=== PATIENT | female | born 1960 | race Caucasian/White ===

== ENCOUNTER 2017-09-28 07:06 | Inpatient (IN) | payer MEDICAID, SELFPAY ==
--- NOTE | 2017-09-13 13:22 | HP.PCM_ITS ---
History and Physical DATE OF SERVICE: 09/28/2017 SCHEDULED PROCEDURE: Right total hip arthroplasty HISTORY OF PRESENT ILLNESS: This is a 57-year-old female who is been having ongoing pain in the right 10-15 years. Pain is been constant, aching, sharp, stabbing, and sore. Pain is increased going up and down stairs, walking any amount of distance, sitting for extended periods of time, and driving. Patient has difficult time with activities of daily living including bathing, housework, shopping, and leisure activities. Patient has tripped stumbled and fallen secondary to the right knee. Patient feels unsafe with all activities of daily living because she feels as if her knee is going to give out. Patient has tried conservative treatment measures consisting of rest, ice, heat, and elevation with minimal relief. Patient has tried conservative measure of physical therapy with minimal relief. She has been on oral medications consisting of Tylenol with minimal relief. Patient denies any previous surgery on the right knee. She has been using a cane for over 2 years for ambulatory assistance due to the instability. Patient does have numbness and tingling into the lower extremity due to diabetic neuropathy in which she takes gabapentin. After failing conservative measures and discussing all treatment options with Dr. Story, the patient would like to proceed with a right total knee arthroplasty. Patient has a medical history pertinent for type 2 diabetes mellitus, hypertension, and thyroid disease. She has obtained surgical clearance from her primary care physician. She has undergone an EKG which does show a stable right bundle branch block. She currently denies any chest pain, shortness of breath, fevers chills, recent infections or fevers chills. REVIEW OF SYSTEMS: ROS: Const: Denies change in appetite, fever,or weight change. CV: Denies chest pain, heart murmur and irregular heartbeat. Resp: Denies cough, pneumonia, SOB, tuberculosis and wheezing. GI: Reports constipation, diarrhea and heartburn, but denies difficulty swallowing, nausea, bloody stools and vomiting. : . (F Genital Sx) Urinary: denies incontinence. Musculo: Reports leg swelling, limp, trouble walking and weakness. Skin: Denies Raynaud's, history of shingles and tattoo. Neuro: Reports difficulty with balance and numbness/tingling but denies ambulatory dysfunction, dizziness and tremor. Psych: Reports anxiety and stress, but denies insomnia. Jeffrey/Lymph: Reports bleeding/bruising tendency and past transfusion, but denies anemia. Reviewed, no changes. PAST MEDICAL HISTORY: Advance Care Plan: No Advance Directives Effective Date: 09/02/2017 PMH: Medical Problems: Arthritis, Depression, Diabetes, High Blood Pressure, Thyroid Disease Accidents: Fracture - LT ANKLE Surgical Hx: Appendectomy, Gallbladder, Hysterectomy, Tubal Ligation Anesthesia Complications: None Assistive Devices: Glasses, Dentures, Cane Reviewed, no changes. SOCIAL HISTORY: SH: Marital: .Occupation: Currently Working - [employer].Work Status: Currently Working.Hand Dominance: Right-handed. Personal Habits: Cigarette Use: Patient is a current cigarette smoker, smokes some days.Alcohol: Occasionally.Drug Use: Denies Use.Enjoy Exercising: Exercises 1-3 x/month. Reviewed, no changes. VITALS: Ht: 64.5 Wt: 262lb Wt k.843 BMI: 44.3 BP: 130/90 Pulse: 78 Resp: 16 T: 97.9 T: 36.6C ALLERGIES: Tetanus Toxoid Vaccine, Inactivated MEDICATIONS: Gabapentin 600 mg Take 1 tablet 3 times a day by oral route., Glipizide 5 mg Take 1 Tablet Twice A Day, Humalog Kwikpen 100 Unit/ML Inject 14-18 Units Subcutaneously Twice A Day With Meals, Hydrochlorothiazide 25 mg Take 1 Tablet Daily, Levothyroxine Sodium 125 mcg Take 1 Tablet Daily, Lisinopril 30 mg Take 1 Tablet Daily, Pantoprazole Sodium 40 mg Take 1 Tablet Daily, Ranitidine 150 Maximum Strength 150 mg Take 1 Tablet Daily, Toujeo Solostar 300 Unit/ML Inject 40 Units Subcutaneously Daily, Trintellix 10 mg 1po qday, Duloxetine HCL 60 mg 1 by mouth every day, Womens Multivitamin 1po qday, Tylenol Extra Strength 500 mg as needed, Aspirin 81 mg 1 by mouth every day PRE-OP EXAM: General appearance:NORMAL Other: Eyes: Conjunctivae and lids: NORMAL Pupils: ERR Ears, Nose, Mouth, and Throat: NORMAL Other: Inspection of lips, teeth and gums: NORMAL Other: Neck: Examination of neck: no masses noted. Respiratory: Assessment of respiratory effort: NORMAL Other: Ausculation of lungs: clear to ausculation no wheeses, ronchi or rales. Cardiovascular: Ausculation of heart: regular rate and rhythm, positive systolic mummur, no gallops or rubs. Exam of carotid arteries: NORMAL Other: Gastrointestinal: Exam of abdomen: soft, nontender, nondistended bowel sounds present. Lymphatic: Palpation of nodes in neck: NORMAL Other: Palpation of nodes in Axillae: NORMAL Other: Neurological: see below Psychiatric: Orientation to time, place and person: NORMAL Other: Mood and affect: NORMAL Other: PHYSICAL EXAMINATION: Patient walks with an antalgic gait. She has effusion to the right knee. Range of motion on the right knee is +15? of extension to 100? of flexion. She has tenderness to palpation over the medial lateral joint line. Patient does have valgus alignment. Sensations intact to light touch. IMAGING STUDIES: Right knee x-rays reveal severe tricompartmental osteoarthritis with valgus alignment, subchondral sclerosis, osteophyte formation, and joint space narrowing. IMPRESSION: 1. Severe right knee osteoarthritis with valgus alignment 2. Hypertension 3. Type 2 diabetes mellitus 4. Depression 5. Thyroid disease 6. History of stable right bundle branch block PLAN: Dr. Story did discuss and review with the patient all treatment options including surgical versus nonsurgical. Patient wishes to proceed with above- stated procedure. Potential risks, benefits, and complications of this procedure were discussed in detail including but not limited to , infection , nerve and blood vessel damage, persistent pain, numbness, tingling, paresthesias, blood clot, pulmonary embolism, and requirement for further surgery. The patient expressed full understanding has no further questions for the doctor. Patient does agree to proceed with the above-stated procedure and has signed the surgery consent form. Patient has obtained surgical clearance from primary care physician. She will undergo preoperative lab work. ___ I have re-examined the patient. There are no clinical changes since date of exam. ___ See progress notes for changes. ___ Dictated on admission Date: Time: Signature:
[2017-09-13 13:37] VITALS: BP 154/75; PULSE 69; RESP 16; TEMP 36.1; O2SAT 97; BMI 44.9
[2017-09-13 14:12] LABS: Absolute Lymphocyte Count 1.41 X10^3/ul (0.83-4.51); Absolute Neutrophil Count 4.5 X10^3/uL (2.0-7.7); Basophil# 0.02 X10^3/uL; Basophil% 0.3 % (0-1); Eosinophil# 0.01 X10^3/uL; Eosinophils% 0.2 % (0-5); Hematocrit 32.7 % (37-47); Hemoglobin 10.9 g/dl (12.0-15.0); Lymphocyte # 1.41 X10^3/ul (4.0); Lymphocyte % 22.2 % (19-41); Mean Corp Hgb Conc 33.3 g/gl (32-36); Mean Corpuscular Hgb 29.2 pg (27.0-32.0); Mean Corpuscular Volume 87.7 fL (81-99); Mean Platelet Vol. 11.4 fl (6.2-12.0); Monocyte# 0.41 X10^3/uL; Monocyte% 6.4 % (0-10); Neutrophil % 70.7 % (47-70); Platelet Count 196 K/mm3 (150-450); RBC Distribution Width CV 13.1 % (11.6-14.6); RBC Distribution Width SD 40.5 fl (35.1-43.9); Red Blood Count 3.73 M/mm3 (4.2-5.4); White Blood Count 6.4 K/mm3 (4.4-11.0)
[2017-09-13 14:16] LABS: POSITIVE COUNT NO; POSITIVE DIFFERENTIAL NO; POSITIVE MORPHOLOGY NO
[2017-09-13 14:28] LABS: Prothrombin Time (Protime)PT. 12.7 SECONDS (11.7-14.9)
[2017-09-13 14:29] LABS: Partial Thromboplast Time 37.7 Seconds (24.1-36.2)
[2017-09-13 14:50] LABS: AST(SGOT) 10 U/L (15-37); Alanine Aminotransfer ALT/SGPT 17 U/L (13-56); Albumin, Serum 3.5 g/dL (3.2-5.0); Alkaline Phosphatase 99 U/L (45-117); Anion Gap 7 (5-15); BUN 27 mg/dL (7-18); BUN/Creat Ratio 19.6 RATIO (10-20); Bilirubin, Direct 0.06 mg/dL (0.00-0.30); Calcium,Total 8.3 mg/dL (8.5-10.1); Chloride 105 mmol/L (98-107); Creatinine, Serum 1.38 mg/dL (0.55-1.02); EST Glomerular Filtration Rate 42 mL/min (>60); Est Glom Filt Rate - Afr Amer 50 mL/min (>60); Globulin 3.8 g/dL (2.2-4.2); Glucose 200 mg/dL (74-106); Potassium 4.2 mmol/L (3.5-5.1); Protein, Total 7.3 g/dL (6.4-8.2); Sodium Level 138 mmol/L (136-145); Thyroid Stim Hormone (TSH) 1.23 uIU/mL (0.358-3.74)
[2017-09-13 14:53] LABS: Hemoglobin A1c 6.7 % (4.2-6.3)
[2017-09-28] VITALS (16 sets, daily range): BP systolic 114–155; BP diastolic 45–89; PULSE 71–96; RESP 16–18; TEMP 36.6–36.9; O2SAT 93–99; BMI 44.9
[2017-09-28] MEDS: oxyCODONE HCl Cr 10 MG Tablet PO (07:34)
[2017-09-28] MEDS: Celecoxib 200 MG Capsule 400 MG PO (07:34)
[2017-09-28] MEDS: Acetaminophen 500 MG Tablet 1000 MG PO ×3 (07:34→22:44)
[2017-09-28] MEDS: Lactated Ringers 1,000 ML 999 ML IV ×2 (08:05→09:30)
[2017-09-28 08:51] LABS: Bedside Glucose 271 mg/dL (70-110)
[2017-09-28] MEDS: Cefazolin 2 GM in 0.9% Normal Saline 100 ML IV (09:31)
--- NOTE | 2017-09-28 09:32 | PCM.OPRPT ---
Report of Operation Date of Procedure: 09/28/17 Pre-Operative Diagnosis: Primary right knee osteoarthritis Post-Operative Diagnosis: Primary right knee osteoarthritis Surgery/Procedure Performed:: Right posterior stabilized total knee replacement Description of Surgical Findings:: Balance knee with good patella tracking field marketing manager: Herb Jimenez Type of Anesthesia:: General Anesthesiologist: Yousif Rivera Special Medications: 2 g Ancef, 1 g TXA at incision, 1 g TXA closure, 10 mg Decadron, joint cocktail (5 mg Duramorph, 30 mL of 0.5% Ropivicaine, 1000 units of epinephrine, 30 mg of Toradol) Specimen's removed: Bony cuts Estimated Blood Loss (mL): 75 Fluids Replaced: 1200 ml crystalloid Description of Procedure: Implants used: 1. [place] size 3 triathlon posterior stabilized distal femoral component 2. Nehal size 4 universal tibial baseplate 3. Nehal X3 9 mm TS polyethylene 4. Nehal X3 32 mm asymmetric patella Brief history operative indications: 57-year-old F with history of right knee osteoarthritis with radiographic findings with loss of joint space, osteophyte formation and subchondral sclerosis. Failed conservative measures as mentioned in the H&P. Discussion of total knee arthroplasty as well as risk and benefits were discussed the patient including but not limited to blood loss, DVTs, PEs, neurovascular damage, general risk of anesthesia including loss of life, and stiffness or instability were discussed with patient. Patient demonstrated understanding and was able to sign informed consent. Procedure: On the date of procedure patient's right lower extremity was marked in the preoperative area. The patient was then taken back to the operating room where the patient was placed on the table in the supine position. All bony prominences were identified a well-padded. Anesthesia assumed control of the C-spine and airway and remained controlled throughout the remainder of the procedure. A tourniquet was placed on the right upper thigh and the leg was prepped in a sterile fashion. The surgeon then scrubbed at this time. Upon reentering the room the right lower extremity was draped in a standard orthopedic fashion. A timeout was then called and everyone agreed upon the side, the site, the procedure to be performed, patient's identity and antibiotics given. Esmarch bandage was used to exsanguinate the extremity and the tourniquet was placed up to 250 mmHg with the knee in flexion. A midline skin incision was made and sharp dissection was taken down through skin subcutaneous tissue and fat. The standard medial parapatellar incision was made and the patella was subluxed laterally. The standard deep MCL release was done and the fat pad was resected. Next our attention was directed to the femur. Navigation pins were placed, navigation was registered. The distal femoral cutting block was pinned into place and 10 mm of distal femur resection was completed. The distal femoral cut was verified with navigation. The knee was then placed in deep flexion in the standard [employer] sizing guide was used to place the femoral component in 3? external rotation based on the posterior condyles. A size 3 4-in-1 cutting block was selected and pinned into place. The anterior cut was then made and checked for notching. The subsequent anterior chamfer cuts, posterior condylar cuts and posterior chamfer cuts were made while ensuring the MCL and LCL were protected. Our attention was then turned to the tibia where the navigation pins were placed, navigation was registered. mPort tibial cutting guide was used to make the appropriate tibial cut 90 degrees from the mechanical axis. Navigation was then used to verify the cut. A size 4 tibial base plate was selected. the knee was flexed to 90 degrees and the soft tissues and posterior osteophytes were removed from the joint. 40 cc of the periarticular injection was injected into the posterior medial corner of the joint. Knee was flexed and box cutting jig was pinned into place. Box cut was made in the distal femur. The appropriate trials were then placed on the femur and tibia. A trial polyethylene was trialed to ensure proper balancing and stability of the knee. Patella tracking, was then verified and corrected appropriately as needed. The appropriate tibial internal rotation was then marked with a bovie. Our attention was then directed to the patella. The patella was everted and a flat resection was made. The lug holes were drilled and the patella trial was placed. Patellar tracking was checked and deemed appropriate. Once we were happy trial components were removed. the tibia was subluxed and pinned into place and the keel was punched and the canal was reamed. Final components were verified and opened, and cement was mixed in a vacuum. Nehal Simplex cement was used. The wound was copiously irrigated with normal saline. When the cement was ready the components were cemented into place starting with the tibia, femur and finally the patella. The trial poly component was placed and the knee was placed in full extension. All excess cement was removed in the process. Once the cement had cured the tracking, alignment and balance were verified and a size 9 mm polyethylene component was placed. Once the final components were placed the wound was copiously irrigated with normal saline solution and the periarticular injection was given. The wound was closed in a layer jung fashion using #1 vicryl interrupted sutures for the arthrotomy, 2-0 interrupted Vicryl suture for the subcuticular layer and kyaw for final skin closure. A sterile compressive dressing was then placed. The patient was then awakened from anesthesia, transferred to the [facility] and transferred to the PACU for recovery. Post op plan DVT ppx: ASA 325mg, thigh high compression stockings Follow up: in office in 2 weeks for wound check PT: to start POD #0 at hospital, outpatient PT should be arranged. My physician assistant terminal manager was a vital part of this case. He was important in appropriate retraction during the case, and protection of soft tissues during bony cuts. His intimate knowledge of the case and my steps aided in safe and expedient completion of the procedure as well as appropriate position of the leg during the case. He was also vital in assisting with closure under my direct supervision. Grafts/Implants Used: Nehal triathlon - Complications None - Admit VTE Documentation VTE Present on Admission: No VTE Mechan Device Prophylaxis: SCD's, Thigh High SHAHRAM Hose VTE Pharm Prophylaxis ordered?: Yes
--- NOTE | 2017-09-28 09:36 | OP.PCM_ITS ---
Report of Operation Date of Procedure: 09/28/17 Pre-Operative Diagnosis: Primary right knee osteoarthritis Post-Operative Diagnosis: Primary right knee osteoarthritis Surgery/Procedure Performed:: Right posterior stabilized total knee replacement Description of Surgical Findings:: Balance knee with good patella tracking micropaleontologist: Herb Jimenez Type of Anesthesia:: General Anesthesiologist: Yousif Rivera Special Medications: 2 g Ancef, 1 g TXA at incision, 1 g TXA closure, 10 mg Decadron, joint cocktail (5 mg Duramorph, 30 mL of 0.5% Ropivicaine, 1000 units of epinephrine, 30 mg of Toradol) Specimen's removed: Bony cuts Estimated Blood Loss (mL): 75 Fluids Replaced: 1200 ml crystalloid Description of Procedure: Implants used: 1. [place] size 3 triathlon posterior stabilized distal femoral component 2. Nehal size 4 universal tibial baseplate 3. Nehal X3 9 mm TS polyethylene 4. Nehal X3 32 mm asymmetric patella Brief history operative indications: 57-year-old F with history of right knee osteoarthritis with radiographic findings with loss of joint space, osteophyte formation and subchondral sclerosis. Failed conservative measures as mentioned in the H&P. Discussion of total knee arthroplasty as well as risk and benefits were discussed the patient including but not limited to blood loss, DVTs, PEs, neurovascular damage , general risk of anesthesia including loss of life, and stiffness or instability were discussed with patient. Patient demonstrated understanding and was able to sign informed consent. Procedure: On the date of procedure patient's right lower extremity was marked in the preoperative area. The patient was then taken back to the operating room where the patient was placed on the table in the supine position. All bony prominences were identified a well-padded. Anesthesia assumed control of the C- spine and airway and remained controlled throughout the remainder of the procedure. A tourniquet was placed on the right upper thigh and the leg was prepped in a sterile fashion. The surgeon then scrubbed at this time. Upon reentering the room the right lower extremity was draped in a standard orthopedic fashion. A timeout was then called and everyone agreed upon the side , the site, the procedure to be performed, patient's identity and antibiotics given. Esmarch bandage was used to exsanguinate the extremity and the tourniquet was placed up to 250 mmHg with the knee in flexion. A midline skin incision was made and sharp dissection was taken down through skin subcutaneous tissue and fat. The standard medial parapatellar incision was made and the patella was subluxed laterally. The standard deep MCL release was done and the fat pad was resected. Next our attention was directed to the femur. Navigation pins were placed, navigation was registered. The distal femoral cutting block was pinned into place and 10 mm of distal femur resection was completed. The distal femoral cut was verified with navigation. The knee was then placed in deep flexion in the standard [employer] sizing guide was used to place the femoral component in 3? external rotation based on the posterior condyles. A size 3 4-in-1 cutting block was selected and pinned into place. The anterior cut was then made and checked for notching. The subsequent anterior chamfer cuts, posterior condylar cuts and posterior chamfer cuts were made while ensuring the MCL and LCL were protected. Our attention was then turned to the tibia where the navigation pins were placed , navigation was registered. [employer] tibial cutting guide was used to make the appropriate tibial cut 90 degrees from the mechanical axis. Navigation was then used to verify the cut. A size 4 tibial base plate was selected. the knee was flexed to 90 degrees and the soft tissues and posterior osteophytes were removed from the joint. 40 cc of the periarticular injection was injected into the posterior medial corner of the joint. Knee was flexed and box cutting jig was pinned into place. Box cut was made in the distal femur. The appropriate trials were then placed on the femur and tibia. A trial polyethylene was trialed to ensure proper balancing and stability of the knee. Patella tracking, was then verified and corrected appropriately as needed. The appropriate tibial internal rotation was then marked with a bovie. Our attention was then directed to the patella. The patella was everted and a flat resection was made. The lug holes were drilled and the patella trial was placed. Patellar tracking was checked and deemed appropriate. Once we were happy trial components were removed. the tibia was subluxed and pinned into place and the keel was punched and the canal was reamed. Final components were verified and opened, and cement was mixed in a vacuum. Nehal Simplex cement was used. The wound was copiously irrigated with normal saline. When the cement was ready the components were cemented into place starting with the tibia, femur and finally the patella. The trial poly component was placed and the knee was placed in full extension. All excess cement was removed in the process. Once the cement had cured the tracking, alignment and balance were verified and a size 9 mm polyethylene component was placed. Once the final components were placed the wound was copiously irrigated with normal saline solution and the periarticular injection was given. The wound was closed in a layer jung fashion using #1 vicryl interrupted sutures for the arthrotomy, 2-0 interrupted Vicryl suture for the subcuticular layer and kyaw for final skin closure. A sterile compressive dressing was then placed. The patient was then awakened from anesthesia, transferred to the [place] and transferred to the PACU for recovery. Post op plan DVT ppx: ASA 325mg, thigh high compression stockings Follow up: in office in 2 weeks for wound check PT: to start POD #0 at hospital, outpatient PT should be arranged. My physician dental laboratory assistant was a vital part of this case. He was important in appropriate retraction during the case, and protection of soft tissues during bony cuts. His intimate knowledge of the case and my steps aided in safe and expedient completion of the procedure as well as appropriate position of the leg during the case. He was also vital in assisting with closure under my direct supervision. Grafts/Implants Used: Nehal triathlon - Complications None - Admit VTE Documentation VTE Present on Admission: No VTE Mechan Device Prophylaxis: SCD's, Thigh High SHAHRAM Hose VTE Pharm Prophylaxis ordered?: Yes
--- NOTE | 2017-09-28 11:55 | RAD_ITS ---
STUDY: X-RAY - RIGHT KNEE REASON FOR EXAM: Female, 57 years old. Total knee replacement. TECHNIQUE: Single frontal view(s) of the knee. COMPARISON: None. FINDINGS: Normal visualized distal femur. Normal visualized proximal tibia and fibula. Normal proximal tibiofibular articulation. The patient is status post total knee replacement of the restraint type. Postoperative soft tissue changes. RAD/Knee 1 or 2 Views IMPRESSION: Status post total knee replacement of the restrained type. Electronically Signed: Cliff Griffith MD at 14:15 EST Tel [phone], Service support ,
[2017-09-28 11:56] LABS: Bedside Glucose 278 mg/dL (70-110)
--- NOTE | 2017-09-28 12:15 | PCM.CONS.GEN ---
Problem List (1) Hypothyroidism Status: Chronic Qualifiers: Hypothyroidism type: unspecified Qualified Code(s): E03.9 - Hypothyroidism, unspecified (2) Hypertension Status: Chronic Qualifiers: Hypertension type: renovascular hypertension Qualified Code(s): I15.0 - Renovascular hypertension (3) Hyperlipidemia Status: Chronic Qualifiers: Hyperlipidemia type: unspecified Qualified Code(s): E78.5 - Hyperlipidemia, unspecified (4) Diabetes mellitus, type II Status: Chronic Qualifiers: Diabetes mellitus complication status: with unspecified complications Diabetes mellitus custodial insulin use: with assistant terminal manager use Qualified Code(s): E11.8 - Type 2 diabetes mellitus with unspecified complications; Z79.4 - MCFP (current) use of insulin (5) Morbid obesity with BMI of 40.0-44.9, adult Status: Chronic (6) Anxiety and depression Status: Chronic (7) GERD (gastroesophageal reflux disease) Status: Chronic Qualifiers: Esophagitis presence: esophagitis presence not specified Qualified Code(s): K21.9 - Gastro-esophageal reflux disease without esophagitis (8) Neuropathy Status: Chronic (9) Osteoarthritis Status: Chronic Qualifiers: Osteoarthritis location: knee Osteoarthritis type: primary Laterality: right Qualified Code(s): M17.11 - Unilateral primary osteoarthritis, right knee (10) Tobacco use Status: Chronic Reason for Consult Date of Consultation: 09/28/17 Reason for Consultation: Medical management. History of Present Illness: The patient is a 57 y/o F w/ PMHx: Tobacco use, Hypothyroidism, Hypertension, Hyperlipidemia, Diabetes mellitus type II w/ Neuropathy, Morbid obesity, Anxiety and depression, GERD who presents to the [facility] on 09/28/17 for planned R TKR per Dr. Story secondary to history of primary R knee osteoarthritis, failed conservative and outpatient interventions with ongoing pain. Patient post-operatively had notable pain, was given notable narcotic regimen in the PACU and following per [facility] staff was somnolent. Since, she is more alert, upright in bed, eating jello. She notes lumbar back discomfort, improved with re-positioning, requesting to move to the chair. Past Medical History Past Medical History (Chronic Problems): Chronic Problems Hypothyroidism (Chronic) Hypertension (Chronic) Hyperlipidemia (Chronic) Diabetes mellitus, type II (Chronic) Morbid obesity with BMI of 40.0-44.9, adult (Chronic) Anxiety and depression (Chronic) GERD (gastroesophageal reflux disease) (Chronic) Neuropathy (Chronic) Osteoarthritis (Chronic) Tobacco use (Chronic) Allergies Tetanus Vaccines and Toxoid [Tetanus Vaccines & Toxoid] Allergy (Verified 09/13/17 13:09) Other Home Medications: Ambulatory Orders Medication Instructions Recorded Acetaminophen [Tylenol Extra 500 mg PO PRN PRN 09/13/17 Strength] Aspirin E.C. [Ecotrin] 81 mg PO DAILY@0800 09/13/17 Duloxetine Hcl [Cymbalta] 60 mg PO DAILY 09/13/17 Gabapentin [Gralise] 600 mg PO TID 09/13/17 Glipizide 5 mg PO BID 09/13/17 Hydrochlorothiazide [Hctz] 25 mg PO DAILY 09/13/17 Insulin Glargine,Hum.rec.anlog 45 unit SQ QHS 09/13/17 [Toujeo Solostar] Insulin Lispro [Humalog KwikPen] 25 unit SQ BID 09/13/17 Levothyroxine Sodium 125 mcg PO DAILY 09/13/17 Lisinopril [Zestril] 30 mg PO DAILY 09/13/17 Multivit with Calcium,Iron,Min 1 each PO QHS 09/13/17 [Multiple Vitamins For Women] Pantoprazole Sodium [Protonix] 40 mg PO DAILY 09/13/17 Ranitidine HCl 150 mg PO QHS 09/13/17 Vortioxetine Hydrobromide 10 mg PO DAILY 09/13/17 [Brintellix] Surgical History: - - Appendectomy, Gallbladder, Hysterectomy, Tubal Ligation. 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 Tobacco Use: Cigarettes Alcohol: None Drugs: None - *Family History Maternal History Items: Hypertension Paternal History Items: Hypertension Review of Systems Constitutional: Reports: Malaise, Weakness, Fatigue. Denies: Chills, Fever, Weight Change HEENT: Denies: Head Aches, Sinus Congestion, Sinus Drainage Cardiovascular: Denies: Chest Pain, Palpitations Respiratory: Denies: Cough, Shortness of breath at rest, Sputum production Gastrointestinal: Denies: Abdominal Pain, Nausea, Vomiting Genitourinary: Denies: Dysuria Musculoskeletal: Reports: Back Pain, Joint stiffness, Joint swelling, Joint Tenderness, Leg Pain. Denies: Joint Pain Skin: Denies: Rash, Wounds Neurological: Denies: Numbness, Tingling, Focal weakness Psychiatric: Reports: Depression. Denies: Anxiety, Homicidal Ideations, Suicidal Ideations Hematologic/ Lymphatic: Denies: Easy Bruising, Easy Bleeding Subjective: Seated upright in the bed, fatigued, notes lower back pain. Objective: Physical Examination: General: awake, alert, oriented x 3 and cooperative, seated upright in bed, uncomfortable. Skin: normal color, turgor, no icterus, cyanosis, RLE s/p R TKR w/ dressing/ice in place, no drainage. HEENT: AT/NC, EOMI, PERRLA, mildly dry MM, no carotid bruits or JVD noted. Lungs: Diminished BS BL, > bases, mild effort, no rales, ronchi or wheezing. Heart: Regular rate and rhythm; no gallop, rub audible. Abdomen: soft, morbidly obese, NTTP, ND, normal BS, no HSM; however, habitus makes examination difficult. Extremities: no cyanosis, clubbing, s/p R TKR, dressing/ice in place, peripheral pulses intact, mild ankle edema. Neurological: patient awake, alert, oriented x 3; cognitive function intact; pupils equally reactive to light and accomodation; cranial nerves II-XII grossly normal, moving all 4 extremities although expected limitation RLE s/p recent R TKR, strength accordingly severely globally decreased. Psychiatric: affect appears normal, no acute evidence of depressive or anxiety feelings. - Physical Exam Vital Signs Temp Pulse Resp BP Pulse Ox 98.5 F 94 16 114/51 L 98 09/28/17 11:49 09/28/17 11:49 09/28/17 11:49 09/28/17 11:49 09/28/17 11:49 Oxygen Flow Rate 4 Oxygen Delivery Method Nasal Cannula Weight: 265 lb 14.04 oz Body Mass Index (BMI) 44.9 POC Glucose 09/28/17 09/28/17 11:52 07:40 POC Glucose 278 H 271 H Assessment/Plan The patient is a 57 y/o F w/ PMHx: Tobacco use, Hypothyroidism, Hypertension, Hyperlipidemia, Diabetes mellitus type II w/ Neuropathy, Morbid obesity, Anxiety and depression, GERD who presents to the [facility] on 09/28/17 for planned R TKR per Dr. Story secondary to history of primary R knee osteoarthritis. (1) Severe Osteoarthritis, Right knee: Failed conservative therapies and treatments, admitted per Dr. Story for planned 09/28/17 R TKR, post-operative pain management, bowel regimen, DVT Prophylaxis, PT/OT/CM per Orthopedic surgery discretion. (2) Diabetes mellitus type II w/ Neuropathy: Hold oral home regimen, continue home insulin regimen, ADA diet, accu checks w/ ISS, continue home gabapentin regimen. (3) Hypertension: Continue home regimen including chlorothiazide, lisinopril, PRN hydralazine. (4) Hyperlipidemia: Not on regimen, defer to outpatient. (5) Hypothyroidism: Continue home synthroid regimen. (6) Anxiety and Depression: Continue home psychiatric regime including cymbalta, brintellix. (7) Morbid Obesity: Weight loss and lifestyle changes encouraged, nutrition consulted. (8) Tobacco Abuse: Encouraged cessation, inpatient consultation per RT, NR if desired. (9) GERD: PPI. (10) DVT Prophylaxis: SCDs, 325 mg BID ASA per Orthopedic surgery discretion. Code Visit Office Visits / Consults: [id number] IP Consult L4
--- NOTE | 2017-09-28 13:12 | NURSING ---
PT RESTS COMFORTABLY WITH EVEN RESP BUT REPORTS PAIN WHEN AWAKENED, AWARE AWAITING NERVE BLOCK FROM ANESTHESIA.
[2017-09-28] MEDS: Lactated Ringers 1,000 ML 125 ML IV ×3 (13:23→23:11)
[2017-09-28] MEDS: hydroCHLOROthiazide 25 MG Tablet PO (16:23)
[2017-09-28] MEDS: Aspirin 325 MG Tablet PO (16:23)
[2017-09-28] MEDS: Scopolamine 1mg/72hr Patch 1 PATCH TD (16:25)
[2017-09-28] MEDS: Glucerna Shake 120 ML LIQUID PO (16:28)
[2017-09-28 17:06] LABS: Magnesium 1.7 mg/dL (1.6-2.6)
[2017-09-28] MEDS: Cefazolin 1 GM/50 ML BAG IV (17:10)
[2017-09-28 17:16] LABS: Bedside Glucose 349 mg/dL (70-110)
[2017-09-28] MEDS: Famotidine 20 MG Tablet PO (22:43)
[2017-09-28] MEDS: Senna/Docusate Sodium 1 Tablet 2 TABLET PO (22:43)
[2017-09-28] MEDS: oxyCODONE 5 MG Tablet PO (22:43)
[2017-09-28] MEDS: Multivitamins,Ther W-Minerals Tablet 1 TABLET PO (22:44)
[2017-09-28] MEDS: Gabapentin 600 MG Tablet PO (22:52)
[2017-09-28 23:16] LABS: Bedside Glucose 266 mg/dL (70-110)
[2017-09-29] MEDS: Cefazolin 1 GM/50 ML BAG IV (01:24)
[2017-09-29] MEDS: 0.9% NaCl Peripheral Flush Adult/Peds IV ×5 (04:53→20:09)
[2017-09-29 04:58] VITALS: BP 144/61; PULSE 82; RESP 18; TEMP 36.8; O2SAT 97
[2017-09-29 05:01] VITALS: PULSE 66
[2017-09-29] MEDS: Acetaminophen 500 MG Tablet 1000 MG PO ×3 (05:07→21:54)
[2017-09-29] MEDS: Gabapentin 600 MG Tablet PO ×3 (05:07→21:53)
[2017-09-29] MEDS: Levothyroxine 125 MCG Tablet PO (05:08)
[2017-09-29 06:59] LABS: Hematocrit 25.3 % (37-47); Hemoglobin 8.3 g/dl (12.0-15.0); Mean Corp Hgb Conc 32.8 g/gl (32-36); Mean Corpuscular Volume 88.5 fL (81-99); Mean Platelet Vol. 11.3 fl (6.2-12.0); Platelet Count 158 K/mm3 (150-450); RBC Distribution Width CV 12.8 % (11.6-14.6); RBC Distribution Width SD 39.8 fl (35.1-43.9); Red Blood Count 2.86 M/mm3 (4.2-5.4); White Blood Count 10.5 K/mm3 (4.4-11.0)
[2017-09-29 07:01] LABS: Bedside Glucose 229 mg/dL (70-110)
[2017-09-29 07:01] LABS: Scan Indicated on CBC? Y/N NO
--- NOTE | 2017-09-29 07:10 | PCM.PN.ORT ---
Subjective: The patient was sitting in bedside chair upon examination. Patient denies any chest pain, shortness of breath, dizziness, lightheadedness, nausea or vomiting, or calf pain. Pain is controlled on medications. No adverse overnight events. Overall patient is doing well and has been up walking with pain being well controlled. Patient does wish to go home today. Objective: Vital signs stable and afebrile. Patient is able to plantarflex and dorsiflex actively. Sensation is intact to light touch to saphenous, sural, superficial and deep peroneal, and tibial distribution. Dressing is clean dry and intact. Negative Homans bilaterally, negative signs and symptoms of DVT. - Physical Exam General: Alert, Oriented x3, Cooperative, No apparent distress Vital Signs Temp Pulse Resp BP Pulse Ox 98.3 F 66 18 144/61 H 97 09/29/17 04:58 09/29/17 05:01 09/29/17 04:58 09/29/17 04:58 09/29/17 04:58 Oxygen Flow Rate 2 Oxygen Delivery Method Room Air Weight: 120.6 kg Body Mass Index (BMI) 44.9 Finger Stick Blood Glucose 278 Intake and Output for Last 24 Hours 09/27/17 09/28/17 09/29/17 23:59 23:59 23:59 Intake Total 5226 / 5226 1306 / 1306 Output Total 650 / 650 Balance 5226 / 5226 656 / 656 Laboratory Tests Past 24 Hrs 09/28/17 09/29/17 09/29/17 16:22 06:42 06:42 WBC 10.5 RBC 2.86 L Hgb 8.3 L Hct 25.3 L MCV 88.5 MCH 29.0 MCHC 32.8 RDW 12.8 RDW Differential 39.8 Plt Count 158 MPV 11.3 Sodium Pending Potassium Pending Chloride Pending Carbon Dioxide Pending Anion Gap Pending BUN Pending Creatinine Pending Est GFR (MDRD) Af Amer Pending Est GFR (MDRD) Non-Af Pending BUN/Creatinine Ratio Pending Glucose Pending Calcium Pending Magnesium 1.7 POC Glucose 09/29/17 09/28/17 09/28/17 06:56 22:35 17:07 POC Glucose 229 H 266 H 349 H 09/28/17 09/28/17 11:52 07:40 POC Glucose 278 H 271 H Assessment/Plan 1. S/P right total knee arthroplasty POD #1 2. Continue Pain Medications: Tylenol and OxyIR 3. DVT Prophylaxis: Aspirin 325 mg twice daily 4. PT/OT: Venous tolerated 5. H & H: 8.3/25.3, asymptomatic 6. Encouraged Incentive Spirometry 7. Continue postoperative medical management per medicine: Plan will be for discharge as long as medically cleared 8. Disposition: Plan will be for possible discharge home today if pain is controlled and patient tolerates physical therapy. Prescriptions will be E scribed to [facility]. Patient will follow-up per postop instructions.
--- NOTE | 2017-09-29 07:19 | PCM.DC.TKR ---
Discharge Diet: 1800 Calorie Control Diet Discharge Activity: May Not Drive May shower in (days): 1 - Turned dressing away from water Ice area for (Minutes): 20 - every hour while awake. Weight Bearing Status: Weight bearing as tolerated Elevate: Operative Extremity Additional Activity Instructions:: Wear elastic stockings for 2 weeks after your surgery. Call your doctor if your incision/area has: Continuous Slow Oozing, Sudden Increased Bleeding, Increased Pain/ Swelling, Increased Redness, Foul Smelling Discharge Call your doctor if you observe: Fever of 101 or Higher, Coldness, Increased Pain, Numbness or Tingling, Change in Color, Calf discomfort, Uncontrolled pain Remove Dressing in (days):: 4 - Okay to remove on October 03, 2017 Additional Instructions: Follow [place] orthopedic postop instructions Do not take 81 mg aspirin while taking regular dose 325 mg aspirin, continue with ranitidine and Protonix at home Allergies/Adverse Reactions: Allergies Tetanus Vaccines and Toxoid [Tetanus Vaccines & Toxoid] Allergy (Verified 09/13/17 13:09) Other Medications to take at Discharge Duloxetine Hcl [Cymbalta] 60 mg PO DAILY 09/13/17 Glipizide 5 mg PO BID 09/13/17 Hydrochlorothiazide [Hctz] 25 mg PO DAILY 09/13/17 Insulin Glargine,Hum.rec.anlog [[place]ouhawko Soljeremiasar] 45 unit SQ QHS 09/13/17 Insulin Lispro [Humalog KwikPen] 25 unit SQ BID 09/13/17 Levothyroxine Sodium 125 mcg PO DAILY 09/13/17 Lisinopril [Zestril] 30 mg PO DAILY 09/13/17 Multivit with Calcium,Iron,Min [Multiple Vitamins For Women] 1 each PO QHS 09/13/17 Pantoprazole Sodium [Protonix] 40 mg PO DAILY 09/13/17 Ranitidine HCl 150 mg PO QHS 09/13/17 Vortioxetine Hydrobromide [Trintellix] 10 mg PO DAILY 09/13/17 Gabapentin [Neurontin] 600 mg PO TIDCM 09/28/17 Acetaminophen [Tylenol] 1,000 mg PO Q8 #90 tab 09/29/17 Aspirin 325 mg PO BIDCM #30 tab 09/29/17 Oxycodone [Oxyir] 5 - 10 mg PO Q4H PRN PRN 7 Days #80 tablet 09/29/17 Senna/Docusate Sodium [Senokot-S] 2 tab PO BID #20 tab 09/29/17 The following prescriptions were given: Oxycodone [Oxyir] 5 - 10 mg PO Q4H PRN PRN 7 Days #80 tablet PRN Reason: Mod-Severe Pain (4-05/11) Acetaminophen [Tylenol] 1,000 mg PO Q8 #90 tab Aspirin 325 mg PO BIDCM #30 tab Senna/Docusate Sodium [Senokot-S] 2 tab PO BID #20 tab Primary Care Physician: Saurabh Marcelo DO [Primary Care Provider] - Please Follow Up With: [facility] When: 10/04/17 @ 3:30 pm Please Follow Up With: Herb Jimenez PA-C When: 10/11/17 @ 3:30 pm
[2017-09-29 07:26] LABS: Anion Gap 10 (5-15); BUN 40 mg/dL (7-18); BUN/Creat Ratio 25.5 RATIO (10-20); Chloride 102 mmol/L (98-107); Creatinine, Serum 1.57 mg/dL (0.55-1.02); EST Glomerular Filtration Rate 36 mL/min (>60); Est Glom Filt Rate - Afr Amer 43 mL/min (>60); Estimated Creatinine Clearance 33.32 ml/min; Glucose 231 mg/dL (74-106); Potassium 4.7 mmol/L (3.5-5.1); Sodium Level 135 mmol/L (136-145)
[2017-09-29] MEDS: Aspirin 325 MG Tablet PO ×2 (07:32→17:52)
[2017-09-29] MEDS: Glucerna Shake 120 ML LIQUID PO (07:38)
[2017-09-29] MEDS: oxyCODONE 5 MG Tablet PO ×4 (09:13→21:53)
[2017-09-29] MEDS: Pantoprazole Sodium 40 MG Tablet PO (09:15)
[2017-09-29] MEDS: DULoxetine Hcl 60 MG Capsule PO (09:15)
[2017-09-29] MEDS: Senna/Docusate Sodium 1 Tablet 2 TABLET PO ×2 (09:15→21:54)
[2017-09-29] MEDS: Lisinopril 10 MG Tablet 30 MG PO (09:15)
[2017-09-29] MEDS: hydroCHLOROthiazide 25 MG Tablet PO (09:15)
[2017-09-29 09:50] VITALS: BP 120/60; PULSE 78; RESP 20; TEMP 36.8; O2SAT 98
--- NOTE | 2017-09-29 10:02 | PCM.PN.HOSP ---
Subjective: Patient with no acute events overnight per self and per nursing report. She notes pain is much more controlled than day prior and she is up ambulating with therapies. Per her discussions with orthopedic service and patient improvement patient plans to discharge to home with outpatient therapies today. Reviewed labs with patient and discuss possibility of underlying chronic kidney disease at length with decision for hydration prior to discharge and close follow-up with primary care physician with repeat renal function. Patient denies fevers, chills, nausea, emesis, abdominal pain, chest pain or dyspnea. Objective: Physical Examination: General: awake, alert, oriented x 3 and cooperative, seated upright, also seen walking in the halls with PT/OT with walker, improved, pain improved. Skin: normal color, turgor, no icterus, cyanosis, RLE s/p R TKR w/ dressing/ice in place, no drainage. HEENT: AT/NC, EOMI, PERRLA, MMM. Lungs: Diminished BS BL, > bases, mild effort, no rales, ronchi or wheezing. Heart: Regular rate and rhythm; no gallop, rub audible. Abdomen: soft, morbidly obese. Extremities: no cyanosis, clubbing, s/p R TKR, dressing/ice in place, peripheral pulses intact, mild ankle edema. Neurological: patient awake, alert, oriented x 3; cognitive function intact; cranial nerves II-XII grossly normal, moving all 4 extremities, strength markedly improved, moderately globally decreased. Psychiatric: affect appears normal, no acute evidence of depressive or anxiety feelings. Vitals/I&O's: Vital Signs Temp Pulse Resp BP Pulse Ox 98.3 F 66 18 144/61 H 97 09/29/17 04:58 09/29/17 05:01 09/29/17 04:58 09/29/17 04:58 09/29/17 04:58 Oxygen Flow Rate 2 Oxygen Delivery Method Room Air Weight: 265 lb 14.04 oz Body Mass Index (BMI) 44.9 Finger Stick Blood Glucose 278 Intake and Output for Last 24 Hours 09/27/17 09/28/17 09/29/17 23:59 23:59 23:59 Intake Total 5226 / 5226 1306 / 1306 Output Total 650 / 650 Balance 5226 / 5226 656 / 656 Laboratory Results 09/28/17 11:52: POC Glucose 278 H 09/28/17 16:22: Magnesium 1.7 09/28/17 17:07: POC Glucose 349 H 09/28/17 22:35: POC Glucose 266 H 09/29/17 06:42: WBC 10.5, RBC 2.86 L, Hgb 8.3 L, Hct 25.3 L, MCV 88.5, MCH 29.0, MCHC 32.8, RDW 12.8, RDW Differential 39.8, Plt Count 158, MPV 11.3 09/29/17 06:42: Sodium 135 L, Potassium 4.7, Chloride 102, Carbon Dioxide 23.0, Anion Gap 10, BUN 40 H, Creatinine 1.57 H, Estim Creat Clear Calc 33.32, Est GFR (MDRD) Af Amer 43 L, Est GFR (MDRD) Non-Af 36 L, BUN/Creatinine Ratio 25.5 H, Glucose 231 H, Calcium 8.0 L 09/29/17 06:56: POC Glucose 229 H Current Medications Acetaminophen (Tylenol) 1,000 mg PO Q8 [facility] Last Admin: 09/29/17 05:07 Dose: 1,000 mg Aspirin (Aspirin) 325 mg PO BIDCM [facility] Last Admin: 09/29/17 07:32 Dose: 325 mg Dextrose (D50w Syringe) 0 gm IV X1 PRN; Protocol PRN Reason: Hypoglycemia Duloxetine HCl (Cymbalta) 60 mg PO DAILY [facility] Last Admin: 09/29/17 09:15 Dose: 60 mg Famotidine (Pepcid) 20 mg PO QHS [facility] Last Admin: 09/28/17 22:43 Dose: 20 mg Gabapentin (Neurontin) 600 mg PO TID [facility] Last Admin: 09/29/17 05:07 Dose: 600 mg Glipizide (Glucotrol) 5 mg PO BIDAC [facility] Last Admin: 09/29/17 07:32 Dose: 5 mg Glucagon () 1 mg IM .X1 PRN PRN Reason: Hypoglycemia Hydralazine HCl (Apresoline) 10 mg IV Q4H PRN PRN PRN Reason: SBP > 160 Hydrochlorothiazide (Hctz) 25 mg PO DAILY [facility] Last Admin: 09/29/17 09:15 Dose: 25 mg Insulin Aspart (Novolog Flexpen (Bkc)) 25 units SC BIDAC [facility] Last Admin: 09/29/17 07:32 Dose: 25 units Insulin Aspart (Novolog Flexpen ([facility])) 0 units SC ACHS [facility] PRN Reason: Protocol Last Admin: 09/29/17 07:31 Dose: Not Given Insulin Detemir (Levemir ([facility])) 45 units SC QHS [facility] Last Admin: 09/28/17 22:44 Dose: 45 units Ketorolac Tromethamine (Toradol) 15 mg IV Q6H PRN PRN PRN Reason: MILD-MOD PAIN (1-5/10) Levothyroxine Sodium (Synthroid) 125 mcg PO DAILY@0600 [facility] Last Admin: 09/29/17 05:08 Dose: 125 mcg Lisinopril (Zestril) 30 mg PO DAILY [facility] Last Admin: 09/29/17 09:15 Dose: 30 mg Morphine Sulfate (Morphine) 2 - 4 mg IV Q2H PRN PRN PRN Reason: SEVERE PAIN (6-10/10) Morphine Sulfate (Morphine) 2 - 4 mg IV Q2H PRN PRN PRN Reason: SEVERE PAIN (6-10/10) Multivitamins/Minerals (Multivitamin With Minerals) 1 tablet PO QHS [facility] Last Admin: 09/28/17 22:44 Dose: 1 tablet Non-Formulary Medication (Vortioxetine Hydrobromide [Trintellix]) 10 mg PO DAILY [facility] Nutritional Formula (Lactose Free) (Glucerna Shake) 120 ml PO TIDCM [facility] Last Admin: 09/29/17 07:38 Dose: 120 ml Ondansetron HCl (Zofran) 4 mg IV Q8H PRN PRN PRN Reason: NAUSEA Oxycodone HCl (Oxyir) 5 - 10 mg PO Q4H PRN PRN PRN Reason: MOD-SEVERE PAIN (4-10/10) Last Admin: 09/29/17 09:13 Dose: 10 mg Pantoprazole Sodium (Protonix) 40 mg PO DAILY [facility] Last Admin: 09/29/17 09:15 Dose: 40 mg Promethazine HCl (Phenergan (Ll)) 12.5 mg IM Q6H PRN PRN; Protocol PRN Reason: NAUSEA/VOMITING Senna/Docusate Sodium (Senokot-S, Susanna-Colace) 2 tablet PO BID [facility] Last Admin: 09/29/17 09:15 Dose: 2 tablet Sodium Chloride () 5 - 30 ml IV UD PRN PRN Reason: SALINE FLUSH Last Admin: 09/29/17 04:53 Dose: 10 ml Assessment/Plan The patient is a 57 y/o F w/ PMHx: Tobacco use, Hypothyroidism, Hypertension, Hyperlipidemia, Diabetes mellitus type II w/ Neuropathy, Morbid obesity, Anxiety and depression, GERD who presents to the [facility] on 09/28/17 for planned R TKR per Dr. Story secondary to history of primary R knee osteoarthritis. (1) Severe Osteoarthritis, Right knee: Failed conservative therapies and treatments, admitted per Dr. Story for planned 09/28/17 R TKR, post-operative pain management, bowel regimen, DVT Prophylaxis, PT/OT/CM per Orthopedic surgery discretion. Noted intention for discharge to home without patient therapies 09/29/17; however, do note mild renal function changes, possibly chronic as noted abnormal on PAT. Will administer 1L NS and advise repeat BMP testing with medication alterations as needed upon PCP re-evaluation. (2) CKD stage III versus KALEE: Patient renal function upon initial testing noted w/ BUN/Cr 27/1.38 09/13/17, thus suspect chronic component especially with co-morbidities, maintained on hydrochlorothiazide, lisinopril regimen, 09/29/17 BUN/Cr 40/1.57, again unclear baseline prior to 09/13/17 check, thus will administer 1L NS and given patient insistence on discharge to home advise repeat BMP with PCP and consideration hold on current noted regimen. May need change to alternate regimen if appropriate. (3) Diabetes mellitus type II w/ Neuropathy: Hold oral home regimen, continue home insulin regimen, ADA diet, accu checks w/ ISS, continue home gabapentin regimen. (4) Hypertension: Continue home regimen including hydrochlorothiazide, lisinopril, PRN hydralazine. (5) Hyperlipidemia: Not on regimen, defer to outpatient. (6) Hypothyroidism: Continue home synthroid regimen. (7) Anxiety and Depression: Continue home psychiatric regime including cymbalta, brintellix. (8) Morbid Obesity: Weight loss and lifestyle changes encouraged, nutrition consulted. (9) Tobacco Abuse: Encouraged cessation, inpatient consultation per RT, NR if desired. (10) GERD: PPI. (11) DVT Prophylaxis: SCDs, 325 mg BID ASA per Orthopedic surgery discretion. Code Visit Inpatient E&M: 09955 Subs Hosp L2
--- NOTE | 2017-09-29 10:07 | PN_ITS ---
Subjective: Patient with no acute events overnight per self and per nursing report. She notes pain is much more controlled than day prior and she is up ambulating with therapies. Per her discussions with orthopedic service and patient improvement patient plans to discharge to home with outpatient therapies today. Reviewed labs with patient and discuss possibility of underlying chronic kidney disease at length with decision for hydration prior to discharge and close follow-up with primary care physician with repeat renal function. Patient denies fevers, chills, nausea, emesis, abdominal pain, chest pain or dyspnea. Objective: Physical Examination: General: awake, alert, oriented x 3 and cooperative, seated upright, also seen walking in the halls with PT/OT with walker, improved, pain improved. Skin: normal color, turgor, no icterus, cyanosis, RLE s/p R TKR w/ dressing/ice in place, no drainage. HEENT: AT/NC, EOMI, PERRLA, MMM. Lungs: Diminished BS BL, > bases, mild effort, no rales, ronchi or wheezing. Heart: Regular rate and rhythm; no gallop, rub audible. Abdomen: soft, morbidly obese. Extremities: no cyanosis, clubbing, s/p R TKR, dressing/ice in place, peripheral pulses intact, mild ankle edema. Neurological: patient awake, alert, oriented x 3; cognitive function intact; cranial nerves II-XII grossly normal, moving all 4 extremities, strength markedly improved, moderately globally decreased. Psychiatric: affect appears normal, no acute evidence of depressive or anxiety feelings. Vitals/I&O's: Vital Signs Temp Pulse Resp BP Pulse Ox 98.3 F 66 18 144/61 H 97 09/29/17 04:58 09/29/17 05:01 09/29/17 04:58 09/29/17 04:58 09/29/17 04:58 Oxygen Flow Rate 2 Oxygen Delivery Method Room Air Weight: 265 lb 14.04 oz Body Mass Index (BMI) 44.9 Finger Stick Blood Glucose 278 Intake and Output for Last 24 Hours 09/27/17 09/28/17 09/29/17 23:59 23:59 23:59 Intake Total 5226 / 5226 1306 / 1306 Output Total 650 / 650 Balance 5226 / 5226 656 / 656 Laboratory Results 09/28/17 11:52: POC Glucose 278 H 09/28/17 16:22: Magnesium 1.7 09/28/17 17:07: POC Glucose 349 H 09/28/17 22:35: POC Glucose 266 H 09/29/17 06:42: WBC 10.5, RBC 2.86 L, Hgb 8.3 L, Hct 25.3 L, MCV 88.5, MCH 29.0 , MCHC 32.8, RDW 12.8, RDW Differential 39.8, Plt Count 158, MPV 11.3 09/29/17 06:42: Sodium 135 L, Potassium 4.7, Chloride 102, Carbon Dioxide 23.0, Anion Gap 10, BUN 40 H, Creatinine 1.57 H, Estim Creat Clear Calc 33.32, Est GFR (MDRD) Af Amer 43 L, Est GFR (MDRD) Non-Af 36 L, BUN/Creatinine Ratio 25.5 H , Glucose 231 H, Calcium 8.0 L 09/29/17 06:56: POC Glucose 229 H Current Medications Acetaminophen (Tylenol) 1,000 mg PO Q8 [facility] Last Admin: 09/29/17 05:07 Dose: 1,000 mg Aspirin (Aspirin) 325 mg PO BIDCM [facility] Last Admin: 09/29/17 07:32 Dose: 325 mg Dextrose (D50w Syringe) 0 gm IV X1 PRN; Protocol PRN Reason: Hypoglycemia Duloxetine HCl (Cymbalta) 60 mg PO DAILY [facility] Last Admin: 09/29/17 09:15 Dose: 60 mg Famotidine (Pepcid) 20 mg PO QHS [facility] Last Admin: 09/28/17 22:43 Dose: 20 mg Gabapentin (Neurontin) 600 mg PO TID [facility] Last Admin: 09/29/17 05:07 Dose: 600 mg Glipizide (Glucotrol) 5 mg PO BIDAC [facility] Last Admin: 09/29/17 07:32 Dose: 5 mg Glucagon () 1 mg IM .X1 PRN PRN Reason: Hypoglycemia Hydralazine HCl (Apresoline) 10 mg IV Q4H PRN PRN PRN Reason: SBP > 160 Hydrochlorothiazide (Hctz) 25 mg PO DAILY [facility] Last Admin: 09/29/17 09:15 Dose: 25 mg Insulin Aspart (Novolog Flexpen (Bkc)) 25 units SC BIDAC [facility] Last Admin: 09/29/17 07:32 Dose: 25 units Insulin Aspart (Novolog Flexpen ([facility])) 0 units SC ACHS [facility] PRN Reason: Protocol Last Admin: 09/29/17 07:31 Dose: Not Given Insulin Detemir (Levemir ([facility])) 45 units SC QHS [facility] Last Admin: 09/28/17 22:44 Dose: 45 units Ketorolac Tromethamine (Toradol) 15 mg IV Q6H PRN PRN PRN Reason: MILD-MOD PAIN (1-5/10) Levothyroxine Sodium (Synthroid) 125 mcg PO DAILY@0600 [facility] Last Admin: 09/29/17 05:08 Dose: 125 mcg Lisinopril (Zestril) 30 mg PO DAILY [facility] Last Admin: 09/29/17 09:15 Dose: 30 mg Morphine Sulfate (Morphine) 2 - 4 mg IV Q2H PRN PRN PRN Reason: SEVERE PAIN (6-10/10) Morphine Sulfate (Morphine) 2 - 4 mg IV Q2H PRN PRN PRN Reason: SEVERE PAIN (6-10/10) Multivitamins/Minerals (Multivitamin With Minerals) 1 tablet PO QHS [facility] Last Admin: 09/28/17 22:44 Dose: 1 tablet Non-Formulary Medication (Vortioxetine Hydrobromide [Trintellix]) 10 mg PO DAILY [facility] Nutritional Formula (Lactose Free) (Glucerna Shake) 120 ml PO TIDCM [facility] Last Admin: 09/29/17 07:38 Dose: 120 ml Ondansetron HCl (Zofran) 4 mg IV Q8H PRN PRN PRN Reason: NAUSEA Oxycodone HCl (Oxyir) 5 - 10 mg PO Q4H PRN PRN PRN Reason: MOD-SEVERE PAIN (4-10/10) Last Admin: 09/29/17 09:13 Dose: 10 mg Pantoprazole Sodium (Protonix) 40 mg PO DAILY [facility] Last Admin: 09/29/17 09:15 Dose: 40 mg Promethazine HCl (Phenergan (Ll)) 12.5 mg IM Q6H PRN PRN; Protocol PRN Reason: NAUSEA/VOMITING Senna/Docusate Sodium (Senokot-S, Susanna-Colace) 2 tablet PO BID [facility] Last Admin: 09/29/17 09:15 Dose: 2 tablet Sodium Chloride () 5 - 30 ml IV UD PRN PRN Reason: SALINE FLUSH Last Admin: 09/29/17 04:53 Dose: 10 ml Assessment/Plan The patient is a 57 y/o F w/ PMHx: Tobacco use, Hypothyroidism, Hypertension, Hyperlipidemia, Diabetes mellitus type II w/ Neuropathy, Morbid obesity, Anxiety and depression, GERD who presents to the [facility] on 09/28/17 for planned R TKR per Dr. Story secondary to history of primary R knee osteoarthritis. (1) Severe Osteoarthritis, Right knee: Failed conservative therapies and treatments, admitted per Dr. Story for planned 09/28/17 R TKR, post-operative pain management, bowel regimen, DVT Prophylaxis, PT/OT/CM per Orthopedic surgery discretion. Noted intention for discharge to home without patient therapies 09/29/17; however, do note mild renal function changes, possibly chronic as noted abnormal on PAT. Will administer 1L NS and advise repeat BMP testing with medication alterations as needed upon PCP re-evaluation. (2) CKD stage III versus KALEE: Patient renal function upon initial testing noted w/ BUN/Cr 27/1.38 09/13/17, thus suspect chronic component especially with co- morbidities, maintained on hydrochlorothiazide, lisinopril regimen, 09/29/17 BUN/ Cr 40/1.57, again unclear baseline prior to 09/13/17 check, thus will administer 1L NS and given patient insistence on discharge to home advise repeat BMP with PCP and consideration hold on current noted regimen. May need change to alternate regimen if appropriate. (3) Diabetes mellitus type II w/ Neuropathy: Hold oral home regimen, continue home insulin regimen, ADA diet, accu checks w/ ISS, continue home gabapentin regimen. (4) Hypertension: Continue home regimen including hydrochlorothiazide, lisinopril, PRN hydralazine. (5) Hyperlipidemia: Not on regimen, defer to outpatient. (6) Hypothyroidism: Continue home synthroid regimen. (7) Anxiety and Depression: Continue home psychiatric regime including cymbalta , brintellix. (8) Morbid Obesity: Weight loss and lifestyle changes encouraged, nutrition consulted. (9) Tobacco Abuse: Encouraged cessation, inpatient consultation per RT, NR if desired. (10) GERD: PPI. (11) DVT Prophylaxis: SCDs, 325 mg BID ASA per Orthopedic surgery discretion. Code Visit Inpatient E&M: 20476 Subs Hosp L2
[2017-09-29] MEDS: 0.9% Normal Saline 1,000 ML 999 ML IV (10:51)
[2017-09-29 12:05] LABS: Bedside Glucose 145 mg/dL (70-110)
--- NOTE | 2017-09-29 13:26 | CASEMGMT ---
LENA BISHOP Face to Face with patient for initial transition planning/care coordination assessment. LENA BISHOP introduced self and role at [facility]. Patient sitting in chair, alert and oriented, with family at bedside. Patient willing to participate in assessment and is able to answer all questions appropriately. Care providers, pharmacy, and demographics verified. Patient states that she has a walker and has all her DME needs met at this time. Patient states that she will be having staying with her and has transportation arranged for outpatient therapy. Patient wishes to discharge home and has outpatient therapy set up with [facility]. Patient states he has no further needs or concerns at this time. CM to follow for discharge planning needs that may arise. Disposition Plan: Patient to discharge home with outpatient therapy, family support, and follow-up plans in place.
[2017-09-29 14:45] VITALS: BP 152/65; PULSE 78; RESP 20; TEMP 37.1; O2SAT 99
[2017-09-29 17:11] LABS: Bedside Glucose 199 mg/dL (70-110)
--- NOTE | 2017-09-29 19:35 | NURSING ---
called pharmacy for trintellix, states they are getting in packaged and will send to unit. Charisse geriatric physician RN aware.
[2017-09-29] MEDS: VORTIOXETINE HYDROBROMIDE 10 MG TABLET PO (20:01)
[2017-09-29 20:05] VITALS: BP 153/59; PULSE 81; RESP 18; TEMP 37.3; O2SAT 97
[2017-09-29] MEDS: Ketorolac 15 MG/ML Vial IV (20:08)
[2017-09-29 20:12] VITALS: PULSE 81; RESP 18; O2SAT 97
[2017-09-29] MEDS: Famotidine 20 MG Tablet PO (21:53)
[2017-09-29] MEDS: Zolpidem Tartrate 5 MG Tablet PO (21:53)
[2017-09-29] MEDS: Multivitamins,Ther W-Minerals Tablet 1 TABLET PO (21:54)
[2017-09-29 22:06] LABS: Bedside Glucose 152 mg/dL (70-110)
[2017-09-30 03:00] VITALS: BP 144/73; PULSE 78; RESP 18; TEMP 36.6; O2SAT 100
[2017-09-30] MEDS: Acetaminophen 500 MG Tablet 1000 MG PO ×2 (06:40→15:00)
[2017-09-30] MEDS: Gabapentin 600 MG Tablet PO ×2 (06:40→15:00)
[2017-09-30] MEDS: Levothyroxine 125 MCG Tablet PO (06:40)
[2017-09-30 06:51] LABS: Bedside Glucose 124 mg/dL (70-110)
[2017-09-30 06:56] LABS: Hemoglobin 8.4 g/dl (12.0-15.0); Mean Corp Hgb Conc 32.3 g/gl (32-36); Mean Corpuscular Hgb 28.9 pg (27.0-32.0); Mean Corpuscular Volume 89.3 fL (81-99); Mean Platelet Vol. 11.3 fl (6.2-12.0); Platelet Count 151 K/mm3 (150-450); RBC Distribution Width CV 13.2 % (11.6-14.6); RBC Distribution Width SD 41.9 fl (35.1-43.9); Red Blood Count 2.91 M/mm3 (4.2-5.4); White Blood Count 7.3 K/mm3 (4.4-11.0)
[2017-09-30 06:58] LABS: Scan Indicated on CBC? Y/N NO
[2017-09-30 07:17] LABS: Anion Gap 8 (5-15); BUN 38 mg/dL (7-18); BUN/Creat Ratio 26.4 RATIO (10-20); Calcium,Total 7.9 mg/dL (8.5-10.1); Chloride 109 mmol/L (98-107); Creatinine, Serum 1.44 mg/dL (0.55-1.02); EST Glomerular Filtration Rate 40 mL/min (>60); Est Glom Filt Rate - Afr Amer 48 mL/min (>60); Estimated Creatinine Clearance 36.32 ml/min; Glucose 129 mg/dL (74-106); Potassium 4.9 mmol/L (3.5-5.1); Sodium Level 142 mmol/L (136-145)
[2017-09-30 08:08] VITALS: BP 147/89; PULSE 80; RESP 18; TEMP 36.7; O2SAT 95
[2017-09-30] MEDS: Glucerna Shake 120 ML LIQUID PO (08:18)
[2017-09-30] MEDS: DULoxetine Hcl 60 MG Capsule PO (08:20)
[2017-09-30] MEDS: Aspirin 325 MG Tablet PO (08:20)
[2017-09-30] MEDS: Senna/Docusate Sodium 1 Tablet 2 TABLET PO (08:21)
[2017-09-30] MEDS: Pantoprazole Sodium 40 MG Tablet PO (08:21)
[2017-09-30] MEDS: Lisinopril 10 MG Tablet 30 MG PO (08:21)
[2017-09-30] MEDS: hydroCHLOROthiazide 25 MG Tablet PO (08:21)
[2017-09-30] MEDS: VORTIOXETINE HYDROBROMIDE 10 MG TABLET PO (08:21)
--- NOTE | 2017-09-30 08:56 | PN.ORTHO_ITS ---
Subjective: The patient was sitting in bedside chair upon examination. Patient denies any chest pain, shortness of breath, dizziness, lightheadedness, nausea or vomiting , or calf pain. Pain is better controlled on medications today. No adverse overnight events. Patient required an additional stay in the hospital due to pain control. Patient needed MS Contin in addition to her current medications. She states today the pain is better controlled. Objective: Vital signs stable and afebrile. Patient is able to plantarflex and dorsiflex actively. Sensation is intact to light touch to saphenous, sural, superficial and deep peroneal, and tibial distribution. Main dressing is clean dry and intact. Distal OpSite has minimal drainage. Negative Homans bilaterally, negative signs and symptoms of DVT. - Physical Exam General: Alert, Oriented x3, Cooperative, No apparent distress Vital Signs Temp Pulse Resp BP Pulse Ox 98.1 F 80 18 147/89 H 95 09/30/17 08:08 09/30/17 08:08 09/30/17 08:08 09/30/17 08:08 09/30/17 08:08 Oxygen Flow Rate 2 Oxygen Delivery Method Room Air Weight: 120.6 kg Body Mass Index (BMI) 44.9 Finger Stick Blood Glucose 278 Intake and Output for Last 24 Hours 09/28/17 09/29/17 09/30/17 23:59 23:59 23:59 Intake Total 5226 / 5226 3786 / 3786 225 / 225 Output Total 2850 / 2850 Balance 5226 / 5226 936 / 936 225 / 225 Laboratory Tests Past 24 Hrs 09/30/17 09/30/17 06:32 06:32 WBC 7.3 RBC 2.91 L Hgb 8.4 L Hct 26.0 L MCV 89.3 MCH 28.9 MCHC 32.3 RDW 13.2 RDW Differential 41.9 Plt Count 151 MPV 11.3 Sodium 142 Potassium 4.9 Chloride 109 H Carbon Dioxide 25.0 Anion Gap 8 BUN 38 H Creatinine 1.44 H Estim Creat Clear Calc 36.32 Est GFR (MDRD) Af Amer 48 L Est GFR (MDRD) Non-Af 40 L BUN/Creatinine Ratio 26.4 H Glucose 129 H Calcium 7.9 L POC Glucose 09/30/17 09/29/17 09/29/17 06:39 21:58 17:05 POC Glucose 124 H 152 H 199 H 02/28/18 11:58 POC Glucose 145 H Assessment/Plan 1. S/P right total knee arthroplasty POD #2 2. Continue Pain Medications: Tylenol and OxyIR, MS Contin 15 mg twice daily was added 3. DVT Prophylaxis: Aspirin 325 mg twice daily 4. PT/OT: Venous tolerated 5. H & H: 8.4/26.0, asymptomatic 6. Encouraged Incentive Spirometry 7. Continue postoperative medical management per medicine: Plan will be for discharge as long as medically cleared 8. Disposition: Then will be for discharge home today. New pain medication MS Contin was added for the next 4 days. Prescriptions will be E scribed to [facility]. Patient will follow-up per postop instructions.
--- NOTE | 2017-09-30 08:58 | PCM.PN.HOSP ---
Subjective: Patient with no acute events overnight per self and per nursing report. Patient is doing outer with therapies today with pain control improved with alterations of regimen per orthopedic surgery. The labs this morning with patient, stable renal function with encouragement of follow-up labs with primary care physician and discussion of chronic kidney disease to which patient is amenable. Patient with planned discharge to home with outpatient therapies today given pain control improved. Patient denies fevers, chills, nausea, emesis, abdominal pain, chest pain or dyspnea. Objective: Physical Examination: General: awake, alert, oriented x 3 and cooperative, seated upright in chair, walking with walker in room to the bedside chair. Skin: normal color, turgor, no icterus, cyanosis, RLE s/p R TKR w/ dressing in place, no drainage. HEENT: AT/NC, EOMI, PERRLA, MMM. Lungs: Diminished BS BL, > bases, mild effort, no rales, ronchi or wheezing. Heart: Regular rate and rhythm; no gallop, rub audible. Abdomen: soft, morbidly obese. Extremities: no cyanosis, clubbing, s/p R TKR, dressing in place, peripheral pulses intact, mild ankle edema, moving better with walker with therapy. Neurological: patient awake, alert, oriented x 3; cognitive function intact; cranial nerves II-XII grossly normal, moving all 4 extremities but expected limitation RLE given s/p R TKR, strength improving, moderately globally decreased. Psychiatric: affect appears normal, no acute evidence of depressive or anxiety feelings. Vitals/I&O's: Vital Signs Temp Pulse Resp BP Pulse Ox 98.1 F 80 18 147/89 H 95 09/30/17 08:08 09/30/17 08:08 09/30/17 08:08 09/30/17 08:08 09/30/17 08:08 Oxygen Flow Rate 2 Oxygen Delivery Method Room Air Weight: 265 lb 14.04 oz Body Mass Index (BMI) 44.9 Finger Stick Blood Glucose 278 Intake and Output for Last 24 Hours 09/28/17 09/29/17 09/30/17 23:59 23:59 23:59 Intake Total 5226 / 5226 3786 / 3786 225 / 225 Output Total 2850 / 2850 Balance 5226 / 5226 936 / 936 225 / 225 Laboratory Results 09/29/17 11:58: POC Glucose 145 H 09/29/17 17:05: POC Glucose 199 H 09/29/17 21:58: POC Glucose 152 H 09/30/17 06:32: WBC 7.3, RBC 2.91 L, Hgb 8.4 L, Hct 26.0 L, MCV 89.3, MCH 28.9, MCHC 32.3, RDW 13.2, RDW Differential 41.9, Plt Count 151, MPV 11.3 09/30/17 06:32: Sodium 142, Potassium 4.9, Chloride 109 H, Carbon Dioxide 25.0, Anion Gap 8, BUN 38 H, Creatinine 1.44 H, Estim Creat Clear Calc 36.32, Est GFR (MDRD) Af Amer 48 L, Est GFR (MDRD) Non-Af 40 L, BUN/Creatinine Ratio 26.4 H, Glucose 129 H, Calcium 7.9 L 09/30/17 06:39: POC Glucose 124 H Current Medications Acetaminophen (Tylenol) 1,000 mg PO Q8 [facility] Last Admin: 09/30/17 06:40 Dose: 1,000 mg Aspirin (Aspirin) 325 mg PO BIDCM [facility] Last Admin: 09/30/17 08:20 Dose: 325 mg Dextrose (D50w Syringe) 0 gm IV X1 PRN; Protocol PRN Reason: Hypoglycemia Duloxetine HCl (Cymbalta) 60 mg PO DAILY [facility] Last Admin: 09/30/17 08:20 Dose: 60 mg Famotidine (Pepcid) 20 mg PO QHS [facility] Last Admin: 09/29/17 21:53 Dose: 20 mg Gabapentin (Neurontin) 600 mg PO TID [facility] Last Admin: 09/30/17 06:40 Dose: 600 mg Glipizide (Glucotrol) 5 mg PO BIDAC [facility] Last Admin: 09/30/17 08:18 Dose: 5 mg Glucagon () 1 mg IM .X1 PRN PRN Reason: Hypoglycemia Hydralazine HCl (Apresoline) 10 mg IV Q4H PRN PRN PRN Reason: SBP > 160 Hydrochlorothiazide (Hctz) 25 mg PO DAILY [facility] Last Admin: 09/30/17 08:21 Dose: 25 mg Insulin Aspart (Novolog Flexpen (Bkc)) 25 units SC BIDAC [facility] Last Admin: 09/30/17 08:18 Dose: 25 units Insulin Aspart (Novolog Flexpen ([facility])) 0 units SC ACHS [facility] PRN Reason: Protocol Last Admin: 09/30/17 07:36 Dose: Not Given Insulin Detemir (Levemir ([facility])) 45 units SC QHS [facility] Last Admin: 09/29/17 21:59 Dose: 45 units Ketorolac Tromethamine (Toradol) 15 mg IV Q6H PRN PRN PRN Reason: MILD-MOD PAIN (1-5/10) Last Admin: 09/29/17 20:08 Dose: 15 mg Levothyroxine Sodium (Synthroid) 125 mcg PO DAILY@0600 [facility] Last Admin: 09/30/17 06:40 Dose: 125 mcg Lisinopril (Zestril) 30 mg PO DAILY [facility] Last Admin: 09/30/17 08:21 Dose: 30 mg Morphine Sulfate (Morphine) 2 - 4 mg IV Q2H PRN PRN PRN Reason: SEVERE PAIN (6-10/10) Last Admin: 09/29/17 14:57 Dose: 2 mg Morphine Sulfate (Morphine) 2 - 4 mg IV Q2H PRN PRN PRN Reason: SEVERE PAIN (6-10/10) Morphine Sulfate (Ms Contin) 15 mg PO BID [facility] Last Admin: 09/29/17 18:59 Dose: 15 mg Multivitamins/Minerals (Multivitamin With Minerals) 1 tablet PO QHS [facility] Last Admin: 09/29/17 21:54 Dose: 1 tablet Nutritional Formula (Lactose Free) (Glucerna Shake) 120 ml PO TIDCM [facility] Last Admin: 09/30/17 08:18 Dose: 120 ml Ondansetron HCl (Zofran) 4 mg IV Q8H PRN PRN PRN Reason: NAUSEA Oxycodone HCl (Oxyir) 5 - 10 mg PO Q4H PRN PRN PRN Reason: MOD-SEVERE PAIN (4-10/10) Last Admin: 09/29/17 21:53 Dose: 10 mg Pantoprazole Sodium (Protonix) 40 mg PO DAILY [facility] Last Admin: 09/30/17 08:21 Dose: 40 mg Promethazine HCl (Phenergan (Ll)) 12.5 mg IM Q6H PRN PRN; Protocol PRN Reason: NAUSEA/VOMITING Senna/Docusate Sodium (Senokot-S, Susanna-Colace) 2 tablet PO BID [facility] Last Admin: 09/30/17 08:21 Dose: 2 tablet Sodium Chloride () 5 - 30 ml IV UD PRN PRN Reason: SALINE FLUSH Last Admin: 09/29/17 20:09 Dose: 10 ml Zolpidem Tartrate (Ambien (Generic)) 5 mg PO QHS PRN PRN PRN Reason: SLEEP Last Admin: 09/29/17 21:53 Dose: 5 mg Assessment/Plan The patient is a 57 y/o F w/ PMHx: Tobacco use, Hypothyroidism, Hypertension, Hyperlipidemia, Diabetes mellitus type II w/ Neuropathy, Morbid obesity, Anxiety and depression, GERD who presents to the [facility] on 09/28/17 for planned R TKR per Dr. Story secondary to history of primary R knee osteoarthritis. (1) Severe Osteoarthritis, Right knee: Failed conservative therapies and treatments, admitted per Dr. Story for planned 09/28/17 R TKR, post-operative pain management, bowel regimen, DVT Prophylaxis, PT/OT/CM per Orthopedic surgery discretion. Worsened pain 09/29/17, remained overnight secondary to worsened pain, improved with planned discharge 09/30/17. (2) CKD stage III versus KALEE: Patient renal function upon initial testing noted w/ BUN/Cr 27/1.38 09/13/17, thus suspect chronic component especially with co-morbidities, maintained on hydrochlorothiazide, lisinopril regimen, 09/29/17 BUN/Cr 40/1.57, again unclear baseline prior to 09/13/17 check, administered 1L NS and, 09/30/17 BUN/Cr 38/1.44, improved, likely CKD stage III, estimate baseline to be 1.4-1.5 range. Discussed likelihood CKD with patient and need for continued evaluation per PCP. (3) Diabetes mellitus type II w/ Neuropathy: Hold oral home regimen, continue home insulin regimen, ADA diet, accu checks w/ ISS, continue home gabapentin regimen. (4) Hypertension: Continue home regimen including hydrochlorothiazide, lisinopril, PRN hydralazine. (5) Hyperlipidemia: Not on regimen, defer to outpatient. (6) Hypothyroidism: Continue home synthroid regimen. (7) Anxiety and Depression: Continue home psychiatric regime including cymbalta, brintellix. (8) Morbid Obesity: Weight loss and lifestyle changes encouraged, nutrition consulted. (9) Tobacco Abuse: Encouraged cessation, inpatient consultation per RT, NR if desired. (10) GERD: PPI. (11) DVT Prophylaxis: SCDs, 325 mg BID ASA per Orthopedic surgery discretion. Code Visit Inpatient E&M: 91300 Subs Hosp L2
[2017-09-30 11:31] LABS: Bedside Glucose 133 mg/dL (70-110)
[2017-09-30] MEDS: oxyCODONE 5 MG Tablet PO (11:31)
[2017-09-30 15:04] VITALS: BP 157/73; PULSE 93; RESP 18; TEMP 36.8; O2SAT 99
== END 2017-09-30 15:19 | disposition home or self-care (01) | DRG 209 ==
LOC: ACINP 07:07 → MS3 11:31
PROVIDERS: Anesthesiology; Family Medicine; Admitting Provider Specialist; Family Provider Family Medicine; PCP Family Medicine; Visit Provider Specialist
PROC: 0SRC0J9 Replacement of Right Knee Joint with Synthetic Substitute, Cemented, Open Approach (ICD-10-PCS; CPT 27447; principal; 2017-09-28 09:00)
DX: M17.11 Unilateral primary osteoarthritis, right knee (principal); N18.3 Chronic kidney disease, stage 3 (moderate); E11.40 Type 2 diabetes mellitus with diabetic neuropathy, unspecified; E11.22 Type 2 diabetes mellitus with diabetic chronic kidney disease; E03.9 Hypothyroidism, unspecified; E66.01 Morbid (severe) obesity due to excess calories; Z68.41 Body mass index [BMI] 40.0-44.9, adult; Z79.4 Long term (current) use of insulin; K21.9 Gastro-esophageal reflux disease without esophagitis; Z79.899 Other long term (current) drug therapy; F17.210 Nicotine dependence, cigarettes, uncomplicated; F32.9 Major depressive disorder, single episode, unspecified; F41.9 Anxiety disorder, unspecified; I12.9 Hypertensive chronic kidney disease with stage 1 through stage 4 chronic kidney disease, or unspecified chronic kidney disease
CPT/HCPCS: 36415; 73560; 80048; 80076; 82962; 83036; 83735; 84443; 85025; 85027; 85610; 85730; 87081; 97110; 97116; 97162; 97166; 97530; 97535; 99251; J7030; J7120; A4216; G0463; J2405

== ENCOUNTER → 2017-10-07 11:05 | Outpatient (CLI) | payer MEDICAID, SELFPAY ==
--- NOTE | 2017-10-07 11:07 | VDLE_ITS ---
Reason For Study: LEG PAIN RIGHT GSV is normal. CFV is compressible, spontaneous, phasic, competent and demonstrates normal augmentation. FV is compressible, spontaneous, phasic, competent and demonstrates normal augmentation. POP V is compressible, spontaneous, phasic, competent and demonstrates normal augmentation. T/P Trunk is compressible. PTV is compressible. RT PerV is compressible. Procedure Exam performed in department. A preliminary report was called and/or faxed to Dr. Story. Interpretation Summary Deep veins of the right lower extremity are patent and compressible segmentally. There is no evidence of right lower extremity deep vein thrombosis. Valvular competence appears intact within the proximal deep venous system on the right . The right greater saphenous vein appears patent and compressible segmentally. Ordering Physician: Wily Story Referring Physician: Wily Story Performed By: Machelle Dickens RVT
== END ==
PROVIDERS: Family Provider Family Medicine; PCP Family Medicine; Visit Provider Specialist
DX: M79.661 Pain in right lower leg (principal)
CPT/HCPCS: 93971

== ENCOUNTER 2018-04-19 15:38 | Emergency (ER) | payer MEDICAID, SELFPAY ==
[2018-04-19 15:39] VITALS: BP 127/59; PULSE 83; RESP 20; TEMP 37.1; O2SAT 99; BMI 43.5
--- NOTE | 2018-04-19 16:07 | CT_ITS ---
STUDY: CT BRAIN WITHOUT CONTRAST REASON FOR EXAM: Female, 58 years old. Syncopal episode hypertension dizziness RADIATION DOSAGE (If Supplied By Facility): CTDIvol = ( there are nonspecific peripheral soft tissue calcifications which may represent small partially calcified sebaceous cyst in the left occiput and left posterior parietal soft tissues. ) mGy, DLP = ( 762.36 ) mGycm TECHNIQUE: Transaxial CT imaging of the brain was performed without administration of intravenous contrast material. Individualized dose optimization techniques were used for this CT. COMPARISON: None. FINDINGS: Normal soft tissue structures. Normal calvarium. There is mild cerebral atrophy with widening of the extra-axial spaces and ventricular dilatation. Normal white matter tracts of the cerebral hemispheres. Normal basal ganglia and thalami. Normal brainstem. Normal cerebellum. There is no intracranial hemorrhage. There are no findings of an acute ischemic infarction. Normal visualized paranasal sinuses. CT/Brain/Head without Contrast IMPRESSION: Minimal atrophy no visualized evidence of acute hemorrhage or infarct or edema. Electronically Signed: Stormy Ragsdale MD at 17:46 EDT Tel , Service support ,
--- NOTE | 2018-04-19 16:07 | EKG12_ITS ---
Test Reason : SYNCOPE Blood Pressure : / mmHG Vent. Rate : 070 BPM Atrial Rate : 070 BPM P-R Int : 148 ms QRS Dur : 120 ms QT Int : 452 ms P-R-T Axes : 032 067 043 degrees QTc Int : 488 ms Normal sinus rhythm Right bundle branch block Abnormal ECG Confirmed by BRENDA DEE, LEWIS ([id number]), visual effects editor ANNETTA THOMAS ([id number]) on 04/21/2018 1:15:11 PM Referred By: LETI Confirmed By:LEWIS GUTIERREZ MD
[2018-04-19 16:11] LABS: Bedside Glucose 80 mg/dL (70-110)
--- NOTE | 2018-04-19 16:11 | NURSING ---
NO OLD EKGS
[2018-04-19 16:22] VITALS: O2SAT 100
[2018-04-19 16:51] LABS: Absolute Lymphocyte Count 1.57 X10^3/ul (0.83-4.51); Absolute Neutrophil Count 5.8 X10^3/uL (2.0-7.7); Basophil# 0.02 X10^3/uL; Basophil% 0.3 % (0-1); Hematocrit 30.6 % (37-47); Hemoglobin 10.3 g/dl (12.0-15.0); Lymphocyte # 1.57 X10^3/ul (4.0); Lymphocyte % 19.7 % (19-41); Mean Corp Hgb Conc 33.7 g/gl (32-36); Mean Corpuscular Hgb 29.1 pg (27.0-32.0); Mean Corpuscular Volume 86.4 fL (81-99); Mean Platelet Vol. 11.2 fl (6.2-12.0); Monocyte# 0.62 X10^3/uL; Monocyte% 7.8 % (0-10); Neutrophil # 5.76 X10^3/uL (2.7-7.7); Neutrophil % 72.1 % (47-70); POSITIVE COUNT NO; POSITIVE DIFFERENTIAL NO; POSITIVE MORPHOLOGY NO; Platelet Count 187 K/mm3 (150-450); RBC Distribution Width CV 13.1 % (11.6-14.6); RBC Distribution Width SD 39.8 fl (35.1-43.9); Red Blood Count 3.54 M/mm3 (4.2-5.4)
[2018-04-19 16:55] LABS: Prothrombin Time (Protime)PT. 13.3 SECONDS (11.7-14.9)
[2018-04-19 16:56] LABS: Partial Thromboplast Time 35.5 Seconds (24.1-36.2)
[2018-04-19 16:57] LABS: Anion Gap 10 (5-15); BUN 26 mg/dL (7-18); BUN/Creat Ratio 18.1 RATIO (10-20); Calcium,Total 8.1 mg/dL (8.5-10.1); Chloride 105 mmol/L (98-107); Creatinine, Serum 1.44 mg/dL (0.55-1.02); EST Glomerular Filtration Rate 40 mL/min (>60); Est Glom Filt Rate - Afr Amer 48 mL/min (>60); Estimated Creatinine Clearance 37.38 ml/min; Glucose 66 mg/dL (74-106); Potassium 3.8 mmol/L (3.5-5.1); Sodium Level 138 mmol/L (136-145)
[2018-04-19 18:22] VITALS: BP 116/53; PULSE 66; RESP 20; O2SAT 94
--- NOTE | 2018-04-19 18:51 | ED.VISSUMM ---
- ER Visit Summary Date of Service: 04/19/18 Chief Complaint: Dizziness History of Present Illness: The patient is a 58 F presenting for evaluation secondary dizziness. Patient reports that today she had an episode of dizziness. She describes it as both a lightheaded and type spinning episode. Patient states that the spinning seems to resolve when she closes her eyes. Patient reports she was standing outside smoking a cigarette with a friend and had a sudden onset where she felt that things were spinning. She had an episode earlier today after he took a shower which actually was severe enough that it caused her to vomit. Patient states that she was not having any sort of weakness with this, but states that she has some paresthesias at baseline secondary to neuropathy that are unchanged. Patient does endorse that she had a little bit of blurred vision associated with this. She does have a history of diabetes and hypertension. Review of systems otherwise negative. Physical Examination: Vital signs are within normal limits, patient is afebrile. General: Patient is well-nourished well-developed and in no acute distress. Head: Normocephalic, atraumatic Eyes: Pupils equal round and reactive bilaterally, extra occular motion intact bialterally, no evidence of nystagmus ENT: Moist mucous membranes Neck: Supple, no lymphadenopathy, no JVD, no meningismus, no carotid bruits noted CVS: Heart regular rate and rhythm, no murmurs, rubs or gallops, radial pulses 2+ bilaterally Resp: Respirations nondistressed, lung sounds clear bilaterally Abdomen: Soft, nontender, nondistended, no palpable masses, normal bowel sounds Back: Nontender Extremities: Nontender, atraumatic, active full range of motion, no peripheral edema Skin: warm, no rashes, no petechia Neuro: Alert and oriented x 4, CN 2-12 intact, no lateralizing neurological defecits, normal cerebellar testing, NIH stroke scale 0, negative impulse testing Psyc: Normal affect Test Results: CT brain shows chronic changes. EKG demonstrates right bundle branch block with a rate of [address] segments normal T waves. CBC chemistry and troponin are negative. Emergency Department Course and Treatment: Patient presented for evaluation secondary dizziness. Workup was negative as noted above. Patient states that her symptoms seem to be sudden onset and sudden offset and seem to be better when she closes her eyes and even been associated with some vomiting episodes. She really describes this in a way that makes me more suspicious for peripheral vertigo although I was not able to reproduce it in the emergency department. I believe the patient's appropriate for discharge at this time. She be sent home with a course of meclizine. She was given signs and symptoms which to return to the emergency department. Both she and her daughter voiced understanding of this, the patient was discharged she will follow-up with her primary care physician. Disposition: Discharge Impression: 1. Vertigo This note was generated with [employer] dictation software. It may contain incorrect words, spelling, and punctuation that were not noted in review of the chart prior to signing ED Disposition - Plan for ED Patient: Disposition: Home or Assisted Living Chief Complaint: Syncope Diagnosis: Vertigo Instructions: ED BPV Vertigo Prescriptions: Meclizine HCl 25 mg PO TID #12 tab Referrals: Krish Sullivan MD [STAFF PHYSICIAN] -
[2018-04-19 19:05] VITALS: BP 117/80; PULSE 69; RESP 16; O2SAT 94
== END 2018-04-19 19:14 | disposition home or self-care (01) ==
PROVIDERS: Emergency Provider Emergency Medicine; Family Provider Family Medicine; PCP Family Medicine
DX: R42 Dizziness and giddiness (principal); I45.10 Unspecified right bundle-branch block; E11.9 Type 2 diabetes mellitus without complications; I10 Essential (primary) hypertension; Z72.0 Tobacco use
CPT/HCPCS: 70450; 80048; 82962; 84484; 85025; 85610; 85730; 93005; 99285; J7030; A4216

== ENCOUNTER → 2018-05-09 07:09 | Outpatient (CLI) | payer MEDICAID, SELFPAY ==
--- NOTE | 2018-05-10 12:50 | EEG ---
- Electroencephalogram Date of service 05/09/2018 History EEG is being done in this 58 yr F to rule out seizures EEG Description: This is an 18 channel EEG with 10-20 lead placement system. Bipolar montages, Referential and Circumferential montages were reviewed. Photic stimulation and Hyperventilation were performed. The posterior dominant rhythm is 8 HZ synchronous, symmetric, reacting to eye opening and closing. Photo stimulation elicited normal driving response but no abnormal photoparoxysmal response, Hyperventilation did not elicit any abnormal photoparoxysmal response. Sleep was identified. There is no abnormal background slowing noted. There was no epileptiform discharges or electrographic seizures noted during this recording. EKG artefact was noted EEG Interpretation This is a normal awake and asleep EEG. There is no epileptiform discharges or electrographic seizures noted during the record.
== END ==
PROVIDERS: Family Provider Preventive Medicine Occupational Medicine; PCP Preventive Medicine Occupational Medicine; Referring Provider Preventive Medicine Occupational Medicine; Visit Provider Preventive Medicine Occupational Medicine
DX: R55 Syncope and collapse (principal)

== ENCOUNTER → 2019-01-18 | Outpatient (CLI) | payer MEDICAID, SELFPAY ==
--- NOTE | 2019-01-18 09:37 | RAD_ITS ---
STUDY: X-RAY - LUMBAR SPINE REASON FOR EXAM: Female, 58 years old. Low back pain TECHNIQUE: 4 view(s) of the lumbar spine were obtained. COMPARISON: None FINDINGS: Normal lumbar lordosis. There is a levoscoliosis of the lumbar spine. There is a normal alignment of the vertebrae. Normal vertebral bodies and endplates. Focal disc space narrowing and osteophyte formation at L5/S1 consistent with degenerative disc disease. The soft tissue structures are unremarkable. RAD/L/S Spine Min 4 Views IMPRESSION: Levoscoliosis with focal degenerative disc disease at L5/S1. Electronically Signed: Burke Falk MD at 16:56 EDT Tel , Service support ,
== END | disposition home or self-care (01) ==
LOC: RAD 09:36
PROVIDERS: Family Provider Preventive Medicine Occupational Medicine; PCP Preventive Medicine Occupational Medicine; Referring Provider Chiropractor; Visit Provider Chiropractor
DX: S33.5XXA Sprain of ligaments of lumbar spine, initial encounter (principal)
CPT/HCPCS: 72110

== ENCOUNTER → 2023-01-12 | Outpatient (CLI) | payer MEDICAID, SELFPAY ==
--- NOTE | 2023-01-12 07:57 | BI_ITS ---
MAMMOGRAPHY - BILATERAL SCREENING REASON FOR EXAM: Female, 62 years old. Routine annual screening examination. PERTINENT HISTORY: Sister with breast cancer. TECHNIQUE: Digital bilateral breast morgan (3D mammographic acquisition) in the CC and MLO projections. 2-D mediolateral oblique (MLO) and craniocaudad (CC) views of both breasts were obtained. CAD: Full Field Digital Mammography with Computer Added Detection was performed. COMPARISON: Comparison is made with prior outside examination is April 15, 2017. FINDINGS: Breast Composition: There are scattered areas of fibroglandular density. There are no dominant masses or suspicious calcifications. No other significant abnormalities are identified. There has been no significant change since the prior study. BI/SCRN MAMM (CAD)W/MORGAN BILAT IMPRESSION: Stable bilateral screening mammogram. Yearly follow-up mammogram recommended. (A) ASSESSMENT CATEGORY: BIRADS Category 1: Negative. A letter regarding these results will be sent to the patient by the facility within 30 days. Approximately 10% of breast cancers are not detected by mammography. A normal mammogram should not delay biopsy of a clinically suspicious abnormality. [id number] Electronically Signed: Cliff Griffith MD at 8:49 EDT ,
== END | disposition home or self-care (01) ==
LOC: OPBI 07:57
PROVIDERS: PCP Preventive Medicine Occupational Medicine; Referring Provider Surgery; Visit Provider Surgery
DX: Z12.31 Encounter for screening mammogram for malignant neoplasm of breast (principal); Z80.3 Family history of malignant neoplasm of breast
CPT/HCPCS: 77063; 77067

== ENCOUNTER 2023-01-13 20:02 | Inpatient (IN) | payer MEDICAID, SELFPAY ==
--- NOTE | 2023-01-08 12:07 | EKG12_ITS ---
Test Reason : PRE-OP Blood Pressure : / mmHG Vent. Rate : 078 BPM Atrial Rate : 078 BPM P-R Int : 148 ms QRS Dur : 160 ms QT Int : 444 ms P-R-T Axes : 027 041 021 degrees QTc Int : 506 ms Normal sinus rhythm Right bundle branch block Abnormal ECG Confirmed by BRENDA DEE, LEWIS ([id number]), web editor MARY ANN SANDS ([id number]) on 01/11/2023 1:41:02 PM Referred By: Blade De Paz Confirmed By:LEWIS GUTIERREZ MD
[2023-01-08 13:13] LABS: Hematocrit 32.4 % (37-47); Hemoglobin 10.5 g/dL (12.0-15.0); Mean Corp Hgb Conc 32.4 g/dL (32-36); Mean Corpuscular Hgb 28.9 pg (27.0-32.0); Mean Corpuscular Volume 89.3 fL (81-99); Mean Platelet Vol. 11.9 fl (6.2-12.0); Platelet Count 187 K/mm3 (150-450); RBC Distribution Width CV 13.6 % (11.6-14.6); RBC Distribution Width SD 44.3 fl (35.1-43.9); Red Blood Count 3.63 M/mm3 (4.2-5.4); White Blood Count 8.5 K/mm3 (4.4-11.0)
[2023-01-08 13:24] LABS: Prothrombin Time (Protime)PT. 13.4 SECONDS (11.7-14.9)
[2023-01-08 13:25] LABS: Partial Thromboplast Time 36.7 Seconds (24.1-36.2)
[2023-01-08 14:23] LABS: Hemoglobin A1c 5.5 % (3.8-5.6)
[2023-01-08 14:33] LABS: AST(SGOT) 10 U/L (15-37); Alanine Aminotransfer ALT/SGPT 13 U/L (13-56); Albumin, Serum 3.2 g/dL (3.2-5.0); Alkaline Phosphatase 105 U/L (45-117); Anion Gap 7 (5-15); BUN 28 mg/dL (7-18); BUN/Creat Ratio 14.9 RATIO (10-20); Bilirubin, Direct 0.11 mg/dL (0.00-0.30); Calcium,Total 8.9 mg/dL (8.5-10.1); Chloride 106 mmol/L (98-107); Creatinine, Serum 1.88 mg/dL (0.55-1.02); EST Glomerular Filtration Rate 29 mL/min (>60); Est Glom Filt Rate - Afr Amer 35 mL/min (>60); Globulin 3.9 g/dL (2.2-4.2); Glucose 159 mg/dL (74-106); Potassium 4.2 mmol/L (3.5-5.1); Protein, Total 7.1 g/dL (6.4-8.2); Sodium Level 138 mmol/L (136-145); Thyroid Stim Hormone (TSH) 4.42 uIU/mL (0.358-3.74)
[2023-01-11 09:45] LABS: Magnesium 1.8 mg/dL (1.6-2.6)
[2023-01-13] VITALS (12 sets, daily range): BP systolic 89–144; BP diastolic 34–61; PULSE 68–93; RESP 16–18; TEMP 36.4–37.9; O2SAT 94–100; BMI 45.8; BMI 45.9
[2023-01-13] MEDS: Lactated Ringers 1,000 ML 40 ML IV (06:18)
[2023-01-13] MEDS: Magnesium 2 GM for ERAS IV (06:18)
[2023-01-13] MEDS: Acetaminophen 500 MG Tablet 1000 MG PO (06:34)
[2023-01-13] MEDS: Gabapentin 600 MG Tablet PO (06:34)
[2023-01-13] MEDS: Scopolamine 1mg/72hr Patch 1 PATCH TD (06:34)
[2023-01-13 06:57] LABS: Bedside Glucose 165 mg/dL (74-106)
--- NOTE | 2023-01-13 07:30 | BR_PTH ---
PATIENT: ANDI ROLDAN LOC: 3 U#:[id number] AGE/SX: 62/F ROOM: [facility] [place] RE01/14/[address]: Dr. Corinne Gray MD : 1960 BED: 1 DIS: 01/18/2023 SPEC #: [id number] RECD: 01/13/23 15:56 STATUS: RAJ HUFF #: [id number] TONG: 01/13/23 07:[address]: Blade De Paz DEPT: SURGICAL PATHOLOGY RECD BY: Syed Hines ENTERED: 01/14/23 08:57 SP TYPE: MAMOPLASTY OTHR DR: MD Dr. Gabe Vasquez DO Tissues: A - Right breast, NOS B - Left breast, NOS Procedures: Surgery Specimen Level IV HEADER OPERATION: ERAS, breast reduction mammoplasty PRE-OP DIAGNOSIS: Bilateral macromastia, breast asymmetry, chronic neck and thoracic back pain TISSUE SUBMITTED: A ? Right breast tissue, B ? Left breast tissue MICROSCOPIC DIAGNOSIS A. Right breast tissue, reduction mammoplasty: Focal intraductal hyperplasia without atypia. Skin with no pathologic change. B. Left breast tissue, reduction mammoplasty: Nonproliferative fibrocystic change with associated banal microcalcifications. Skin with no pathologic change. AM:lay 01/18/2023 MICROSCOPIC DESCRIPTION Slides are reviewed. GROSS DESCRIPTION A - Received in fixative is one container labeled with the patient's name and designated right breast tissue. The specimen consists of multiple pieces of fibroadipose tissue with a few of the pieces showing winkler-white skin, weighing in aggregate 798 gm and measuring in aggregate 24.0 x 20.0 x 6.0 cm. No skin lesion is identified. Sections reveal yellow adipose cut surfaces mixed with scant fibrous areas. No mass lesion is identified. Academic Affairs Director sections are submitted in six cassettes. Cassette 1 contains the skin with underlying tissue. Specimen is submitted after additional fixation. B - Received in fixative is one container labeled with the patient's name and designated left breast tissue. The specimen consists of multiple pieces of fibroadipose tissue with a few of the pieces showing winkler-white skin, weighing in aggregate 1645 gm and measuring in aggregate 30.0 x 26.0 x 10.0 cm. No skin lesion is identified. Sections reveal yellow adipose cut surfaces mixed with scant fibrous areas. No mass lesion is identified. Academic Affairs Director sections are submitted in six cassettes. Cassette 1 contains the skin piece. Specimen is submitted after additional fixation. / SJ:lay 01/14/2023 TC:5 CPT: 58215 x2
[2023-01-13] MEDS: Lidocaine 2% /Epi 1:100 (20ml) 20 ML VIAL (08:47)
[2023-01-13 14:57] LABS: Bedside Glucose 151 mg/dL (74-106)
[2023-01-13 14:57] LABS: Bedside Glucose 129 mg/dL (74-106)
[2023-01-13 14:57] LABS: Bedside Glucose 237 mg/dL (74-106)
--- NOTE | 2023-01-13 16:53 | OP.PCM_ITS ---
Problems Associated Problem List Diagnoses (1) Macromastia: (2) Chronic neck pain: (3) Chronic thoracic back pain: (4) Right shoulder pain: (5) Left shoulder pain: (6) Intertrigo: (7) Family history of breast cancer: (8) Smoker: (9) Breast asymmetry: (10) DM type 2, goal HbA1c < 7%: Report of Operation Date of Procedure: 01/13/23 Pre-Operative Diagnosis: 1. Bilateral macromastia. 2. Breast asymmetry. 3. Chronic neck pain. 4. Chronic thoracic back pain. 5. Bilateral shoulder pain from shoulder grooving from the weight of the breasts on her bra straps. 6. Inframammary intertrigo. 7. Family history of breast cancer. 8. Diabetes mellitus, HgbA1c is 5.5. 9. Smoker. Post-Operative Diagnosis: Same. Surgery/Procedure Performed:: Bilateral breast reduction mammaplasty. Description of Surgical Findings:: 62 year old woman presents with complaints of bilateral macromastia and associated painful symptomatology of neck pain, thoracic back pain, bilateral s houlder pain from shoulder grooving from the weight of her breasts on her bra straps, and inframammary intertrigo for which she uses cornstarch powders with minimal relief and without resolution of her symptomatology for over 6 months.? She denies any trauma to her breasts.? Denies any nipple discharge.? She has seen a chiropractor for her cervical and thoracic spine pain in the past for over 6 months without relief of her painful symptomatology.?She had a mammogram yesterday, 01/12/23, and it showed there are scattered areas of fibroglandular density. There are no dominant masses or suspicious calcifications. No other significant abnormalities are identified.? There has been no significant change since the prior study. Also her painful symptomatology is exacerbated by her breast asymmetry.? Her left breast is much larger than her right breast (at least one cup size difference), and she has had to wear an insert on the right side to achieve symmetry in a dress.?Her HgbA1c from 01/08/13 was 5.5. For elective surgery, the HgbA1c needs to be less than 8. Her insurance company has approved her for breast reduction. Her surgery is scheduled for January 13, 2023.? Patient was informed of the risks and complications of the procedure including alternatives to surgery. These were discussed with the patient personally. Patient voices understanding and wishes to proceed. Some of the risks and complications were included in a form from the [employer] [employer]. Potential risks and complications included but not inclusive of bleeding, infection, seroma, hematoma, bruising, swelling, prolonged need for drains, loss of sensation to skin, partial or complete loss of skin flap and/or nipple, wound breakdown, need for wound care, poor scarring, poor aesthetic outcome, intra operative cardiac or neurologic events, DVT, PE, and reaction to anesthesia. Encouraged patient to stop smoking as it may have deleterious effects on wound healing. IV Fluids - 3000 ml. Urine Output - 450 ml. Tissue removed from the left breast - 1590 grams. Tissue removed from the right breast = 750 ml. I used AxioFill Placental Connective Tissue Powder, (I used 1000 mg x2, one in each breast). Catalog Number - [id number]. Lot Number - [id number]. Expiration - October 01, 2027, (Left Breast). Catalog Number - [id number]. Lot Number - [id number]. Expiration - October 01, 2027, (Right Breast). I used Nicci absorbable hemostat, (I used 4 vials, 2 in each breast). Reference Number - [id number]. Lot Number - [id number]. Expiration - June 29, 2027, (Left Breast x2 and Right Breast x1). Reference Number -[id number]. Lot Number - [id number]. Expiration - August 29, 2027, (Right Breast). Surgeon: Blade De Paz MD real estate development manager: Joe Mcdonald. MICHAEL real estate development manager: Farzana Elliott RNFA Type of Anesthesia: General Anesthesiologist: Sadiq Chen MD and Anastasia Macias CRNA and Domitila Glasgow CRNA and Teofilo Grewal CRNA Specimen's removed: 1. Left breast tissue to Pathology. 2. Right breast tissue to Pathology. Drains: Kimo x2 (one in each breast). Estimated Blood Loss (mL): 250. Fluids Replaced: 3450 ml (IV Fluids 3000 ml, Urine Output 450 ml) Description of Procedure: In the preop area, the patient was placed in the sitting position and preoperative markings were made.? The sternum midline was marked down to the umbilicus.? The inframammary folds were marked bilaterally.? The midclavicular line was then marked down to the nipple, then from the nipple to the inframammary fold.? The inframammary fold was then superimposed on the midclavi cular line and I made a point 1 cm below that to be the new position of the nipple-areolar complex.? 7 cm lines were then drawn divergent from that point to encompass the nipple-areolar complex.? The distance between the divergent lines was 10 cm.? The patient was then placed in the supine position and taken to the operating room and placed under general anesthesia and her breasts were prepped and draped in usual fashion.? Ioban draping was also used.? SCDs were placed for DVT prophylaxis.? Perioperative antibiotics were given intravenously.? A May catheter was also placed. ? I then wiley straight lines down from the lines drawn divergent around the nipple-areolar complex down to the inframammary fold.? The width of the pedicle is 10 cm.? I then used a 45 mm circular template for a new size of the nipple-areolar complex.? The central markings were infiltrated with Xylocaine and epinephrine.? The central skin was then deepithelialized.? I started on the right side first because it is smaller and then do the left side. I will match the left side to the right side. I then mobilized medial and lateral breast flaps at the level of Handy's fascia down to about 1-2 cm from the chest wall.? This was met in the midline of the breast with dissection at the level of Handy's fascia down to about 1-2 cm from the chest wall.? Once the central breast mound pedicle was from the skin envelope, the reduction was then begun.? Most of the tissue was removed from the superior aspect of the breast and the lateral aspect of the breast.? I then sutured the leading edge of the medial and lateral breast flaps to the midline of the inframammary fold with 2-0 Vicryl suture.? The vertical incision was approximated using surgical clips.? The excess tissue from the medial and lateral breast flaps were excised and the horizontal incision was approximated using surgical clips.? The patient was then placed in a sitting position.? Using a vertical limb length of 5 cm, I wiley the new position of the new nipple-areolar complexes on both breasts.? They were in good position on the central aspect of the breast mound.? Good symmetry was noted between the left breast and the right breast.? Good shape and contour and projection were noted and appeared clinically to be a C cup.? The patient was then placed back in the supine position and the surgical clips were removed.? The breast wounds were then irrigated with Irrisept 0.05% Chlorhexidine solution which was followed by saline irrigation.? Hemostasis was obtained using electrocautery.? The tissue removed from the right breast was 750 grams.? The tissue removed from the left breast was 1590 grams.? The tissue that was removed from the breasts was sent to Pathology for analysis to rule out carcinoma. ? After hemostasis was obtained using electrocautery, I then sprayed Nicci absorbable hemostat into both breast wounds.? I used two vials for each side.? I then placed a size 15 Kimo drain into each breast wound to be brought through the lateral aspect of the horizontal incision.? I then closed the breast wounds by first approximating the leading edge of the medial and lateral breast flaps to the midline of the inframammary fold with 2-0 Vicryl suture.? I then placed AxioFill placental connective tissue powder into both wounds at the level of the Tzone to help with the healing process. I used 1000 mg in each breast. ? The deep dermis and subcutaneous tissue of the vertical incision and the horizontal incisions were approximated using 3-0 Monocryl interrupted sutures.? ? The horizontal incision was then approximated using 4-0 V-Loc unidirectional barbed running subcuticular suture.? I also placed a few 4-0 Prolene vertical mattress interrupted sutures at the level of the Tzone.? The vertical incision was then closed on the skin with 4-0 Prolene interrupted sutures.? With a vertical limb length of 5 cm, I wiley a circular incision where the nipple- areolar complex would be brought through this keyhole incision.? Incisions were made and the nipple areolar complex was brought through the keyhole incision.? The nipple-areolar complex was secured to the breast skin using 3-0 Monocryl interrupted sutures for deep dermis and subcutaneous tissue.? The skin was approximated using 4-0 Prolene simple interrupted sutures.? This was then covered with Histoacryl skin tissue adhesive.? I sutured the drains to the skin using 3-0 nylon pursestring suture.? At the end of the procedure, the breasts were soft with no evidence of vascular compromise.? No evidence of hematomas were noted.? The nipples were viable.? I then dressed the breasts with a Kerlix gauze and a compression surgical bra.? Then patient tolerated the procedure well and will be sent to the recovery room in satisfactory condition.? She will be ad mitted for surgical observation overnight stay.? She will go home tomorrow once she is tolerating oral pain medication.? I will remove the drains in a few days.? She will keep her head elevated during the initial postoperative period.? She will be maintained on a lifting restriction and keep her head elevated during the initial postoperative period.? The operative blood loss was about 250 ml.? Post-discharge, she may get a compression sports bra as well.? She will have the May removed in the morning.? She will be sent home on antibiotics and pain medicine.? Sutures will be removed in 1-2 weeks. Grafts/Implants Used: AxioFill placental connective tissue powder, 1000 mg x2, Nicci x4 Procedure Start Time: 08:49 Procedure Stop Time: 16:25 Complications None. Admit VTE Documentation VTE Present on Admission: No VTE Mechan Device Prophylaxis: SCD's VTE Pharm Prophylaxis ordered?: Yes Addendum Addendum: Surgery Charges CPT - 81225-38 ICD-10 - N62, N64.89, M54.2, M54.6, M25.511, M25.512, L30.4, Z80.3, E11.9, F17.200 00105 N62, N64.89, M54.2, M54.6, M25.511, M25.512, L30.4, Z80.3, E11.9, F17.200
[2023-01-13] MEDS: Lactated Ringers 1,000 ML 60 ML IV (17:08)
[2023-01-13] MEDS: Insulin Lispro 100 UNIT/ML INSULN.PEN SC ×2 (17:09→22:15)
[2023-01-13 17:10] LABS: Bedside Glucose 257 mg/dL (74-106)
[2023-01-13 22:04] LABS: Bedside Glucose 261 mg/dL (74-106)
[2023-01-13] MEDS: HYDROmorphone 1 MG/ML Syringe IV (22:06)
[2023-01-13] MEDS: Cefazolin 2 GM in 0.9% Normal Saline 100 ML IV (22:08)
[2023-01-13] MEDS: 0.9% Saline Lock 10 ML Syringe IV (22:10)
[2023-01-13] MEDS: Atorvastatin Calcium 40 MG Tablet PO (22:15)
[2023-01-13] MEDS: Enoxaparin 40 MG/0.4 ML Syringe SC (22:15)
[2023-01-13] MEDS: QUEtiapine 25 MG Tablet 75 MG PO (22:15)
[2023-01-13] MEDS: Multivitamins,Ther W-Minerals Tablet 1 TABLET PO (22:15)
[2023-01-13] MEDS: Fluticasone 0.05% 1 SPRAY NASAL.SRY 2 SPRAY NASAL (22:15)
[2023-01-13] MEDS: Gabapentin 800 MG Tablet PO (22:15)
[2023-01-13] MEDS: Insulin Glargine-YFGN 100 UNIT/ML Pen 50 UNIT SC (22:16)
[2023-01-13] MEDS: CLARIFY ORDER 1 EACH NOTE (22:17)
[2023-01-14] VITALS (9 sets, daily range): BP systolic 107–133; BP diastolic 37–78; PULSE 80–95; RESP 16–22; TEMP 36.3–37.1; O2SAT 93–100
[2023-01-14] MEDS: Levothyroxine 125 MCG Tablet PO (05:16)
[2023-01-14] MEDS: Cefazolin 2 GM in 0.9% Normal Saline 100 ML IV ×3 (05:16→22:13)
[2023-01-14] MEDS: Gabapentin 800 MG Tablet PO ×2 (05:16→14:24)
[2023-01-14 06:18] LABS: Hematocrit 25.3 % (37-47); Hemoglobin 7.8 g/dL (12.0-15.0); Mean Corp Hgb Conc 30.8 g/dL (32-36); Mean Corpuscular Hgb 28.7 pg (27.0-32.0); Mean Platelet Vol. 11.7 fl (6.2-12.0); Platelet Count 203 K/mm3 (150-450); RBC Distribution Width SD 47.6 fl (35.1-43.9); Red Blood Count 2.72 M/mm3 (4.2-5.4); White Blood Count 15.3 K/mm3 (4.4-11.0)
[2023-01-14] MEDS: BENZOCAINE/MENTHOL 1 LOZENGE MUCOUS MEM ×3 (06:54→15:51)
[2023-01-14] MEDS: LACTATED RINGERS 250 ML 999 ML IV (06:55)
[2023-01-14 08:20] LABS: Anion Gap 7 (5-15); BUN 37 mg/dL (7-18); BUN/Creat Ratio 13.6 RATIO (10-20); Calcium,Total 8.1 mg/dL (8.5-10.1); Chloride 106 mmol/L (98-107); Creatinine, Serum 2.73 mg/dL (0.55-1.02); EST Glomerular Filtration Rate 19 mL/min (>60); Est Glom Filt Rate - Afr Amer 23 mL/min (>60); Estimated Creatinine Clearance 18.73 ml/min; Glucose 166 mg/dL (74-106); Potassium 4.9 mmol/L (3.5-5.1); Sodium Level 136 mmol/L (136-145)
[2023-01-14 08:25] LABS: Bedside Glucose 156 mg/dL (74-106)
[2023-01-14] MEDS: Lisinopril 10 MG Tablet 30 MG PO (10:48)
[2023-01-14] MEDS: Loratadine 10 MG Tablet PO (10:48)
[2023-01-14] MEDS: Enoxaparin 40 MG/0.4 ML Syringe SC (10:48)
[2023-01-14] MEDS: Insulin Glargine-YFGN 100 UNIT/ML Pen 50 UNIT SC ×2 (10:49→22:28)
[2023-01-14] MEDS: hydroCHLOROthiazide 25 MG Tablet PO (10:49)
[2023-01-14] MEDS: Fluticasone 0.05% 1 SPRAY NASAL.SRY 2 SPRAY NASAL ×2 (10:50→22:22)
[2023-01-14] MEDS: QUEtiapine 25 MG Tablet PO (10:55)
[2023-01-14] MEDS: Pantoprazole Sodium 40 MG Tablet PO (10:55)
[2023-01-14] MEDS: Famotidine 20 MG Tablet PO (10:55)
[2023-01-14] MEDS: DULoxetine Hcl 60 MG Capsule PO (10:55)
[2023-01-14 13:09] LABS: Bedside Glucose 210 mg/dL (74-106)
[2023-01-14] MEDS: Lactated Ringers 1,000 ML 40 ML IV (13:10)
[2023-01-14] MEDS: Insulin Lispro 100 UNIT/ML INSULN.PEN SC (13:11)
--- NOTE | 2023-01-14 13:48 | PCM.DC ---
Discharge Instructions Diet Discharge Diet: Carb Control Diet Activity Discharge Activity: May Not Shower May resume sexual activity in: 10-14 days Lifting Restrictions: 20 lb weight lifting restriction Additional Activity Instructions:: Keep head elevated at all times Dressing / Incision Call your doctor if your incision/area has: Continuous Slow Oozing, Sudden Increased Bleeding, Increased Pain/ Swelling, Increased Redness and Foul Smelling Discharge Call your doctor if you observe: Fever of 101 or Higher, Inability to urinate, Inability to have a bowel movement, Shortness of breath, Chest pain, Calf discomfort and Uncontrolled pain Cleanse incision/area with: Keep Dressing Clean & Dry Drain: Suction Additional Dressing/Incision Instructions:: May change dressing as needed. Follow Up Care Please Follow Up With: Blade De Paz MD When: Thursday January 19, 2023. Call [phone] to make an appointment. Test Results: 01/14/23 BUN 27/Creatinine 2.73 01/08/23 BUN 28/Creatinine 1.88 Please follow up with PCP to for further evaluation of renal labs Discharge Plan Admission Admit Date/Time: 01/13/23 20:02 Attending Provider: Blade De Paz Primary Care Provider: Gabe Abraham Consulting Providers: Stevan Pope Discharge Orders/Prescriptions Prescriptions: New ferrous sulfate [Feosol] 325 mg (65 mg iron) tablet 325 mg PO DAILY 30 Days Qty: 30 1RF cefadroxil 500 mg capsule 500 mg PO BID 7 Days Qty: 14 0RF oxycodone-acetaminophen [Percocet] 5-325 mg tablet 1 tab PO 4X/DAY PRN PRN (Reason: pain (scale score 7-10)) 7 Days Qty: 28 0RF docusate sodium [Colace] 100 mg capsule 100 mg PO DAILY PRN (Reason: constipation) 30 Days Qty: 30 0RF Continued quetiapine 25 mg tablet 25 mg PO DAILY quetiapine 50 mg tablet 75 mg PO QHS aspirin 81 mg tablet,delayed release (DR/EC) 81 mg PO DAILY albuterol sulfate 90 mcg/actuation HFA aerosol inhaler 2 puff inhalation Q4H PRN (Reason: SOB) atorvastatin 40 mg tablet 40 mg PO DAILY All Day Allergy (cetirizine) 10 mg capsule 10 mg PO DAILY (DME) OneTouch Ultra Test Strip See Rx Instructions .Route Rx Instructions: As directed (DME) pen needle, diabetic [Lite Touch Insulin Pen Cocoa] 31 gauge x 5/16 needle See Rx Instructions .Route Rx Instructions: As directed fluticasone propionate 50 mcg/actuation spray,suspension 2 spray intranasal BID Rx Instructions: administer into each nostril gabapentin 800 mg tablet 800 mg PO TID insulin lispro [Humalog U-100 Insulin] 100 unit/mL solution 1 sliding scale dose subcut USEASDIRECTD pantoprazole 40 MG tablet 40 mg PO DAILY levothyroxine 125 MCG tablet 125 mcg PO DAILY lisinopril [Zestril] 30 MG tablet 30 mg PO DAILY hydrochlorothiazide 25 MG tablet 25 mg PO DAILY glipizide 5 MG tablet 5 mg PO BID Multiple Vitamin, Womens 1 EACH tablet 1 ea PO QHS duloxetine 60 MG capsule 60 mg PO DAILY insulin lispro [Humalog KwikPen Insulin] 100 unit/mL insulin pen 15 - 20 unit subcut BID Rx Instructions: 20 BID Contact Prescriber if questions or concerns famotidine 20 mg Tablet 20 mg PO BID insulin glargine [Lantus Solostar U-100 Insulin] 100 unit/mL (3 mL) insulin pen 50 unit SUBCUT BID Rx Instructions: morning and bedtime Discontinued diazepam [Valium] 5 mg tablet 5 mg PO QHS PRN (Reason: sleep) Qty: 2 0RF Rx Instructions: 2 tabs (two) Referrals / Follow Up: Gabe Abraham DO [Primary Care Provider] - Disposition Disposition (needs filled in before D/C Order can be placed): Home, Self Care
[2023-01-14 14:31] LABS: Prealbumin 16.3 mg/dL (20.0-40.0)
--- NOTE | 2023-01-14 14:39 | PCM.PN.SRG ---
Subjective Subjective Patient sitting up in bed. Patient states that her pain is well controlled. Objective Data Objective Data Vital Signs: Vital Signs Temp Pulse Resp BP Pulse Ox O2 Del Method O2 Flow Rate 98.4 F 82 18 133/37 H 97 Room Air 2 01/14/23 14:27 01/14/23 14:27 01/14/23 14:27 01/14/23 14:27 01/14/23 14:27 01/14/23 14:27 01/14/23 07:48 Oxygen Flow Rate (L/min) 2 Oxygen Delivery Method Room Air Weight: 276 lb Body Mass Index (BMI) 45.9 Intake & Output: Intake and Output for Last 24 Hours 01/12/23 01/13/23 01/14/23 23:59 23:59 23:59 Intake Total 3457 / 3457 1381.67 / 1381.67 Output Total 500 / 870 935 / 935 Balance 2957 / 2587 446.67 / 446.67 Kimo drains- Left 200 ml, Right 85 ml. Lab / Micro Data Attestation: I reviewed the patient's lab results. Result Diagrams: 01/15/23 05:20 01/15/23 05:20 Labs: Laboratory Results - last 24 hr 01/13/23 10:37: POC Glucose 129 H 01/13/23 12:37: POC Glucose 151 H 01/13/23 14:38: POC Glucose 237 H 01/13/23 16:51: POC Glucose 257 H 01/13/23 21:19: POC Glucose 261 H 01/14/23 05:53: WBC 15.3 H, RBC 2.72 L, Hgb 7.8 L, Hct 25.3 L, MCV 93.0, MCH 28.7, MCHC 30.8 L, RDW Std Deviation 47.6 H, RDW Coeff of Asha 14.0, Plt Count 203, MPV 11.7 01/14/23 05:53: Sodium 136, Potassium 4.9, Chloride 106, Carbon Dioxide 23.0, Anion Gap 7, BUN 37 H, Creatinine 2.73 H, Estim Creat Clear Calc 18.73, Est GFR (MDRD) Af Amer 23 L, Est GFR (MDRD) Non-Af 19 L, BUN/Creatinine Ratio 13.6, Glucose 166 H, Calcium 8.1 L, Prealbumin 16.3 L 01/14/23 08:07: POC Glucose 156 H 01/14/23 12:51: POC Glucose 210 H Physical Exam Const alert and oriented x3 General Appearance: cooperative HEENT normocephalic Resp normal respiratory effort Effort and Inspection: able to speak in complete sentences Extremity full ROM Skin Skin Narrative: Operative dressing removed without difficulty. Incisions dry and intact. Nipples are viable. Breasts soft and symmetrical with good contour. No evidence of hematoma. Kimo drains draining serosanguineous drainage. Neuro oriented x3 Psych mental status grossly normal Assessment & Plan Assessment/Plan (1) Macromastia: (2) Chronic neck pain: (3) Chronic thoracic back pain: (4) Right shoulder pain: (5) Left shoulder pain: (6) Intertrigo: (7) Family history of breast cancer: (8) Smoker: (9) Breast asymmetry: (10) DM type 2, goal HbA1c < 7%: (11) Diabetes mellitus, type II: QUALIFIERS: Diabetes mellitus complication status: with unspecified complications Diabetes mellitus custodial insulin use: with upholsterer limousine and hearse use Qualified Code(s): E11.8 - Type 2 diabetes mellitus with unspecified complications; Z79.4 - coordinator mining products (current) use of insulin (12) Acute postoperative anemia due to expected blood loss: (13) Acute kidney injury: PLAN: Plan Patient states her pain is well controlled on oral pain medications. Operative dressing removed without difficulty. Incisions dry and intact. Nipples are viable. Breasts soft and symmetrical with good contour. No evidence of hematoma. Kimo drains draining serosanguineous drainage. Left Kimo drained 200 ml and right 85 ml thus far. She has acute postoperative anemia due to expected blood loss from surgery. Hgb this morning 7.8. Will transfuse 2 units PRBC's. She had low urine output throughout the night and received LR 250 ml and IVF increased to 100 ml/hr. Her May was removed at 11 am and the May bag had 300 cc in it at that time. BUN 37/creatinine 2.73 today. Preoperatively on 01/08/23 BUN 28/creatinine 1.88. With her history of T2DM and HTN and her increased creatinine will consult Hospitalist for medical management of her acute kidney injury. Prealbumin 16.3 today. Encouraged increased protein intake to help with wound healing. Will keep her overnight.
[2023-01-14] MEDS: Insulin Lispro 100 UNIT/ML INSULN.PEN 20 UNIT SC (17:33)
[2023-01-14] MEDS: glipiZIDE 5 MG Tablet PO (17:35)
[2023-01-14 18:12] LABS: Bedside Glucose 267 mg/dL (74-106)
--- NOTE | 2023-01-14 18:46 | PCM.CONS.GEN ---
Assessment & Plan Assessment/Plan (1) Acute kidney injury: (2) Acute postoperative anemia due to expected blood loss: PLAN: Plan This 62-year-old female was seen as hospitalist consult for perioperative management of acute blood loss anemia and KALEE. 1. Acute postoperative blood loss anemia with history of chronic normocytic anemia/anemia of chronic disease: Patient is admitted on Med[facility] floor.Her baseline hemoglobin dropped from 10.5 to 7.8 g%. Units of PRBC transfusion has already been ordered by surgery. Posttransfusion H&H and daily CBC with differential. Patient also has leukocytosis probably postop inflammation. No fever. Patient on perioperative IV cefazolin 2 g every 8 hourly regimen. Discontinue enoxaparin 40 mg subcut twice daily. 2. Acute kidney injury, most likely prerenal with CKD stage IIIb: Patient creatinine profile reviewed. It progressively increased from 1.38 in September 21-1.88 01/08/2023 prior to surgery. This worsened to 2.73 today. Patient denies burning pain in urine. IV fluid and volume resuscitation. Monitor kidney function electrolytes daily. Sodium potassium, bicarb are in normal range. 3. Hypertension: Patient on HCTZ, and lisinopril. Hold both of these today because of KALEE. Alternative antihypertensive medication, hydralazine for BP control. BP is currently in normal range. 4. Diabetes mellitus type 2 with diabetic neuropathy: Hold oral hypoglycemic agents on account of KALEE. Accu-Chek insulin is covered with Humalog sliding scale. Decrease dose of gabapentin to 400 mg p.o. 3 times daily. On Cymbalta 60 mg daily. Patient on glargine insulin 50 mill subcutaneous twice daily and lispro 20 units subcutaneous twice daily. Glucoses range between 150- 250 mg/dL. Continue gabapentin. A1c tomorrow AM. 5. Hyperlipidemia: On atorvastatin 40 mg nightly daily. 6. Hypothyroidism: Continue home synthroid dose. 7. Anxiety and Depression: Continue home psychiatric regime including cymbalta and quetiapine 8. Morbid Obesity: Weight loss and lifestyle changes encouraged, nutrition consulted. BMI 45.9 kg/m?. 9. Tobacco Abuse: Patient continue to smoke. Smoking cessation counseling done. 10. GERD: PPI. DVT Prophylaxis: Bilateral SCDs. Pharmacological prophylaxis contraindicated in view of acute blood loss anemia. Laboratory Results 01/13/23 21:19: POC Glucose 261 H 01/14/23 05:53: WBC 15.3 H, RBC 2.72 L, Hgb 7.8 L, Hct 25.3 L, MCV 93.0, MCH 28.7, MCHC 30.8 L, RDW Std Deviation 47.6 H, RDW Coeff of Asha 14.0, Plt Count 203, MPV 11.7 01/14/23 05:53: Sodium 136, Potassium 4.9, Chloride 106, Carbon Dioxide 23.0, Anion Gap 7, BUN 37 H, Creatinine 2.73 H, Estim Creat Clear Calc 18.73, Est GFR (MDRD) Af Amer 23 L, Est GFR (MDRD) Non-Af 19 L, BUN/Creatinine Ratio 13.6, Glucose 166 H, Calcium 8.1 L, Prealbumin 16.3 L 01/14/23 08:07: POC Glucose 156 H 01/14/23 12:51: POC Glucose 210 H 01/14/23 17:06: Blood Type Pending, Antibody Screen Pending, Crossmatch See Detail 01/14/23 17:23: POC Glucose 267 H HPI Consult Data Date of Consult: 01/14/23 HPI Narrative Reason for Consultation: For perioperative management of acute postoperative blood loss anemia, KALEE HPI Narrative: ANDI ROLDAN, is a 62 F who was admitted after elective bilateral breast reduction mammoplasty on 01/13/2023. Patient has bilateral macromastia with breast asymmetry, chronic neck shoulder and back pain and inframammary intertrigo plan for surgery was performed. Patient baseline hemoglobin is about 10.5 g% and it dropped to 7.8 g%. Mild bruising is present as per [facility] note. Patient has bilateral perioperative breast pain but is controlled on pain medication. Nursing staff said that she loses her dressing. 2 Units PRBC transfusion ordered by surgery. Patient baseline creatinine is elevated. It progressively increased from 1.38 in September 21-1.88 01/08/2023 prior to surgery. This worsened to 2.73 today. Patient denies burning pain in urine. Spontaneously voiding urine. No acute change in amount of urine. Patient feels mild abdominal bloating but passing flatus. She also has upper abdominal wall pain after surgery. No fever or chills. [facility] Medical History Acute kidney injury Alcohol use Ambulates with cane Anemia Anemia Anxiety Arthritis Arthritis Back pain Back pain Blackout Bladder disease Breast asymmetry Chronic neck pain Chronic thoracic back pain Cyclothymia Depression Dietary restriction DM type 2, goal HbA1c < 7% Easy bruising Environmental allergies Family history of breast cancer Gastric reflux History of echocardiogram History of edema History of pain when walking Hypertension Injury of head and neck Insulin dependent diabetes mellitus Intertrigo Left shoulder pain Leg cramps Macromastia Marijuana use Post-menopausal Restless legs Right shoulder pain Smoker Smoker Syncope Thyroid disease Wears dentures Wheezing Home Medications duloxetine 60 mg capsule,delayed release 60 mg PO DAILY DEPRESSION 09/13/17 [History Last Taken 01/13/23] glipizide 5 mg tablet 5 mg PO BID DIABETES 09/13/17 [History Last Taken 01/12/23] hydrochlorothiazide 25 mg tablet 25 mg PO DAILY BP 09/13/17 [History Last Taken 01/12/23] levothyroxine 125 mcg tablet 125 mcg PO DAILY THYROID 09/13/17 [History Last Taken 01/13/23] lisinopril 30 mg tablet (Zestril) 30 mg PO DAILY BP 09/13/17 [History Last Taken 01/13/23] qhzxxjzkwdgt-Mb-gxvr-minerals (Multiple Vitamin, Womens tablet) 1 ea PO QHS SUPPLEMENT 09/13/17 [History Last Taken 01/12/23] pantoprazole 40 mg tablet,delayed release 40 mg PO DAILY GERD 09/13/17 [History Last Taken 01/13/23] albuterol sulfate 90 mcg/actuation aerosol inhaler 2 puff inhalation Q4H PRN SOB 11/06/22 [History Last Taken Unknown] aspirin 81 mg tablet,delayed release 81 mg PO DAILY 11/06/22 [History Last Taken 01/12/23] atorvastatin 40 mg tablet 40 mg PO DAILY 11/06/22 [History Last Taken 01/12/23] blood sugar diagnostic (Intervolveuch Ultra Test strips) 11/06/22 [History Last Taken Unknown] cetirizine 10 mg capsule (All Day Allergy (cetirizine)) 10 mg PO DAILY 11/06/22 [History Last Taken 01/12/23] fluticasone propionate 50 mcg/actuation nasal spray,suspension 2 spray intranasal BID 11/06/22 [History Last Taken 01/12/23] gabapentin 800 mg tablet 800 mg PO TID 11/06/22 [History Last Taken 01/12/23] insulin lispro 100 unit/mL subcutaneous pen (Humalog KwikPen (U-100) Insulin) 15 - 20 unit subcut BID DIABETES 11/06/22 [History Last Taken Unknown] pen needle, diabetic 31 gauge x 5/16 (Lite Touch Insulin Pen [place]) 11/06/22 [History Last Taken Unknown] quetiapine 25 mg tablet 25 mg PO DAILY 11/06/22 [History Last Taken 01/13/23] quetiapine 50 mg tablet 75 mg PO QHS 11/06/22 [History Last Taken 01/12/23] famotidine 20 mg tablet 20 mg PO BID 01/01/23 [History Last Taken 01/13/23] insulin lispro 100 unit/mL subcutaneous solution (Humalog U-100 Insulin) 1 sliding scale dose subcut USEASDIRECTD 01/08/23 [History Last Taken Unknown] insulin glargine 100 unit/mL (3 mL) subcutaneous pen (Lantus Solostar U-100 Insulin) 50 unit subcut BID 01/13/23 [History Last Taken 01/13/23 25 units] cefadroxil 500 mg capsule 500 mg PO BID 7 days #14 caps 01/14/23 [Rx Last Taken Unknown] docusate sodium 100 mg capsule (Colace) 100 mg PO DAILY PRN constipation 30 days #30 caps 01/14/23 [Rx Last Taken Unknown] ferrous sulfate 325 mg (65 mg iron) tablet (Feosol) 325 mg PO DAILY 30 days #30 tabs 01/14/23 [Rx Last Taken Unknown] oxycodone-acetaminophen 5 mg-325 mg tablet (Percocet) 1 tab PO 4X/DAY PRN PRN pain (scale score 7-10) 7 days #28 tabs 01/14/23 [Rx Last Taken Unknown] Allergy/AdvReac Type Severity Reaction Status Date / Time Tetanus Vaccines and Toxoid Allergy Severe Other Verified 01/13/23 06:13 [Tetanus Vaccines & Toxoid] Family History Mother Diabetes Arthritis Osteoporosis Father Hypertension Renal injury Skin cancer (melanoma) Sister Breast cancer Daughter Myocardial infarction, Onset Age: 40 Grandfather Cancer Surgical History History of appendectomy History of section History of cholecystectomy History of hysterectomy History of total knee replacement Hx of left cataract extraction Hx of right cataract extraction Social History Smoking Status: Current every day smoker tobacco type: cigarettes counseling given: provider counseling and counseling >10 minutes alcohol intake: current details: Occasional flavored vodka substance use type: does not use what type of physical activity do you participate in: walking and bicycling frequency: 3-4 times per week ROS ROS Narrative Constitutional: Reports fatigue and weakness. No fever. HEENT: Reports systems reviewed and no addt'l complaints, except as documented Respiratory/Chest wall: Bilateral perioperative pain after prior surgery. No acute shortness of breath or respiratory distress or wheezing. CVS: No deep cardiac or anginal pain. . Gastrointestinal: Denies coffee ground emesis, hematemesis or vomiting Genitourinary: Denies burning urination or new urinary tract symptoms. Chronic stress incontinence. Musculoskeletal: Chronic neck, upper shoulder pain. No acute injury Neurologic: Denies seizure-like symptoms. Denies acute strokelike symptoms. skin: Bilateral breast surgery. Endocrinology: Reports systems reviewed and no addt'l complaints, except as documented Hematologic/Lymphatic: Reports systems reviewed and no addt'l complaints, except as documented Rest 14 ROS are negative except as mentioned in HPI Physical Exam Narrative General: Alert, Oriented x3, Cooperative, morbid obesity BMI 45.9 kg/m?. HEENT: Atraumatic, PERRLA, EOMI, Normocephalic Oral: Oral mucosa is moist. No Gingival or Mucosal Lesions/ Ulcerations Neck: Mild tenderness over larynx/throat, after elective intubation for GA. Supple, No JVD, Negative Carotid Bruits Chest wall/lungs: Surgical dressing was changed by plastic surgery. Air entry diminished in bilateral lung bases. No crepitation/rhonchi Cardiovascular: Regular rate, Regular Rhythm, Normal S1, Normal S2, over right second ICS and LLSB. Systolic murmur Abdomen: Bowel Sounds Present, Soft, Non Tender, Non-Distended : No renal angle tenderness. No suprapubic tenderness. Extremities: No edema, Capillary Refill Less than 3 Seconds Skin: Surgical dressing was changed to her breast by surgeon. Mild bruising as per surgical note. Musculoskeletal: No acute tenderness to Palpation of Joints or Extremities. No lower lumbar spine tenderness. Neurological: Cranial nerves II-XII grossly intact, DTR 2+/4 and Symmetrical. Psych/Mental Status: Flat affect. Lab / Micro Data Result Diagrams: 01/14/23 05:53 01/14/23 05:53 Labs: Laboratory Results - last 24 hr 01/13/23 21:19: POC Glucose 261 H 01/14/23 05:53: WBC 15.3 H, RBC 2.72 L, Hgb 7.8 L, Hct 25.3 L, MCV 93.0, MCH 28.7, MCHC 30.8 L, RDW Std Deviation 47.6 H, RDW Coeff of Asha 14.0, Plt Count 203, MPV 11.7 01/14/23 05:53: Sodium 136, Potassium 4.9, Chloride 106, Carbon Dioxide 23.0, Anion Gap 7, BUN 37 H, Creatinine 2.73 H, Estim Creat Clear Calc 18.73, Est GFR (MDRD) Af Amer 23 L, Est GFR (MDRD) Non-Af 19 L, BUN/Creatinine Ratio 13.6, Glucose 166 H, Calcium 8.1 L, Prealbumin 16.3 L 01/14/23 08:07: POC Glucose 156 H 01/14/23 12:51: POC Glucose 210 H 01/14/23 17:06: Crossmatch See Detail 01/14/23 17:23: POC Glucose 267 H Charges/Coding Visit Charges Office Visits / Consults: 10277 OP Consult L4
[2023-01-14] MEDS: Atorvastatin Calcium 40 MG Tablet PO (22:21)
[2023-01-14] MEDS: Multivitamins,Ther W-Minerals Tablet 1 TABLET PO (22:21)
[2023-01-14] MEDS: QUEtiapine 25 MG Tablet 75 MG PO (22:22)
[2023-01-14] MEDS: Gabapentin 400 MG Capsule PO (22:30)
--- NOTE | 2023-01-14 22:50 | NURSING ---
Updated daughter, Mansi, by phone. Mansi had questions about blood transfusion, hemoglobin level, and rechecking her labs. Daughter appreciated the call back.
[2023-01-15] VITALS (18 sets, daily range): BP systolic 99–145; BP diastolic 50–70; PULSE 86–97; RESP 16–22; TEMP 36.5–37.6; O2SAT 77–98
[2023-01-15 00:14] LABS: Bedside Glucose 300 mg/dL (74-106)
[2023-01-15] MEDS: Levothyroxine 125 MCG Tablet PO (05:24)
[2023-01-15] MEDS: Gabapentin 400 MG Capsule PO ×3 (05:24→23:12)
[2023-01-15 06:20] LABS: Absolute Lymphocyte Count 1.63 X10^3/uL (0.83-4.51); Absolute Neutrophil Count 9.9 X10^3/uL (2.0-7.7); Basophil# 0.03 X10^3/uL; Basophil% 0.2 % (0-1); Hematocrit 27.5 % (37-47); Hemoglobin 8.9 g/dL (12.0-15.0); Lymphocyte # 1.63 X10^3/ul (0.83-4.51); Lymphocyte % 12.4 % (19-41); Mean Corp Hgb Conc 32.4 g/dL (32-36); Mean Corpuscular Hgb 29.9 pg (27.0-32.0); Mean Corpuscular Volume 92.3 fL (81-99); Mean Platelet Vol. 11.7 fl (6.2-12.0); Monocyte# 1.47 X10^3/uL; Monocyte% 11.2 % (0-10); NRBC Flagged by Analyzer 0 % (0-5); Neutrophil # 9.94 X10^3/uL (2.7-7.7); Neutrophil % 75.9 % (47-70); Platelet Count 159 K/mm3 (150-450); RBC Distribution Width CV 14.1 % (11.6-14.6); RBC Distribution Width SD 47.4 fl (35.1-43.9); Red Blood Count 2.98 M/mm3 (4.2-5.4); White Blood Count 13.1 K/mm3 (4.4-11.0)
[2023-01-15] MEDS: Cefazolin 2 GM in 0.9% Normal Saline 100 ML IV ×3 (06:44→23:00)
[2023-01-15 06:46] LABS: Anion Gap 6 (5-15); BUN 38 mg/dL (7-18); BUN/Creat Ratio 16.3 RATIO (10-20); Calcium,Total 8.2 mg/dL (8.5-10.1); Chloride 102 mmol/L (98-107); Creatinine, Serum 2.33 mg/dL (0.55-1.02); EST Glomerular Filtration Rate 22 mL/min (>60); Est Glom Filt Rate - Afr Amer 27 mL/min (>60); Estimated Creatinine Clearance 21.95 ml/min; Glucose 207 mg/dL (74-106); Potassium 5.1 mmol/L (3.5-5.1); Sodium Level 134 mmol/L (136-145)
--- NOTE | 2023-01-15 07:07 | PCM.PN.HOSP ---
Reason for Visit Reason for Visit: Diagnoses Acute posthemorrhagic anemia (01/13/23) Type 2 diabetes mellitus without complications (01/13/23) Nicotine dependence, unspecified, uncomplicated (01/13/23) Other acute postprocedural pain (01/13/23) Other chronic pain (01/13/23) Essential (primary) hypertension (01/13/23) Erythema intertrigo (01/13/23) Pain in right shoulder (01/13/23) Pain in left shoulder (01/13/23) Cervicalgia (01/13/23) Pain in thoracic spine (01/13/23) Acute kidney failure, unspecified (01/13/23) Hypertrophy of breast (01/13/23) Other specified disorders of breast (01/13/23) Encounter for other preprocedural examination (01/13/23) Family history of malignant neoplasm of breast (01/13/23) Objective Data Objective Data Vital Signs: Vital Signs Temp Pulse Resp BP Pulse Ox O2 Del Method O2 Flow Rate 97.9 F 87 20 H 140/63 H 95 Nasal Cannula 1.5 01/15/23 06:35 01/15/23 06:35 01/15/23 06:35 01/15/23 06:35 01/15/23 06:35 01/15/23 06:35 01/15/23 06:35 Oxygen Flow Rate (L/min) 1.5 Oxygen Delivery Method Nasal Cannula Weight: 125.191 kg Body Mass Index (BMI) 45.9 Intake & Output: Intake and Output for Last 24 Hours 01/13/23 01/14/23 01/15/23 23:59 23:59 23:59 Intake Total 3457 / 3457 1951.67 / 1951.67 1250 / 1250 Output Total 500 / 870 1005 / 1005 460 / 460 Balance 2957 / 2587 946.67 / 946.67 790 / 790 Lab / Micro Data Result Diagrams: 01/15/23 05:20 01/15/23 05:20 Labs: Laboratory Results - last 24 hr 01/14/23 05:53: Sodium 136, Potassium 4.9, Chloride 106, Carbon Dioxide 23.0, Anion Gap 7, BUN 37 H, Creatinine 2.73 H, Estim Creat Clear Calc 18.73, Est GFR (MDRD) Af Amer 23 L, Est GFR (MDRD) Non-Af 19 L, BUN/Creatinine Ratio 13.6, Glucose 166 H, Calcium 8.1 L, Prealbumin 16.3 L 01/14/23 08:07: POC Glucose 156 H 01/14/23 12:51: POC Glucose 210 H 01/14/23 17:06: Blood Type O POSITIVE, Antibody Screen POSITIVE H, Antibody Identification ANTI-Fya, Crossmatch See Detail 01/14/23 17:06: Antigen Identification Fya ANTIGEN - NEGATIVE 01/14/23 17:23: POC Glucose 267 H 01/14/23 22:10: POC Glucose 300 H 01/15/23 05:20: WBC 13.1 H, RBC 2.98 L, Hgb 8.9 L, Hct 27.5 L, MCV 92.3, MCH 29.9, MCHC 32.4 D, RDW Std Deviation 47.4 H, RDW Coeff of Asha 14.1, Plt Count 159, MPV 11.7, Immature Gran % (Auto) 0.300, Neut % (Auto) 75.9 H, Lymph % (Auto) 12.4 L, Luce % (Auto) 11.2 H, Eos % (Auto) 0.0, Baso % (Auto) 0.2, Absolute Neuts (auto) 9.9 H, Absolute Lymphs (auto) 1.63, Nucleated RBC % 0 01/15/23 05:20: Sodium 134 L, Potassium 5.1, Chloride 102, Carbon Dioxide 26.0, Anion Gap 6, BUN 38 H, Creatinine 2.33 H, Estim Creat Clear Calc 21.95, Est GFR (MDRD) Af Amer 27 L, Est GFR (MDRD) Non-Af 22 L, BUN/Creatinine Ratio 16.3, Glucose 207 H, Calcium 8.2 L Physical Exam Narrative GENERAL: Dyspneic at rest HEENT: Atraumatic; normocephalic EYES; Anicteric, Normal Conjunctiva NECK; supple, normal thyroid, RESPIRATORY: Diminished to auscultation CARDIOVASCULAR: Regular S1 S2, GI: soft, normoactive bowel sounds, : No Renal angle tenderness; EXTREMITIES: No edema, no clubbing, MUSCULOSKELETAL: no muscle wasting NEURO: Awake; no lateralizing signs. SKIN: No Rash PSYCH; Flat affect Assessment & Plan Assessment/Plan (1) Acute kidney injury: (2) Acute postoperative anemia due to expected blood loss: PLAN: Plan This 62-year-old female who underwent bilateral breast reduction mammoplasty by Dr. De Paz on 01/13/2023. The hospitalist service was consulted to assist with perioperative management acute blood loss anemia and KALEE. 1. Anemia ? Secondary to acute blood loss anemia in the setting of anemia of chronic disorder. Monitoring H&H with plans to transfuse if patient becomes symptomatic or hemoglobin falls below 7. Of note surgery did place an order for patient to be transfused with 1 unit PRBC 2. Acute kidney injury ? Superimposed on chronic kidney disease stage III patient is on IV fluid with subsequent monitoring of electrolyte patient is on HCTZ and lisinopril held in view of above ? Patient fluid to be discontinued given patient going into respiratory distress 3. Acute hypoxia ? Secondary to fluid overload patient fluid held given Lasix chest x-ray ordered please on supplemental oxygen titrated to keep saturation greater than 90 4. Essential hypertension ? Patient blood pressure control is optimal HCTZ and lisinopril on hold given patient impaired kidney function on hydralazine as needed 5. Diabetes mellitus type II -patient's oral hypoglycemics held. Placed on long acting insulin, Accu-Cheks a.c. and at bedtime and covered with sliding scale insulin 6. Dyslipidemia -Patient is on statin therapy, continued at home dose 7. Hypothyroidism - Patient is on levothyroxine home dose continued 8. Depression with anxiety ? Did continue patient antidepressant medications 9. Tobacco dependence - Counseled on cessation, offered nicotine patch for tobacco cravings 10.7. Class III obesity with BMI of 45.9 ? Complicating care weight loss advised 11 DVT prophylaxis ? SC enoxaparin Time spent in the patient's overall evaluation,decision-making process, review of diagnostic data, adjustment of management, discussion with other providers, nursing nursing and ancillary staff involved in patient's care documentation, 50 Minutes Charges/Coding Visit Charges Inpatient E&M: 74432 [facility] L3
[2023-01-15 07:55] LABS: Hemoglobin A1c 5.7 % (3.8-5.6)
--- NOTE | 2023-01-15 09:10 | RAD_ITS ---
STUDY: X-RAY CHEST REASON FOR EXAM: Female, 62 years old. sob with ext - o2 needs and exp wheezing . Postop bilateral breast reduction surgery. TECHNIQUE: Single AP portable view of the chest. COMPARISON: None. FINDINGS: Drains are seen in both breasts. Findings suggestive of mild vascular congestion. There is no demonstrated pleural abnormality. There is borderline cardiomegaly. Normal mediastinum and gisela. Normal visualized pulmonary arteries. There is atherosclerotic tortuosity of the aortic arch and descending thoracic aorta. There are degenerative changes of the visualized thoracic spine. Normal visualized ribs, clavicles, and shoulders. There is no demonstrated abnormality of the visualized soft tissue structures of the upper abdomen. RAD/Chest 1 View (Portable) IMPRESSION: Mild vascular congestion. Electronically Signed: Cliff Griffith MD at 13:50 EDT ,
[2023-01-15 09:22] LABS: Bedside Glucose 185 mg/dL (74-106)
[2023-01-15] MEDS: Insulin Lispro 100 UNIT/ML INSULN.PEN SC ×3 (09:31→17:22)
[2023-01-15] MEDS: Insulin Lispro 100 UNIT/ML INSULN.PEN 20 UNIT SC ×2 (09:32→17:23)
[2023-01-15] MEDS: Furosemide 100 MG/10 ML Vial 60 MG IV (09:33)
[2023-01-15] MEDS: Pantoprazole Sodium 40 MG Tablet PO (11:03)
[2023-01-15] MEDS: Famotidine 20 MG Tablet PO (11:03)
[2023-01-15] MEDS: DULoxetine Hcl 60 MG Capsule PO (11:04)
[2023-01-15] MEDS: Loratadine 10 MG Tablet PO (11:04)
[2023-01-15] MEDS: Fluticasone 0.05% 1 SPRAY NASAL.SRY 2 SPRAY NASAL ×2 (11:04→23:01)
[2023-01-15 11:44] LABS: Bedside Glucose 190 mg/dL (74-106)
[2023-01-15] MEDS: Albuterol 2.5 MG/3 ML VIAL.NEB. INHALATION (12:22)
[2023-01-15 13:51] LABS: Color, Urine Yellow (Yellow); Glucose, Dipstick Normal (Normal); Ketone-Dipstick Negative (Negative); Leukocyte Esterase-Dipstick 100 /ul (Negative); Nitrite-Dipstick Negative (Negative); Occult Blood-Urine 25 /ul (Negative); Protein-Dipstick 30 mg/dl (Negative); Specific Gravity, Urine 1.015 (1.002-1.030); Urine Bilirubin Dipstick Negative (Negative); Urine Clarity Sl. Cloudy (Clear); Urine Urobilinogen Normal (Normal)
[2023-01-15] MEDS: Polyethylene Glycol 3350 17 GM PACKET PO (14:37)
--- NOTE | 2023-01-15 14:54 | PCM.PN.SRG ---
Subjective Subjective Postop #2 Patient resting in bed. Patient states pain is well controlled. Objective Data Objective Data Vital Signs: Vital Signs Temp Pulse Resp BP Pulse Ox O2 Del Method O2 Flow Rate 99.3 F H 94 18 143/65 H 95 Nasal Cannula 1.5 01/15/23 14:32 01/15/23 14:32 01/15/23 14:32 01/15/23 14:32 01/15/23 14:32 01/15/23 14:32 01/15/23 14:32 Oxygen Flow Rate (L/min) 1.5 Oxygen Delivery Method Nasal Cannula Weight: 276 lb Body Mass Index (BMI) 45.9 Intake & Output: Intake and Output for Last 24 Hours 01/13/23 01/14/23 01/15/23 23:59 23:59 23:59 Intake Total 3457 / 3457 1951.67 / 1951.67 1910 / 1910 Output Total 500 / 870 1005 / 1005 460 / 460 Balance 2957 / 2587 946.67 / 946.67 1450 / 1450 Lab / Micro Data Result Diagrams: 01/15/23 05:20 01/15/23 05:20 Labs: Laboratory Results - last 24 hr 01/14/23 17:06: Blood Type O POSITIVE, Antibody Screen POSITIVE H, Antibody Identification ANTI-Fya, Crossmatch See Detail 01/14/23 17:06: Antigen Identification Fya ANTIGEN - NEGATIVE 01/14/23 17:23: POC Glucose 267 H 01/14/23 22:10: POC Glucose 300 H 01/15/23 05:20: WBC 13.1 H, RBC 2.98 L, Hgb 8.9 L, Hct 27.5 L, MCV 92.3, MCH 29.9, MCHC 32.4 D, RDW Std Deviation 47.4 H, RDW Coeff of Asha 14.1, Plt Count 159, MPV 11.7, Immature Gran % (Auto) 0.300, Neut % (Auto) 75.9 H, Lymph % (Auto) 12.4 L, [place] % (Auto) 11.2 H, Eos % (Auto) 0.0, Baso % (Auto) 0.2, Absolute Neuts (auto) 9.9 H, Absolute Lymphs (auto) 1.63, Nucleated RBC % 0 01/15/23 05:20: Sodium 134 L, Potassium 5.1, Chloride 102, Carbon Dioxide 26.0, Anion Gap 6, BUN 38 H, Creatinine 2.33 H, Estim Creat Clear Calc 21.95, Est GFR (MDRD) Af Amer 27 L, Est GFR (MDRD) Non-Af 22 L, BUN/Creatinine Ratio 16.3, Glucose 207 H, Calcium 8.2 L 01/15/23 05:20: Hemoglobin A1c 5.7 H 01/15/23 08:25: POC Glucose 185 H 01/15/23 11:17: POC Glucose 190 H 01/15/23 : Urine Color Yellow, Urine Clarity Sl. Cloudy, Urine pH 5.0, Ur Specific [place] 1.015, Urine Protein 30 H, Urine Glucose (UA) Normal, Urine Ketones Negative, Urine Occult Blood 25 H, Urine Nitrite Negative, Urine Bilirubin Negative, Urine Urobilinogen Normal, Ur Leukocyte Esterase 100 H Radiography Diagnostic Testing: Radiology Impression Chest X-Ray 01/15/23 09:10 IMPRESSION: Mild vascular congestion. Electronically Signed: Cliff Griffith MD at 13:50 EDT , Physical Exam Const alert and oriented x3 Constitutional Narrative: Fatigued. General Appearance: cooperative HEENT normocephalic Eyes General Eye: normal appearance of both eyes Resp Resp Narrative: She is now on 2L NC. Effort and Inspection: able to speak in complete sentences Cardio regular rate and regular rhythm Extremity full ROM Skin Skin Narrative: Dressing dry and intact. EVERARDO wrap for compression. 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 Dressing dry and intact. No evidence of hematoma. Kimo drains draining serosanguineous drainage. Both the left and right Kimo drains have produced 40 cc in the last 24 hours. She has acute postoperative anemia due to expected blood loss from surgery. Hgb this morning 8.9 after being transfused with [address] her on iron supplementation. Hospitalist are managing medical issues. Patient is currently on 1.5L NC. Pulse ox 94%. She had a CXR this morning which showed Mild vascular congestion. She received lasix this morning. UA was obtained this morning and shows Protein 30, Leuks 100. She is currently receiving Cefadroxil. Prealbumin 16.3. Encouraged increased protein intake to help with wound healing. Upon discharge, she will follow up next week in our office to have her drains removed.
--- NOTE | 2023-01-15 17:03 | CASEMGMT ---
Social Work SW to room to meet with patient for initial transition planning/care coordination assessment. SW introduced self and role at [facility]. Pt voices understanding and consents to assessment at this time. Pt resting in bed in no distress. Pt is A/O and answers all questions appropriately. Care providers, pharmacy, and demographics verified/updated at this time. PCP: Gabe Abraham Specialists: Baldev, plastic surgery Preferred Pharmacy: [facility] Retail Insurance: [facility] Community Plan Prescription Benefit: yes Living Will/HPOA: No. Pt not interested in completing at this time but did accept advance directive rack card LNOK: Gilda Brown, daughter Mansi Grossman, daughter Jurgen Murguia, sister Living Arrangements: Pt lives in a mobile home alone with 5 steps to enter. Pt has been independent at home with ADLs and IADLS. Transportation: Pt drives and has no concerns DME: cane, walker, rollator, wheelchair HHC/SNF: none previously PLAN: Pt plans to return home at discharge. Pt's dgt states family members plan to provide 24 hour care for the next 2 weeks. No concerns at this time for discharge home. MICKY Kahn
[2023-01-15 17:17] LABS: Bedside Glucose 231 mg/dL (74-106)
--- NOTE | 2023-01-15 17:54 | CASEMGMT ---
Social Work Pt does not have a living will nor health care POA and does not want to complete at this time. SW provided pt with advance directive rack card. Pt appreciative of information. MICKY Lynn
[2023-01-15] MEDS: Atorvastatin Calcium 40 MG Tablet PO (23:00)
[2023-01-15] MEDS: Multivitamins,Ther W-Minerals Tablet 1 TABLET PO (23:00)
[2023-01-15] MEDS: 0.9% Saline Lock 10 ML Syringe IV (23:01)
[2023-01-15] MEDS: Insulin Glargine-YFGN 100 UNIT/ML Pen 50 UNIT SC (23:06)
[2023-01-15] MEDS: QUEtiapine 25 MG Tablet 75 MG PO (23:08)
[2023-01-15 23:57] LABS: Bedside Glucose 200 mg/dL (74-106)
[2023-01-16] VITALS (14 sets, daily range): BP systolic 108–145; BP diastolic 51–71; PULSE 83–89; RESP 18–24; TEMP 36.6–37.3; O2SAT 86–99
[2023-01-16] MEDS: Nystatin Powder 15gm Bottle 1 APPLIC TOPICAL ×4 (00:12→21:01)
[2023-01-16] MEDS: Enoxaparin 30 MG/0.3 ML Syringe SC (05:08)
[2023-01-16] MEDS: Levothyroxine 125 MCG Tablet PO (05:08)
[2023-01-16] MEDS: Cefazolin 2 GM in 0.9% Normal Saline 100 ML IV ×3 (05:08→20:45)
[2023-01-16] MEDS: Gabapentin 400 MG Capsule PO ×3 (05:08→20:47)
[2023-01-16 07:13] LABS: Absolute Lymphocyte Count 1.25 X10^3/uL (0.83-4.51); Absolute Neutrophil Count 8.6 X10^3/uL (2.0-7.7); Basophil# 0.03 X10^3/uL; Basophil% 0.3 % (0-1); Hematocrit 26.6 % (37-47); Hemoglobin 8.4 g/dL (12.0-15.0); Lymphocyte # 1.25 X10^3/ul (0.83-4.51); Lymphocyte % 11.4 % (19-41); Mean Corp Hgb Conc 31.6 g/dL (32-36); Mean Corpuscular Volume 91.7 fL (81-99); Mean Platelet Vol. 11.7 fl (6.2-12.0); Monocyte# 1.05 X10^3/uL; Monocyte% 9.6 % (0-10); NRBC Flagged by Analyzer 0 % (0-5); Neutrophil # 8.59 X10^3/uL (2.7-7.7); Neutrophil % 78.2 % (47-70); Platelet Count 150 K/mm3 (150-450); RBC Distribution Width CV 14.5 % (11.6-14.6); RBC Distribution Width SD 48.9 fl (35.1-43.9)
--- NOTE | 2023-01-16 07:21 | PCM.PN.HOSP ---
Reason for Visit Reason for Visit: Diagnoses Acute posthemorrhagic anemia (01/14/23) Type 2 diabetes mellitus with unspecified complications (01/14/23) Type 2 diabetes mellitus without complications (01/14/23) Nicotine dependence, unspecified, uncomplicated (01/14/23) Other acute postprocedural pain (01/14/23) Other chronic pain (01/14/23) Essential (primary) hypertension (01/14/23) Erythema intertrigo (01/14/23) Pain in right shoulder (01/14/23) Pain in left shoulder (01/14/23) Cervicalgia (01/14/23) Pain in thoracic spine (01/14/23) Acute kidney failure, unspecified (01/14/23) Hypertrophy of breast (01/14/23) Other specified disorders of breast (01/14/23) Encounter for other preprocedural examination (01/14/23) 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 Did respond to diuretic therapy the day prior Objective Data Objective Data Vital Signs: Vital Signs Temp Pulse Resp BP Pulse Ox O2 Del Method O2 Flow Rate 98.2 F 88 20 H 108/51 L 95 Nasal Cannula 1.5 01/16/23 05:20 01/16/23 05:20 01/16/23 05:20 01/16/23 05:20 01/16/23 05:20 01/16/23 05:20 01/16/23 05:20 Oxygen Flow Rate (L/min) 1.5 Oxygen Delivery Method Nasal Cannula Weight: 125.191 kg Body Mass Index (BMI) 45.9 Intake & Output: Intake and Output for Last 24 Hours 01/14/23 01/15/23 01/16/23 23:59 23:59 23:59 Intake Total 1951.67 / 1951.67 2420 / 2420 110 / 110 Output Total 1005 / 1005 1235 / 1235 4 / 4 Balance 946.67 / 946.67 1185 / 1185 106 / 106 Lab / Micro Data Result Diagrams: 01/16/23 06:36 01/16/23 06:36 Labs: Laboratory Results - last 24 hr 01/15/23 05:20: Hemoglobin A1c 5.7 H 01/15/23 08:25: POC Glucose 185 H 01/15/23 11:17: POC Glucose 190 H 01/15/23 16:47: POC Glucose 231 H 01/15/23 23:04: POC Glucose 200 H 01/15/23 : Urine Color Yellow, Urine Clarity Sl. Cloudy, Urine pH 5.0, Ur Specific [place] 1.015, Urine Protein 30 H, Urine Glucose (UA) Normal, Urine Ketones Negative, Urine Occult Blood 25 H, Urine Nitrite Negative, Urine Bilirubin Negative, Urine Urobilinogen Normal, Ur Leukocyte Esterase 100 H 01/16/23 06:36: WBC 11.0, RBC 2.90 L, Hgb 8.4 L, Hct 26.6 L, MCV 91.7, MCH 29.0, MCHC 31.6 L, RDW Std Deviation 48.9 H, RDW Coeff of Asha 14.5, Plt Count 150, MPV 11.7, Immature Gran % (Auto) 0.500, Neut % (Auto) 78.2 H, Lymph % (Auto) 11.4 L, [place] % (Auto) 9.6, Eos % (Auto) 0.0, Baso % (Auto) 0.3, Absolute Neuts (auto) 8.6 H, Absolute Lymphs (auto) 1.25, Nucleated RBC % 0 Radiography Diagnostic Testing: Radiology Impression Chest X-Ray 01/15/23 09:10 IMPRESSION: Mild vascular congestion. Electronically Signed: Cliff Griffith MD at 13:50 EDT , Physical Exam Narrative GENERAL: Cooperative HEENT: Atraumatic; normocephalic EYES; Anicteric, Normal Conjunctiva NECK; supple, normal thyroid, RESPIRATORY: Diminished to auscultation CARDIOVASCULAR: Regular S1 S2, GI: soft, normoactive bowel sounds, : No Renal angle tenderness; EXTREMITIES: No edema, no clubbing, MUSCULOSKELETAL: no muscle wasting NEURO: Awake; no lateralizing signs. SKIN: No Rash PSYCH; Flat affect Assessment & Plan Assessment/Plan (1) Acute kidney injury: (2) Acute postoperative anemia due to expected blood loss: PLAN: Plan This 62-year-old female who underwent bilateral breast reduction mammoplasty by Dr. De Paz on 01/13/2023. The hospitalist service was consulted to assist with perioperative management acute blood loss anemia and KALEE. 1. Anemia ? Secondary to acute blood loss anemia in the setting of anemia of chronic disorder. Monitoring H&H with plans to transfuse if patient becomes symptomatic or hemoglobin falls below 7. Of note surgery did place an order for patient to be transfused with 1 unit PRBC ? 01/16/2023 hemoglobin up to 8.4 2. Acute kidney injury ? Superimposed on chronic kidney disease stage III patient is on IV fluid with subsequent monitoring of electrolyte patient is on HCTZ and lisinopril held in view of above ? Patient fluid to be discontinued given patient going into respiratory distress ? 01/16/2023 kidney function remains stable 3. Acute hypoxia ? Secondary to fluid overload patient fluid held given Lasix chest x-ray ordered please on supplemental oxygen titrated to keep saturation greater than 90 ? 01/16/2023 tolerating supplemental oxygen 4. Essential hypertension ? Patient blood pressure control is optimal HCTZ and lisinopril on hold given patient impaired kidney function on hydralazine as needed 5. Diabetes mellitus type II -patient's oral hypoglycemics held. Placed on long acting insulin, Accu-Cheks a.c. and at bedtime and covered with sliding scale insulin 6. Dyslipidemia -Patient is on statin therapy, continued at home dose 7. Hypothyroidism - Patient is on levothyroxine home dose continued 8. Depression with anxiety ? Did continue patient antidepressant medications 9. Tobacco dependence - Counseled on cessation, offered nicotine patch for tobacco cravings 10.7. Class III obesity with BMI of 45.9 ? Complicating care weight loss advised 11 DVT prophylaxis ? SC enoxaparin 12. Physical deconditioning - Requested for PT OT eval and hospital social worker to assist with discharge planning Time spent in the patient's overall evaluation,decision-making process, review of diagnostic data, adjustment of management, discussion with other providers, nursing nursing and ancillary staff involved in patient's care documentation, 35 Minutes Charges/Coding Visit Charges Inpatient E&M: 14780 Subs Hosp L2
[2023-01-16 07:41] LABS: Anion Gap 6 (5-15); BUN 46 mg/dL (7-18); BUN/Creat Ratio 19.8 RATIO (10-20); Calcium,Total 8.2 mg/dL (8.5-10.1); Chloride 104 mmol/L (98-107); Creatinine, Serum 2.32 mg/dL (0.55-1.02); EST Glomerular Filtration Rate 22 mL/min (>60); Est Glom Filt Rate - Afr Amer 27 mL/min (>60); Estimated Creatinine Clearance 22.04 ml/min; Glucose 193 mg/dL (74-106); Potassium 4.7 mmol/L (3.5-5.1); Sodium Level 134 mmol/L (136-145)
--- NOTE | 2023-01-16 09:29 | NURSING ---
spo2 87% RA when resting with eyes closed, , when awake spo2 95% and when doing her i.s./pep therapy as well
--- NOTE | 2023-01-16 09:47 | NURSING ---
spo2 84% on room, moist rolling cough, unable to speak in full sentences when attempting to ambulate to bathroom.pt SOB, BSC brought in instead. O2 applied 2L NC and when on BSC spo2 97% with 2L NC on. text to Dr. Rutledge to update on condition.
[2023-01-16] MEDS: Fluticasone 0.05% 1 SPRAY NASAL.SRY 2 SPRAY NASAL ×2 (09:51→20:47)
[2023-01-16] MEDS: DULoxetine Hcl 60 MG Capsule PO (09:51)
[2023-01-16] MEDS: Insulin Glargine-YFGN 100 UNIT/ML Pen 50 UNIT SC ×2 (09:51→23:00)
[2023-01-16] MEDS: Pantoprazole Sodium 40 MG Tablet PO (09:51)
[2023-01-16] MEDS: Loratadine 10 MG Tablet PO (09:51)
[2023-01-16] MEDS: Famotidine 20 MG Tablet PO (09:52)
[2023-01-16] MEDS: 0.9% Saline Lock 10 ML Syringe IV ×4 (09:53→20:45)
--- NOTE | 2023-01-16 09:56 | RAD_ITS ---
INDICATION: Shortness of breath EXAMINATION/TECHNIQUE: X-RAY - XR Chest 1 View COMPARISON: January 15, 2023 FINDINGS: LINES/DEVICES: None. LUNGS: There is no new focal consolidation. There are stable bilateral prominent interstitial markings. MEDIASTINUM AND CARDIOVASCULAR STRUCTURES: Cardiac silhouette not enlarged. Central airways and mediastinal contour are unremarkable. BONES AND SOFT TISSUES: Unremarkable. RAD/Chest 1 View (Portable) IMPRESSION: Stable prominent interstitial markings may be secondary to a confluence of shadows however cannot exclude mild edema and/or an infectious process. Electronically Signed: Skyla Philippe MD at 10:10 EDT ,
--- NOTE | 2023-01-16 10:03 | NURSING ---
daughter at bedside and updated.
[2023-01-16] MEDS: Albuterol 2.5 MG/3 ML VIAL.NEB. INHALATION (10:12)
[2023-01-16 10:30] LABS: Allen Test Positive; Base Excess -4 mmol/L (-2 to +2); Bicarbonate 21.2 mmol/L (22-26); Blood Gas Specimen Type ART; O2 Delivery Device Cannula; PO2 72 mmHG (75-100); SITE R Brach; SO2 95 % (95-99); Total Carbon Dioxide 22 mmol/L
[2023-01-16] MEDS: Furosemide 100 MG/10 ML Vial 80 MG IV (10:38)
--- NOTE | 2023-01-16 11:02 | PCM.PN.SRG ---
Subjective Subjective Postop #3 Patient feeling tired. On O2. Getting diuresed because of pulmonary congestion. Objective Data Objective Data Vital Signs: Vital Signs Temp Pulse Resp BP Pulse Ox O2 Del Method O2 Flow Rate 97.9 F 84 24 H 123/57 H 95 Nasal Cannula 3 01/16/23 09:32 01/16/23 10:12 01/16/23 10:12 01/16/23 09:32 01/16/23 10:12 01/16/23 10:12 01/16/23 10:12 Oxygen Flow Rate (L/min) [At 2 REST with Oxygen] Oxygen Flow Rate (L/min) [ 4 AMBULATING with Oxygen #2] Oxygen Flow Rate (L/min) [ 3 AMBULATING with Oxygen #1] Oxygen Flow Rate (L/min) 3 Oxygen Delivery Method Nasal Cannula Weight: 276 lb Body Mass Index (BMI) 45.9 Intake & Output: Intake and Output for Last 24 Hours 01/14/23 01/15/23 01/16/23 23:59 23:59 23:59 Intake Total 1951.67 / 1951.67 2420 / 2420 220 / 220 Output Total 1005 / 1005 1235 / 1235 404 / 404 Balance 946.67 / 946.67 1185 / 1185 -184 / -184 Prealbumin from 01/14/23 was 16.3. Encourage nutritional supplementation with protein to help the healing process. Lab / Micro Data Attestation: I reviewed the patient's lab results. Lab results narrative: Hgb today was 8.4 which is down from yesterday at 8.9. Had received PRBC postoperatively. She is on Iron supplementation. Creatinine today was 2.32 which is stable from yesterday at 2.33. It is improving from a high of 2.73 on 01/14/23. Result Diagrams: 01/18/23 05:33 01/18/23 05:33 Labs: Laboratory Results - last 24 hr 01/15/23 11:17: POC Glucose 190 H 01/15/23 16:47: POC Glucose 231 H 01/15/23 23:04: POC Glucose 200 H 01/15/23 : Urine Color Yellow, Urine Clarity Sl. Cloudy, Urine pH 5.0, Ur Specific [place] 1.015, Urine Protein 30 H, Urine Glucose (UA) Normal, Urine Ketones Negative, Urine Occult Blood 25 H, Urine Nitrite Negative, Urine Bilirubin Negative, Urine Urobilinogen Normal, Ur Leukocyte Esterase 100 H 01/16/23 06:36: WBC 11.0, RBC 2.90 L, Hgb 8.4 L, Hct 26.6 L, MCV 91.7, MCH 29.0, MCHC 31.6 L, RDW Std Deviation 48.9 H, RDW Coeff of Asha 14.5, Plt Count 150, MPV 11.7, Immature Gran % (Auto) 0.500, Neut % (Auto) 78.2 H, Lymph % (Auto) 11.4 L, [place] % (Auto) 9.6, Eos % (Auto) 0.0, Baso % (Auto) 0.3, Absolute Neuts (auto) 8.6 H, Absolute Lymphs (auto) 1.25, Nucleated RBC % 0 01/16/23 06:36: Sodium 134 L, Potassium 4.7, Chloride 104, Carbon Dioxide 24.0, Anion Gap 6, BUN 46 H, Creatinine 2.32 H, Estim Creat Clear Calc 22.04, Est GFR (MDRD) Af Amer 27 L, Est GFR (MDRD) Non-Af 22 L, BUN/Creatinine Ratio 19.8, Glucose 193 H, Calcium 8.2 L ABG Data ABG results: ABG 01/16/23 10:23 Specimen Type ART Sample Site R Brach pH 7.40 Bicarbonate Actual 21.2 L Total CO2 22 Base Excess -4 L O2 Saturation 95 ABG pCO2 34.0 L ABG pO2 72 L Garry Test Positive O2 Delivery Device Cannula Liter Flow 3.0 Radiography Diagnostic Testing: Radiology Impression Chest X-Ray 01/15/23 09:10 IMPRESSION: Mild vascular congestion. Electronically Signed: Cliff Griffith MD at 13:50 EDT , Chest X-Ray 01/16/23 09:56 IMPRESSION: Stable prominent interstitial markings may be secondary to a confluence of shadows however cannot exclude mild edema and/or an infectious process. Electronically Signed: Skyla Philippe MD at 10:10 EDT , Physical Exam Narrative General - Alert and Oriented HEENT - PERRL. EOMI. Neck - Supple and nontender. Breasts - Soft and symmetrical. Incisions are dry and intact. Good breast contour. Nipples are viable. No clinical evidence of hematoma. Lungs - Decreased at the bases. Abdomen - Soft and nondistended. Extremities -no clubbing, cyanosis, or edema. Neuro - CN II-XII grossly intact. Psych - Normal mood and affect. Assessment & Plan Assessment/Plan (1) Acute postoperative anemia due to expected blood loss: PLAN: Hgb today was 8.4 which is down from yesterday at 8.9.? Had received PRBC postoperatively.? She is on Iron supplementation. (2) Acute kidney injury: PLAN: Creatinine today was 2.32 which is stable from yesterday at 2.33.? It is improving from a high of 2.73 on 01/14/23. (3) Macromastia: (4) Chronic neck pain: (5) Chronic thoracic back pain: (6) Right shoulder pain: (7) Left shoulder pain: (8) Intertrigo: (9) Family history of breast cancer: (10) Smoker: PLAN: Encouraged patient to stop smoking as it may have deleterious effects on wound healing. (11) DM type 2, goal HbA1c < 7%: PLAN: HgbA1c is 5.7. PLAN: Plan Breast incisions are dry and intact. Breasts are soft and symmetrical. Good breast contour noted. No clinical evidence of hematoma. Nipples are viable. Drainage is coming down. Will remove the drains on 01/18/23. Prealbumin was 16.3. Encourage nutritional supplementation with protein to help the healing process. Pulmonary fluid overload improving with diuresis. Her I's/O's are positive 5000 ml. On O2. Will discharge home when stable medically. Anticipate Wednesday or Wednesday. Encouraged patient to stop smoking as it may have deleterious effects on wound healing.
[2023-01-16] MEDS: Insulin Lispro 100 UNIT/ML INSULN.PEN SC ×2 (11:23→16:19)
[2023-01-16 11:42] LABS: Bedside Glucose 192 mg/dL (74-106)
[2023-01-16] MEDS: Insulin Lispro 100 UNIT/ML INSULN.PEN 20 UNIT SC (16:20)
[2023-01-16 16:35] LABS: Bedside Glucose 305 mg/dL (74-106)
[2023-01-16] MEDS: QUEtiapine 25 MG Tablet 75 MG PO (20:46)
[2023-01-16] MEDS: Multivitamins,Ther W-Minerals Tablet 1 TABLET PO (20:46)
[2023-01-16] MEDS: Iron Polysaccharide Complex 150 MG CAPSULE PO (20:47)
[2023-01-16] MEDS: Acetaminophen 500 MG Tablet PO (20:47)
[2023-01-16] MEDS: Atorvastatin Calcium 40 MG Tablet PO (21:01)
[2023-01-16 23:02] LABS: Bedside Glucose 229 mg/dL (74-106)
[2023-01-17] VITALS (8 sets, daily range): BP systolic 112–130; BP diastolic 46–60; PULSE 75–98; RESP 18–20; TEMP 36.5–37.3; O2SAT 94–99
[2023-01-17] MEDS: Acetaminophen 500 MG Tablet PO ×2 (03:19→20:56)
[2023-01-17] MEDS: Cefazolin 2 GM in 0.9% Normal Saline 100 ML IV ×3 (06:14→20:59)
[2023-01-17] MEDS: Nystatin Powder 15gm Bottle 1 APPLIC TOPICAL ×3 (06:14→20:59)
[2023-01-17] MEDS: Enoxaparin 30 MG/0.3 ML Syringe SC (06:14)
[2023-01-17] MEDS: Levothyroxine 125 MCG Tablet PO (06:15)
[2023-01-17] MEDS: Gabapentin 400 MG Capsule PO ×3 (06:15→20:59)
--- NOTE | 2023-01-17 07:26 | PN.HOSP_ITS ---
Reason for Visit Reason for Visit: Diagnoses Acute posthemorrhagic anemia (01/14/23) Type 2 diabetes mellitus with unspecified complications (01/14/23) Type 2 diabetes mellitus without complications (01/14/23) Nicotine dependence, unspecified, uncomplicated (01/14/23) Other acute postprocedural pain (01/14/23) Other chronic pain (01/14/23) Essential (primary) hypertension (01/14/23) Erythema intertrigo (01/14/23) Pain in right shoulder (01/14/23) Pain in left shoulder (01/14/23) Cervicalgia (01/14/23) Pain in thoracic spine (01/14/23) Acute kidney failure, unspecified (01/14/23) Hypertrophy of breast (01/14/23) Other specified disorders of breast (01/14/23) Encounter for other preprocedural examination (01/14/23) 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 Imaging studies obtained did show vascular congestion consistent with edema additional doses of Lasix given. Seen this a.m. appears comfortable at rest awaiting a.m. labs Objective Data Objective Data Vital Signs: Vital Signs Temp Pulse Resp BP Pulse Ox O2 Del Method O2 Flow Rate 99.1 F 77 20 H 130/58 H 98 Nasal Cannula 2 01/17/23 03:07 01/17/23 06:13 01/17/23 06:13 01/17/23 03:07 01/17/23 06:13 01/17/23 06:13 01/17/23 06:13 Oxygen Flow Rate (L/min) [At 2 REST with Oxygen] Oxygen Flow Rate (L/min) [ 4 AMBULATING with Oxygen #2] Oxygen Flow Rate (L/min) [ 3 AMBULATING with Oxygen #1] Oxygen Flow Rate (L/min) 2 Oxygen Delivery Method Nasal Cannula Weight: 125.191 kg Body Mass Index (BMI) 45.9 Intake & Output: Intake and Output for Last 24 Hours 01/15/23 01/16/23 01/17/23 23:59 23:59 23:59 Intake Total 2420 / 2420 452.0 / 452.0 Output Total 1235 / 1235 2504 / 2504 375 / 375 Balance 1185 / 1185 -2052.0 / -2052.0 -375 / -375 Lab / Micro Data Result Diagrams: 01/16/23 06:36 01/16/23 06:36 Labs: Laboratory Results - last 24 hr 01/16/23 06:36: Sodium 134 L, Potassium 4.7, Chloride 104, Carbon Dioxide 24.0, Anion Gap 6, BUN 46 H, Creatinine 2.32 H, Estim Creat Clear Calc 22.04, Est GFR (MDRD) Af Amer 27 L, Est GFR (MDRD) Non-Af 22 L, BUN/Creatinine Ratio 19.8, Glucose 193 H, Calcium 8.2 L 01/16/23 11:21: POC Glucose 192 H 01/16/23 16:16: POC Glucose 305 H 01/16/23 20:41: POC Glucose 229 H ABG Data ABG results: ABG 01/16/23 10:23 Specimen Type ART Sample Site R Brach pH 7.40 Bicarbonate Actual 21.2 L Total CO2 22 Base Excess -4 L O2 Saturation 95 ABG pCO2 34.0 L ABG pO2 72 L Garry Test Positive O2 Delivery Device Cannula Liter Flow 3.0 Radiography Diagnostic Testing: Radiology Impression Chest X-Ray 01/16/23 09:56 IMPRESSION: Stable prominent interstitial markings may be secondary to a confluence of shadows however cannot exclude mild edema and/or an infectious process. Electronically Signed: Skyla Philippe MD at 10:10 EDT , Physical Exam Narrative GENERAL: Cooperative HEENT: Atraumatic; normocephalic EYES; Anicteric, Normal Conjunctiva NECK; supple, normal thyroid, RESPIRATORY: Diminished to auscultation CARDIOVASCULAR: Regular S1 S2, GI: soft, normoactive bowel sounds, : No Renal angle tenderness; EXTREMITIES: No edema, no clubbing, MUSCULOSKELETAL: no muscle wasting NEURO: Awake; no lateralizing signs. SKIN: No Rash PSYCH; Flat affect Assessment & Plan Assessment/Plan (1) Acute kidney injury: (2) Acute postoperative anemia due to expected blood loss: PLAN: Plan This 62-year-old female who underwent bilateral breast reduction mammoplasty by Dr. De Paz on 01/13/2023. The hospitalist service was consulted to assist with perioperative management acute blood loss anemia and KALEE. 1. Anemia ? Secondary to acute blood loss anemia in the setting of anemia of chronic disorder. Monitoring H&H with plans to transfuse if patient becomes symptomatic or hemoglobin falls below 7. Of note surgery did place an order for patient to be transfused with 1 unit PRBC ? 01/16/2023 hemoglobin up to 8.4 2. Acute kidney injury ? Superimposed on chronic kidney disease stage III patient is on IV fluid with subsequent monitoring of electrolyte patient is on HCTZ and lisinopril held in view of above ? Patient fluid to be discontinued given patient going into respiratory distress ? 01/16/2023 kidney function remains stable 3. Acute hypoxia secondary to secondary to acute congestive heart failure possibly with preserved ejection fraction ? Secondary to fluid overload patient fluid held given Lasix chest x-ray ordered please on supplemental oxygen titrated to keep saturation greater than 90 ? 01/16/2023 tolerating supplemental oxygen ? 01/17/2023 additional doses of Lasix given. Ordered 2D echo for EF assessment 4. Essential hypertension ? Patient blood pressure control is optimal HCTZ and lisinopril on hold given patient impaired kidney function on hydralazine as needed 5. Diabetes mellitus type II -patient's oral hypoglycemics held. Placed on long acting insulin, Accu-Cheks a.c. and at bedtime and covered with sliding scale insulin 6. Dyslipidemia -Patient is on statin therapy, continued at home dose 7. Hypothyroidism - Patient is on levothyroxine home dose continued 8. Depression with anxiety ? Did continue patient antidepressant medications 9. Tobacco dependence - Counseled on cessation, offered nicotine patch for tobacco cravings 10.7. Class III obesity with BMI of 45.9 ? Complicating care weight loss advised 11 DVT prophylaxis ? SC enoxaparin 12. Physical deconditioning - Requested for PT OT eval and manager social media to assist with discharge planning Time spent in the patient's overall evaluation,decision-making process, review of diagnostic data, adjustment of management, discussion with other providers, nursing nursing and ancillary staff involved in patient's care documentation, 35 Minutes Charges/Coding Visit Charges Inpatient E&M: 13003 Subs Hosp L2
--- NOTE | 2023-01-17 07:47 | ECHOD_ITS ---
Reason For Study: CHF Procedure This was a 2D Doppler, Color Flow transthoracic echocardiogram. Limited views were obtained. The study was technically difficult. The study was technically limited. No apical window due to recent bilateral breast surgery/bandages/drains. Exam performed portable in patient room. Left Ventricle Normal LV size. Mild concentric left ventricular hypertrophy. The left ventricular ejection fraction is 65 %. Unable to assess diastolic function based on available data. Right Ventricle Normal right ventricle. Atria The left atrium is mildly enlarged. Normal right atrium. Mitral Valve Mild diffuse mitral valve thickening. Tricuspid Valve Trivial tricuspid valve insufficiency. Unable to estimate RV systolic pressure due to insufficient tricuspid regurgitant envelope. Aortic Valve Mild diffuse aortic valve thickening. Pulmonic Valve The pulmonic valve is not well visualized. Great Vessels Normal sized aortic root. Pericardium/Pleural No pericardial effusion. MMode/2D Measurements & Calculations LVIDd: 4.4 cm IVSd: 1.4 cm Ao root diam: 3.1 cm LVIDs: 2.9 cm LVPWd: 1.2 cm FS: 34.5 % LA dimension(2D): 4.3 cm Doppler Measurements & Calculations PA V2 max: 111.2 cm/sec ECHO/Echo Complete Interpretation Summary The study was technically difficult. No apical window due to recent bilateral breast surgery/bandages/drains Mild concentric left ventricular hypertrophy. The left ventricular ejection fraction is 65 %. The left atrium is mildly enlarged. Mild diffuse aortic valve thickening. Ordering Physician: Daniel Rutledge Referring Physician: Gabe Abraham Performed By: Tracey Murillo, JOÃO, RVT
[2023-01-17] MEDS: Insulin Lispro 100 UNIT/ML INSULN.PEN 20 UNIT SC ×2 (07:55→16:49)
[2023-01-17] MEDS: Insulin Lispro 100 UNIT/ML INSULN.PEN SC ×2 (07:55→16:49)
[2023-01-17 08:20] LABS: Bedside Glucose 192 mg/dL (74-106)
[2023-01-17 09:25] LABS: Absolute Lymphocyte Count 1.11 X10^3/uL (0.83-4.51); Absolute Neutrophil Count 6.5 X10^3/uL (2.0-7.7); Basophil# 0.03 X10^3/uL; Basophil% 0.4 % (0-1); Hematocrit 26.6 % (37-47); Hemoglobin 8.3 g/dL (12.0-15.0); Lymphocyte # 1.11 X10^3/ul (0.83-4.51); Lymphocyte % 13.1 % (19-41); Mean Corp Hgb Conc 31.2 g/dL (32-36); Mean Corpuscular Hgb 28.9 pg (27.0-32.0); Mean Corpuscular Volume 92.7 fL (81-99); Mean Platelet Vol. 11.5 fl (6.2-12.0); Monocyte# 0.81 X10^3/uL; Monocyte% 9.5 % (0-10); NRBC Flagged by Analyzer 0 % (0-5); Neutrophil # 6.51 X10^3/uL (2.7-7.7); Neutrophil % 76.5 % (47-70); Platelet Count 148 K/mm3 (150-450); RBC Distribution Width CV 14.2 % (11.6-14.6); Red Blood Count 2.87 M/mm3 (4.2-5.4); White Blood Count 8.5 K/mm3 (4.4-11.0)
[2023-01-17 09:40] LABS: Anion Gap 4 (5-15); BUN 45 mg/dL (7-18); BUN/Creat Ratio 21.6 RATIO (10-20); Calcium,Total 8.5 mg/dL (8.5-10.1); Chloride 107 mmol/L (98-107); Creatinine, Serum 2.08 mg/dL (0.55-1.02); EST Glomerular Filtration Rate 25 mL/min (>60); Est Glom Filt Rate - Afr Amer 31 mL/min (>60); Estimated Creatinine Clearance 24.59 ml/min; Glucose 174 mg/dL (74-106); Magnesium 2.1 mg/dL (1.6-2.6); Phosphorus 3.3 mg/dL (2.5-4.9); Potassium 4.4 mmol/L (3.5-5.1); Sodium Level 136 mmol/L (136-145)
[2023-01-17] MEDS: Fluticasone 0.05% 1 SPRAY NASAL.SRY 2 SPRAY NASAL ×2 (09:45→20:59)
[2023-01-17] MEDS: Iron Polysaccharide Complex 150 MG CAPSULE PO (09:46)
[2023-01-17] MEDS: Loratadine 10 MG Tablet PO (09:46)
[2023-01-17] MEDS: DULoxetine Hcl 60 MG Capsule PO (09:46)
[2023-01-17] MEDS: Pantoprazole Sodium 40 MG Tablet PO (09:46)
[2023-01-17] MEDS: Insulin Glargine-YFGN 100 UNIT/ML Pen 50 UNIT SC ×2 (09:46→21:00)
[2023-01-17] MEDS: Famotidine 20 MG Tablet PO (09:46)
[2023-01-17] MEDS: QUEtiapine 25 MG Tablet PO (09:46)
[2023-01-17 11:46] LABS: Bedside Glucose 141 mg/dL (74-106)
[2023-01-17 17:10] LABS: Bedside Glucose 180 mg/dL (74-106)
--- NOTE | 2023-01-17 19:16 | PN.SURG_ITS ---
Subjective Subjective Postop #4 Patient is resting little easier. States she is breathing better. Still on O2. Responding to diuresis. Objective Data Objective Data Vital Signs: Vital Signs Temp Pulse Resp BP Pulse Ox O2 Del Method O2 Flow Rate 97.7 F L 81 18 128/60 H 99 Nasal Cannula 2 01/17/23 14:18 01/17/23 14:18 01/17/23 14:18 01/17/23 14:18 01/17/23 14:18 01/17/23 14:18 01/17/23 14:18 Oxygen Flow Rate (L/min) [At 2 REST with Oxygen] Oxygen Flow Rate (L/min) [ 4 AMBULATING with Oxygen #2] Oxygen Flow Rate (L/min) [ 3 AMBULATING with Oxygen #1] Oxygen Flow Rate (L/min) 2 Oxygen Delivery Method Nasal Cannula Weight: 275 lb 15.982 oz Body Mass Index (BMI) 45.9 Intake & Output: Intake and Output for Last 24 Hours 01/15/23 01/16/23 01/17/23 23:59 23:59 23:59 Intake Total 2420 / 2420 452.0 / 452.0 220 / 220 Output Total 1235 / 1235 2504 / 2504 683 / 683 Balance 1185 / 1185 -2052.0 / -2052.0 -463 / -463 Prealbumin from 01/14/23 was 16.3.? Encourage nutritional supplementation with protein to help the healing process. Lab / Micro Data Attestation: I reviewed the patient's lab results. Lab results narrative: Hgb today was 8.3 which is slightly down from yesterday at 8.4.? Had received PRBC postoperatively.? She is on Iron supplementation. Creatinine today was 2.08 which is improved from yesterday at 2.32.? It is improving from a high of 2.73 on 01/14/23. Result Diagrams: 01/18/23 05:33 01/18/23 05:33 Labs: Laboratory Results - last 24 hr 01/16/23 20:41: POC Glucose 229 H 01/17/23 07:51: POC Glucose 192 H 01/17/23 09:19: WBC 8.5, RBC 2.87 L, Hgb 8.3 L, Hct 26.6 L, MCV 92.7, MCH 28.9, MCHC 31.2 L, RDW Std Deviation 48.0 H, RDW Coeff of Asha 14.2, Plt Count 148 L, MPV 11.5, Immature Gran % (Auto) 0.500, Neut % (Auto) 76.5 H, Lymph % (Auto) 13.1 L, [place] % (Auto) 9.5, Eos % (Auto) 0.0, Baso % (Auto) 0.4, Absolute Neuts (auto) 6.5, Absolute Lymphs (auto) 1.11, Nucleated RBC % 0 01/17/23 09:19: Sodium 136, Potassium 4.4, Chloride 107, Carbon Dioxide 25.0, Anion Gap 4 L, BUN 45 H, Creatinine 2.08 H, Estim Creat Clear Calc 24.59, Est GFR (MDRD) Af Amer 31 L, Est GFR (MDRD) Non-Af 25 L, BUN/Creatinine Ratio 21.6 H , Glucose 174 H, Calcium 8.5, Phosphorus 3.3, Magnesium 2.1 01/17/23 11:28: POC Glucose 141 H 01/17/23 16:48: POC Glucose 180 H Physical Exam Narrative General - Alert and Oriented HEENT - PERRL. EOMI.? Neck - Supple and nontender. Breasts - Soft and symmetrical.? Incisions are dry and intact.? Good breast co ntour.? Nipples are viable.? No clinical evidence of hematoma. Lungs - Decreased at the bases. Abdomen - Soft and nondistended. Extremities -no clubbing, cyanosis, or edema. Neuro - CN II-XII grossly intact. Psych - Normal mood and affect. Assessment & Plan Assessment/Plan (1) Acute postoperative anemia due to expected blood loss: PLAN: Hgb today was 8.3 which is slightly down from yesterday at 8.4.? Had received PRBC postoperatively.? She is on Iron supplementation. (2) Acute kidney injury: PLAN: Creatinine today was 2.08 which is improved from yesterday at 2.32.? It is improving from a high of 2.73 on 01/14/23 (3) Macromastia: (4) Chronic neck pain: (5) Chronic thoracic back pain: (6) Right shoulder pain: (7) Left shoulder pain: (8) Intertrigo: (9) Family history of breast cancer: (10) Smoker: PLAN: Encouraged patient to stop smoking as it may have deleterious effects on wound healing. (11) DM type 2, goal HbA1c < 7%: PLAN: HgbA1c from 01/14/23 was 5.7. For elective surgery it needs to be less than 8. PLAN: Plan Breast incisions are dry and intact.? Breasts are soft and symmetrical.? Good breast contour noted. No clinical evidence of hematoma.? Nipples are viable. Drainage is coming down.? Will remove the drains on 01/18/23. Prealbumin was 16.3.? Encourage nutritional supplementation with protein to help the healing process. Pulmonary fluid overload improving with diuresis.? Her I's/O's are still positive, but have decreased to 2500 ml. On O2.? Will discharge home when stable medically.? Anticipate Wednesday. Encouraged patient to stop smoking as it may have deleterious effects on wound healing.
[2023-01-17] MEDS: Atorvastatin Calcium 40 MG Tablet PO (20:56)
[2023-01-17] MEDS: Multivitamins,Ther W-Minerals Tablet 1 TABLET PO (20:57)
[2023-01-17] MEDS: QUEtiapine 25 MG Tablet 75 MG PO (20:59)
[2023-01-17 21:39] LABS: Bedside Glucose 165 mg/dL (74-106)
[2023-01-18] VITALS (8 sets, daily range): BP systolic 111–154; BP diastolic 52–83; PULSE 70–80; RESP 18–20; TEMP 36.8–37.2; O2SAT 95–98
[2023-01-18] MEDS: Nystatin Powder 15gm Bottle 1 APPLIC TOPICAL ×2 (05:35→13:38)
[2023-01-18] MEDS: Gabapentin 400 MG Capsule PO ×2 (05:35→13:37)
[2023-01-18] MEDS: Enoxaparin 30 MG/0.3 ML Syringe SC (05:36)
[2023-01-18] MEDS: Levothyroxine 125 MCG Tablet PO (05:38)
[2023-01-18] MEDS: Cefazolin 2 GM in 0.9% Normal Saline 100 ML IV ×2 (05:43→13:38)
[2023-01-18 05:55] LABS: Hematocrit 26.1 % (37-47); Hemoglobin 8.2 g/dL (12.0-15.0); Mean Corp Hgb Conc 31.4 g/dL (32-36); Mean Corpuscular Hgb 29.1 pg (27.0-32.0); Mean Corpuscular Volume 92.6 fL (81-99); Mean Platelet Vol. 11.6 fl (6.2-12.0); Platelet Count 180 K/mm3 (150-450); RBC Distribution Width CV 13.9 % (11.6-14.6); RBC Distribution Width SD 47.6 fl (35.1-43.9); Red Blood Count 2.82 M/mm3 (4.2-5.4); White Blood Count 8.5 K/mm3 (4.4-11.0)
[2023-01-18 06:18] LABS: Anion Gap 4 (5-15); BUN 45 mg/dL (7-18); BUN/Creat Ratio 22.1 RATIO (10-20); Calcium,Total 8.8 mg/dL (8.5-10.1); Chloride 107 mmol/L (98-107); Creatinine, Serum 2.04 mg/dL (0.55-1.02); EST Glomerular Filtration Rate 26 mL/min (>60); Est Glom Filt Rate - Afr Amer 31 mL/min (>60); Estimated Creatinine Clearance 25.07 ml/min; Glucose 71 mg/dL (74-106); Potassium 4.4 mmol/L (3.5-5.1); Sodium Level 137 mmol/L (136-145)
--- NOTE | 2023-01-18 08:08 | PN.HOSP_ITS ---
Reason for Visit Reason for Visit: Diagnoses Acute posthemorrhagic anemia (01/14/23) Type 2 diabetes mellitus with unspecified complications (01/14/23) Type 2 diabetes mellitus without complications (01/14/23) Nicotine dependence, unspecified, uncomplicated (01/14/23) Other acute postprocedural pain (01/14/23) Other chronic pain (01/14/23) Essential (primary) hypertension (01/14/23) Erythema intertrigo (01/14/23) Pain in right shoulder (01/14/23) Pain in left shoulder (01/14/23) Cervicalgia (01/14/23) Pain in thoracic spine (01/14/23) Acute kidney failure, unspecified (01/14/23) Hypertrophy of breast (01/14/23) Other specified disorders of breast (01/14/23) Encounter for other preprocedural examination (01/14/23) [facility] (current) use of insulin (01/14/23) Family history of malignant neoplasm of breast (01/14/23) Subjective Subjective Feeling much better today, was up moving around and did well, eating well, having bowel movements, no acute complaints. Has May that is going to be pulled today Objective Data Objective Data Vital Signs: Vital Signs Temp Pulse Resp BP Pulse Ox O2 Del Method O2 Flow Rate 98.7 F 80 18 126/63 H 98 Nasal Cannula 1 01/18/23 08:00 01/18/23 08:00 01/18/23 08:00 01/18/23 08:00 01/18/23 08:00 01/18/23 08:00 01/18/23 08:00 Oxygen Flow Rate (L/min) [At 2 REST with Oxygen] Oxygen Flow Rate (L/min) [ 4 AMBULATING with Oxygen #2] Oxygen Flow Rate (L/min) [ 3 AMBULATING with Oxygen #1] Oxygen Flow Rate (L/min) 1 Oxygen Delivery Method Nasal Cannula Weight: 125.191 kg Body Mass Index (BMI) 45.9 Intake & Output: Intake and Output for Last 24 Hours 01/16/23 01/17/23 01/18/23 23:59 23:59 23:59 Intake Total 452.0 / 452.0 330 / 330 110 / 110 Output Total 2504 / 2504 1058 / 1058 450 / 450 Balance -2052.0 / -2052.0 -728 / -728 -340 / -340 Lab / Micro Data Result Diagrams: 01/18/23 05:33 01/18/23 05:33 Labs: Laboratory Results - last 24 hr 01/17/23 07:51: POC Glucose 192 H 01/17/23 09:19: WBC 8.5, RBC 2.87 L, Hgb 8.3 L, Hct 26.6 L, MCV 92.7, MCH 28.9, MCHC 31.2 L, RDW Std Deviation 48.0 H, RDW Coeff of Asha 14.2, Plt Count 148 L, MPV 11.5, Immature Gran % (Auto) 0.500, Neut % (Auto) 76.5 H, Lymph % (Auto) 13.1 L, [place] % (Auto) 9.5, Eos % (Auto) 0.0, Baso % (Auto) 0.4, Absolute Neuts (auto) 6.5, Absolute Lymphs (auto) 1.11, Nucleated RBC % 0 01/17/23 09:19: Sodium 136, Potassium 4.4, Chloride 107, Carbon Dioxide 25.0, Anion Gap 4 L, BUN 45 H, Creatinine 2.08 H, Estim Creat Clear Calc 24.59, Est GFR (MDRD) Af Amer 31 L, Est GFR (MDRD) Non-Af 25 L, BUN/Creatinine Ratio 21.6 H , Glucose 174 H, Calcium 8.5, Phosphorus 3.3, Magnesium 2.1 01/17/23 11:28: POC Glucose 141 H 01/17/23 16:48: POC Glucose 180 H 01/17/23 20:54: POC Glucose 165 H 01/18/23 05:33: WBC 8.5, RBC 2.82 L, Hgb 8.2 L, Hct 26.1 L, MCV 92.6, MCH 29.1, MCHC 31.4 L, RDW Std Deviation 47.6 H, RDW Coeff of Asha 13.9, Plt Count 180, MPV 11.6 01/18/23 05:33: Sodium 137, Potassium 4.4, Chloride 107, Carbon Dioxide 26.0, Anion Gap 4 L, BUN 45 H, Creatinine 2.04 H, Estim Creat Clear Calc 25.07, Est GFR (MDRD) Af Amer 31 L, Est GFR (MDRD) Non-Af 26 L, BUN/Creatinine Ratio 22.1 H , Glucose 71 L, Calcium 8.8 Physical Exam Narrative General: Alert, oriented, no apparent distress HEENT: Atraumatic, normocephalic Eyes: Anicteric, normal conjunctiva, extraocular movements grossly intact Neck: Supple Respiratory: Clear to auscultation bilaterally, normal respiratory effort Cardiovascular: Regular rate and rhythm GI: Soft, nontender, nondistended Extremities: Trace lower extremity edema Musculoskeletal: Moving all extremities Neuro: No overt focal neurological deficits Skin: No rashes appreciated Psych: Cooperative Assessment & Plan Assessment/Plan (1) Acute kidney injury: (2) Acute postoperative anemia due to expected blood loss: PLAN: Plan #Postop fluid overload -Has been receiving Lasix as needed -Daily weights -Echo ordered -01/18:not on O2 at present and ambulated in the hallways and did well, echo with EF of 65%, unable to assess diastolic dysfunction, patient doing well overall, await recommendations as below, given only intermittent nature of diuretics and clinical improvement do not think she needs scheduled diuretics upon discharge #KALEE on CKDIIIb -Baseline Cr closer to 1.4-1.8, increased to 2.73, has down trended to 2.04 -Neurontin adjusted down to 400 3 times daily given kidney function -01/18: Continues to improve, recommendation is below #Postop bilateral breast reduction -From 01/13 Dr. De Paz -On cefazolin #Acute post op anemia 2/2 expected blood loss -10.5 on 01/08 and downtrended to 7.8 -Has now been stable #Hypothyroidism -TSH 4.42 on 01/08, may need to repeat on an outpatient basis as this is minimally elevated and may not represent true need for further adjustment -Continue Synthroid #Type 2 diabetes mellitus -Glucose checks and sliding scale insulin -Presently on home glargine 50 units twice daily but did have a glucose of 71 this a.m., will decrease by several units to avoid hypoglycemia especially given patient presently hospitalized -Also received 20 units BIDCM RECOMMENDATIONS: -Weigh yourself every day. A sudden weight gain can mean you are retaining fluid. Weigh yourself at the same time of day and in the same kind of clothes. Ideally, weigh yourself first thing in the morning after you empty your bladder, but before you eat breakfast. -Please call your physician if your weight goes up by more than 2 pounds in 1 day or 5 pounds in 1 week. This can be a sign that you are retaining more fluid than you should be. -Would recommend lab work (BMP) to check your Kidney function in 2 to 3 days through your primary care physician's office. Please call their office upon discharge to obtain order for lab work. #DVT ppx: Lovenox subcu Corinne Gray MD Time spent in the patient's overall evaluation,decision-making process, review of diagnostic data, adjustment of management, discussion with other providers, nursing nursing and ancillary staff involved in patient's care documentation, 36 minutes Charges/Coding Visit Charges Inpatient E&M: 77467 Subs Hosp L3
[2023-01-18] MEDS: Insulin Glargine-YFGN 100 UNIT/ML Pen 48 UNIT SC (09:58)
[2023-01-18] MEDS: QUEtiapine 25 MG Tablet PO (09:58)
[2023-01-18] MEDS: DULoxetine Hcl 60 MG Capsule PO (09:58)
[2023-01-18] MEDS: Pantoprazole Sodium 40 MG Tablet PO (09:58)
[2023-01-18] MEDS: Loratadine 10 MG Tablet PO (09:59)
[2023-01-18] MEDS: Iron Polysaccharide Complex 150 MG CAPSULE PO (09:59)
[2023-01-18] MEDS: Fluticasone 0.05% 1 SPRAY NASAL.SRY 2 SPRAY NASAL (09:59)
[2023-01-18] MEDS: Famotidine 20 MG Tablet PO (10:00)
[2023-01-18 11:30] LABS: Bedside Glucose 167 mg/dL (74-106)
[2023-01-18] MEDS: Insulin Lispro 100 UNIT/ML INSULN.PEN SC (12:13)
--- NOTE | 2023-01-18 22:40 | PCM.DC.SUM ---
Providers Date of Admission: 01/14/23 Date of Discharge: 01/18/23 Primary Care Physician: Dr. Gabe Abraham DO Attending Physician: MD Dr Corinne Jones MD Consultations 01/14/23 16:19 Consult: Hospitalist Routine Consulting Provider: Danny Patel Reason for Consult: medical management - HTN, diabetes, kidney issues Creatinine 2.73 EMERGENT Consult: No MD Notified: Yes Date Notified: 01/14/23 Time Notified: 17:25 Method of Notification: Text Method of Consult:: In-Person Reason For Visit: BILATERAL BREAST REDUCTION MAMMAPLASTY Diagnosis Discharge Diagnosis (1) Acute postoperative anemia due to expected blood loss: Status: Resolved Code(s): D62 - Acute posthemorrhagic anemia Plan: Hgb was 8.2 upon discharge as it came down after a Hgb of 8.9 after receiving 2 units PRBC. Hgb went from 10.5 preop to 7.8 first postop day. She is on Iron supplementation. (2) Acute kidney injury: Status: Resolved Code(s): N17.9 - Acute kidney failure, unspecified Plan: postop Creatinine 2.73 and 2.04 upon discharge (3) Macromastia: Status: Chronic Code(s): N62 - Hypertrophy of breast (4) Chronic neck pain: Status: Chronic Code(s): M54.2 - Cervicalgia; G89.29 - Other chronic pain (5) Chronic thoracic back pain: Status: Chronic Code(s): M54.6 - Pain in thoracic spine; G89.29 - Other chronic pain (6) Right shoulder pain: Status: Chronic Code(s): M25.511 - Pain in right shoulder (7) Left shoulder pain: Status: Chronic Code(s): M25.512 - Pain in left shoulder (8) Intertrigo: Status: Chronic Code(s): L30.4 - Erythema intertrigo (9) Family history of breast cancer: Status: Chronic Code(s): Z80.3 - Family history of malignant neoplasm of breast (10) Smoker: Status: Chronic Code(s): F17.200 - Nicotine dependence, unspecified, uncomplicated Plan: Encouraged patient to stop smoking as it may have deleterious effects on wound healing. (11) DM type 2, goal HbA1c < 7%: Status: Chronic Code(s): E11.9 - Type 2 diabetes mellitus without complications Plan: HgbA1c was 5.7 on 01/15/23. Medications at Discharge Home Medications duloxetine 60 mg capsule,delayed release 60 mg PO DAILY DEPRESSION 09/13/17 glipizide 5 mg tablet 5 mg PO BID DIABETES 09/13/17 hydrochlorothiazide 25 mg tablet 25 mg PO DAILY BP 09/13/17 levothyroxine 125 mcg tablet 125 mcg PO DAILY THYROID 09/13/17 lisinopril 30 mg tablet (Zestril) 30 mg PO DAILY BP 09/13/17 [id number] (Multiple Vitamin, Womens tablet) 1 ea PO QHS SUPPLEMENT 09/13/17 pantoprazole 40 mg tablet,delayed release 40 mg PO DAILY GERD 09/13/17 albuterol sulfate 90 mcg/actuation aerosol inhaler 2 puff inhalation Q4H PRN SOB 11/06/22 aspirin 81 mg tablet,delayed release 81 mg PO DAILY 11/06/22 atorvastatin 40 mg tablet 40 mg PO DAILY 11/06/22 blood sugar diagnostic ([employer] Ultra Test strips) 11/06/22 cetirizine 10 mg capsule (All Day Allergy (cetirizine)) 10 mg PO DAILY 11/06/22 fluticasone propionate 50 mcg/actuation nasal spray,suspension 2 spray intranasal BID 11/06/22 gabapentin 800 mg tablet 800 mg PO TID 11/06/22 insulin lispro 100 unit/mL subcutaneous pen (Humalog KwikPen (U-100) Insulin) 15 - 20 unit subcut BID DIABETES 11/06/22 pen needle, diabetic 31 gauge x 5/16 (Lite Touch Insulin Pen [place]) 11/06/22 quetiapine 25 mg tablet 25 mg PO DAILY 11/06/22 quetiapine 50 mg tablet 75 mg PO QHS 11/06/22 famotidine 20 mg tablet 20 mg PO BID 01/01/23 insulin lispro 100 unit/mL subcutaneous solution (Humalog U-100 Insulin) 1 sliding scale dose subcut USEASDIRECTD 01/08/23 insulin glargine 100 unit/mL (3 mL) subcutaneous pen (Lantus Solostar U-100 Insulin) 50 unit subcut BID 01/13/23 ferrous sulfate 325 mg (65 mg iron) tablet (Feosol) 325 mg PO DAILY 30 days #30 tabs 01/14/23 oxycodone-acetaminophen 5 mg-325 mg tablet (Percocet) 1 tab PO 4X/DAY PRN PRN pain (scale score 7-10) 7 days #28 tabs 01/14/23 levofloxacin 500 mg tablet 500 mg PO DAILY 21 days #21 tabs 02/09/23 oxycodone-acetaminophen 5 mg-325 mg tablet (Percocet) 1 tab PO Q6H PRN pain (scale score 7-10) 7 days #28 tabs 02/15/23 Hospital Course Operations - (01/13/23 - Bilateral breast reduction mammaplasty.) Procedures 2-D Echocardiogram and Blood transfusion Summary of Care Provided Minutes Spent on Discharge: 40 Hospital Course: 62 year old woman presents with complaints of bilateral macromastia and associated painful symptomatology of neck pain, thoracic back pain, bilateral shoulder pain from shoulder grooving from the weight of her breasts on her bra straps, and inframammary intertrigo for which she uses cornstarch powders with minimal relief and without resolution of her symptomatology for over 6 months.? She denies any trauma to her breasts.? Denies any nipple discharge.? She has seen a chiropractor for her cervical and thoracic spine pain in the past for over 6 months without relief of her painful symptomatology.?She had a mammogram yesterday, 01/12/23, and it showed there are scattered areas of fibroglandular density. There are no dominant masses or suspicious calcifications. No other significant abnormalities are identified.? There has been no significant change since the prior study. Also her painful symptomatology is exacerbated by her breast asymmetry.? Her left breast is much larger than her right breast (at least one cup size difference), and she has had to wear an insert on the right side to achieve symmetry in a dress.?Her HgbA1c from 01/08/13 was 5.5. For elective surgery, the HgbA1c needs to be less than 8. Her insurance company has approved her for breast reduction. Her surgery was scheduled for January 13, 2023.? Encouraged patient to stop smoking as it may have deleterious effects on wound healing. On the day of surgery, patient underwent bilateral breast reduction mammaplasty. She tolerated the procedure well. After surgery the Hospitalist Group was consulted for medical management. On the first postop day, her Hgb dropped from10.5 to 7.8. She was given 2 units of PRBC. She was also started on Iron supplementation. After the 2 units PRBC, her Hgb increased to 8.9. It slowly dropped to 8.2 upon discharge. Will check a Hgb as an outpatient. Her Creatinine increased after the surgery from 1.88 preop to 2.73 postop. The following day it decreased to 2.33. It continued to decrease to 2.04 upon discharge. Will check a BMP as an outpatient. Her HgbA1c was 5.7 on 01/15/23. For elective surgery the HgbA1c needs to be less than 8. Her Prealbumin was 16.3 on 01/14/23. Encourage nutritional supplementation with protein to help the healing process. She had some breathing problems postop and needed supplemental oxygen. There was some fluid backup into the lungs. Patient had chest x-rays on 01/15/23 which showed mild vascular congestion and on 01/16/23 which showed no new focal consolidations. Stable bilateral prominent interstitial markings. She responded to diuresis. During hospital stay, she was afebrile. Her breast incisions were dry and intact. Breasts were soft and symmetrical. Nipples were viable. There was no clinical evidence of hematoma. On the fifth postop day, her drains were pulled and she was discharged home in satisfactory condition. Sent scripts to her Pharmacy for Cefadroxil, Percocet for pain (28 tabs), Iron supplementation, and Colace. Her condition upon discharge was good. Followup office one week. Will remove the nipple sutures at that time. Will check a CBC and a BMP as an outpatient to monitor the Hgb and the Creatinine. Encouraged patient to stop smoking as it may have deleterious effects on wound healing. Physical Exam Narrative General - Alert and Oriented HEENT - PERRL. EOMI. Throat is clear. Neck - Supple and nontender. No cervical adenopathy. Breasts - soft and symmetrical. Incisions dry and intact. Nipples are viable. No clinical evidence of hematoma. Abdomen - Soft and nondistended. Extremities - FROM. No axillary adenopathy. Radial pulses are palpable. Neuro - CN II-XII grossly intact. Psych - Normal mood and affect. Medical Records Data Attestation: I reviewed the patient's medical records Prealbumin from 01/14/23 was 16.3. Encourage nutritional supplementation with protein to help the healing process. Weight / BMI Weight Weight: 275 lb 15.982 oz Body Mass Index (BMI) 45.9 Drainage ranged from 305 ml first postop day down to 8 ml upon discharge. The drains were pulled the day of discharge. ABG / Lab / Microbiology Data Attestation: I reviewed the patient's lab results. Results Narrative: Hgb went from 10.5 preop to 7.8 first postop day. She was given 2 units PRBC. She was started on Iron supplementation. After the 2 units PRBC, Hgb increased to 8.9. It continued to slowly decrease down to 8.2 upon discharge. Will recheck a Hgb as an outpatient. Creatinine went from 1.88 preop to 2.73 first postop day. It then decreased to 2.33 on 01/15/23. It continued to decrease to 2.04 upon discharge. Will check a BMP as an outpatient. 01/18/23 05:33 01/18/23 05:33 Laboratory: Laboratory Results - last 24 hr 01/18/23 05:33: WBC 8.5, RBC 2.82 L, Hgb 8.2 L, Hct 26.1 L, MCV 92.6, MCH 29.1, MCHC 31.4 L, RDW Std Deviation 47.6 H, RDW Coeff of Asha 13.9, Plt Count 180, MPV 11.6 01/18/23 05:33: Sodium 137, Potassium 4.4, Chloride 107, Carbon Dioxide 26.0, Anion Gap 4 L, BUN 45 H, Creatinine 2.04 H, Estim Creat Clear Calc 25.07, Est GFR (MDRD) Af Amer 31 L, Est GFR (MDRD) Non-Af 26 L, BUN/Creatinine Ratio 22.1 H, Glucose 71 L, Calcium 8.8 01/18/23 11:12: POC Glucose 167 H Radiography Diagnostic Testing: Radiology Impression Echocardiogram 01/17/23 07:47 Interpretation Summary The study was technically difficult. No apical window due to recent bilateral breast surgery/bandages/drains Mild concentric left ventricular hypertrophy. The left ventricular ejection fraction is 65 %. The left atrium is mildly enlarged. Mild diffuse aortic valve thickening. Ordering Physician: Daniel Rutledge Referring Physician: Gabe Abraham Performed By: Tracey Murillo RDCS, RVT \ Patient had chest x-rays on 01/15/23 which showed mild vascular congestion and on 01/16/23 which showed no new focal consolidations. Stable bilateral prominent interstitial markings. She also was diuresed successfully. D/C Instructions Discharge Diet: Carb Control Diet Discharge Activity: May Not Drive, May Shower and - (keep head elevated. no heavy lifting.) May shower in (days): 1 May resume sexual activity in: 10-14 days Weight Bearing Status: Weight bearing as tolerated Lifting Restricted to (Lbs): 20 Additional Activity Instructions: Keep head elevated at all times Call your doctor if your incision/area has: Continuous Slow Oozing, Sudden Increased Bleeding, Increased Pain/ Swelling, Increased Redness and Foul Smelling Discharge Call your doctor if you observe: Fever of 101 or Higher, Inability to urinate, Inability to have a bowel movement, Shortness of breath, Chest pain, Calf discomfort and Uncontrolled pain Change Dressing in: 2 days Cleanse incision/area with: Keep Dressing Clean & Dry and - (may get the breast incisions wet in the shower.) Additional Dressing/Incision Instructions: May change dressing as needed. Please Follow Up With: Blade De Paz MD When: Wednesday January 25, 2023. Call [phone] to make an appointment. Meaningful Use Info Meaningful Use Diagnoses (Choose all that apply): None applicable Discharge Plan Admission Admit Date/Time: 01/14/23 16:19 Attending Provider: Corinne Gray Primary Care Provider: Gabe Abraham Consulting Providers: Stevan Pope; Danny Patel; Blade De Paz; Daniel Rutledge Discharge Orders/Prescriptions Prescriptions: New ferrous sulfate [Feosol] 325 mg (65 mg iron) tablet 325 mg PO DAILY 30 Days Qty: 30 1RF oxycodone-acetaminophen [Percocet] 5-325 mg tablet 1 tab PO 4X/DAY PRN PRN (Reason: pain (scale score 7-10)) 7 Days Qty: 28 0RF Continued quetiapine 25 mg tablet 25 mg PO DAILY quetiapine 50 mg tablet 75 mg PO QHS aspirin 81 mg tablet,delayed release (DR/EC) 81 mg PO DAILY albuterol sulfate 90 mcg/actuation HFA aerosol inhaler 2 puff inhalation Q4H PRN (Reason: SOB) atorvastatin 40 mg tablet 40 mg PO DAILY All Day Allergy (cetirizine) 10 mg capsule 10 mg PO DAILY (DME) OneTouch Ultra Test Strip See Rx Instructions .Route Rx Instructions: As directed (DME) pen needle, diabetic [Lite Touch Insulin Pen [place]] 31 gauge x 5/16 needle See Rx Instructions .Route Rx Instructions: As directed fluticasone propionate 50 mcg/actuation spray,suspension 2 spray intranasal BID Rx Instructions: administer into each nostril gabapentin 800 mg tablet 800 mg PO TID insulin lispro [Humalog U-100 Insulin] 100 unit/mL solution 1 sliding scale dose subcut USEASDIRECTD pantoprazole 40 MG tablet 40 mg PO DAILY levothyroxine 125 MCG tablet 125 mcg PO DAILY lisinopril [Zestril] 30 MG tablet 30 mg PO DAILY hydrochlorothiazide 25 MG tablet 25 mg PO DAILY glipizide 5 MG tablet 5 mg PO BID Multiple Vitamin, Womens 1 EACH tablet 1 ea PO QHS duloxetine 60 MG capsule 60 mg PO DAILY insulin lispro [Humalog KwikPen Insulin] 100 unit/mL insulin pen 15 - 20 unit subcut BID Rx Instructions: 20 BID Contact Prescriber if questions or concerns famotidine 20 mg Tablet 20 mg PO BID insulin glargine [Lantus Solostar U-100 Insulin] 100 unit/mL (3 mL) insulin pen 50 unit SUBCUT BID Rx Instructions: morning and bedtime Discontinued diazepam [Valium] 5 mg tablet 5 mg PO QHS PRN (Reason: sleep) Qty: 2 0RF Rx Instructions: 2 tabs (two) No Action levofloxacin 500 mg tablet 500 mg PO DAILY 21 Days Qty: 21 0RF oxycodone-acetaminophen [Percocet] 5-325 mg tablet 1 tab PO Q6H PRN (Reason: pain (scale score 7-10)) 7 Days Qty: 28 0RF Referrals / Follow Up: Gabe Abraham DO [Primary Care Provider] - Disposition Disposition (needs filled in before D/C Order can be placed): Home, Self Care
== END 2023-01-18 17:18 | disposition home or self-care (01) | DRG 951 ==
LOC: SDC 20:02 → MS3 20:36
PROVIDERS: Anesthesiology; Internal Medicine; Admitting Provider Surgery; PCP Preventive Medicine Occupational Medicine; Referring Provider Surgery; Visit Provider Internal Medicine
PROC: 0H0U0ZZ Alteration of Left Breast, Open Approach (ICD-10-PCS; CPT 19318; principal; 2023-01-13 07:15)
DX: N17.9 Acute kidney failure, unspecified (principal); I50.31 Acute diastolic (congestive) heart failure; D62 Acute posthemorrhagic anemia; D63.8 Anemia in other chronic diseases classified elsewhere; E11.22 Type 2 diabetes mellitus with diabetic chronic kidney disease; E11.40 Type 2 diabetes mellitus with diabetic neuropathy, unspecified; I13.0 Hypertensive heart and chronic kidney disease with heart failure and stage 1 through stage 4 chronic kidney disease, or unspecified chronic kidney disease; N18.32 Chronic kidney disease, stage 3b; Z79.4 Long term (current) use of insulin; E66.01 Morbid (severe) obesity due to excess calories; Z68.42 Body mass index [BMI] 45.0-49.9, adult; F41.8 Other specified anxiety disorders; F17.210 Nicotine dependence, cigarettes, uncomplicated; E03.9 Hypothyroidism, unspecified; M54.6 Pain in thoracic spine; M25.512 Pain in left shoulder; E78.5 Hyperlipidemia, unspecified; K21.9 Gastro-esophageal reflux disease without esophagitis; M25.511 Pain in right shoulder; M54.2 Cervicalgia; L30.4 Erythema intertrigo; N62 Hypertrophy of breast; Z12.31 Encounter for screening mammogram for malignant neoplasm of breast; N64.89 Other specified disorders of breast; Z79.891 Long term (current) use of opiate analgesic; G89.29 Other chronic pain; R09.02 Hypoxemia; Z79.82 Long term (current) use of aspirin; Z80.3 Family history of malignant neoplasm of breast
CPT/HCPCS: 36415; 36600; 71045; 77063; 77067; 80048; 80076; 81002; 82803; 82962; 83036; 83735; 84100; 84134; 84443; 85025; 85027; 85610; 85730; 86850; 86870; 86900; 86901; 86902; 86905; 86920; 86921; 86922; 88305; 93005; 93306; 94640; 94668; 94762; 97110; 97116; 97162; 97166; 97535; 99406; J7040; J7050; J7120; P9016; Q9957; A4216; J1940; J2405; Q9968

== ENCOUNTER → 2023-02-04 | Outpatient (CLI) | payer MEDICAID, SELFPAY ==
[2023-02-04 13:33] LABS: Hematocrit 27.6 % (37-47); Hemoglobin 8.6 g/dL (12.0-15.0); Mean Corp Hgb Conc 31.2 g/dL (32-36); Mean Corpuscular Hgb 29.6 pg (27.0-32.0); Mean Corpuscular Volume 94.8 fL (81-99); Mean Platelet Vol. 11.4 fl (6.2-12.0); Platelet Count 235 K/mm3 (150-450); RBC Distribution Width CV 14.7 % (11.6-14.6); RBC Distribution Width SD 50.3 fl (35.1-43.9); Red Blood Count 2.91 M/mm3 (4.2-5.4); White Blood Count 11.1 K/mm3 (4.4-11.0)
[2023-02-04 14:07] LABS: ALB/GLOB Ratio 0.7 RATIO (0.9-2.4); AST(SGOT) 17 U/L (15-37); Alanine Aminotransfer ALT/SGPT 10 U/L (13-56); Albumin, Serum 2.9 g/dL (3.2-5.0); Alkaline Phosphatase 96 U/L (45-117); Anion Gap 6 (5-15); BUN 26 mg/dL (7-18); BUN/Creat Ratio 14.8 RATIO (10-20); Calcium,Total 8.4 mg/dL (8.5-10.1); Chloride 106 mmol/L (98-107); Creatinine, Serum 1.76 mg/dL (0.55-1.02); EST Glomerular Filtration Rate 31 mL/min (>60); Est Glom Filt Rate - Afr Amer 37 mL/min (>60); Globulin 3.9 g/dL (2.2-4.2); Glucose 169 mg/dL (74-106); Protein, Total 6.8 g/dL (6.4-8.2); Sodium Level 137 mmol/L (136-145)
== END | disposition home or self-care (01) ==
PROVIDERS: PCP Preventive Medicine Occupational Medicine; Referring Provider Nurse Practitioner Family; Visit Provider Nurse Practitioner Family
DX: T81.89XA Other complications of procedures, not elsewhere classified, initial encounter (principal); X58.XXXA Exposure to other specified factors, initial encounter
CPT/HCPCS: 36415; 80053; 85027; 87070; 87075; 87077; 87186; 87205

== ENCOUNTER 2023-03-01 14:30 | Outpatient (RCR) | payer MEDICAID, SELFPAY ==
[2023-02-15 14:46] VITALS: BP 150/44; PULSE 76; RESP 16; TEMP 36.4; BMI 46.5
--- NOTE | 2023-02-15 15:46 | PCM.WC.HP ---
History of Present Illness Date of Service: 02/15/23 Chief Complaint: Bilateral breast wounds History of Wound: 62 year old female present for further evaluation after her surgery on 01/13/23 where she underwent bilateral breast reduction mammoplasty. Tissue removed from the left breast was 1590 grams. Tissue removed from the right breast was 750 grams. She was discharged from the hospital on 01/18/23. She developed KALEE after her surgery, her Creatinine increased from 1.88 preop to 2.73 postop. At discharge it decreased down to 2.04. Her Creatinine on02/04/21 decreased to 1.76. The acuity has resolved. She will also followup with her PCP as well for further evaluation and treatment of her renal issues. While in the hospital, her Hgb went from 10.5 preop to 7.8 postop. PRBC was given and it improved to 8.9. At discharge it was 8.2. She has anemia due to expected blood loss. The operative blood loss was 250 ml. She is on Iron supplementation. Her Hgb on 02/04/23 improved 8.6. the acuity has resolved. She is a current smoker. She developed some compromise of the left nipple areolar complex and dry eschar had formed on the entirety of the right nipple. She had issues with swelling after not wearing enough compression the first couple weeks post op. There was compromise of both nipples, worse on the right as there was eschar present in its entirety. On the left nipple it is soft with some bruising. Have been monitoring closely. Dr. De Paz debrided non viable tissue from the left nipple and excised the dry eschar from the right nipple. The vertical incision on the right started to weaken and he was able to express some yellowish drainage, probably liquefying fat necrosis. So he opened up the vertical incision on the right which communicates with the nipple wound. After excision and debridement with scissors, the right breast wound including the nipple down to the Tzone area measures 9.3 x 5.5 x 1.2 cm. After the excision and debridement with scissors, the left breast wound inferior to the nipple and extending to the Tzone measures 11.5 x 9 x 1 cm. Wound culture from 02/04/23 positive for Klebsiella pneumoniae and Anaerobic cocci. She is on Levaquin and Flagyl. Wound care - Dakins 0.25% moistened gauze daily covered with ABD. She comes into the wound center for further evaluation and treatment and for better wound management. Today she denies fever, chills, nausea or vomiting. Progress of Wound: Right breast wound is stable, there is fat necrosis present. Left breast nipple is stable and bruised. There is fat necrosis present in the open wound. She denies any fever or chills today. She states her daughter has been doing a good job with her wound care. Will start the work up for HBO. She has had a chest xray but will repeat it and she has had an EKG done. [facility] Medical History Acute kidney injury Acute postoperative anemia due to expected blood loss Alcohol use Ambulates with cane Anemia Anemia Anxiety Arthritis Arthritis Back pain Back pain Blackout Bladder disease Breast asymmetry Chronic neck pain Chronic thoracic back pain Cyclothymia Depression Dietary restriction DM type 2, goal HbA1c < 7% Easy bruising Environmental allergies Family history of breast cancer Gastric reflux History of echocardiogram History of edema History of pain when walking Hypertension Injury of head and neck Insulin dependent diabetes mellitus Intertrigo Left shoulder pain Leg cramps Macromastia Marijuana use Post-menopausal Restless legs Right shoulder pain Skin necrosis Smoker Smoker Syncope Thyroid disease Wears dentures Wheezing Home Medications duloxetine 60 mg capsule,delayed release 60 mg PO DAILY DEPRESSION 09/13/17 [History Last Taken 01/13/23] glipizide 5 mg tablet 5 mg PO BID DIABETES 09/13/17 [History Last Taken 01/12/23] hydrochlorothiazide 25 mg tablet 25 mg PO DAILY BP 09/13/17 [History Last Taken 01/12/23] levothyroxine 125 mcg tablet 125 mcg PO DAILY THYROID 09/13/17 [History Last Taken 01/13/23] lisinopril 30 mg tablet (Zestril) 30 mg PO DAILY BP 09/13/17 [History Last Taken 01/13/23] eiqmxabexlqb-Of-infb-minerals (Multiple Vitamin, Womens tablet) 1 ea PO QHS SUPPLEMENT 09/13/17 [History Last Taken 01/12/23] pantoprazole 40 mg tablet,delayed release 40 mg PO DAILY GERD 09/13/17 [History Last Taken 01/13/23] albuterol sulfate 90 mcg/actuation aerosol inhaler 2 puff inhalation Q4H PRN SOB 11/06/22 [History Last Taken Unknown] aspirin 81 mg tablet,delayed release 81 mg PO DAILY 11/06/22 [History Last Taken 01/12/23] atorvastatin 40 mg tablet 40 mg PO DAILY 11/06/22 [History Last Taken 01/12/23] blood sugar diagnostic (Roovyn Ultra Test strips) 11/06/22 [History Last Taken Unknown] cetirizine 10 mg capsule (All Day Allergy (cetirizine)) 10 mg PO DAILY 11/06/22 [History Last Taken 01/12/23] fluticasone propionate 50 mcg/actuation nasal spray,suspension 2 spray intranasal BID 11/06/22 [History Last Taken 01/12/23] gabapentin 800 mg tablet 800 mg PO TID 11/06/22 [History Last Taken 01/12/23] insulin lispro 100 unit/mL subcutaneous pen (Humalog KwikPen (U-100) Insulin) 15 - 20 unit subcut BID DIABETES 11/06/22 [History Last Taken Unknown] pen needle, diabetic 31 gauge x 5/16 (Lite Touch Insulin Pen [place]) 11/06/22 [History Last Taken Unknown] quetiapine 25 mg tablet 25 mg PO DAILY 11/06/22 [History Last Taken 01/13/23] quetiapine 50 mg tablet 75 mg PO QHS 11/06/22 [History Last Taken 01/12/23] famotidine 20 mg tablet 20 mg PO BID 01/01/23 [History Last Taken 01/13/23] insulin lispro 100 unit/mL subcutaneous solution (Humalog U-100 Insulin) 1 sliding scale dose subcut USEASDIRECTD 01/08/23 [History Last Taken Unknown] insulin glargine 100 unit/mL (3 mL) subcutaneous pen (Lantus Solostar U-100 Insulin) 50 unit subcut BID 01/13/23 [History Last Taken 01/13/23 25 units] ferrous sulfate 325 mg (65 mg iron) tablet (Feosol) 325 mg PO DAILY 30 days #30 tabs 01/14/23 [Rx Last Taken Unknown] oxycodone-acetaminophen 5 mg-325 mg tablet (Percocet) 1 tab PO 4X/DAY PRN PRN pain (scale score 7-10) 7 days #28 tabs 01/14/23 [Rx Last Taken Unknown] levofloxacin 500 mg tablet 500 mg PO DAILY 21 days #21 tabs 02/09/23 [Rx Last Taken Unknown] oxycodone-acetaminophen 5 mg-325 mg tablet (Percocet) 1 tab PO Q6H PRN pain (scale score 7-10) 7 days #28 tabs 02/15/23 [Rx Last Taken Unknown] Allergy/AdvReac Type Severity Reaction Status Date / Time Tetanus Vaccines and Toxoid Allergy Severe Other Verified 02/15/23 15:04 [Tetanus Vaccines & Toxoid] Family History Mother Diabetes Arthritis Osteoporosis Father Hypertension Renal injury Skin cancer (melanoma) Sister Breast cancer Daughter Myocardial infarction, Onset Age: 40 Grandfather Cancer Surgical History History of appendectomy History of bilateral breast reduction surgery History of section History of cholecystectomy History of hysterectomy History of total knee replacement Hx of left cataract extraction Hx of right cataract extraction Social History Smoking Status: Current every day smoker tobacco type: cigarettes counseling given: provider counseling and counseling >10 minutes alcohol intake: current details: Occasional flavored vodka substance use type: does not use what type of physical activity do you participate in: walking and bicycling frequency: 3-4 times per week ROS Constitutional Constitutional: Denies fever(s) or headache(s) Eyes Eyes: Reports none ENT HEENT: Reports none Cardiovascular Cardiovascular: Denies chest pain or dyspnea Respiratory/Chest Respiratory/Chest: Reports cough; Denies dyspnea Gastrointestinal Gastrointestinal: Reports none Musculoskeletal Musculoskeletal: Reports back pain and joint stiffness Integumentary Integumentary: Reports wounds Neurologic Neurologic: Reports systems reviewed and no addt'l complaints, except as documented Psychiatric Psychiatric: Reports none Endocrine Endocrinology: Reports systems reviewed and no addt'l complaints, except as documented Vital Signs Vital Signs Vital Signs: 02/15/23 14:46 Temperature 97.5 F L Temperature Source Temporal Pulse Rate 76 Respiratory Rate 16 Blood Pressure 150/44 H Blood Pressure Mean 79 Blood Pressure Source Monitor Blood Pressure Position Sitting Blood Pressure Location Left Arm Oxygen Delivery Method Room Air Weight Weight: 280 lb Body Mass Index (BMI) 46.5 Physical Exam Const alert, oriented x3 and well nourished General Appearance: cooperative HEENT normocephalic Head and Scalp: atraumatic Eyes General Eye: normal appearance of both eyes Neck full ROM Resp normal respiratory effort Effort and Inspection: able to speak in complete sentences Cardio regular rate and regular rhythm GI soft to palpation and non-tender Back/Spine normal to inspection Extremity normal capillary refill Skin Wound Narrative: Bilateral breast ulcers with fat necrosis. Left nipple is still present but dark bruised. Odor is improving from the wounds bilaterally with the use of Dakins moistened gauze. Neuro oriented x3 Sensorium / Orientation: awake and alert Psych mental status grossly normal and thought process normal Debridement Note Debridement Note Wound debrided: Left breast wound Laterality: Left Wound Grade/Stage: Stage III Type of Debridement: Excisional debridement Anesthesia Used: 4% Lidocaine Solution and 5% Lidocaine Gel Depth: in the subcutaneous layer Percentage of wound debrided: 100 Instrument Used: - (scissors and pick ups) Tissue Removed: Devitalized tissue, slough and fat necrosis Severity: Fat Layer Exposed Amount of bleeding with debridement: Mild Bleeding Controlled with: Compression and gauze Patient tolerated procedure: Patient tolerated procedure well Post-Debridement Measurements and Additional Note: Post-Debridement Measurements/Treatment - Nurse 1 - General Ulcer Assessment Start: 02/15/23 14:46 Freq: Status: Active Protocol: FRANCIA.LOWROGELIOT Activity Type Activity Date Activity User E-sign Co-sign Detail Recorded Client Recorded Date Recorded By Document 02/15/23 14:46 [facility] [id number] 02/15/23 15:00 [facility] 02/15/23 14:46 - Today's Visit Information Type of service Initial Visit Arrival Mode Ambulatory,Cane Transfer Assistance None Accompanied by daughter Patient Identification Verified (Name & Yes ) Patient Requires Transmission-Based No Precautions Height and Weight Height 5 ft 5 in Weight 280 lb Weight in Pounds 280.0 lbs Weight Measurement Method Estimated by Patient Body Mass Index (BMI) 46.5 BMI Classification Obese BSA - Kellie 2.28 Vital Signs Temperature (97.8 F-99.1 F) 97.5 F L Temperature Source Temporal Pulse Rate (60-100) 76 Pulse Location Monitor Respiratory Rate (12-18) 16 Respiratory rate source Observation Oxygen Delivery Method Room Air Blood Pressure (90/60-120/80) 150/44 H Blood Pressure Mean 79 Source Monitor Position Sitting Blood Pressure Location Left Arm History Since Last Visit- (Skip if this is Patient's initial visit) Left Footwear Regular Shoe Right Footwear Regular Shoe Pain Scale: 0-10 Numeric Is Patient Pain Free? Yes Communication Assessment Preferred language Palauan Malted Milk Masher Required No Able to Read Yes Able to Write Yes Communication Tools None Right Hearing Abillity Normal Left Hearing Abillity Normal Visual Assistive Devices Glasses Teaching Assessment Preferences Verbal,Written, Audio/Visual, Demonstration Barriers to Learning None Readiness To Learn Excellent Willingness to Engage in Self Management High Activies Readiness to Engage in Self Management High Activities Anxiety Level Calm Cooperation Cooperative Perception Coherent Interest in Health Problem Asks Questions Education Importance Acknowledges Need Does Patient Smoke tobacco or other No substances Smoking Status Current every day smoker Is Patient Diabetic Yes Functional Assessment Recent Decline in Ability to Perform Denies Any Declines Culture/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/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 LT BREAST - Exudate Amt Medium => Large - Granulation Amt Medium (34-66%) => Small (1-33%) - Granulation Quality [place] => Red - Necrosis Amt Medium (34-66%) => Large (67-100%) - Necrotic Tissue Type Eschar => Adherent Slough 1. RT BREAST - Exudate Amt => Large - Granulation Quality [place] => Red - Tenderness on Palpation (Susanna-wound => Yes Skin Appearance) Lower Limb Edema Present NA => 02/15/23 14:46 Wound Center Nurse 1 2. LT BREAST -Current Size (cm) - Length 10.1 -Current Size (cm) - Width 12.5 -Current Size (cm) - Depth 1.6 -Total Square Cm 126.25 -Date of Last Picture (Recall this 02/15/23 field) -Photo Taken Yes -Undermining/Tunneling Yes -Undermining/Tunneling Starts (O'clock 8 ) -Undermining/Tunneling Ends (O'clock) 10 -Maximum Distance (cm) 2.4 -Exudate Amt Large -Exudate Type Serosanguineous -Wound Margin Distinct, Outline Attached -Granulation Amt Small (1-33%) -Granulation Quality Red -Necrosis Amt Large (67-100%) -Necrotic Tissue Type Adherent Slough -Texture (Susanna-wound Skin Appearance) Assessed -Moisture (Susanna-wound Skin Appearance) Assessed -Color (Susanna-wound Skin Appearance) Assessed -Temperature (Susanna-wound Skin No Abnormality Appearance) (Pt Warm) -Tenderness on Palpation (Susanna-wound Yes Skin Appearance) -Ulcer Cleansing Soap and Water -Foul Odor after Cleansing No -Anesthetic Used 4% Lidocaine Solution 1. RT BREAST -Current Size (cm) - Length 9.6 -Current Size (cm) - Width 5.3 -Current Size (cm) - Depth 1.1 -Total Square Cm 50.88 -Date of Last Picture (Recall this 02/15/23 field) -Photo Taken Yes -Undermining/Tunneling Yes -Undermining/Tunneling Starts (O'clock 12 ) -Undermining/Tunneling Ends (O'clock) 5 -Maximum Distance (cm) 2.3 -Exudate Amt Large -Exudate Type Serosanguineous -Wound Margin Distinct, Outline Attached -Granulation Amt Small (1-33%) -Granulation Quality Red -Necrosis Amt Large (67-100%) -Necrotic Tissue Type Adherent Slough -Texture (Susanna-wound Skin Appearance) Assessed -Moisture (Susanna-wound Skin Appearance) Assessed -Color (Susanna-wound Skin Appearance) Assessed -Temperature (Susanna-wound Skin No Abnormality Appearance) (Pt Warm) -Tenderness on Palpation (Susanna-wound Yes Skin Appearance) -Ulcer Cleansing Soap and Water -Anesthetic Used 4% Lidocaine Solution WC - Nurse 2 - General Ulcer CM Notes Start: 02/15/23 14:46 Freq: Status: Active Protocol: Activity Type Activity Date Activity User E-sign Co-sign Detail Recorded Client Recorded Date Recorded By Document 02/15/23 15:17 LUCIAN [id number] 02/15/23 15:35 LUCIAN 02/15/23 15:17 Wound Center Nurse 2 2. LT BREAST -Time 15:18 -Correct Patient Yes -Correct Side, Site, Position Yes -Correct Procedure Yes -Procedure Performed Yes -Type of Procedure Debridement -Clinical Debridement Subcutaneous -Tissue Removed Subcutaneous -Post Debridement (cm) - Length 10.5 -Post Debridement (cm) - Width 12.0 -Post Debridement (cm) - Depth 1.8 -Total Square (Post) (cm) 126.00 -Area of Debridement (cm) - Length 10.5 -Area of Debridement (cm) - Width 12 -Total Square (Area) (cm) 126.0 -Tunneling No -Undermining/Tunneling Yes -Undermining/Tunneling Starts (O'clock 9 ) -Maximum Distance (cm) 2.8 -Circular Undermining No -Wound/Ulcer Outcome Not Healed -Ulcer Cleansing Rinsed/ Irrigated with Saline -Foul Odor after Cleansing No -Bioengineered Tissue No -Bleeding Controlled with Pressure -Treatment Response Procedure Tolerated Well -Offloading No -Debridement - Subq, 1st 20sq cm No 1. RT BREAST -Time 15:20 -Correct Patient Yes -Correct Side, Site, Position Yes -Correct Procedure Yes -Procedure Performed Yes -Type of Procedure Debridement -Clinical Debridement Subcutaneous -Tissue Removed Subcutaneous -Post Debridement (cm) - Length 9.0 -Post Debridement (cm) - Width 6.0 -Post Debridement (cm) - Depth 1.2 -Total Square (Post) (cm) 54.00 -Area of Debridement (cm) - Length 9.0 -Area of Debridement (cm) - Width 6.0 -Total Square (Area) (cm) 54.00 -Tunneling No -Undermining/Tunneling Yes -Undermining/Tunneling Starts (O'clock 4 ) -Undermining/Tunneling Ends (O'clock) 5 -Maximum Distance (cm) 2.7 -Circular Undermining No -Wound/Ulcer Outcome Not Healed -Ulcer Cleansing Rinsed/ Irrigated with Saline -Foul Odor after Cleansing No -Bioengineered Tissue No -Bleeding Controlled with Pressure -Treatment Response Procedure Tolerated Well -Offloading No -Debridement - Subq, 1st 20sq cm Yes -Debridement, SubQ, ea addt'l 20sq cm 8 or part thereof Pain Scale: 0-10 Numeric Is Patient Pain Free? Yes Additional Wound Wound debrided: breast wound Laterality: Right Wound Grade/Stage: Stage III Type of Debridement: Excisional debridement Anesthesia Used: 4% Lidocaine Solution and 5% Lidocaine Gel Depth: in the subcutaneous layer Percentage of wound debrided: 100 Instrument Used: - (scissors and pick ups) Tissue Removed: Devitalized tissue, slough and fat necrosis Severity: Fat Layer Exposed Amount of bleeding with debridement: Mild Bleeding Controlled with: Compression and gauze Patient tolerated procedure: Patient tolerated procedure well Charges/Coding Procedures Integumentary [id number]: [id number] Global Visit Assessment/Plan Assessment/Plan (1) Delayed surgical wound healing: CODE(S): T81.89XA - Other complications of procedures, not elsewhere classified, initial encounter (2) Skin necrosis: CODE(S): I96 - Gangrene, not elsewhere classified (3) History of bilateral breast reduction surgery: CODE(S): Z98.890 - Other specified postprocedural states (4) Acute postoperative anemia due to expected blood loss: CODE(S): D62 - Acute posthemorrhagic anemia (5) Acute kidney injury: CODE(S): N17.9 - Acute kidney failure, unspecified (6) Acute postoperative pain: CODE(S): G89.18 - Other acute postprocedural pain (7) Smoker: CODE(S): F17.200 - Nicotine dependence, unspecified, uncomplicated (8) Macromastia: CODE(S): N62 - Hypertrophy of breast (9) Chronic neck pain: CODE(S): M54.2 - Cervicalgia; G89.29 - Other chronic pain (10) Chronic thoracic back pain: CODE(S): M54.6 - Pain in thoracic spine; G89.29 - Other chronic pain (11) Right shoulder pain: CODE(S): M25.511 - Pain in right shoulder (12) Left shoulder pain: CODE(S): M25.512 - Pain in left shoulder (13) Intertrigo: CODE(S): L30.4 - Erythema intertrigo (14) Family history of breast cancer: CODE(S): Z80.3 - Family history of malignant neoplasm of breast (15) DM type 2, goal HbA1c < 7%: CODE(S): E11.9 - Type 2 diabetes mellitus without complications PLAN: Plan Patient evaluated at the wound center today. Wound care - Dakin's 0.25% moistened gauze covered with ABD daily. May wash wounds with soap and water before dressing changes. Continue wearing compression bra or EVERARDO wrap. Continue to keep head elevated. Continue 20 lb weight lifting restriction. Percocet renewed (28 tabs) for her pain. PDMP reviewed. She would benefit from Hyperbaric Oxygen Therapy to help with the wound healing of her compromised skin flaps. She had EKG done 01/08/23 which showed Right bundle branch block. She had an echocardiogram on 01/18/23 which showed: The study was technically difficult. No apical window due to recent bilateral breast surgery/bandages/drains. Mild concentric left ventricular hypertrophy. The left ventricular ejection fraction is 65%. The left atrium is mildly enlarged. Mild diffuse aortic valve thickening. Chest x-ray 01/15/23 showed Stable prominent interstitial markings may be secondary to a confluence of shadows however cannot exclude mild edema and/or an infectious process. Will order repeat chest x-ray. Encouraged patient to stop smoking as it may have deleterious effects on wound healing. Follow up one week. Instructed patient to call or come in sooner if develop any concerns.
[2023-02-22 13:44] VITALS: BP 134/66; PULSE 88; RESP 18; TEMP 36.1; BMI 46.5
--- NOTE | 2023-02-22 16:58 | PCM.WC.PN ---
History of Present Illness Date of Service: 02/22/23 Chief Complaint: Bilateral breast wounds History of Wound: 62 year old female present for further evaluation after her surgery on 01/13/23 where she underwent bilateral breast reduction mammoplasty. Tissue removed from the left breast was 1590 grams. Tissue removed from the right breast was 750 grams. She was discharged from the hospital on 01/18/23. She developed KALEE after her surgery, her Creatinine increased from 1.88 preop to 2.73 postop. At discharge it decreased down to 2.04. Her Creatinine on02/04/21 decreased to 1.76. The acuity has resolved. She will also followup with her PCP as well for further evaluation and treatment of her renal issues. While in the hospital, her Hgb went from 10.5 preop to 7.8 postop. PRBC was given and it improved to 8.9. At discharge it was 8.2. She has anemia due to expected blood loss. The operative blood loss was 250 ml. She is on Iron supplementation. Her Hgb on 02/04/23 improved 8.6. the acuity has resolved. She is a current smoker. She developed some compromise of the left nipple areolar complex and dry eschar had formed on the entirety of the right nipple. She had issues with swelling after not wearing enough compression the first couple weeks post op. There was compromise of both nipples, worse on the right as there was eschar present in its entirety. On the left nipple it is soft with some bruising. Have been monitoring closely. Dr. De Paz debrided non viable tissue from the left nipple and excised the dry eschar from the right nipple. The vertical incision on the right started to weaken and he was able to express some yellowish drainage, probably liquefying fat necrosis. So he opened up the vertical incision on the right which communicates with the nipple wound. After excision and debridement with scissors, the right breast wound including the nipple down to the Tzone area measures 9.3 x 5.5 x 1.2 cm. After the excision and debridement with scissors, the left breast wound inferior to the nipple and extending to the Tzone measures 11.5 x 9 x 1 cm. Wound culture from 02/04/23 positive for Klebsiella pneumoniae and Anaerobic cocci. She is on Levaquin and Flagyl. Wound care - Dakins 0.25% moistened gauze daily covered with ABD. She comes into the wound center for further evaluation and treatment and for better wound management. Today she denies fever, chills, nausea or vomiting. Progress of Wound: Right breast wound is smaller in size, there is fat necrosis present. Left breast nipple has eschar present. There is fat necrosis present in the open wound. She denies any fever or chills today. She states her daughter has been doing a good job with her wound care. Will start the work up for HBO. She has had a chest xray but will repeat it and she has had an EKG and Echo done. Objective Data Objective Data Vital Signs: Vital Signs Temp Pulse Resp BP O2 Del Method 96.9 F L 88 18 134/66 H Room Air 02/22/23 13:44 02/22/23 13:44 02/22/23 13:44 02/22/23 13:44 02/15/23 14:46 Oxygen Delivery Method Room Air Weight: 280 lb Body Mass Index (BMI) 46.5 Charges/Coding Procedures Integumentary 111xxx-113xx: [id number] Global Visit Debridement Note Debridement Note Wound debrided: Left breast wound Laterality: Left Wound Grade/Stage: Stage III Type of Debridement: Excisional debridement Anesthesia Used: 4% Lidocaine Solution and 5% Lidocaine Gel Depth: in the subcutaneous layer Percentage of wound debrided: 100 Instrument Used: - (scissors and pick ups) Tissue Removed: Devitalized tissue, slough and fat necrosis Severity: Fat Layer Exposed Amount of bleeding with debridement: Mild Bleeding Controlled with: Compression and gauze Patient tolerated procedure: Patient tolerated procedure well Debridement Free Text: Left nipple has eschar present. 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 ) Arrival Mode Ambulatory,Cane Ambulatory Transfer Assistance None None Accompanied by daughter Patient Identification Verified (Name & Yes Yes ) Patient Requires Transmission-Based No No Precautions Height and Weight Height 5 ft 5 in Weight 280 lb Weight in Pounds 280.0 lbs Weight Measurement Method Estimated by Patient Body Mass Index (BMI) 46.5 46.5 BMI Classification Obese Obese BSA - Kellie 2.28 Vital Signs Temperature (97.8 F-99.1 F) 97.5 F L 96.9 F L Temperature Source Temporal Temporal Pulse Rate (60-100) 76 88 Pulse Location Monitor Monitor Respiratory Rate (12-18) 16 18 Respiratory rate source Observation Observation Oxygen Delivery Method Room Air Blood Pressure (90/60-120/80) 150/44 H 134/66 H Blood Pressure Mean (mm Hg) 79 88 Source Monitor Monitor Position Sitting Blood Pressure Location Left Arm History Since Last Visit- (Skip if this is Patient's initial visit) Have you changed medications since your No last visit? Any new allergies or adverse reactions No Had a fall/change in ADL's that may No increase risk of falls Signs or symptoms of abuse and/or No neglect since last visit Have you been in the hospital since your No last visit? Has dressing in place as prescribed Yes Has compression in place as prescribed N/A Experienced any changes in pain level or No management Left Footwear Regular Shoe Right Footwear Regular Shoe Pain Scale: 0-10 Numeric Is Patient Pain Free? Yes Yes Communication Assessment Preferred language Georgian Administrative Support Specialist Required No Able to Read Yes Able to Write Yes Communication Tools None Right Hearing Abillity Normal Left Hearing Abillity Normal Visual Assistive Devices Glasses Teaching Assessment Preferences Verbal,Written, Audio/Visual, Demonstration Barriers to Learning None Readiness To Learn Excellent Willingness to Engage in Self Management High Activies Readiness to Engage in Self Management High Activities Anxiety Level Calm Cooperation Cooperative Perception Coherent Interest in Health Problem Asks Questions Education Importance Acknowledges Need Does Patient Smoke tobacco or other No substances Smoking Status Current every day smoker Is Patient Diabetic Yes Functional Assessment Recent Decline in Ability to Perform Denies Any Declines Culture/Catholic/[employer] Cultural/Catholic Needs that may affect No Treatment Plan Teaching: Wound Center *Welcome to the Wound Center -Person Taught Patient,Family -Teaching Method Discussion -Response to teaching Verbalize understanding Welcome to the Wound Care Center Georgian WC - Nurse 1 - General Ulcer Measurement Start: 02/15/23 14:46 Freq: Status: Active Protocol: Activity Type Activity Date Activity User E-sign Co-sign Detail Recorded Client Recorded Date Recorded By Document 02/15/23 14:46 BMF [id number] 02/15/23 15:00 BMF Edit Result 02/15/23 14:46 BMF (1) [id number] 02/15/23 15:17 BMF Document 02/22/23 13:44 DL [id number] 02/22/23 13:48 DL (1) 2. LT BREAST - Exudate Amt Medium => Large - Granulation Amt Medium (34-66%) => Small (1-33%) - Granulation Quality [place] => Red - Necrosis Amt Medium (34-66%) => Large (67-100%) - Necrotic Tissue Type Eschar => Adherent Slough 1. RT BREAST - Exudate Amt => Large - Granulation Quality [place] => Red - Tenderness on Palpation (Susanna-wound => Yes Skin Appearance) Lower Limb Edema Present NA => 02/15/23 02/22/23 14:46 13:44 Wound Center Nurse 1 2. LT BREAST -Current Size (cm) - Length 10.1 10.6 -Current Size (cm) - Width 12.5 17.3 -Current Size (cm) - Depth 1.6 1.5 -Total Square Cm 126.25 183.38 -Date of Last Picture (Recall this 02/15/23 field) -Photo Taken Yes -Undermining/Tunneling Yes -Undermining/Tunneling Starts (O'clock 8 9 ) -Undermining/Tunneling Ends (O'clock) 10 3 -Maximum Distance (cm) 2.4 2.5 -Exudate Amt Large Medium -Exudate Type Serosanguineous -Wound Margin Distinct, Distinct, Outline Outline Attached Attached -Granulation Amt Small (1-33%) Medium (34-66%) -Granulation Quality Red Red -Necrosis Amt Large (67-100%) Medium (34-66%) -Necrotic Tissue Type Adherent Slough Adherent Slough -Structure Exposed N/A -Texture (Susanna-wound Skin Appearance) Assessed Scarring -Moisture (Susanna-wound Skin Appearance) Assessed No Abnormality, Not Assessed -Color (Susanna-wound Skin Appearance) Assessed No Abnormality -Temperature (Susanna-wound Skin No Abnormality No Abnormality Appearance) (Pt Warm) (Pt Warm) -Tenderness on Palpation (Susanna-wound Yes No Skin Appearance) -Ulcer Cleansing Soap and Water Soap and Water -Foul Odor after Cleansing No No -Anesthetic Used 4% Lidocaine 4% Lidocaine Solution Solution,5% Lidocaine Gel 1. RT BREAST -Current Size (cm) - Length 9.6 7.7 -Current Size (cm) - Width 5.3 5.8 -Current Size (cm) - Depth 1.1 1.2 -Total Square Cm 50.88 44.66 -Date of Last Picture (Recall this 02/15/23 field) -Photo Taken Yes -Undermining/Tunneling Yes -Undermining/Tunneling Starts (O'clock 12 10 ) -Undermining/Tunneling Ends (O'clock) 5 5 -Maximum Distance (cm) 2.3 2.9 -Exudate Amt Large Medium -Exudate Type Serosanguineous Serosanguineous -Wound Margin Distinct, Distinct, Outline Outline Attached Attached -Granulation Amt Small (1-33%) Medium (34-66%) -Granulation Quality Red Red -Necrosis Amt Large (67-100%) Medium (34-66%) -Necrotic Tissue Type Adherent Slough Adherent Slough -Structure Exposed N/A -Texture (Susanna-wound Skin Appearance) Assessed Scarring -Moisture (Susanna-wound Skin Appearance) Assessed No Abnormality -Color (Susanna-wound Skin Appearance) Assessed No Abnormality -Temperature (Susanna-wound Skin No Abnormality No Abnormality Appearance) (Pt Warm) (Pt Warm) -Tenderness on Palpation (Susanna-wound Yes No Skin Appearance) -Ulcer Cleansing Soap and Water Soap and Water -Anesthetic Used 4% Lidocaine 4% Lidocaine Solution Solution,5% Lidocaine Gel WC - Nurse 2 - General Ulcer CM Notes Start: 02/15/23 14:46 Freq: Status: Active Protocol: Activity Type Activity Date Activity User E-sign Co-sign Detail Recorded Client Recorded Date Recorded By Document 02/15/23 15:17 [id number] 02/15/23 15:35 Document 02/22/23 13:55 MW [id number] 02/22/23 14:16 MW 02/15/23 02/22/23 15:17 13:55 Wound Center Nurse 2 2. LT BREAST -Time 15:18 13:55 -Correct Patient Yes Yes -Correct Side, Site, Position Yes Yes -Correct Procedure Yes Yes -Procedure Performed Yes Yes -Type of Procedure Debridement Debridement -Clinical Debridement Subcutaneous Muscle / Fascia -Tissue Removed Subcutaneous Muscle,Fascia -Post Debridement (cm) - Length 10.5 9.3 -Post Debridement (cm) - Width 12.0 13.5 -Post Debridement (cm) - Depth 1.8 2.5 -Total Square (Post) (cm) 126.00 125.55 -Area of Debridement (cm) - Length 10.5 9.3 -Area of Debridement (cm) - Width 12 13.5 -Total Square (Area) (cm) 126.0 125.55 -Tunneling No Yes -Tunneling Position (O'clock) 3 -Tunneling Distance (cm) 2.8 -Tunneling Position #2 (O'clock) 9 -Tunneling Distance #2 (cm) 2.8 -Undermining/Tunneling Yes No -Undermining/Tunneling Starts (O'clock 9 ) -Maximum Distance (cm) 2.8 -Circular Undermining No No -Wound/Ulcer Outcome Not Healed Not Healed -Ulcer Cleansing Rinsed/ Rinsed/ Irrigated with Irrigated with Saline Saline -Foul Odor after Cleansing No No -Bioengineered Tissue No No -Bleeding Controlled with Pressure Pressure -Treatment Response Procedure Procedure Tolerated Well Tolerated Well -Offloading No No -Debridement - Subq, 1st 20sq cm No -Debridement - Muscle / Fascia, 1st Yes 20sq cm -Debridement, Muscle/Fascia, ea addt'l 8 20sq cm or part thereof 1. RT BREAST -Time 15:20 13:56 -Correct Patient Yes Yes -Correct Side, Site, Position Yes Yes -Correct Procedure Yes Yes -Procedure Performed Yes Yes -Type of Procedure Debridement Debridement -Clinical Debridement Subcutaneous Muscle / Fascia -Tissue Removed Subcutaneous Muscle,Fascia -Post Debridement (cm) - Length 9.0 7.5 -Post Debridement (cm) - Width 6.0 6.0 -Post Debridement (cm) - Depth 1.2 2.4 -Total Square (Post) (cm) 54.00 45.00 -Area of Debridement (cm) - Length 9.0 7.5 -Area of Debridement (cm) - Width 6.0 6.0 -Total Square (Area) (cm) 54.00 45.00 -Tunneling No No -Undermining/Tunneling Yes Yes -Undermining/Tunneling Starts (O'clock 4 4 ) -Undermining/Tunneling Ends (O'clock) 5 5 -Maximum Distance (cm) 2.7 1.7 -Circular Undermining No No -Wound/Ulcer Outcome Not Healed Not Healed -Ulcer Cleansing Rinsed/ Rinsed/ Irrigated with Irrigated with Saline Saline -Foul Odor after Cleansing No No -Bioengineered Tissue No No -Bleeding Controlled with Pressure Pressure -Treatment Response Procedure Procedure Tolerated Well Tolerated Well -Offloading No No -Debridement - Subq, 1st 20sq cm Yes -Debridement, SubQ, ea addt'l 20sq cm 8 or part thereof -Debridement - Muscle / Fascia, 1st No 20sq cm Pain Scale: 0-10 Numeric Is Patient Pain Free? Yes Yes - Nurse 3 - General Ulcer D/C NN Start: 02/15/23 14:46 Freq: Status: Active Protocol: Activity Type Activity Date Activity User E-sign Co-sign Detail Recorded Client Recorded Date Recorded By Document 02/15/23 15:47 [facility] [id number] 02/15/23 15:48 [facility] Document 02/22/23 14:24 [facility] [id number] 02/22/23 14:25 [facility] 02/15/23 02/22/23 15:47 14:24 Wound Care Center Nurse 3 2. LT BREAST -Ulcer Cleansing Rinsed/ Rinsed/ Irrigated with Irrigated with Saline Saline -Foul Odor after Cleansing No -Primary Dressing Applied Hysept ($) -Other Dressing DAKINS MOIST GAUZE; ABD, PER DL QUALITY LAB TECHNICIAN -Primary Dressing Covered/Secured with Dry Gauze Secured with Tape 1. RT BREAST -Ulcer Cleansing Rinsed/ Rinsed/ Irrigated with Irrigated with Saline Saline -Foul Odor after Cleansing No -Other Dressing DAKINS MOIST GAUZE, ABD, PER DL QUALITY LAB TECHNICIAN -Primary Dressing Covered/Secured with Dry Gauze Secured with Tape Treatment Response Procedure Tolerated Well Pain Scale: 0-10 Numeric Is Patient Pain Free? Yes Yes WC - Visit Discharge Discharge Condition Stable Stable Ambulatory Status Ambulatory,Cane Ambulatory Transportation Private Auto Private Auto Accompanied by DAUGHTER Medication Reconcilliation completed & No provided to patient/care provider Clinical Summary of Care Provided Yes Additional Wound Wound debrided: breast wound Laterality: Right Wound Grade/Stage: Stage III Type of Debridement: Excisional debridement Anesthesia Used: 4% Lidocaine Solution and 5% Lidocaine Gel Depth: in the subcutaneous layer Percentage of wound debrided: 100 Instrument Used: - (scissors and pick ups) Tissue Removed: Devitalized tissue, slough and fat necrosis Severity: Fat Layer Exposed Amount of bleeding with debridement: Mild Bleeding Controlled with: Compression and gauze Patient tolerated procedure: Patient tolerated procedure well Assessment/Plan Assessment/Plan (1) Delayed surgical wound healing: CODE(S): T81.89XA - Other complications of procedures, not elsewhere classified, initial encounter (2) Skin necrosis: CODE(S): I96 - Gangrene, not elsewhere classified (3) History of bilateral breast reduction surgery: CODE(S): Z98.890 - Other specified postprocedural states (4) Acute postoperative anemia due to expected blood loss: CODE(S): D62 - Acute posthemorrhagic anemia (5) Acute kidney injury: CODE(S): N17.9 - Acute kidney failure, unspecified (6) Acute postoperative pain: CODE(S): G89.18 - Other acute postprocedural pain (7) Smoker: CODE(S): F17.200 - Nicotine dependence, unspecified, uncomplicated (8) Macromastia: CODE(S): N62 - Hypertrophy of breast (9) Chronic neck pain: CODE(S): M54.2 - Cervicalgia; G89.29 - Other chronic pain (10) Chronic thoracic back pain: CODE(S): M54.6 - Pain in thoracic spine; G89.29 - Other chronic pain (11) Right shoulder pain: CODE(S): M25.511 - Pain in right shoulder (12) Left shoulder pain: CODE(S): M25.512 - Pain in left shoulder (13) Intertrigo: CODE(S): L30.4 - Erythema intertrigo (14) Family history of breast cancer: CODE(S): Z80.3 - Family history of malignant neoplasm of breast (15) DM type 2, goal HbA1c < 7%: CODE(S): E11.9 - Type 2 diabetes mellitus without complications PLAN: Plan Patient evaluated at the wound center today. Wound care - Dannie 0.25% moistened gauze covered with ABD daily. May wash wounds with soap and water before dressing changes. Continue wearing compression bra or EVERARDO wrap. Continue to keep head elevated. Continue 20 lb weight lifting restriction. She would benefit from Hyperbaric Oxygen Therapy to help with the wound healing of her compromised skin flaps. She had EKG done 01/08/23 which showed Right bundle branch block. She had an echocardiogram on 01/18/23 which showed: The study was technically difficult. No apical window due to recent bilateral breast surgery/bandages/drains. Mild concentric left ventricular hypertrophy. The left ventricular ejection fraction is 65%. The left atrium is mildly enlarged. Mild diffuse aortic valve thickening. Chest x-ray 01/15/23 showed Stable prominent interstitial markings may be secondary to a confluence of shadows however cannot exclude mild edema and/or an infectious process. Will order repeat chest x-ray. Encouraged patient to stop smoking as it may have deleterious effects on wound healing. Follow up one week. Instructed patient to call or come in sooner if develop any concerns.
[2023-03-01 14:47] VITALS: BP 119/25; PULSE 83; RESP 18; TEMP 36.3; BMI 46.5
--- NOTE | 2023-03-01 16:46 | PCM.WC.PN ---
History of Present Illness Date of Service: 03/01/23 Chief Complaint: Bilateral breast wounds History of Wound: 62 year old female present for further evaluation after her surgery on 01/13/23 where she underwent bilateral breast reduction mammoplasty. Tissue removed from the left breast was 1590 grams. Tissue removed from the right breast was 750 grams. She was discharged from the hospital on 01/18/23. She developed KALEE after her surgery, her Creatinine increased from 1.88 preop to 2.73 postop. At discharge it decreased down to 2.04. Her Creatinine on 02/04/23 decreased to 1.76. The acuity has resolved. She will also followup with her PCP as well for further evaluation and treatment of her renal issues. While in the hospital, her Hgb went from 10.5 preop to 7.8 postop. PRBC was given and it improved to 8.9. At discharge it was 8.2. She has anemia due to expected blood loss. The operative blood loss was 250 ml. She is on Iron supplementation. Her Hgb on 02/04/23 improved to 8.6. the acuity has resolved. She is a current smoker. She developed some compromise of the left nipple areolar complex and dry eschar had formed on the entirety of the right nipple. She had issues with swelling after not wearing enough compression the first couple weeks post op. There was compromise of both nipples, worse on the right as there was eschar present in its entirety. On the left nipple it is soft with some bruising. Have been monitoring closely. Dr. De Paz debrided non viable tissue from the left nipple and excised the dry eschar from the right nipple. The vertical incision on the right started to weaken and he was able to express some yellowish drainage, probably liquefying fat necrosis. So he opened up the vertical incision on the right which communicates with the nipple wound. After excision and debridement with scissors, the right breast wound including the nipple down to the Tzone area measures 9.3 x 5.5 x 1.2 cm. After the excision and debridement with scissors, the left breast wound inferior to the nipple and extending to the Tzone measures 11.5 x 9 x 1 cm. Wound culture from 02/04/23 positive for Klebsiella pneumoniae and Anaerobic cocci. She is on Levaquin and Flagyl. Wound care - Dakins 0.25% moistened gauze daily covered with ABD. She comes into the wound center for further evaluation and treatment and for better wound management. Today she denies fever, chills, nausea or vomiting. Progress of Wound: The breast wounds are stabilizing with some evidence of healing at the wound edges. In both breasts there is fat necrosis present. There are scattered areas of granulation tissue starting to form. Left breast nipple has eschar present. She denies any fever or chills today. She states her daughter has been doing a good job with her wound care. Will start the work up for HBO. She has had a chest xray, and it will be repeated. She has had an EKG and Echo done. Objective Data Objective Data Vital Signs: Vital Signs Temp Pulse Resp BP O2 Del Method 97.3 F L 83 18 119/25 L Room Air 03/01/23 14:47 03/01/23 14:47 03/01/23 14:47 03/01/23 14:47 03/01/23 14:47 Oxygen Delivery Method Room Air Weight: 280 lb Body Mass Index (BMI) 46.5 Prealbumin from 01/14/23 was 16.3. Encourage nutritional supplementation with protein to help the healing process. Lab / Micro Data Attestation: I reviewed the patient's lab results. Charges/Coding Procedures Integumentary 111xxx-113xx: [id number] Global Visit (ICD-10 - T81.89xA, I96, Z98.890, G89.18, E11.9, F17.200) Debridement Note Debridement Note Wound debrided: #2 Left breast Laterality: Left Wound Grade/Stage: 2. Type of Debridement: Excisional debridement Anesthesia Used: 4% Lidocaine Solution and 5% Lidocaine Gel Depth: in the subcutaneous layer Percentage of wound debrided: 100 Instrument Used: Forceps (and scissors) Tissue Removed: Devitalized tissue, slough, fat necrosis and eschar around the nipple Severity: Fat Layer Exposed Amount of bleeding with debridement: Mild Bleeding Controlled with: Compression and gauze Patient tolerated procedure: Patient tolerated procedure well (except for scattered areas that were more painful.) Debridement Free Text: Left nipple has eschar present that was excised and debrided. Post-Debridement Measurements and Additional Note: Post-Debridement Measurements/Treatment WC - Nurse 1 - General Ulcer Assessment Start: 02/15/23 14:46 Freq: Status: Active Protocol: WC.LOWEXT Activity Type Activity Date Activity User E-sign Co-sign Detail Recorded Client Recorded Date Recorded By Document 02/15/23 14:46 [facility] [id number] 02/15/23 15:00 BM Document 02/22/23 13:44 DL [id number] 02/22/23 13:48 DL Document 03/01/23 14:47 [facility] [id number] 03/01/23 15:00 BMF 02/15/23 02/22/23 03/01/23 14:46 13:44 14:47 WC - Today's Visit Information Type of service Initial Visit Follow-up Visit Follow-up Visit (Physician/GUEST SERVICES DIRECTOR (Physician/GUEST SERVICES DIRECTOR ) ) Arrival Mode Ambulatory,Cane Ambulatory Ambulatory,Cane Transfer Assistance None None None Accompanied by daughter jony Patient Identification Verified (Name & Yes Yes Yes ) Patient Requires Transmission-Based No No No Precautions Height and Weight Height 5 ft 5 in Weight 280 lb Weight in Pounds 280.0 lbs Weight Measurement Method Estimated by Patient Body Mass Index (BMI) 46.5 46.5 46.5 BMI Classification Obese Obese Obese BSA - Kellie 2.28 Vital Signs Temperature (97.8 F-99.1 F) 97.5 F L 96.9 F L 97.3 F L Temperature Source Temporal Temporal Temporal Pulse Rate (60-100) 76 88 83 Pulse Location Monitor Monitor Monitor Respiratory Rate (12-18) 16 18 18 Respiratory rate source Observation Observation Observation Oxygen Delivery Method Room Air Room Air Blood Pressure (90/60-120/80) 150/44 H 134/66 H 119/25 L Blood Pressure Mean (mm Hg) 79 88 56 Source Monitor Monitor Monitor Position Sitting Sitting Blood Pressure Location Left Arm Left Forearm History Since Last Visit- (Skip if this is Patient's initial visit) Have you changed medications since your No No last visit? Any new allergies or adverse reactions No No Had a fall/change in ADL's that may No No increase risk of falls Signs or symptoms of abuse and/or No No neglect since last visit Have you been in the hospital since your No No last visit? Has dressing in place as prescribed Yes Yes Has compression in place as prescribed N/A N/A Has offloadiing in place as prescribed N/A Experienced any changes in pain level or No No management Left Footwear Regular Shoe Regular Shoe Right Footwear Regular Shoe Regular Shoe Pain Scale: 0-10 Numeric Is Patient Pain Free? Yes Yes No wounds -Description Throbbing, Burning -Intensity 7 -Duration (hours) Acute -Pain Behavior Facial Grimacing -Pain Aggravating Factors Sitting -Alleviating Factors/Interventions Distraction, Will continue to monitor, Patient denies need for intervention, Emotional Support Communication Assessment Preferred language Korean Poultry Offal Icer Required No Able to Read Yes Able to Write Yes Communication Tools None Right Hearing Abillity Normal Left Hearing Abillity Normal Visual Assistive Devices Glasses Teaching Assessment Preferences Verbal,Written, Audio/Visual, Demonstration Barriers to Learning None Readiness To Learn Excellent Willingness to Engage in Self Management High Activies Readiness to Engage in Self Management High Activities Anxiety Level Calm Cooperation Cooperative Perception Coherent Interest in Health Problem Asks Questions Education Importance Acknowledges Need Does Patient Smoke tobacco or other No substances Smoking Status Current every day smoker Is Patient Diabetic Yes Functional Assessment Recent Decline in Ability to Perform Denies Any Declines Culture/Advent/Rehab Director Cultural/Advent Needs that may affect No Treatment Plan Teaching: Wound Center *Welcome to the Wound Center -Person Taught Patient,Family -Teaching Method Discussion -Response to teaching Verbalize understanding Welcome to the Wound Care Center English FELDMAN - Nurse 1 - General Ulcer Measurement Start: 02/15/23 14:46 Freq: Status: Active Protocol: Activity Type Activity Date Activity User E-sign Co-sign Detail Recorded Client Recorded Date Recorded By Document 02/15/23 14:46 BMF [id number] 02/15/23 15:00 BMF Edit Result 02/15/23 14:46 BMF (1) [id number] 02/15/23 15:17 BMF Document 02/22/23 13:44 DL [id number] 02/22/23 13:48 DL Document 03/01/23 14:47 BMF [id number] 03/01/23 15:00 BMF (1) 2. LT BREAST - Exudate Amt Medium => Large - Granulation Amt Medium (34-66%) => Small (1-33%) - Granulation Quality Dana => Red - Necrosis Amt Medium (34-66%) => Large (67-100%) - Necrotic Tissue Type Eschar => Adherent Slough 1. RT BREAST - Exudate Amt => Large - Granulation Quality Dana => Red - Tenderness on Palpation (Susanna-wound => Yes Skin Appearance) Lower Limb Edema Present NA => 02/15/23 02/22/23 03/01/23 14:46 13:44 14:47 Wound Center Nurse 1 2. LT BREAST -Combined with other wound No -Current Size (cm) - Length 10.1 10.6 15 -Current Size (cm) - Width 12.5 17.3 8.8 -Current Size (cm) - Depth 1.6 1.5 2.1 -Total Square Cm 126.25 183.38 132.0 -Date of Last Picture (Recall this 02/15/23 03/01/23 field) -Photo Taken Yes Yes -Epithelialization None Present -Tunneling No -Undermining/Tunneling Yes Yes -Undermining/Tunneling Starts (O'clock 8 9 8 ) -Undermining/Tunneling Ends (O'clock) 10 3 3 -Maximum Distance (cm) 2.4 2.5 2 -Circular Undermining No -Exudate Amt Large Medium Large -Exudate Type Serosanguineous Serosanguineous -Wound Margin Distinct, Distinct, Distinct, Outline Outline Outline Attached Attached Attached -Granulation Amt Small (1-33%) Medium (34-66%) Small (1-33%) -Granulation Quality Red Red Red -Slough/Fibrin Yes -Necrosis Amt Large (67-100%) Medium (34-66%) Large (67-100%) -Necrotic Tissue Type Adherent Slough Adherent Slough Adherent Slough -Structure Exposed N/A -Texture (Susanna-wound Skin Appearance) Assessed Scarring Assessed, Scarring -Moisture (Susanna-wound Skin Appearance) Assessed No Abnormality, Assessed Not Assessed -Color (Susanna-wound Skin Appearance) Assessed No Abnormality Assessed -Temperature (Susanna-wound Skin No Abnormality No Abnormality No Abnormality Appearance) (Pt Warm) (Pt Warm) (Pt Warm) -Tenderness on Palpation (Susanna-wound Yes No Yes Skin Appearance) -Ulcer Cleansing Soap and Water Soap and Water Rinsed/ Irrigated with Saline -Foul Odor after Cleansing No No No -Anesthetic Used 4% Lidocaine 4% Lidocaine 4% Lidocaine Solution Solution,5% Solution Lidocaine Gel 1. RT BREAST -Combined with other wound No -Current Size (cm) - Length 9.6 7.7 7.5 -Current Size (cm) - Width 5.3 5.8 5.4 -Current Size (cm) - Depth 1.1 1.2 1.3 -Total Square Cm 50.88 44.66 40.50 -Date of Last Picture (Recall this 02/15/23 03/01/23 field) -Photo Taken Yes Yes -Epithelialization None Present -Tunneling No -Undermining/Tunneling Yes No -Undermining/Tunneling Starts (O'clock 12 10 ) -Undermining/Tunneling Ends (O'clock) 5 5 -Maximum Distance (cm) 2.3 2.9 -Circular Undermining No -Exudate Amt Large Medium Medium -Exudate Type Serosanguineous Serosanguineous Serosanguineous -Wound Margin Distinct, Distinct, Distinct, Outline Outline Outline Attached Attached Attached -Granulation Amt Small (1-33%) Medium (34-66%) Small (1-33%) -Granulation Quality Red Red Red -Slough/Fibrin Yes -Necrosis Amt Large (67-100%) Medium (34-66%) Large (67-100%) -Necrotic Tissue Type Adherent Slough Adherent Slough Adherent Slough -Structure Exposed N/A -Texture (Susanna-wound Skin Appearance) Assessed Scarring Assessed, Scarring -Moisture (Susanna-wound Skin Appearance) Assessed No Abnormality Assessed -Color (Susanna-wound Skin Appearance) Assessed No Abnormality Assessed -Temperature (Susanna-wound Skin No Abnormality No Abnormality No Abnormality Appearance) (Pt Warm) (Pt Warm) (Pt Warm) -Tenderness on Palpation (Susanna-wound Yes No No Skin Appearance) -Ulcer Cleansing Soap and Water Soap and Water Rinsed/ Irrigated with Saline -Foul Odor after Cleansing No -Anesthetic Used 4% Lidocaine 4% Lidocaine 4% Lidocaine Solution Solution,5% Solution Lidocaine Gel WC - Nurse 2 - General Ulcer CM Notes Start: 02/15/23 14:46 Freq: Status: Active Protocol: Activity Type Activity Date Activity User E-sign Co-sign Detail Recorded Client Recorded Date Recorded By Document 02/15/23 15:17 [id number] 02/15/23 15:35 Document 02/22/23 13:55 MW [id number] 07/24/23 14:16 MW Document 03/01/23 15:23 [id number] 03/01/23 15:27 JF 02/15/23 02/22/23 03/01/23 15:17 13:55 15:23 Wound Center Nurse 2 2. LT BREAST -Time 15:18 13:55 15:23 -Correct Patient Yes Yes Yes -Correct Side, Site, Position Yes Yes Yes -Correct Procedure Yes Yes Yes -Procedure Performed Yes Yes Yes -Type of Procedure Debridement Debridement Debridement -Clinical Debridement Subcutaneous Muscle / Fascia Subcutaneous -Tissue Removed Subcutaneous Muscle,Fascia Subcutaneous -Post Debridement (cm) - Length 10.5 9.3 9.5 -Post Debridement (cm) - Width 12.0 13.5 14.5 -Post Debridement (cm) - Depth 1.8 2.5 1.6 -Total Square (Post) (cm) 126.00 125.55 137.75 -Area of Debridement (cm) - Length 10.5 9.3 9.5 -Area of Debridement (cm) - Width 12 13.5 14.5 -Total Square (Area) (cm) 126.0 125.55 137.75 -Tunneling No Yes No -Tunneling Position (O'clock) 3 -Tunneling Distance (cm) 2.8 -Tunneling Position #2 (O'clock) 9 -Tunneling Distance #2 (cm) 2.8 -Undermining/Tunneling Yes No No -Undermining/Tunneling Starts (O'clock 9 ) -Maximum Distance (cm) 2.8 -Circular Undermining No No No -Wound/Ulcer Outcome Not Healed Not Healed Not Healed -Ulcer Cleansing Rinsed/ Rinsed/ Rinsed/ Irrigated with Irrigated with Irrigated with Saline Saline Saline -Foul Odor after Cleansing No No No -Bioengineered Tissue No No No -Bleeding Controlled with Pressure Pressure Pressure -Treatment Response Procedure Procedure Procedure Tolerated Well Tolerated Well Tolerated Well -Offloading No No No -Debridement - Subq, 1st 20sq cm No No -Debridement - Muscle / Fascia, 1st Yes 20sq cm -Debridement, Muscle/Fascia, ea addt'l 8 20sq cm or part thereof 1. RT BREAST -Time 15:20 13:56 15:24 -Correct Patient Yes Yes Yes -Correct Side, Site, Position Yes Yes Yes -Correct Procedure Yes Yes Yes -Procedure Performed Yes Yes Yes -Type of Procedure Debridement Debridement Debridement -Clinical Debridement Subcutaneous Muscle / Fascia Subcutaneous -Tissue Removed Subcutaneous Muscle,Fascia Subcutaneous -Post Debridement (cm) - Length 9.0 7.5 7.0 -Post Debridement (cm) - Width 6.0 6.0 5.5 -Post Debridement (cm) - Depth 1.2 2.4 1.4 -Total Square (Post) (cm) 54.00 45.00 38.50 -Area of Debridement (cm) - Length 9.0 7.5 7.0 -Area of Debridement (cm) - Width 6.0 6.0 5.5 -Total Square (Area) (cm) 54.00 45.00 38.50 -Tunneling No No No -Undermining/Tunneling Yes Yes No -Undermining/Tunneling Starts (O'clock 4 4 ) -Undermining/Tunneling Ends (O'clock) 5 5 -Maximum Distance (cm) 2.7 1.7 -Circular Undermining No No No -Wound/Ulcer Outcome Not Healed Not Healed Not Healed -Ulcer Cleansing Rinsed/ Rinsed/ Rinsed/ Irrigated with Irrigated with Irrigated with Saline Saline Saline -Foul Odor after Cleansing No No No -Bioengineered Tissue No No No -Bleeding Controlled with Pressure Pressure Pressure -Treatment Response Procedure Procedure Procedure Tolerated Well Tolerated Well Tolerated Well -Offloading No No No -Debridement - Subq, 1st 20sq cm Yes Yes -Debridement, SubQ, ea addt'l 20sq cm 8 8 or part thereof -Debridement - Muscle / Fascia, 1st No 20sq cm Pain Scale: 0-10 Numeric Is Patient Pain Free? Yes Yes Yes WC - Nurse 3 - General Ulcer D/C NN Start: 02/15/23 14:46 Freq: Status: Active Protocol: Activity Type Activity Date Activity User E-sign Co-sign Detail Recorded Client Recorded Date Recorded By Document 02/15/23 15:47 [facility] [id number] 02/15/23 15:48 [facility] Document 02/22/23 14:24 BM [id number] 02/22/23 14:25 BM Document 03/01/23 15:38 DL [id number] 03/01/23 15:40 DL 02/15/23 02/22/23 03/01/23 15:47 14:24 15:38 Wound Care Center Nurse 3 2. LT BREAST -Ulcer Cleansing Rinsed/ Rinsed/ Rinsed/ Irrigated with Irrigated with Irrigated with Saline Saline Saline -Foul Odor after Cleansing No No -Primary Dressing Applied Hysept ($) -Other Dressing DAKINS MOIST dakins GAUZE; ABD, PER DL GLUING CREW LEADER -Primary Dressing Covered/Secured with Dry Gauze Secured with Dry Gauze Tape -Other Covering abd 1. RT BREAST -Ulcer Cleansing Rinsed/ Rinsed/ Rinsed/ Irrigated with Irrigated with Irrigated with Saline Saline Saline -Foul Odor after Cleansing No No -Other Dressing DAKINS MOIST dakins GAUZE, ABD, PER DL GLUING CREW LEADER -Primary Dressing Covered/Secured with Dry Gauze Secured with Dry Gauze Tape -Other Covering abd Treatment Response Procedure Procedure Tolerated Well Tolerated Well Pain Scale: 0-10 Numeric Is Patient Pain Free? Yes Yes Yes WC - Visit Discharge Discharge Condition Stable Stable Stable Ambulatory Status Ambulatory,Cane Ambulatory Ambulatory,Cane Transportation Private Auto Private Auto Private Auto Accompanied by DAUGHTER Medication Reconcilliation completed & No provided to patient/care provider Clinical Summary of Care Provided Yes Facility Type Home Health Telephoned (if yes, spoke with:) Yes Additional Wound Wound debrided: #1 Right breast. Laterality: Right Wound Grade/Stage: 2. Type of Debridement: Excisional debridement Anesthesia Used: 4% Lidocaine Solution and 5% Lidocaine Gel Depth: in the subcutaneous layer Percentage of wound debrided: 100 Instrument Used: Forceps (and scissors) Tissue Removed: Devitalized tissue, slough and fat necrosis. Severity: Fat Layer Exposed Amount of bleeding with debridement: Mild Bleeding Controlled with: Compression and gauze Patient tolerated procedure: Patient tolerated procedure well (except for scattered areas of sharp pain.) Assessment/Plan Assessment/Plan (1) Delayed surgical wound healing: CODE(S): T81.89XA - Other complications of procedures, not elsewhere classified, initial encounter (2) Skin necrosis: CODE(S): I96 - Gangrene, not elsewhere classified (3) History of bilateral breast reduction surgery: CODE(S): Z98.890 - Other specified postprocedural states (4) Acute postoperative pain: CODE(S): G89.18 - Other acute postprocedural pain (5) DM type 2, goal HbA1c < 7%: CODE(S): E11.9 - Type 2 diabetes mellitus without complications (6) Smoker: CODE(S): F17.200 - Nicotine dependence, unspecified, uncomplicated PLAN: Plan Wound care - Dakin's 0.25% moistened gauze covered with ABD daily. May wash wounds with soap and water before dressing changes. The wounds are starting to stabilize at the wound edges. To try and get better control of the drainage, will order the VAC at 150 mmHg to be changed three times per week. Continue wearing compression bra or EVERARDO wrap. Continue to keep head elevated. Continue 20 lb weight lifting restriction. Continue Levaquin and Flagyl. Flagyl is for 10 days. She would benefit from Hyperbaric Oxygen Therapy to help with the wound healing of her compromised skin flaps. She had EKG done 01/08/23 which showed Right bundle branch block. She had an echocardiogram on 01/18/23 which showed: The study was technically difficult. No apical window due to recent bilateral breast surgery/bandages/drains. Mild concentric left ventricular hypertrophy. The left ventricular ejection fraction is 65%. The left atrium is mildly enlarged. Mild diffuse aortic valve thickening. Chest x-ray 01/15/23 showed Stable prominent interstitial markings may be secondary to a confluence of shadows however cannot exclude mild edema and/or an infectious process. Will order repeat chest x-ray. Encouraged patient to stop smoking as it may have deleterious effects on wound healing. Renewed script for Percocet for pain (28 tabs). Renewed script for Valium for spasm (20 tabs). Follow up one week.
== END 2023-03-01 23:59 | disposition home or self-care (01) ==
LOC: WC 14:30
PROVIDERS: PCP Preventive Medicine Occupational Medicine; Referring Provider Nurse Practitioner Family; Visit Provider Nurse Practitioner Family
DX: T81.89XA Other complications of procedures, not elsewhere classified, initial encounter (principal); I96 Gangrene, not elsewhere classified; N17.9 Acute kidney failure, unspecified; Z79.4 Long term (current) use of insulin; E11.9 Type 2 diabetes mellitus without complications; S20.02XA Contusion of left breast, initial encounter; M25.512 Pain in left shoulder; N62 Hypertrophy of breast; D62 Acute posthemorrhagic anemia; M25.511 Pain in right shoulder; M54.6 Pain in thoracic spine; F17.200 Nicotine dependence, unspecified, uncomplicated; G89.29 Other chronic pain; M54.2 Cervicalgia; G89.18 Other acute postprocedural pain; Z79.82 Long term (current) use of aspirin; Z98.890 Other specified postprocedural states; Z80.3 Family history of malignant neoplasm of breast; L30.4 Erythema intertrigo
CPT/HCPCS: 11042; 11043; 11045; 11046; 99213; G0463

== ENCOUNTER → 2023-03-22 | Outpatient (CLI) | payer MEDICARE, MEDICAID, SELFPAY ==
--- NOTE | 2023-03-22 13:42 | RAD_ITS ---
STUDY: X-RAY CHEST REASON FOR EXAM: Female, 62 years old. HYPERBARIC OXYGEN THERAPY. TECHNIQUE: Frontal and lateral views of the chest. COMPARISON: January 16, 2023. FINDINGS: Cardiomegaly, aortic tortuosity, prominent central pulmonary arteries, low volume of both lung menjivar with mild interstitial prominence, all unchanged. No active or acute cardiopulmonary disease. No abnormality of the visualized soft tissue structures of the upper abdomen. RAD/Chest PA and Lateral IMPRESSION: Stable chest with no acute or active cardiopulmonary disease. Electronically Signed: Papo Borges MD at 14:20 EDT ,
== END | disposition home or self-care (01) ==
LOC: RAD 13:39
PROVIDERS: PCP Preventive Medicine Occupational Medicine; Referring Provider Nurse Practitioner Family; Visit Provider Nurse Practitioner Family
DX: I51.7 Cardiomegaly (principal)
CPT/HCPCS: 71046

== ENCOUNTER 2023-03-29 14:30 | Outpatient (RCR) | payer MEDICARE, MEDICAID, SELFPAY ==
[2023-03-02 00:24] VITALS: BP 119/25; PULSE 83; RESP 18; TEMP 36.3; BMI 46.5
[2023-03-08 14:56] VITALS: BP 167/62; PULSE 79; RESP 16; TEMP 35.8; BMI 46.5
--- NOTE | 2023-03-08 16:37 | PCM.WC.PN ---
History of Present Illness Date of Service: 03/08/23 Chief Complaint: Bilateral breast wounds History of Wound: 62 year old female present for further evaluation after her surgery on 01/13/23 where she underwent bilateral breast reduction mammoplasty. Tissue removed from the left breast was 1590 grams. Tissue removed from the right breast was 750 grams. She was discharged from the hospital on 01/18/23. She developed KALEE after her surgery, her Creatinine increased from 1.88 preop to 2.73 postop. At discharge it decreased down to 2.04. Her Creatinine on02/04/21 decreased to 1.76. The acuity has resolved. She will also followup with her PCP as well for further evaluation and treatment of her renal issues. While in the hospital, her Hgb went from 10.5 preop to 7.8 postop. PRBC was given and it improved to 8.9. At discharge it was 8.2. She has anemia due to expected blood loss. The operative blood loss was 250 ml. She is on Iron supplementation. Her Hgb on 02/04/23 improved 8.6. the acuity has resolved. She is a current smoker. She developed compromise of the nipple areolar complexes bilaterally. She had issues with swelling after not wearing enough compression the first couple weeks post op. She also developed wound breakdown in the Tzone areas bilaterally. Wound culture from 02/04/23 positive for Klebsiella pneumoniae and Anaerobic cocci. She is on Levaquin and Flagyl. She has finished the Flagyl. Wound care - Dakins 0.25% moistened gauze daily covered with ABD. Today she denies fever, chills, nausea or vomiting. Progress of Wound: Bilateral wounds have been stabilizing at the edges. More granulation tissue is seen. Less fat necrosis seen. Objective Data Objective Data Vital Signs: Vital Signs Temp Pulse Resp BP O2 Del Method 96.4 F L 79 16 167/62 H Room Air 03/08/23 14:56 03/08/23 14:56 03/08/23 14:56 03/08/23 14:56 03/08/23 14:56 Oxygen Delivery Method Room Air Weight: 280 lb Body Mass Index (BMI) 46.5 Prealbumin from 01/14/23 was 16.3. Encourage nutritional supplementation with protein to help the healing process. Lab / Micro Data Attestation: I reviewed the patient's lab results. Charges/Coding Procedures Integumentary 111xxx-113xx: 17581 Global Visit (ICD-10 - T81.89xA, I96, Z98.890, E11.9, F17.200) Debridement Note Debridement Note Wound debrided: #2 Left breast Laterality: Left Wound Grade/Stage: 2. Type of Debridement: Excisional debridement Anesthesia Used: 4% Lidocaine Solution and 5% Lidocaine Gel Depth: in the subcutaneous layer Percentage of wound debrided: 100 Instrument Used: Forceps (and scissors) Tissue Removed: Subcutaneous tissue, fat necrosis and some devitalized tissue. Severity: Fat Layer Exposed Amount of bleeding with debridement: Mild Bleeding Controlled with: Compression and gauze Patient tolerated procedure: Patient tolerated procedure well Post-Debridement Measurements and Additional Note: Post-Debridement Measurements/Treatment - Nurse 1 - General Ulcer Assessment Start: 03/08/23 14:56 Freq: Status: Active Protocol: PRADIP Activity Type Activity Date Activity User E-sign Co-sign Detail Recorded Client Recorded Date Recorded By Document 03/08/23 14:56 [facility] [id number] 03/08/23 15:07 [facility] 03/08/23 14:56 - Today's Visit Information Type of service Follow-up Visit (Physician/SCRUMMASTER ) Arrival Mode Ambulatory,Cane Transfer Assistance None Accompanied by BASSEM Patient Identification Verified (Name & Yes ) Patient Requires Transmission-Based No Precautions Height and Weight Body Mass Index (BMI) 46.5 BMI Classification Obese Vital Signs Temperature (97.8 F-99.1 F) 96.4 F L Temperature Source Temporal Pulse Rate (60-100) 79 Pulse Location Monitor Respiratory Rate (12-18) 16 Respiratory rate source Observation Oxygen Delivery Method Room Air Blood Pressure (90/60-120/80) 167/62 H Blood Pressure Mean (mm Hg) 97 Source Monitor Position Sitting Blood Pressure Location Right Arm History Since Last Visit- (Skip if this is Patient's initial visit) Have you changed medications since your No last visit? Any new allergies or adverse reactions No Had a fall/change in ADL's that may No increase risk of falls Signs or symptoms of abuse and/or No neglect since last visit Have you been in the hospital since your No last visit? Has dressing in place as prescribed Yes Has compression in place as prescribed N/A Has offloadiing in place as prescribed N/A Experienced any changes in pain level or No management Left Footwear Regular Shoe Right Footwear Regular Shoe Pain Scale: 0-10 Numeric Is Patient Pain Free? Yes WC - Nurse 1 - General Ulcer Measurement Start: 03/08/23 14:56 Freq: Status: Active Protocol: Activity Type Activity Date Activity User E-sign Co-sign Detail Recorded Client Recorded Date Recorded By Document 03/08/23 14:56 [facility] [id number] 03/08/23 15:07 [facility] 03/08/23 14:56 Wound Center Nurse 1 2. LT BREAST -Combined with other wound No -Current Size (cm) - Length 8.5 -Current Size (cm) - Width 13.5 -Current Size (cm) - Depth 2.6 -Total Square Cm 114.75 -Date of Last Picture (Recall this 03/08/23 field) -Photo Taken Yes -Epithelialization None Present -Undermining/Tunneling Yes -Undermining/Tunneling Starts (O'clock 10 ) -Undermining/Tunneling Ends (O'clock) 3 -Maximum Distance (cm) 1.1 -Exudate Amt Large -Exudate Type Serosanguineous -Wound Margin Distinct, Outline Attached -Granulation Amt Small (1-33%) -Granulation Quality Red -Slough/Fibrin Yes -Necrosis Amt Large (67-100%) -Necrotic Tissue Type Adherent Slough -Texture (Susanna-wound Skin Appearance) Assessed, Localized Edema ,Scarring -Moisture (Susanna-wound Skin Appearance) Assessed -Color (Susanna-wound Skin Appearance) Assessed, Erythema -Temperature (Susanna-wound Skin No Abnormality Appearance) (Pt Warm) -Tenderness on Palpation (Susanna-wound Yes Skin Appearance) -Ulcer Cleansing Soap and Water -Foul Odor after Cleansing No -Anesthetic Used 4% Lidocaine Solution 1. RT BREAST -Combined with other wound No -Current Size (cm) - Length 6 -Current Size (cm) - Width 6 -Current Size (cm) - Depth 1.5 -Total Square Cm 36 -Date of Last Picture (Recall this 03/08/23 field) -Photo Taken Yes -Epithelialization None Present -Tunneling No -Undermining/Tunneling No -Circular Undermining No -Exudate Amt Medium -Exudate Type Serosanguineous -Wound Margin Distinct, Outline Attached -Granulation Amt None Present (0 %) -Granulation Quality Red -Slough/Fibrin Yes -Necrosis Amt Large (67-100%) -Necrotic Tissue Type Adherent Slough -Texture (Susanna-wound Skin Appearance) Assessed, Scarring -Moisture (Susanna-wound Skin Appearance) Assessed -Color (Susanna-wound Skin Appearance) Assessed, Erythema -Temperature (Susanna-wound Skin No Abnormality Appearance) (Pt Warm) -Tenderness on Palpation (Susanna-wound Yes Skin Appearance) -Ulcer Cleansing Soap and Water -Foul Odor after Cleansing No -Anesthetic Used 4% Lidocaine Solution WC - Nurse 2 - General Ulcer CM Notes Start: 03/08/23 14:56 Freq: Status: Active Protocol: Activity Type Activity Date Activity User E-sign Co-sign Detail Recorded Client Recorded Date Recorded By Document 03/08/23 15:34 LUCIAN [id number] 03/08/23 15:46 LUCIAN 03/08/23 15:34 Wound Center Nurse 2 2. LT BREAST -Time 15:35 -Correct Patient Yes -Correct Side, Site, Position Yes -Correct Procedure Yes -Procedure Performed Yes -Type of Procedure Debridement -Clinical Debridement Subcutaneous -Tissue Removed Subcutaneous -Post Debridement (cm) - Length 8.6 -Post Debridement (cm) - Width 14.5 -Post Debridement (cm) - Depth 2.3 -Total Square (Post) (cm) 124.70 -Area of Debridement (cm) - Length 8.6 -Area of Debridement (cm) - Width 14.5 -Total Square (Area) (cm) 124.70 -Tunneling No -Undermining/Tunneling No -Circular Undermining No -Wound/Ulcer Outcome Not Healed -Ulcer Cleansing Rinsed/ Irrigated with Saline -Bioengineered Tissue No -Bleeding Controlled with Pressure -Treatment Response Procedure Tolerated Well -Offloading No -Debridement - Subq, 1st 20sq cm No 1. RT BREAST -Time 15:35 -Correct Patient Yes -Correct Side, Site, Position Yes -Correct Procedure Yes -Procedure Performed Yes -Type of Procedure Debridement -Clinical Debridement Subcutaneous -Tissue Removed Subcutaneous -Post Debridement (cm) - Length 6.3 -Post Debridement (cm) - Width 5 -Post Debridement (cm) - Depth 2.2 -Total Square (Post) (cm) 31.5 -Area of Debridement (cm) - Length 6.3 -Area of Debridement (cm) - Width 5 -Total Square (Area) (cm) 31.5 -Tunneling No -Undermining/Tunneling No -Circular Undermining No -Wound/Ulcer Outcome Not Healed -Ulcer Cleansing Rinsed/ Irrigated with Saline -Foul Odor after Cleansing No -Bioengineered Tissue No -Bleeding Controlled with Pressure -Treatment Response Procedure Tolerated Well -Offloading No -Debridement - Subq, 1st 20sq cm Yes -Debridement, SubQ, ea addt'l 20sq cm 7 or part thereof Pain Scale: 0-10 Numeric Is Patient Pain Free? Yes - Nurse 3 - General Ulcer D/C NN Start: 03/08/23 14:56 Freq: Status: Active Protocol: Activity Type Activity Date Activity User E-sign Co-sign Detail Recorded Client Recorded Date Recorded By Document 03/08/23 16:26 [id number] 03/08/23 16:29 03/08/23 16:26 Wound Care Center Nurse 3 2. LT BREAST -Ulcer Cleansing Rinsed/ Irrigated with Saline 1. RT BREAST -Ulcer Cleansing Rinsed/ Irrigated with Saline Pain Scale: 0-10 Numeric Is Patient Pain Free? No LT breast -Description Sharp -Intensity 9 -Pain Behavior Crying,Facial Grimacing -Alleviating Factors/Interventions Medication Teaching Assessment Preferences Verbal Barriers to Learning None Readiness To Learn Excellent Willingness to Engage in Self Management High Activies Readiness to Engage in Self Management High Activities Anxiety Level Calm Cooperation Cooperative Perception Coherent Interest in Health Problem Asks Questions Education Importance Acknowledges Need Smoking Status Current every day smoker Is Patient Diabetic Yes - Visit Discharge Discharge Condition Stable Ambulatory Status Ambulatory,Cane Transportation Private Auto Medication Reconcilliation completed & No provided to patient/care provider Clinical Summary of Care Provided Yes Additional Wound Wound debrided: #1 Right breast. Laterality: Right Wound Grade/Stage: 2. Type of Debridement: Excisional debridement Anesthesia Used: 5% Lidocaine Gel Depth: in the subcutaneous layer Percentage of wound debrided: 100 Instrument Used: Forceps (and scissors) Tissue Removed: Subcutaneous tissue, fat necrosis, and devitalized tissue. Severity: Fat Layer Exposed Amount of bleeding with debridement: Mild Bleeding Controlled with: Compression and gauze Patient tolerated procedure: Patient tolerated procedure well Assessment/Plan Assessment/Plan (1) Delayed surgical wound healing: CODE(S): T81.89XA - Other complications of procedures, not elsewhere classified, initial encounter (2) Skin necrosis: CODE(S): I96 - Gangrene, not elsewhere classified (3) History of bilateral breast reduction surgery: CODE(S): Z98.890 - Other specified postprocedural states (4) DM type 2, goal HbA1c < 7%: CODE(S): E11.9 - Type 2 diabetes mellitus without complications (5) Smoker: CODE(S): F17.200 - Nicotine dependence, unspecified, uncomplicated PLAN: Plan Wound care - Home health is now available. Will start the VAC at 150 mmHg continuous suction to try and get better control of the drainage. May wash wounds with soap and water at the time of the VAC changes. The wounds are starting to stabilize at the wound edges. Continue wearing compression bra or EVERARDO wrap. Continue to keep head elevated. Continue 20 lb weight lifting restriction. Continue Levaquin. She has finished the Flagyl. She would benefit from Hyperbaric Oxygen Therapy to help with the wound healing of her compromised skin flaps. She had EKG done 01/08/23 which showed Right bundle branch block. She had an echocardiogram on 01/18/23 which showed: The study was technically difficult. No apical window due to recent bilateral breast surgery/bandages/drains. Mild concentric left ventricular hypertrophy. The left ventricular ejection fraction is 65%. The left atrium is mildly enlarged. Mild diffuse aortic valve thickening. Chest x-ray 01/15/23 showed Stable prominent interstitial markings may be secondary to a confluence of shadows however cannot exclude mild edema and/or an infectious process. Will order repeat chest x-ray. Encouraged patient to stop smoking as it may have deleterious effects on wound healing. Renewed script for Percocet for pain (28 tabs). Renewed script for Valium for spasm (20 tabs). Follow up one week. Encouraged patient to stop smoking as it may have deleterious effects on wound healing.
--- NOTE | 2023-03-08 16:51 | WC ---
Patient's wound dressing completed and walked down the hallway with her daughter and started feeling weak and unsteady on feet. Patient was placed in a wheelchair and Vital signs obtained. BP 155/57 HR 73 and pulse ox 97%. Blood sugar was only 41, glucerna was given 15 mins prior to her leaving the exam room. Snacks provided and Dr De Paz notified and he recommended going to the ER. Patient ate a nutrigrain bar and apple juice. Daughter states she doesn't need to go to the ER, she needs to eat something and she is going to stop and get her something to eat on the way home. A mini snickers bar was also given to the patient. Patient transferred well into private car with minimal assistance.
[2023-03-09 07:05] LABS: Bedside Glucose 41 mg/dL (74-106)
[2023-03-15 13:44] VITALS: BP 149/59; PULSE 88; RESP 16; TEMP 36.1; BMI 46.5
--- NOTE | 2023-03-15 16:23 | PCM.WC.PN ---
History of Present Illness Date of Service: 03/15/23 Chief Complaint: Bilateral breast wounds History of Wound: 62 year old female present for further evaluation after her surgery on 01/13/23 where she underwent bilateral breast reduction mammoplasty. Tissue removed from the left breast was 1590 grams. Tissue removed from the right breast was 750 grams. She was discharged from the hospital on 01/18/23. She developed KALEE after her surgery, her Creatinine increased from 1.88 preop to 2.73 postop. At discharge it decreased down to 2.04. Her Creatinine on02/04/21 decreased to 1.76. The acuity has resolved. She will also followup with her PCP as well for further evaluation and treatment of her renal issues. While in the hospital, her Hgb went from 10.5 preop to 7.8 postop. PRBC was given and it improved to 8.9. At discharge it was 8.2. She has anemia due to expected blood loss. The operative blood loss was 250 ml. She is on Iron supplementation. Her Hgb on 02/04/23 improved 8.6. the acuity has resolved. She is a current smoker. She developed compromise of the nipple areolar complexes bilaterally. She had issues with swelling after not wearing enough compression the first couple weeks post op. She also developed wound breakdown in the Tzone areas bilaterally. Wound culture from 02/04/23 positive for Klebsiella pneumoniae and Anaerobic cocci. She is on Levaquin and Flagyl. She has finished the Flagyl. Wound care - VAC. Today she denies fever, chills, nausea or vomiting. Progress of Wound: Bilateral wounds have been stabilizing at the edges. More granulation tissue is seen. Less fat necrosis seen. Objective Data Objective Data Vital Signs: Vital Signs Temp Pulse Resp BP O2 Del Method 96.9 F L 88 16 149/59 H Room Air 03/15/23 13:44 03/15/23 13:44 03/15/23 13:44 03/15/23 13:44 03/15/23 13:44 Oxygen Delivery Method Room Air Weight: 280 lb Body Mass Index (BMI) 46.5 Prealbumin from 01/14/23 was 16.3. Encourage nutritional supplementation with protein to help the healing process. Lab / Micro Data Attestation: I reviewed the patient's lab results. Charges/Coding Procedures Integumentary 111xxx-113xx: 79208 Global Visit (ICD-10 - T81.89xA, I96, Z98.890, E11.9, F17.200) Debridement Note Debridement Note Wound debrided: #2 Left breast Laterality: Left Wound Grade/Stage: 2. Type of Debridement: Excisional debridement Anesthesia Used: 4% Lidocaine Solution and 5% Lidocaine Gel Depth: in the subcutaneous layer Percentage of wound debrided: 100 Instrument Used: Forceps (and scissors) Tissue Removed: Subcutaneous tissue, fat necrosis and some devitalized tissue. Severity: Fat Layer Exposed Amount of bleeding with debridement: Mild Bleeding Controlled with: Compression and gauze Patient tolerated procedure: Patient tolerated procedure well Post-Debridement Measurements and Additional Note: Post-Debridement Measurements/Treatment - Nurse 1 - General Ulcer Assessment Start: 03/08/23 14:56 Freq: Status: Active Protocol: SHEMAR Activity Type Activity Date Activity User E-sign Co-sign Detail Recorded Client Recorded Date Recorded By Document 03/08/23 14:56 [facility] [id number] 03/08/23 15:07 [facility] Document 03/15/23 13:44 [facility] [id number] 03/15/23 14:10 [facility] 03/08/23 03/15/23 14:56 13:44 - Today's Visit Information Type of service Follow-up Visit Follow-up Visit (Physician/MAIL HANDLER SORTER (Physician/MAIL HANDLER SORTER ) ) Arrival Mode Ambulatory,Cane Ambulatory, Walker Transfer Assistance None None Accompanied by BASSEM Patient Identification Verified (Name & Yes Yes ) Patient Requires Transmission-Based No No Precautions Height and Weight Body Mass Index (BMI) 46.5 46.5 BMI Classification Obese Obese Vital Signs Temperature (97.8 F-99.1 F) 96.4 F L 96.9 F L Temperature Source Temporal Temporal Pulse Rate (60-100) 79 88 Pulse Location Monitor Monitor Respiratory Rate (12-18) 16 16 Respiratory rate source Observation Observation Oxygen Delivery Method Room Air Room Air Blood Pressure (90/60-120/80) 167/62 H 149/59 H Blood Pressure Mean (mm Hg) 97 89 Source Monitor Monitor Position Sitting Sitting Blood Pressure Location Right Arm Left Arm History Since Last Visit- (Skip if this is Patient's initial visit) Have you changed medications since your No No last visit? Any new allergies or adverse reactions No No Had a fall/change in ADL's that may No No increase risk of falls Signs or symptoms of abuse and/or No No neglect since last visit Have you been in the hospital since your No No last visit? Has dressing in place as prescribed Yes No Has compression in place as prescribed N/A N/A Has offloadiing in place as prescribed N/A N/A Experienced any changes in pain level or No No management Left Footwear Regular Shoe Regular Shoe Right Footwear Regular Shoe Regular Shoe Pain Scale: 0-10 Numeric Is Patient Pain Free? Yes Yes WC - Nurse 1 - General Ulcer Measurement Start: 03/08/23 14:56 Freq: Status: Active Protocol: Activity Type Activity Date Activity User E-sign Co-sign Detail Recorded Client Recorded Date Recorded By Document 03/08/23 14:56 [facility] [id number] 03/08/23 15:07 BM Document 03/15/23 13:44 [facility] [id number] 03/15/23 14:10 BM 03/08/23 03/15/23 14:56 13:44 Wound Center Nurse 1 2. LT BREAST -Combined with other wound No No -Current Size (cm) - Length 8.5 6 -Current Size (cm) - Width 13.5 13 -Current Size (cm) - Depth 2.6 0.7 -Total Square Cm 114.75 78 -Date of Last Picture (Recall this 03/08/23 field) -Photo Taken Yes No -Epithelialization None Present Small 1-33% -Tunneling No -Undermining/Tunneling Yes Yes -Undermining/Tunneling Starts (O'clock 10 10 ) -Undermining/Tunneling Ends (O'clock) 3 2 -Maximum Distance (cm) 1.1 2.7 -Circular Undermining No -Exudate Amt Large Large -Exudate Type Serosanguineous Serosanguineous -Wound Margin Distinct, Distinct, Outline Outline Attached Attached -Granulation Amt Small (1-33%) Medium (34-66%) -Granulation Quality Red Red -Slough/Fibrin Yes Yes -Necrosis Amt Large (67-100%) Medium (34-66%) -Necrotic Tissue Type Adherent Slough Adherent Slough -Texture (Susanna-wound Skin Appearance) Assessed, Assessed, Localized Edema Scarring ,Scarring -Moisture (Susanna-wound Skin Appearance) Assessed Assessed -Color (Susanna-wound Skin Appearance) Assessed, Assessed Erythema -Temperature (Susanna-wound Skin No Abnormality No Abnormality Appearance) (Pt Warm) (Pt Warm) -Tenderness on Palpation (Susanna-wound Yes Yes Skin Appearance) -Ulcer Cleansing Soap and Water Soap and Water -Foul Odor after Cleansing No No -Anesthetic Used 4% Lidocaine 4% Lidocaine Solution Solution 1. RT BREAST -Combined with other wound No No -Current Size (cm) - Length 6 4.9 -Current Size (cm) - Width 6 4 -Current Size (cm) - Depth 1.5 1.6 -Total Square Cm 36 19.6 -Date of Last Picture (Recall this 03/08/23 field) -Photo Taken Yes No -Epithelialization None Present None Present -Tunneling No No -Undermining/Tunneling No Yes -Undermining/Tunneling Starts (O'clock 9 ) -Undermining/Tunneling Ends (O'clock) 2 -Maximum Distance (cm) 4.1 -Circular Undermining No No -Exudate Amt Medium Large -Exudate Type Serosanguineous Serosanguineous -Wound Margin Distinct, Distinct, Outline Outline Attached Attached -Granulation Amt None Present (0 Small (1-33%) %) -Granulation Quality Red Red -Slough/Fibrin Yes Yes -Necrosis Amt Large (67-100%) Large (67-100%) -Necrotic Tissue Type Adherent Slough Adherent Slough -Texture (Susanna-wound Skin Appearance) Assessed, Assessed, Scarring Scarring -Moisture (Susanna-wound Skin Appearance) Assessed Assessed -Color (Susanna-wound Skin Appearance) Assessed, Assessed Erythema -Temperature (Susanna-wound Skin No Abnormality No Abnormality Appearance) (Pt Warm) (Pt Warm) -Tenderness on Palpation (Susanna-wound Yes No Skin Appearance) -Ulcer Cleansing Soap and Water Soap and Water -Foul Odor after Cleansing No No -Anesthetic Used 4% Lidocaine 4% Lidocaine Solution Solution WC - Nurse 2 - General Ulcer CM Notes Start: 03/08/23 14:56 Freq: Status: Active Protocol: Activity Type Activity Date Activity User E-sign Co-sign Detail Recorded Client Recorded Date Recorded By Document 03/08/23 15:34 LUCIAN [id number] 03/08/23 15:46 JF Document 03/15/23 14:33 [id number] 03/15/23 14:54 JF 03/08/23 03/15/23 15:34 14:33 Wound Center Nurse 2 2. LT BREAST -Time 15:35 14:33 -Correct Patient Yes Yes -Correct Side, Site, Position Yes Yes -Correct Procedure Yes Yes -Procedure Performed Yes Yes -Type of Procedure Debridement Debridement -Clinical Debridement Subcutaneous Subcutaneous -Tissue Removed Subcutaneous Subcutaneous -Post Debridement (cm) - Length 8.6 5.8 -Post Debridement (cm) - Width 14.5 13.0 -Post Debridement (cm) - Depth 2.3 2.0 -Total Square (Post) (cm) 124.70 75.40 -Area of Debridement (cm) - Length 8.6 5.8 -Area of Debridement (cm) - Width 14.5 13.0 -Total Square (Area) (cm) 124.70 75.40 -Tunneling No No -Undermining/Tunneling No No -Undermining/Tunneling Starts (O'clock 12 ) -Undermining/Tunneling Ends (O'clock) 2 -Maximum Distance (cm) 3.0 -Circular Undermining No No -Wound/Ulcer Outcome Not Healed Not Healed -Ulcer Cleansing Rinsed/ Rinsed/ Irrigated with Irrigated with Saline Saline -Foul Odor after Cleansing No -Bioengineered Tissue No No -Bleeding Controlled with Pressure Pressure -Treatment Response Procedure Procedure Tolerated Well Tolerated Well -Offloading No No -Debridement - Subq, 1st 20sq cm No No 1. RT BREAST -Time 15:35 14:34 -Correct Patient Yes Yes -Correct Side, Site, Position Yes Yes -Correct Procedure Yes Yes -Procedure Performed Yes Yes -Type of Procedure Debridement Debridement -Clinical Debridement Subcutaneous Subcutaneous -Tissue Removed Subcutaneous Subcutaneous -Post Debridement (cm) - Length 6.3 5.5 -Post Debridement (cm) - Width 5 4.5 -Post Debridement (cm) - Depth 2.2 2.0 -Total Square (Post) (cm) 31.5 24.75 -Area of Debridement (cm) - Length 6.3 5.5 -Area of Debridement (cm) - Width 5 4.5 -Total Square (Area) (cm) 31.5 24.75 -Tunneling No No -Undermining/Tunneling No Yes -Undermining/Tunneling Starts (O'clock 11 ) -Undermining/Tunneling Ends (O'clock) 5 -Maximum Distance (cm) 3.5 -Circular Undermining No No -Wound/Ulcer Outcome Not Healed Not Healed -Ulcer Cleansing Rinsed/ Rinsed/ Irrigated with Irrigated with Saline Saline -Foul Odor after Cleansing No No -Bioengineered Tissue No No -Bleeding Controlled with Pressure Pressure -Treatment Response Procedure Procedure Tolerated Well Tolerated Well -Offloading No No -Debridement - Subq, 1st 20sq cm Yes Yes -Debridement, SubQ, ea addt'l 20sq cm 7 5 or part thereof Pain Scale: 0-10 Numeric Is Patient Pain Free? Yes Yes - Nurse 3 - General Ulcer D/C NN Start: 03/08/23 14:56 Freq: Status: Active Protocol: Activity Type Activity Date Activity User E-sign Co-sign Detail Recorded Client Recorded Date Recorded By Document 03/08/23 16:26 [id number] 03/08/23 16:29 Document 03/15/23 15:28 [facility] [id number] 03/15/23 15:29 [facility] 03/08/23 03/15/23 16:26 15:28 Wound Care Center Nurse 3 2. LT BREAST -Ulcer Cleansing Rinsed/ Rinsed/ Irrigated with Irrigated with Saline Saline -Foul Odor after Cleansing No -Negative Pressure Wound Therapy Continue -Setting (mmHg) 150 -Negative Pressure is Continuous -NPWT Application Charge NPWT & Debridement (nc ) 1. RT BREAST -Ulcer Cleansing Rinsed/ Rinsed/ Irrigated with Irrigated with Saline Saline -Foul Odor after Cleansing No -Negative Pressure Wound Therapy Continue -Setting (mmHg) 150 -Negative Pressure is Continuous -NPWT Application Charge NPWT & Debridement (nc ) Treatment Response Procedure Tolerated Well Pain Scale: 0-10 Numeric Is Patient Pain Free? No Yes LT breast -Description Sharp -Intensity 9 -Pain Behavior Crying,Facial Grimacing -Alleviating Factors/Interventions Medication Teaching Assessment Preferences Verbal Barriers to Learning None Readiness To Learn Excellent Willingness to Engage in Self Management High Activies Readiness to Engage in Self Management High Activities Anxiety Level Calm Cooperation Cooperative Perception Coherent Interest in Health Problem Asks Questions Education Importance Acknowledges Need Smoking Status Current every day smoker Is Patient Diabetic Yes WC - Visit Discharge Discharge Condition Stable Ambulatory Status Ambulatory,Cane Walker Transportation Private Auto Accompanied by daughter Medication Reconcilliation completed & No provided to patient/care provider Clinical Summary of Care Provided Yes Additional Wound Wound debrided: #1 Right breast. Laterality: Right Wound Grade/Stage: 2. Type of Debridement: Excisional debridement Anesthesia Used: 5% Lidocaine Gel Depth: in the subcutaneous layer Percentage of wound debrided: 100 Instrument Used: Forceps (and scissors) Tissue Removed: Subcutaneous tissue, fat necrosis, and devitalized tissue. Severity: Fat Layer Exposed Amount of bleeding with debridement: Mild Bleeding Controlled with: Compression and gauze Patient tolerated procedure: Patient tolerated procedure well Assessment/Plan Assessment/Plan (1) Delayed surgical wound healing: CODE(S): T81.89XA - Other complications of procedures, not elsewhere classified, initial encounter (2) Skin necrosis: CODE(S): I96 - Gangrene, not elsewhere classified (3) History of bilateral breast reduction surgery: CODE(S): Z98.890 - Other specified postprocedural states (4) DM type 2, goal HbA1c < 7%: CODE(S): E11.9 - Type 2 diabetes mellitus without complications (5) Smoker: CODE(S): F17.200 - Nicotine dependence, unspecified, uncomplicated PLAN: Plan Wound care - Home health is now available. Continue the the VAC at 150 mmHg continuous suction to try and get better control of the drainage. May wash wounds with soap and water at the time of the VAC changes. The wounds are starting to stabilize at the wound edges. Continue wearing compression bra or EVERARDO wrap. Continue to keep head elevated. Continue 20 lb weight lifting restriction. Continue Levaquin. She has finished the Flagyl. She would benefit from Hyperbaric Oxygen Therapy to help with the wound healing of her compromised skin flaps. She had EKG done 01/08/23 which showed Right bundle branch block. She had an echocardiogram on 01/18/23 which showed: The study was technically difficult. No apical window due to recent bilateral breast surgery/bandages/drains. Mild concentric left ventricular hypertrophy. The left ventricular ejection fraction is 65%. The left atrium is mildly enlarged. Mild diffuse aortic valve thickening. Chest x-ray 01/15/23 showed Stable prominent interstitial markings may be secondary to a confluence of shadows however cannot exclude mild edema and/or an infectious process. Will order repeat chest x-ray. Encouraged patient to stop smoking as it may have deleterious effects on wound healing. Renewed script for Percocet for pain (28 tabs). Renewed script for Valium for spasm (20 tabs). Follow up one week. Encouraged patient to stop smoking as it may have deleterious effects on wound healing.
[2023-03-22 14:52] VITALS: BP 137/49; PULSE 82; RESP 22; TEMP 36.2; BMI 46.5
--- NOTE | 2023-03-22 16:15 | PCM.WC.PN ---
History of Present Illness Date of Service: 03/22/23 Chief Complaint: Bilateral breast wounds History of Wound: 62 year old female present for further evaluation after her surgery on 01/13/23 where she underwent bilateral breast reduction mammoplasty. Tissue removed from the left breast was 1590 grams. Tissue removed from the right breast was 750 grams. She was discharged from the hospital on 01/18/23. She developed KALEE after her surgery, her Creatinine increased from 1.88 preop to 2.73 postop. At discharge it decreased down to 2.04. Her Creatinine on02/04/21 decreased to 1.76. The acuity has resolved. She will also followup with her PCP as well for further evaluation and treatment of her renal issues. While in the hospital, her Hgb went from 10.5 preop to 7.8 postop. PRBC was given and it improved to 8.9. At discharge it was 8.2. She has anemia due to expected blood loss. The operative blood loss was 250 ml. She is on Iron supplementation. Her Hgb on 02/04/23 improved 8.6. the acuity has resolved. She is a current smoker. She developed compromise of the nipple areolar complexes bilaterally. She had issues with swelling after not wearing enough compression the first couple weeks post op. She also developed wound breakdown in the Tzone areas bilaterally. Wound culture from 02/04/23 positive for Klebsiella pneumoniae and Anaerobic cocci. She is started on Levaquin and Flagyl. She has finished the Flagyl. She has a couple more days of the Levaquin. Wound care - VAC. Today she denies fever, chills, nausea or vomiting. Progress of Wound: Bilateral wounds have been stabilizing at the edges. More granulation tissue is seen. Less fat necrosis seen. Objective Data Objective Data Vital Signs: Vital Signs Temp Pulse Resp BP O2 Del Method 97.2 F L 82 22 H 137/49 H Room Air 03/22/23 14:52 03/22/23 14:52 03/22/23 14:52 03/22/23 14:52 03/15/23 13:44 Oxygen Delivery Method Room Air Weight: 280 lb Body Mass Index (BMI) 46.5 Prealbumin from 01/14/23 was 16.3. Encourage nutritional supplementation with protein to help the healing process. Lab / Micro Data Attestation: I reviewed the patient's lab results. Charges/Coding Procedures Integumentary 111xxx-113xx: [id number] Global Visit (ICD-10 - T81.89xA, I96, Z98.890, E11.9, F17.200) Debridement Note Debridement Note Wound debrided: #2 Left breast Laterality: Left Wound Grade/Stage: 2. Type of Debridement: Excisional debridement Anesthesia Used: 4% Lidocaine Solution and 5% Lidocaine Gel Depth: in the subcutaneous layer Percentage of wound debrided: 100 Instrument Used: Forceps (and scissors) Tissue Removed: Subcutaneous tissue, fat necrosis and some devitalized tissue. Severity: Fat Layer Exposed Amount of bleeding with debridement: Mild Bleeding Controlled with: Compression and gauze Patient tolerated procedure: Patient did not tolerate procedure well (She had moments of increased pain.) Post-Debridement Measurements and Additional Note: Post-Debridement Measurements/Treatment - Nurse 1 - General Ulcer Assessment Start: 03/08/23 14:56 Freq: Status: Active Protocol: .FELIX Activity Type Activity Date Activity User E-sign Co-sign Detail Recorded Client Recorded Date Recorded By Document 03/08/23 14:56 [facility] [id number] 03/08/23 15:07 [facility] Document 03/15/23 13:44 [facility] [id number] 03/15/23 14:10 [facility] Document 03/22/23 14:52 DL [id number] 03/22/23 15:11 DL 03/08/23 03/15/23 03/22/23 14:56 13:44 14:52 - Today's Visit Information Type of service Follow-up Visit Follow-up Visit Follow-up Visit (Physician/RECLAMATION WORKER (Physician/RECLAMATION WORKER (Physician/RECLAMATION WORKER ) ) ) Arrival Mode Ambulatory,Cane Ambulatory, Ambulatory, Walker Walker Transfer Assistance None None None Accompanied by BASSEM Patient Identification Verified (Name & Yes Yes Yes ) Patient Requires Transmission-Based No No Yes Precautions Safety Precautions NA Finger Stick Blood Sugar(mg/dl) (if 129 indicated): Blood Sugar Stated by Patient Height and Weight Body Mass Index (BMI) 46.5 46.5 46.5 BMI Classification Obese Obese Obese Vital Signs Temperature (97.8 F-99.1 F) 96.4 F L 96.9 F L 97.2 F L Temperature Source Temporal Temporal Temporal Pulse Rate (60-100) 79 88 82 Pulse Location Monitor Monitor Monitor Respiratory Rate (12-18) 16 16 22 H Respiratory rate source Observation Observation Observation Oxygen Delivery Method Room Air Room Air Blood Pressure (90/60-120/80) 167/62 H 149/59 H 137/49 H Blood Pressure Mean (mm Hg) 97 89 78 Source Monitor Monitor Monitor Position Sitting Sitting Blood Pressure Location Right Arm Left Arm History Since Last Visit- (Skip if this is Patient's initial visit) Have you changed medications since your No No No last visit? Any new allergies or adverse reactions No No No Had a fall/change in ADL's that may No No No increase risk of falls Signs or symptoms of abuse and/or No No No neglect since last visit Have you been in the hospital since your No No No last visit? Has dressing in place as prescribed Yes No Yes Has compression in place as prescribed N/A N/A N/A Has offloadiing in place as prescribed N/A N/A N/A Experienced any changes in pain level or No No No management Left Footwear Regular Shoe Regular Shoe Right Footwear Regular Shoe Regular Shoe Pain Scale: 0-10 Numeric Is Patient Pain Free? Yes Yes Yes WC - Nurse 1 - General Ulcer Measurement Start: 03/08/23 14:56 Freq: Status: Active Protocol: Activity Type Activity Date Activity User E-sign Co-sign Detail Recorded Client Recorded Date Recorded By Document 03/08/23 14:56 [facility] [id number] 03/08/23 15:07 [facility] Document 03/15/23 13:44 [facility] [id number] 03/15/23 14:10 [facility] Document 03/22/23 14:52 [id number] 03/22/23 15:11 DL 03/08/23 03/15/23 03/22/23 14:56 13:44 14:52 Wound Center Nurse 1 2. LT BREAST -Combined with other wound No No -Current Size (cm) - Length 8.5 6 4.8 -Current Size (cm) - Width 13.5 13 11.5 -Current Size (cm) - Depth 2.6 0.7 1.9 -Total Square Cm 114.75 78 55.20 -Date of Last Picture (Recall this 03/08/23 field) -Photo Taken Yes No -Epithelialization None Present Small 1-33% -Tunneling No -Undermining/Tunneling Yes Yes -Undermining/Tunneling Starts (O'clock 10 10 10 ) -Undermining/Tunneling Ends (O'clock) 3 2 2 -Maximum Distance (cm) 1.1 2.7 1.8 -Circular Undermining No -Exudate Amt Large Large Medium -Exudate Type Serosanguineous Serosanguineous Serosanguineous -Wound Margin Distinct, Distinct, Distinct, Outline Outline Outline Attached Attached Attached -Granulation Amt Small (1-33%) Medium (34-66%) Medium (34-66%) -Granulation Quality Red Red Red -Slough/Fibrin Yes Yes -Necrosis Amt Large (67-100%) Medium (34-66%) Medium (34-66%) -Necrotic Tissue Type Adherent Slough Adherent Slough Adherent Slough -Structure Exposed N/A -Texture (Susanna-wound Skin Appearance) Assessed, Assessed, Localized Edema Localized Edema Scarring ,Scarring ,Scarring -Moisture (Susanna-wound Skin Appearance) Assessed Assessed No Abnormality -Color (Susanna-wound Skin Appearance) Assessed, Assessed No Abnormality Erythema -Temperature (Susanna-wound Skin No Abnormality No Abnormality No Abnormality Appearance) (Pt Warm) (Pt Warm) (Pt Warm) -Tenderness on Palpation (Susanna-wound Yes Yes Yes Skin Appearance) -Ulcer Cleansing Soap and Water Soap and Water Soap and Water -Foul Odor after Cleansing No No No -Anesthetic Used 4% Lidocaine 4% Lidocaine 4% Lidocaine Solution Solution Solution 1. RT BREAST -Combined with other wound No No -Current Size (cm) - Length 6 4.9 3.7 -Current Size (cm) - Width 6 4 3.5 -Current Size (cm) - Depth 1.5 1.6 2.3 -Total Square Cm 36 19.6 12.95 -Date of Last Picture (Recall this 03/08/23 field) -Photo Taken Yes No -Epithelialization None Present None Present -Tunneling No No -Undermining/Tunneling No Yes -Undermining/Tunneling Starts (O'clock 9 ) -Undermining/Tunneling Ends (O'clock) 2 -Maximum Distance (cm) 4.1 -Circular Undermining No No -Exudate Amt Medium Large Medium -Exudate Type Serosanguineous Serosanguineous Serosanguineous -Wound Margin Distinct, Distinct, Distinct, Outline Outline Outline Attached Attached Attached -Granulation Amt None Present (0 Small (1-33%) Medium (34-66%) %) -Granulation Quality Red Red Red -Slough/Fibrin Yes Yes -Necrosis Amt Large (67-100%) Large (67-100%) Medium (34-66%) -Necrotic Tissue Type Adherent Slough Adherent Slough Adherent Slough -Structure Exposed N/A -Texture (Susanna-wound Skin Appearance) Assessed, Assessed, Localized Edema Scarring Scarring ,Scarring -Moisture (Susanna-wound Skin Appearance) Assessed Assessed No Abnormality -Color (Susanna-wound Skin Appearance) Assessed, Assessed No Abnormality Erythema -Temperature (Susanna-wound Skin No Abnormality No Abnormality No Abnormality Appearance) (Pt Warm) (Pt Warm) (Pt Warm) -Tenderness on Palpation (Susanna-wound Yes No Yes Skin Appearance) -Ulcer Cleansing Soap and Water Soap and Water Soap and Water -Foul Odor after Cleansing No No No -Anesthetic Used 4% Lidocaine 4% Lidocaine 4% Lidocaine Solution Solution Solution WC - Nurse 2 - General Ulcer CM Notes Start: 03/08/23 14:56 Freq: Status: Active Protocol: Activity Type Activity Date Activity User E-sign Co-sign Detail Recorded Client Recorded Date Recorded By Document 03/08/23 15:34 [id number] 03/08/23 15:46 Document 03/15/23 14:33 [id number] 03/15/23 14:54 Document 03/22/23 15:31 [id number] 03/22/23 15:40 03/08/23 03/15/23 03/22/23 15:34 14:33 15:31 Wound Center Nurse 2 2. LT BREAST -Time 15:35 14:33 15:31 -Correct Patient Yes Yes Yes -Correct Side, Site, Position Yes Yes Yes -Correct Procedure Yes Yes Yes -Procedure Performed Yes Yes Yes -Type of Procedure Debridement Debridement Debridement -Clinical Debridement Subcutaneous Subcutaneous Subcutaneous -Tissue Removed Subcutaneous Subcutaneous Subcutaneous -Post Debridement (cm) - Length 8.6 5.8 4.4 -Post Debridement (cm) - Width 14.5 13.0 11 -Post Debridement (cm) - Depth 2.3 2.0 1.0 -Total Square (Post) (cm) 124.70 75.40 48.4 -Area of Debridement (cm) - Length 8.6 5.8 4.4 -Area of Debridement (cm) - Width 14.5 13.0 11 -Total Square (Area) (cm) 124.70 75.40 48.4 -Tunneling No No No -Undermining/Tunneling No No Yes -Undermining/Tunneling Starts (O'clock 12 11 ) -Undermining/Tunneling Ends (O'clock) 2 2 -Maximum Distance (cm) 3.0 4.0 -Circular Undermining No No No -Wound/Ulcer Outcome Not Healed Not Healed Not Healed -Ulcer Cleansing Rinsed/ Rinsed/ Rinsed/ Irrigated with Irrigated with Irrigated with Saline Saline Saline -Foul Odor after Cleansing No No -Bioengineered Tissue No No No -Bleeding Controlled with Pressure Pressure Pressure -Treatment Response Procedure Procedure Procedure Tolerated Well Tolerated Well Tolerated Well -Offloading No No No -Debridement - Subq, 1st 20sq cm No No No 1. RT BREAST -Time 15:35 14:34 15:31 -Correct Patient Yes Yes Yes -Correct Side, Site, Position Yes Yes Yes -Correct Procedure Yes Yes Yes -Procedure Performed Yes Yes Yes -Type of Procedure Debridement Debridement Debridement -Clinical Debridement Subcutaneous Subcutaneous Subcutaneous -Tissue Removed Subcutaneous Subcutaneous Subcutaneous -Post Debridement (cm) - Length 6.3 5.5 3.7 -Post Debridement (cm) - Width 5 4.5 3.9 -Post Debridement (cm) - Depth 2.2 2.0 1.4 -Total Square (Post) (cm) 31.5 24.75 14.43 -Area of Debridement (cm) - Length 6.3 5.5 3.7 -Area of Debridement (cm) - Width 5 4.5 3.9 -Total Square (Area) (cm) 31.5 24.75 14.43 -Tunneling No No No -Undermining/Tunneling No Yes Yes -Undermining/Tunneling Starts (O'clock 11 11 ) -Undermining/Tunneling Ends (O'clock) 5 3 -Maximum Distance (cm) 3.5 4.0 -Circular Undermining No No No -Wound/Ulcer Outcome Not Healed Not Healed Not Healed -Ulcer Cleansing Rinsed/ Rinsed/ Rinsed/ Irrigated with Irrigated with Irrigated with Saline Saline Saline -Foul Odor after Cleansing No No No -Bioengineered Tissue No No No -Bleeding Controlled with Pressure Pressure Pressure -Treatment Response Procedure Procedure Procedure Tolerated Well Tolerated Well Tolerated Well -Offloading No No No -Debridement - Subq, 1st 20sq cm Yes Yes Yes -Debridement, SubQ, ea addt'l 20sq cm 7 5 3 or part thereof Pain Scale: 0-10 Numeric Is Patient Pain Free? Yes Yes Yes - Nurse 3 - General Ulcer D/C NN Start: 03/08/23 14:56 Freq: Status: Active Protocol: Activity Type Activity Date Activity User E-sign Co-sign Detail Recorded Client Recorded Date Recorded By Document 03/08/23 16:26 KW [id number] 03/08/23 16:29 KW Document 03/15/23 15:28 [facility] [id number] 03/15/23 15:29 BM 03/08/23 03/15/23 16:26 15:28 Wound Care Center Nurse 3 2. LT BREAST -Ulcer Cleansing Rinsed/ Rinsed/ Irrigated with Irrigated with Saline Saline -Foul Odor after Cleansing No -Negative Pressure Wound Therapy Continue -Setting (mmHg) 150 -Negative Pressure is Continuous -NPWT Application Charge NPWT & Debridement (nc ) 1. RT BREAST -Ulcer Cleansing Rinsed/ Rinsed/ Irrigated with Irrigated with Saline Saline -Foul Odor after Cleansing No -Negative Pressure Wound Therapy Continue -Setting (mmHg) 150 -Negative Pressure is Continuous -NPWT Application Charge NPWT & Debridement (nc ) Treatment Response Procedure Tolerated Well Pain Scale: 0-10 Numeric Is Patient Pain Free? No Yes LT breast -Description Sharp -Intensity 9 -Pain Behavior Crying,Facial Grimacing -Alleviating Factors/Interventions Medication Teaching Assessment Preferences Verbal Barriers to Learning None Readiness To Learn Excellent Willingness to Engage in Self Management High Activies Readiness to Engage in Self Management High Activities Anxiety Level Calm Cooperation Cooperative Perception Coherent Interest in Health Problem Asks Questions Education Importance Acknowledges Need Smoking Status Current every day smoker Is Patient Diabetic Yes WC - Visit Discharge Discharge Condition Stable Ambulatory Status Ambulatory,Cane Walker Transportation Private Auto Accompanied by daughter Medication Reconcilliation completed & No provided to patient/care provider Clinical Summary of Care Provided Yes Additional Wound Wound debrided: #1 Right breast. Laterality: Right Wound Grade/Stage: 2. Type of Debridement: Excisional debridement Anesthesia Used: 5% Lidocaine Gel Depth: in the subcutaneous layer Percentage of wound debrided: 100 Instrument Used: Forceps (and scissors) Tissue Removed: Subcutaneous tissue, fat necrosis, and devitalized tissue. Severity: Fat Layer Exposed Amount of bleeding with debridement: Mild Bleeding Controlled with: Compression and gauze Patient tolerated procedure: Patient tolerated procedure well (Some occasional discomfort but not as painful as the left breast.) Assessment/Plan Assessment/Plan (1) Delayed surgical wound healing: CODE(S): T81.89XA - Other complications of procedures, not elsewhere classified, initial encounter (2) Skin necrosis: CODE(S): I96 - Gangrene, not elsewhere classified (3) History of bilateral breast reduction surgery: CODE(S): Z98.890 - Other specified postprocedural states (4) DM type 2, goal HbA1c < 7%: CODE(S): E11.9 - Type 2 diabetes mellitus without complications (5) Smoker: CODE(S): F17.200 - Nicotine dependence, unspecified, uncomplicated PLAN: Plan Wound care - Home health is now available. Continue the the VAC at 150 mmHg continuous suction to try and get better control of the drainage. May wash wounds with soap and water at the time of the VAC changes. The wounds are starting to stabilize at the wound edges. More granulation tissue seen. Continue wearing compression bra or EVERARDO wrap. Continue to keep head elevated. Continue 20 lb weight lifting restriction. Continue Levaquin. She has finished the Flagyl. She would benefit from Hyperbaric Oxygen Therapy to help with the wound healing of her compromised skin flaps. She had EKG done 01/08/23 which showed Right bundle branch block. She had an echocardiogram on 01/18/23 which showed: The study was technically difficult. No apical window due to recent bilateral breast surgery/bandages/drains. Mild concentric left ventricular hypertrophy. The left ventricular ejection fraction is 65%. The left atrium is mildly enlarged. Mild diffuse aortic valve thickening. Chest x-ray 01/15/23 showed Stable prominent interstitial markings may be secondary to a confluence of shadows however cannot exclude mild edema and/or an infectious process. Will order repeat chest x-ray. Encouraged patient to stop smoking as it may have deleterious effects on wound healing. Renewed script for Percocet for pain (28 tabs). Renewed script for Valium for spasm (20 tabs). Follow up one week. Encouraged patient to stop smoking as it may have deleterious effects on wound healing.
[2023-03-29 14:42] VITALS: BP 140/29; PULSE 83; RESP 16; TEMP 36.4; BMI 46.5
--- NOTE | 2023-03-29 16:14 | PCM.WC.PN ---
History of Present Illness Date of Service: 03/29/23 Chief Complaint: Bilateral breast wounds History of Wound: 62 year old female present for further evaluation after her surgery on 01/13/23 where she underwent bilateral breast reduction mammoplasty. Tissue removed from the left breast was 1590 grams. Tissue removed from the right breast was 750 grams. She was discharged from the hospital on 01/18/23. She developed KALEE after her surgery, her Creatinine increased from 1.88 preop to 2.73 postop. At discharge it decreased down to 2.04. Her Creatinine on02/04/21 decreased to 1.76. The acuity has resolved. She will also followup with her PCP as well for further evaluation and treatment of her renal issues. While in the hospital, her Hgb went from 10.5 preop to 7.8 postop. PRBC was given and it improved to 8.9. At discharge it was 8.2. She has anemia due to expected blood loss. The operative blood loss was 250 ml. She is on Iron supplementation. Her Hgb on 02/04/23 improved 8.6. the acuity has resolved. She is a current smoker. She developed compromise of the nipple areolar complexes bilaterally. She had issues with swelling after not wearing enough compression the first couple weeks post op. She also developed wound breakdown in the Tzone areas bilaterally. Wound culture from 02/04/23 positive for Klebsiella pneumoniae and Anaerobic cocci. She is started on Levaquin and Flagyl. She has finished the Flagyl. Wound care - VAC. Today she denies fever, chills, nausea or vomiting. Progress of Wound: Bilateral wounds have been stabilizing at the edges. More granulation tissue is seen and less fat necrosis seen. Right breast is healing little better at this time. Objective Data Objective Data Vital Signs: Vital Signs Temp Pulse Resp BP O2 Del Method 97.5 F L 83 16 140/29 H Room Air 03/29/23 14:42 03/29/23 14:42 03/29/23 14:42 03/29/23 14:42 03/29/23 14:42 Oxygen Delivery Method Room Air Weight: 280 lb Body Mass Index (BMI) 46.5 Prealbumin from 01/14/23 was 16.3. Encourage nutritional supplementation with protein to help the healing process. Lab / Micro Data Attestation: I reviewed the patient's lab results. Charges/Coding Procedures Integumentary [id number]: [id number] Global Visit (ICD-10 - T81.89xA, I96, Z98.890, E11.9, F17.200) Debridement Note Debridement Note Wound debrided: #2 Left breast Laterality: Left Wound Grade/Stage: 2. Type of Debridement: Excisional debridement Anesthesia Used: 4% Lidocaine Solution and 5% Lidocaine Gel Depth: in the subcutaneous layer Percentage of wound debrided: 100 Instrument Used: Forceps (and scissors) Tissue Removed: Subcutaneous tissue, fat necrosis and some devitalized tissue. Severity: Fat Layer Exposed Amount of bleeding with debridement: Mild Bleeding Controlled with: Compression and gauze Patient tolerated procedure: Patient did not tolerate procedure well (She had more moments of increasing pain during the debridement.) Post-Debridement Measurements and Additional Note: Post-Debridement Measurements/Treatment - Nurse 1 - General Ulcer Assessment Start: 03/08/23 14:56 Freq: Status: Active Protocol: SHEMAR Activity Type Activity Date Activity User E-sign Co-sign Detail Recorded Client Recorded Date Recorded By Document 03/08/23 14:56 [facility] [id number] 03/08/23 15:07 [facility] Document 03/15/23 13:44 [facility] [id number] 03/15/23 14:10 [facility] Document 03/22/23 14:52 [id number] 03/22/23 15:11 Document 03/29/23 14:42 [facility] [id number] 03/29/23 15:08 [facility] 03/08/23 03/15/23 03/22/23 14:56 13:44 14:52 - Today's Visit Information Type of service Follow-up Visit Follow-up Visit Follow-up Visit (Physician/SYSTEMS CHECKOUT MECHANIC (Physician/SYSTEMS CHECKOUT MECHANIC (Physician/SYSTEMS CHECKOUT MECHANIC ) ) ) Arrival Mode Ambulatory,Cane Ambulatory, Ambulatory, Walker Walker Transfer Assistance None None None Accompanied by BASSEM Patient Identification Verified (Name & Yes Yes Yes ) Patient Requires Transmission-Based No No Yes Precautions Safety Precautions NA Finger Stick Blood Sugar(mg/dl) (if 129 indicated): Blood Sugar Stated by Patient Height and Weight Body Mass Index (BMI) 46.5 46.5 46.5 BMI Classification Obese Obese Obese Vital Signs Temperature (97.8 F-99.1 F) 96.4 F L 96.9 F L 97.2 F L Temperature Source Temporal Temporal Temporal Pulse Rate (60-100) 79 88 82 Pulse Location Monitor Monitor Monitor Respiratory Rate (12-18) 16 16 22 H Respiratory rate source Observation Observation Observation Oxygen Delivery Method Room Air Room Air Blood Pressure (90/60-120/80) 167/62 H 149/59 H 137/49 H Blood Pressure Mean (mm Hg) 97 89 78 Source Monitor Monitor Monitor Position Sitting Sitting Blood Pressure Location Right Arm Left Arm History Since Last Visit- (Skip if this is Patient's initial visit) Have you changed medications since your No No No last visit? Any new allergies or adverse reactions No No No Had a fall/change in ADL's that may No No No increase risk of falls Signs or symptoms of abuse and/or No No No neglect since last visit Have you been in the hospital since your No No No last visit? Has dressing in place as prescribed Yes No Yes Has compression in place as prescribed N/A N/A N/A Has offloadiing in place as prescribed N/A N/A N/A Experienced any changes in pain level or No No No management Left Footwear Regular Shoe Regular Shoe Right Footwear Regular Shoe Regular Shoe Pain Scale: 0-10 Numeric Is Patient Pain Free? Yes Yes Yes breast wounds -Description -Intensity -Duration (hours) -Pain Behavior -Pain Aggravating Factors -Alleviating Factors/Interventions 03/29/23 14:42 WC - Today's Visit Information Type of service Follow-up Visit (Physician/SYSTEMS CHECKOUT MECHANIC ) Arrival Mode Ambulatory Transfer Assistance None Accompanied by daughter Patient Identification Verified (Name & Yes ) Patient Requires Transmission-Based No Precautions Safety Precautions Finger Stick Blood Sugar(mg/dl) (if indicated): Blood Sugar Height and Weight Body Mass Index (BMI) 46.5 BMI Classification Obese Vital Signs Temperature (97.8 F-99.1 F) 97.5 F L Temperature Source Temporal Pulse Rate (60-100) 83 Pulse Location Monitor Respiratory Rate (12-18) 16 Respiratory rate source Observation Oxygen Delivery Method Room Air Blood Pressure (90/60-120/80) 140/29 H Blood Pressure Mean (mm Hg) 66 Source Monitor Position Sitting Blood Pressure Location Left Forearm History Since Last Visit- (Skip if this is Patient's initial visit) Have you changed medications since your No last visit? Any new allergies or adverse reactions No Had a fall/change in ADL's that may No increase risk of falls Signs or symptoms of abuse and/or No neglect since last visit Have you been in the hospital since your No last visit? Has dressing in place as prescribed Yes Has compression in place as prescribed N/A Has offloadiing in place as prescribed N/A Experienced any changes in pain level or No management Left Footwear Regular Shoe Right Footwear Regular Shoe Pain Scale: 0-10 Numeric Is Patient Pain Free? No breast wounds -Description Sharp -Intensity 6 -Duration (hours) Chronic -Pain Behavior Withdrawal from Touch,Facial Grimacing -Pain Aggravating Factors Sitting -Alleviating Factors/Interventions Turning/ Repositioning, Distraction, Will continue to monitor, Patient denies need for intervention, Emotional Support WC - Nurse 1 - General Ulcer Measurement Start: 03/08/23 14:56 Freq: Status: Active Protocol: Activity Type Activity Date Activity User E-sign Co-sign Detail Recorded Client Recorded Date Recorded By Document 03/08/23 14:56 [facility] [id number] 03/08/23 15:07 [facility] Document 03/15/23 13:44 [facility] [id number] 03/15/23 14:10 [facility] Document 03/22/23 14:52 [id number] 03/22/23 15:11 Document 03/29/23 14:42 [facility] [id number] 03/29/23 15:08 [facility] 03/08/23 03/15/23 03/22/23 14:56 13:44 14:52 Wound Center Nurse 1 2. LT BREAST -Combined with other wound No No -Current Size (cm) - Length 8.5 6 4.8 -Current Size (cm) - Width 13.5 13 11.5 -Current Size (cm) - Depth 2.6 0.7 1.9 -Total Square Cm 114.75 78 55.20 -Date of Last Picture (Recall this 03/08/23 field) -Photo Taken Yes No -Epithelialization None Present Small 1-33% -Tunneling No -Undermining/Tunneling Yes Yes -Undermining/Tunneling Starts (O'clock 10 10 10 ) -Undermining/Tunneling Ends (O'clock) 3 2 2 -Maximum Distance (cm) 1.1 2.7 1.8 -Circular Undermining No -Exudate Amt Large Large Medium -Exudate Type Serosanguineous Serosanguineous Serosanguineous -Wound Margin Distinct, Distinct, Distinct, Outline Outline Outline Attached Attached Attached -Granulation Amt Small (1-33%) Medium (34-66%) Medium (34-66%) -Granulation Quality Red Red Red -Slough/Fibrin Yes Yes -Necrosis Amt Large (67-100%) Medium (34-66%) Medium (34-66%) -Necrotic Tissue Type Adherent Slough Adherent Slough Adherent Slough -Structure Exposed N/A -Texture (Susanna-wound Skin Appearance) Assessed, Assessed, Localized Edema Localized Edema Scarring ,Scarring ,Scarring -Moisture (Susanna-wound Skin Appearance) Assessed Assessed No Abnormality -Color (Susanna-wound Skin Appearance) Assessed, Assessed No Abnormality Erythema -Temperature (Susanna-wound Skin No Abnormality No Abnormality No Abnormality Appearance) (Pt Warm) (Pt Warm) (Pt Warm) -Tenderness on Palpation (Susanna-wound Yes Yes Yes Skin Appearance) -Ulcer Cleansing Soap and Water Soap and Water Soap and Water -Foul Odor after Cleansing No No No -Anesthetic Used 4% Lidocaine 4% Lidocaine 4% Lidocaine Solution Solution Solution -Wound Comment(s) 1. RT BREAST -Combined with other wound No No -Current Size (cm) - Length 6 4.9 3.7 -Current Size (cm) - Width 6 4 3.5 -Current Size (cm) - Depth 1.5 1.6 2.3 -Total Square Cm 36 19.6 12.95 -Date of Last Picture (Recall this 03/08/23 field) -Photo Taken Yes No -Epithelialization None Present None Present -Tunneling No No -Undermining/Tunneling No Yes -Undermining/Tunneling Starts (O'clock 9 ) -Undermining/Tunneling Ends (O'clock) 2 -Maximum Distance (cm) 4.1 -Circular Undermining No No -Exudate Amt Medium Large Medium -Exudate Type Serosanguineous Serosanguineous Serosanguineous -Wound Margin Distinct, Distinct, Distinct, Outline Outline Outline Attached Attached Attached -Granulation Amt None Present (0 Small (1-33%) Medium (34-66%) %) -Granulation Quality Red Red Red -Slough/Fibrin Yes Yes -Necrosis Amt Large (67-100%) Large (67-100%) Medium (34-66%) -Necrotic Tissue Type Adherent Slough Adherent Slough Adherent Slough -Structure Exposed N/A -Texture (Susanna-wound Skin Appearance) Assessed, Assessed, Localized Edema Scarring Scarring ,Scarring -Moisture (Susanna-wound Skin Appearance) Assessed Assessed No Abnormality -Color (Susanna-wound Skin Appearance) Assessed, Assessed No Abnormality Erythema -Temperature (Susanna-wound Skin No Abnormality No Abnormality No Abnormality Appearance) (Pt Warm) (Pt Warm) (Pt Warm) -Tenderness on Palpation (Susanna-wound Yes No Yes Skin Appearance) -Ulcer Cleansing Soap and Water Soap and Water Soap and Water -Foul Odor after Cleansing No No No -Anesthetic Used 4% Lidocaine 4% Lidocaine 4% Lidocaine Solution Solution Solution -Wound Comment(s) 03/29/23 14:42 Wound Center Nurse 1 2. LT BREAST -Combined with other wound No -Current Size (cm) - Length -Current Size (cm) - Width -Current Size (cm) - Depth -Total Square Cm -Date of Last Picture (Recall this field) -Photo Taken -Epithelialization -Tunneling -Undermining/Tunneling -Undermining/Tunneling Starts (O'clock ) -Undermining/Tunneling Ends (O'clock) -Maximum Distance (cm) -Circular Undermining -Exudate Amt Large -Exudate Type Purulent -Wound Margin Distinct, Outline Attached -Granulation Amt Medium (34-66%) -Granulation Quality Red -Slough/Fibrin Yes -Necrosis Amt Medium (34-66%) -Necrotic Tissue Type Adherent Slough -Structure Exposed -Texture (Susanna-wound Skin Appearance) Assessed, Scarring -Moisture (Susanna-wound Skin Appearance) Assessed -Color (Susanna-wound Skin Appearance) Assessed -Temperature (Susanna-wound Skin No Abnormality Appearance) (Pt Warm) -Tenderness on Palpation (Susanna-wound Yes Skin Appearance) -Ulcer Cleansing Soap and Water -Foul Odor after Cleansing Yes -Anesthetic Used 4% Lidocaine Solution -Wound Comment(s) lg amt of milky yellow/green exudate in canister. odor to wound after cleansing. pt screaming w/ pain and attempts to remove adaptic. did not measure. practitioner to remove adaptic after this nurse lidocained 1. RT BREAST -Combined with other wound No -Current Size (cm) - Length 3.2 -Current Size (cm) - Width 3.3 -Current Size (cm) - Depth 0.8 -Total Square Cm 10.56 -Date of Last Picture (Recall this field) -Photo Taken No -Epithelialization Small 1-33% -Tunneling No -Undermining/Tunneling Yes -Undermining/Tunneling Starts (O'clock 10 ) -Undermining/Tunneling Ends (O'clock) 12 -Maximum Distance (cm) 3.8 -Circular Undermining No -Exudate Amt Large -Exudate Type Purulent -Wound Margin Distinct, Outline Attached -Granulation Amt Large (67-100%) -Granulation Quality Red -Slough/Fibrin Yes -Necrosis Amt Small (1-33%) -Necrotic Tissue Type Adherent Slough -Structure Exposed -Texture (Susanna-wound Skin Appearance) Assessed, Scarring -Moisture (Susanna-wound Skin Appearance) Assessed -Color (Susanna-wound Skin Appearance) Assessed -Temperature (Susanna-wound Skin No Abnormality Appearance) (Pt Warm) -Tenderness on Palpation (Susanna-wound Yes Skin Appearance) -Ulcer Cleansing Soap and Water -Foul Odor after Cleansing No -Anesthetic Used 4% Lidocaine Solution -Wound Comment(s) lg amt of milky green/yellow exudate in vac canister WC - Nurse 2 - General Ulcer CM Notes Start: 03/08/23 14:56 Freq: Status: Active Protocol: Activity Type Activity Date Activity User E-sign Co-sign Detail Recorded Client Recorded Date Recorded By Document 03/08/23 15:34 [id number] 03/08/23 15:46 Document 03/15/23 14:33 [id number] 03/15/23 14:54 Document 03/22/23 15:31 [id number] 03/22/23 15:40 Document 03/29/23 15:22 [id number] 03/29/23 15:29 03/08/23 03/15/23 03/22/23 15:34 14:33 15:31 Wound Center Nurse 2 2. LT BREAST -Time 15:35 14:33 15:31 -Correct Patient Yes Yes Yes -Correct Side, Site, Position Yes Yes Yes -Correct Procedure Yes Yes Yes -Procedure Performed Yes Yes Yes -Type of Procedure Debridement Debridement Debridement -Clinical Debridement Subcutaneous Subcutaneous Subcutaneous -Tissue Removed Subcutaneous Subcutaneous Subcutaneous -Post Debridement (cm) - Length 8.6 5.8 4.4 -Post Debridement (cm) - Width 14.5 13.0 11 -Post Debridement (cm) - Depth 2.3 2.0 1.0 -Total Square (Post) (cm) 124.70 75.40 48.4 -Area of Debridement (cm) - Length 8.6 5.8 4.4 -Area of Debridement (cm) - Width 14.5 13.0 11 -Total Square (Area) (cm) 124.70 75.40 48.4 -Tunneling No No No -Undermining/Tunneling No No Yes -Undermining/Tunneling Starts (O'clock 12 11 ) -Undermining/Tunneling Ends (O'clock) 2 2 -Maximum Distance (cm) 3.0 4.0 -Circular Undermining No No No -Wound/Ulcer Outcome Not Healed Not Healed Not Healed -Ulcer Cleansing Rinsed/ Rinsed/ Rinsed/ Irrigated with Irrigated with Irrigated with Saline Saline Saline -Foul Odor after Cleansing No No -Bioengineered Tissue No No No -Bleeding Controlled with Pressure Pressure Pressure -Treatment Response Procedure Procedure Procedure Tolerated Well Tolerated Well Tolerated Well -Offloading No No No -Debridement - Subq, 1st 20sq cm No No No -Debridement, SubQ, ea addt'l 20sq cm or part thereof 1. RT BREAST -Time 15:35 14:34 15:31 -Correct Patient Yes Yes Yes -Correct Side, Site, Position Yes Yes Yes -Correct Procedure Yes Yes Yes -Procedure Performed Yes Yes Yes -Type of Procedure Debridement Debridement Debridement -Clinical Debridement Subcutaneous Subcutaneous Subcutaneous -Tissue Removed Subcutaneous Subcutaneous Subcutaneous -Post Debridement (cm) - Length 6.3 5.5 3.7 -Post Debridement (cm) - Width 5 4.5 3.9 -Post Debridement (cm) - Depth 2.2 2.0 1.4 -Total Square (Post) (cm) 31.5 24.75 14.43 -Area of Debridement (cm) - Length 6.3 5.5 3.7 -Area of Debridement (cm) - Width 5 4.5 3.9 -Total Square (Area) (cm) 31.5 24.75 14.43 -Tunneling No No No -Undermining/Tunneling No Yes Yes -Undermining/Tunneling Starts (O'clock 11 11 ) -Undermining/Tunneling Ends (O'clock) 5 3 -Maximum Distance (cm) 3.5 4.0 -Circular Undermining No No No -Wound/Ulcer Outcome Not Healed Not Healed Not Healed -Ulcer Cleansing Rinsed/ Rinsed/ Rinsed/ Irrigated with Irrigated with Irrigated with Saline Saline Saline -Foul Odor after Cleansing No No No -Bioengineered Tissue No No No -Bleeding Controlled with Pressure Pressure Pressure -Treatment Response Procedure Procedure Procedure Tolerated Well Tolerated Well Tolerated Well -Offloading No No No -Debridement - Subq, 1st 20sq cm Yes Yes Yes -Debridement, SubQ, ea addt'l 20sq cm 7 5 3 or part thereof Pain Scale: 0-10 Numeric Is Patient Pain Free? Yes Yes Yes 03/29/23 15:22 Wound Center Nurse 2 2. LT BREAST -Time 15:23 -Correct Patient Yes -Correct Side, Site, Position Yes -Correct Procedure Yes -Procedure Performed Yes -Type of Procedure Debridement -Clinical Debridement Subcutaneous -Tissue Removed Subcutaneous -Post Debridement (cm) - Length 5.5 -Post Debridement (cm) - Width 11.5 -Post Debridement (cm) - Depth 1.6 -Total Square (Post) (cm) 63.25 -Area of Debridement (cm) - Length 5.5 -Area of Debridement (cm) - Width 11.5 -Total Square (Area) (cm) 63.25 -Tunneling No -Undermining/Tunneling No -Undermining/Tunneling Starts (O'clock ) -Undermining/Tunneling Ends (O'clock) -Maximum Distance (cm) -Circular Undermining No -Wound/Ulcer Outcome Not Healed -Ulcer Cleansing Rinsed/ Irrigated with Saline -Foul Odor after Cleansing No -Bioengineered Tissue No -Bleeding Controlled with Pressure -Treatment Response Procedure Tolerated Well -Offloading No -Debridement - Subq, 1st 20sq cm Yes -Debridement, SubQ, ea addt'l 20sq cm 3 or part thereof 1. RT BREAST -Time 15:22 -Correct Patient Yes -Correct Side, Site, Position Yes -Correct Procedure Yes -Procedure Performed Yes -Type of Procedure Debridement -Clinical Debridement Subcutaneous -Tissue Removed Subcutaneous -Post Debridement (cm) - Length 3.5 -Post Debridement (cm) - Width 2.6 -Post Debridement (cm) - Depth 2.9 -Total Square (Post) (cm) 9.10 -Area of Debridement (cm) - Length 3.5 -Area of Debridement (cm) - Width 2.6 -Total Square (Area) (cm) 9.10 -Tunneling No -Undermining/Tunneling Yes -Undermining/Tunneling Starts (O'clock 11 ) -Undermining/Tunneling Ends (O'clock) 3 -Maximum Distance (cm) 4.5 -Circular Undermining No -Wound/Ulcer Outcome Not Healed -Ulcer Cleansing Rinsed/ Irrigated with Saline -Foul Odor after Cleansing No -Bioengineered Tissue No -Bleeding Controlled with Pressure -Treatment Response Procedure Tolerated Well -Offloading No -Debridement - Subq, 1st 20sq cm No -Debridement, SubQ, ea addt'l 20sq cm or part thereof Pain Scale: 0-10 Numeric Is Patient Pain Free? Yes WC - Nurse 3 - General Ulcer D/C NN Start: 03/08/23 14:56 Freq: Status: Active Protocol: Activity Type Activity Date Activity User E-sign Co-sign Detail Recorded Client Recorded Date Recorded By Document 03/08/23 16:26 KW [id number] 03/08/23 16:29 KW Document 03/15/23 15:28 [facility] [id number] 03/15/23 15:29 [facility] Document 03/22/23 16:12 DL [id number] 03/22/23 16:16 DL Document 03/29/23 15:58 [facility] [id number] 03/29/23 15:59 [facility] 03/08/23 03/15/23 03/22/23 16:26 15:28 16:12 Wound Care Center Nurse 3 2. LT BREAST -Ulcer Cleansing Rinsed/ Rinsed/ Soap and Water Irrigated with Irrigated with Saline Saline -Foul Odor after Cleansing No No -Negative Pressure Wound Therapy Continue Continue -Setting (mmHg) 150 150 -Negative Pressure is Continuous Continuous -Other Dressing -Other Covering -NPWT Application Charge NPWT & NPWT </= 50 sq Debridement (nc cm ($) ) 1. RT BREAST -Ulcer Cleansing Rinsed/ Rinsed/ Soap and Water Irrigated with Irrigated with Saline Saline -Foul Odor after Cleansing No No -Negative Pressure Wound Therapy Continue Continue -Setting (mmHg) 150 150 -Negative Pressure is Continuous Continuous -NPWT Application Charge NPWT & NPWT & Debridement (nc Debridement (nc ) ) Susanna-Wound Care Barrier Treatment Response Procedure Procedure Tolerated Well Tolerated Well Pain Scale: 0-10 Numeric Is Patient Pain Free? No Yes No LT breast -Description Sharp Sharp,Throbbing -Intensity 9 -Duration (hours) Acute -Pain Behavior Crying,Facial Crying,Guarding Grimacing -Alleviating Factors/Interventions Medication Medication, Inactivity/ Resting -Effectiveness of Alleviating Factor/ Moderately Intervention effective -Comments Painful with dressing changes Teaching Assessment Preferences Verbal Barriers to Learning None Readiness To Learn Excellent Willingness to Engage in Self Management High Activies Readiness to Engage in Self Management High Activities Anxiety Level Calm Cooperation Cooperative Perception Coherent Interest in Health Problem Asks Questions Education Importance Acknowledges Need Smoking Status Current every day smoker Is Patient Diabetic Yes WC - Visit Discharge Discharge Condition Stable Stable Ambulatory Status Ambulatory,Cane Walker Ambulatory, Walker Transportation Private Auto Private Auto Accompanied by daughter daughter Medication Reconcilliation completed & No provided to patient/care provider Clinical Summary of Care Provided Yes Facility Type Home Health Orders Sent Yes 03/29/23 15:58 Wound Care Center Nurse 3 2. LT BREAST -Ulcer Cleansing Rinsed/ Irrigated with Saline -Foul Odor after Cleansing No -Negative Pressure Wound Therapy -Setting (mmHg) -Negative Pressure is -Other Dressing dakins moist gauze -Other Covering abds; secured w / pts bra -NPWT Application Charge 1. RT BREAST -Ulcer Cleansing Rinsed/ Irrigated with Saline -Foul Odor after Cleansing No -Negative Pressure Wound Therapy Continue -Setting (mmHg) 150 -Negative Pressure is Continuous -NPWT Application Charge NPWT & Debridement (nc ) Susanna-Wound Care Treatment Response Procedure Tolerated Well Pain Scale: 0-10 Numeric Is Patient Pain Free? Yes LT breast -Description -Intensity -Duration (hours) -Pain Behavior -Alleviating Factors/Interventions -Effectiveness of Alleviating Factor/ Intervention -Comments Teaching Assessment Preferences Barriers to Learning Readiness To Learn Willingness to Engage in Self Management Activies Readiness to Engage in Self Management Activities Anxiety Level Cooperation Perception Interest in Health Problem Education Importance Smoking Status Is Patient Diabetic WC - Visit Discharge Discharge Condition Stable Ambulatory Status Wheelchair Transportation Private Auto Accompanied by bassem Medication Reconcilliation completed & provided to patient/care provider Clinical Summary of Care Provided Facility Type Home Health Orders Sent Additional Wound Wound debrided: #1 Right breast. Laterality: Right Wound Grade/Stage: 2. Type of Debridement: Excisional debridement Anesthesia Used: 5% Lidocaine Gel Depth: in the subcutaneous layer Percentage of wound debrided: 100 Instrument Used: Forceps (and scissors) Tissue Removed: Subcutaneous tissue, fat necrosis, and devitalized tissue. Severity: Fat Layer Exposed Amount of bleeding with debridement: Mild Bleeding Controlled with: Compression and gauze Patient tolerated procedure: Patient tolerated procedure well (Some occasional discomfort but not as painful as the left breast.) Assessment/Plan Assessment/Plan (1) Delayed surgical wound healing: CODE(S): T81.89XA - Other complications of procedures, not elsewhere classified, initial encounter (2) Skin necrosis: CODE(S): I96 - Gangrene, not elsewhere classified (3) History of bilateral breast reduction surgery: CODE(S): Z98.890 - Other specified postprocedural states (4) DM type 2, goal HbA1c < 7%: CODE(S): E11.9 - Type 2 diabetes mellitus without complications (5) Smoker: CODE(S): F17.200 - Nicotine dependence, unspecified, uncomplicated PLAN: Plan Wound care - Home health is now available. She is tolerating the VAC to the right breast wound. She is not tolerating the VAC to the left breast wound. Continue the VAC just in the right breast at 150 mmHg continuous suction to try and get better control of the drainage. May wash wounds with soap and water at the time of the VAC changes. Will begin Dakin's dressing changes to left breast wound daily. The wounds are starting to stabilize at the wound edges. More granulation tissue seen. Continue wearing compression bra or EVERARDO wrap. Continue to keep head elevated. Continue 20 lb weight lifting restriction. Continue Levaquin. She has finished the Flagyl. She would benefit from Hyperbaric Oxygen Therapy to help with the wound healing of her compromised skin flaps. She had EKG done 01/08/23 which showed Right bundle branch block. She had an echocardiogram on 01/18/23 which showed: The study was technically difficult. No apical window due to recent bilateral breast surgery/bandages/drains. Mild concentric left ventricular hypertrophy. The left ventricular ejection fraction is 65%. The left atrium is mildly enlarged. Mild diffuse aortic valve thickening. Chest x-ray 01/15/23 showed Stable prominent interstitial markings may be secondary to a confluence of shadows however cannot exclude mild edema and/or an infectious process. Will order repeat chest x-ray. Encouraged patient to stop smoking as it may have deleterious effects on wound healing. Renewed script for Percocet for pain, but changed q6 hours to q4 hours (40 tabs). Renewed script for Valium for spasm (30 tabs). Other options if increasing the Percocet to every 4 hours prn does not help the pain. The next step would be Dilaudid and ultimately a Duragesic Patch to help with pain control. She can also add Ibuprofen for additional help with her pain. Follow up one week in my office. Followup 2 weeks at [facility]. Encouraged patient to stop smoking as it may have deleterious effects on wound healing. The right breast continues to improve and is ready for a revision reconstructed breast by elevating the medial and lateral breast flaps and advancing the flaps toward the midclavicular line. Nipple reconstruction can be done with skin grafting. The left breast is still quite tender. The left breast is almost ready for a skin graft. More skin was debrided on the left. Continue the Dakin's dressing changes until the superior skin edge has shown healing and adherence. At that time, the left breast will be ready for skin grafting. The wound is almost covered with granulation tissue. There was some moderate drainage from the superior skin edge. It is milky and consistent with liquefying fat necrosis. It can simulate purulent drainage at which time the patient would appear sicker. Will try and absorb the drainage by placing 2 4x4 gauzes with Dakin's in the superior skin edge. Will observe closely. Revising the reconstructed breast on the left will be more problematic as more skin was debrided as compared to the right. If we have the opportunity to have the left breast wound skin grafted, that would be ideal. Then over the next 9-12 months, the swollen breast skin and parenchyma has a chance to soften up and become less swollen. At which time further revision reconstructed breasts can be done if needed.
== END 2023-04-01 23:59 | disposition home or self-care (01) ==
LOC: WC 14:30
PROVIDERS: PCP Preventive Medicine Occupational Medicine; Referring Provider Nurse Practitioner Family; Visit Provider Surgery
DX: T81.89XA Other complications of procedures, not elsewhere classified, initial encounter (principal); I96 Gangrene, not elsewhere classified; E11.9 Type 2 diabetes mellitus without complications; F17.200 Nicotine dependence, unspecified, uncomplicated; Z98.890 Other specified postprocedural states
CPT/HCPCS: 11042; 11045; 82962; 97605

== ENCOUNTER 2023-04-19 13:15 | Outpatient (RCR) | payer MEDICARE, MEDICAID, SELFPAY ==
[2023-04-02 00:32] VITALS: BP 140/29; PULSE 83; RESP 16; TEMP 36.4; BMI 46.5
[2023-04-12 14:37] VITALS: BP 144/46; PULSE 86; RESP 16; TEMP 36.5; BMI 46.5
--- NOTE | 2023-04-12 15:28 | PN.PCM_ITS ---
History of Present Illness Date of Service: 04/12/23 Chief Complaint: Bilateral breast wounds History of Wound: 62 year old female present for further evaluation after her surgery on 01/13/23 where she underwent bilateral breast reduction mammoplasty. Tissue removed from the left breast was 1590 grams. Tissue removed from the right breast was 750 grams. She was discharged from the hospital on 01/18/23. She developed KALEE after her surgery, her Creatinine increased from 1.88 preop to 2.73 postop. At discharge it decreased down to 2.04. Her Creatinine on02/04/21 decreased to 1.76. The acuity has resolved. She will also followup with her PCP as well for further evaluation and treatment of her renal issues. Prealbumin from 01/14/23 was 16.3. Encourage nutritional supplementation with protein to help the healing process. While in the hospital, her Hgb went from 10.5 preop to 7.8 postop. PRBC was given and it improved to 8.9. At discharge it was 8.2. She has anemia due to expected blood loss. The operative blood loss was 250 ml. She is on Iron supplementation. Her Hgb on 02/04/23 improved 8.6. the acuity has resolved. She is a current smoker. She developed compromise of the nipple areolar complexes bilaterally. She had issues with swelling after not wearing enough compression the first couple weeks post op. She also developed wound breakdown in the Tzone areas bilaterally. Wound culture from 02/04/23 positive for Klebsiella pneumoniae and Anaerobic cocci. She is started on Levaquin and Flagyl and has finished them. Wound care - VAC on the right breast and Dakin's on the left breast. Today she denies fever, chills, nausea or vomiting. Progress of Wound: Much improved. Objective Data Objective Data Vital Signs: Vital Signs Temp Pulse Resp BP O2 Del Method 97.7 F L 86 16 144/46 H Room Air 04/12/23 14:37 04/12/23 14:37 04/12/23 14:37 04/12/23 14:37 04/12/23 14:37 Oxygen Delivery Method Room Air Weight: 280 lb Body Mass Index (BMI) 46.5 Prealbumin from 01/14/23 was 16.3. Encourage nutritional supplementation with protein to help the healing process. Lab / Micro Data Attestation: I reviewed the patient's lab results. Charges/Coding Procedures Integumentary [id number]: 18509 Global Visit (ICD-10 - T81.89xA, I96, Z98.890, E11.9, F17.200) Debridement Note Debridement Note Wound debrided: #2 Left breast Laterality: Left Wound Grade/Stage: 2. Type of Debridement: Excisional debridement Anesthesia Used: 4% Lidocaine Solution and 5% Lidocaine Gel Depth: in the subcutaneous layer Percentage of wound debrided: 100 Instrument Used: Forceps (and scissors) Tissue Removed: Subcutaneous tissue, fat necrosis and some devitalized tissue. Severity: Fat Layer Exposed Amount of bleeding with debridement: Mild Bleeding Controlled with: Compression and gauze Patient tolerated procedure: Patient tolerated procedure well Post-Debridement Measurements and Additional Note: Post-Debridement Measurements/Treatment WC - Nurse 1 - General Ulcer Assessment Start: 04/12/23 14:37 Freq: Status: Active Protocol: [email or web address] Activity Type Activity Date Activity User E-sign Co-sign Detail Recorded Client Recorded Date Recorded By Document 04/12/23 14:37 [id number] 04/12/23 14:54 04/12/23 14:37 - Today's Visit Information Type of service Initial Visit Arrival Mode Ambulatory, Walker Accompanied by daughter Patient Identification Verified (Name & Yes ) Height and Weight Body Mass Index (BMI) 46.5 BMI Classification Obese Vital Signs Temperature (97.8 F-99.1 F) 97.7 F L Temperature Source Temporal Pulse Rate (60-100) 86 Pulse Location Monitor Respiratory Rate (12-18) 16 Respiratory rate source Observation Oxygen Delivery Method Room Air Blood Pressure (90/60-120/80) 144/46 H Blood Pressure Mean (mm Hg) 78 Source Monitor Position Semi-Fowlers Blood Pressure Location Right Arm History Since Last Visit- (Skip if this is Patient's initial visit) Have you changed medications since your No last visit? Any new allergies or adverse reactions No Had a fall/change in ADL's that may No increase risk of falls Signs or symptoms of abuse and/or No neglect since last visit Have you been in the hospital since your No last visit? Has dressing in place as prescribed Yes Has compression in place as prescribed N/A Has offloadiing in place as prescribed N/A Experienced any changes in pain level or No management Left Footwear Regular Shoe Right Footwear Regular Shoe Pain Scale: 0-10 Numeric Is Patient Pain Free? Yes LT breast -Intensity 3 WC - Nurse 1 - General Ulcer Measurement Start: 04/12/23 14:37 Freq: Status: Active Protocol: Activity Type Activity Date Activity User E-sign Co-sign Detail Recorded Client Recorded Date Recorded By Document 04/12/23 14:37 [id number] 04/12/23 14:54 04/12/23 14:37 Wound Center Nurse 1 2. LT BREAST -Current Size (cm) - Length 5.5 -Current Size (cm) - Width 8 -Current Size (cm) - Depth 0.3 -Total Square Cm 44.0 -Tunneling No -Undermining/Tunneling No -Circular Undermining No -Exudate Amt Large -Exudate Type Serosanguineous -Wound Margin Thickened & Rolled Under -Granulation Amt Medium (34-66%) -Granulation Quality [place] -Slough/Fibrin Yes -Necrosis Amt Medium (34-66%) -Necrotic Tissue Type Adherent Slough -Structure Exposed N/A -Texture (Susanna-wound Skin Appearance) Assessed, Scarring -Moisture (Susanna-wound Skin Appearance) Assessed -Color (Susanna-wound Skin Appearance) Assessed -Temperature (Susanna-wound Skin No Abnormality Appearance) (Pt Warm) -Tenderness on Palpation (Susanna-wound No Skin Appearance) -Ulcer Cleansing Wound Cleanser -Foul Odor after Cleansing No -Anesthetic Used 4% Lidocaine Solution 1. RT BREAST -Combined with other wound No -Current Size (cm) - Length 2.7 -Current Size (cm) - Width 3 -Current Size (cm) - Depth 1.5 -Total Square Cm 8.1 -Tunneling Yes -Tunneling Position (O'clock) 11 -Tunneling Distance (cm) 4.5 -Undermining/Tunneling No -Circular Undermining No -Exudate Amt Medium -Exudate Type Serosanguineous -Wound Margin Thickened & Rolled Under -Granulation Amt Large (67-100%) -Granulation Quality [place] -Slough/Fibrin Yes -Necrosis Amt Medium (34-66%) -Necrotic Tissue Type Adherent Slough -Structure Exposed N/A -Texture (Susanna-wound Skin Appearance) Assessed -Moisture (Susanna-wound Skin Appearance) Assessed -Color (Susanna-wound Skin Appearance) Assessed -Temperature (Susanna-wound Skin No Abnormality Appearance) (Pt Warm) -Tenderness on Palpation (Susanna-wound No Skin Appearance) -Ulcer Cleansing Wound Cleanser -Anesthetic Used 4% Lidocaine Solution WC - Nurse 2 - General Ulcer CM Notes Start: 04/12/23 14:37 Freq: Status: Active Protocol: Activity Type Activity Date Activity User E-sign Co-sign Detail Recorded Client Recorded Date Recorded By Document 04/12/23 15:01 [id number] 04/12/23 15:07 LUCIAN 04/12/23 15:01 Wound Center Nurse 2 2. LT BREAST -Time 15:01 -Correct Patient Yes -Correct Side, Site, Position Yes -Correct Procedure Yes -Procedure Performed Yes -Type of Procedure Debridement -Clinical Debridement Subcutaneous -Tissue Removed Subcutaneous -Post Debridement (cm) - Length 4.8 -Post Debridement (cm) - Width 7.8 -Post Debridement (cm) - Depth 1.3 -Total Square (Post) (cm) 37.44 -Area of Debridement (cm) - Length 4.8 -Area of Debridement (cm) - Width 7.8 -Total Square (Area) (cm) 37.44 -Tunneling No -Undermining/Tunneling Yes -Undermining/Tunneling Starts (O'clock 11 ) -Undermining/Tunneling Ends (O'clock) 2 -Maximum Distance (cm) 4.3 -Circular Undermining No -Wound/Ulcer Outcome Not Healed -Ulcer Cleansing Rinsed/ Irrigated with Saline -Foul Odor after Cleansing No -Bioengineered Tissue No -Bleeding Controlled with Pressure -Treatment Response Procedure Tolerated Well -Offloading No -Debridement - Subq, 1st 20sq cm No 1. RT BREAST -Time 15:01 -Correct Patient Yes -Correct Side, Site, Position Yes -Correct Procedure Yes -Procedure Performed Yes -Type of Procedure Debridement -Clinical Debridement Subcutaneous -Tissue Removed Subcutaneous -Post Debridement (cm) - Length 3.0 -Post Debridement (cm) - Width 2.7 -Post Debridement (cm) - Depth 1.3 -Total Square (Post) (cm) 8.10 -Area of Debridement (cm) - Length 3.0 -Area of Debridement (cm) - Width 2.7 -Total Square (Area) (cm) 8.10 -Tunneling No -Undermining/Tunneling Yes -Undermining/Tunneling Starts (O'clock 11 ) -Undermining/Tunneling Ends (O'clock) 3 -Maximum Distance (cm) 4.3 -Circular Undermining No -Wound/Ulcer Outcome Not Healed -Ulcer Cleansing Rinsed/ Irrigated with Saline -Foul Odor after Cleansing No -Bioengineered Tissue No -Bleeding Controlled with Pressure -Treatment Response Procedure Tolerated Well -Offloading No -Debridement - Subq, 1st 20sq cm Yes -Debridement, SubQ, ea addt'l 20sq cm 2 or part thereof Pain Scale: 0-10 Numeric Is Patient Pain Free? Yes Additional Wound Wound debrided: #1 Right breast. Laterality: Right Wound Grade/Stage: 2. Type of Debridement: Excisional debridement Anesthesia Used: 5% Lidocaine Gel Depth: in the subcutaneous layer Percentage of wound debrided: 100 Instrument Used: Forceps (and scissors) Tissue Removed: Subcutaneous tissue, fat necrosis, and devitalized tissue. Severity: Fat Layer Exposed Amount of bleeding with debridement: Mild Bleeding Controlled with: Compression and gauze Patient tolerated procedure: Patient tolerated procedure well Assessment/Plan Assessment/Plan (1) Delayed surgical wound healing: CODE(S): T81.89XA - Other complications of procedures, not elsewhere classified, initial encounter (2) Skin necrosis: CODE(S): I96 - Gangrene, not elsewhere classified (3) History of bilateral breast reduction surgery: CODE(S): Z98.890 - Other specified postprocedural states (4) DM type 2, goal HbA1c < 7%: CODE(S): E11.9 - Type 2 diabetes mellitus without complications (5) Smoker: CODE(S): F17.200 - Nicotine dependence, unspecified, uncomplicated PLAN: Plan Wound care - Continue the VAC to the right breast wound three times per week at 150 mmHg continuous suction. Continue Dakin's dressing changes to the left breast wound daily. The wounds are starting to stabilize at the wound edges. More granulation tissue seen. Continue wearing compression bra or EVERARDO wrap. Continue to keep head elevated. Continue 20 lb weight lifting restriction. She has finished the Levaquin. She has finished the Flagyl. Encouraged patient to stop smoking as it may have deleterious effects on wound healing. She did not need any Percocet or Valium scripts today. She also uses Ibuprofen for additional help with her pain. The right breast continues to improve and is ready for a revision reconstructed breast by elevating the medial and lateral breast flaps and advancing the flaps toward the midclavicular line. Nipple reconstruction can be done with skin grafting. The left breast is much improved. The left breast is almost ready for a skin graft. More skin was debrided on the left. Continue the Dakin's dressing changes until the superior skin edge has shown more healing and adherence. At that time, the left breast will be ready for skin grafting. The wound is almost covered with granulation tissue. There was some moderate drainage from the superior skin edge. It is milky and consistent with liquefying fat necrosis. It can simulate purulent drainage at which time the patient would appear sicker. Will try and absorb the drainage by placing 2 4x4 gauzes with Dakin's in the superior skin edge. Will observe closely. Revising the reconstructed breast on the left will be more problematic as more skin was debrided as compared to the right. If we have the opportunity to have the left breast wound skin grafted, that would be ideal. Then over the next 9- 12 months, the swollen breast skin and parenchyma has a chance to soften up and become less swollen. At which time further revision reconstructed breasts can be done if needed. Follow up one week in my office. Encouraged patient to stop smoking as it may have deleterious effects on wound healing.
[2023-04-19 13:23] VITALS: BP 138/62; PULSE 89; RESP 20; TEMP 36.7; BMI 46.5
--- NOTE | 2023-04-19 14:25 | PCM.WC.PN ---
History of Present Illness Date of Service: 04/19/23 Chief Complaint: Bilateral breast wounds History of Wound: 62 year old female present for further evaluation after her surgery on 01/13/23 where she underwent bilateral breast reduction mammoplasty. Tissue removed from the left breast was 1590 grams. Tissue removed from the right breast was 750 grams. She was discharged from the hospital on 01/18/23. She developed KALEE after her surgery, her Creatinine increased from 1.88 preop to 2.73 postop. At discharge it decreased down to 2.04. Her Creatinine on02/04/21 decreased to 1.76. The acuity has resolved. She will also followup with her PCP as well for further evaluation and treatment of her renal issues. Prealbumin from 01/14/23 was 16.3. Encourage nutritional supplementation with protein to help the healing process. While in the hospital, her Hgb went from 10.5 preop to 7.8 postop. PRBC was given and it improved to 8.9. At discharge it was 8.2. She has anemia due to expected blood loss. The operative blood loss was 250 ml. She is on Iron supplementation. Her Hgb on 02/04/23 improved 8.6. the acuity has resolved. She is a current smoker. She developed compromise of the nipple areolar complexes bilaterally. She had issues with swelling after not wearing enough compression the first couple weeks post op. She also developed wound breakdown in the Tzone areas bilaterally. Wound culture from 02/04/23 positive for Klebsiella pneumoniae and Anaerobic cocci. She is started on Levaquin and Flagyl and has finished them. Wound care - VAC on the right breast and Dakin's on the left breast. Today she denies fever, chills, nausea or vomiting. Progress of Wound: Much improved. Objective Data Objective Data Vital Signs: Vital Signs Temp Pulse Resp BP O2 Del Method 98.1 F 89 20 H 138/62 H Room Air 04/19/23 13:23 04/19/23 13:23 04/19/23 13:04/19/23 13:04/12/23 14:37 Oxygen Delivery Method Room Air Weight: 280 lb Body Mass Index (BMI) 46.5 Charges/Coding Procedures Integumentary 111xxx-113xx: [id number] Global Visit Debridement Note Debridement Note Wound debrided: #2 Left breast Laterality: Left Wound Grade/Stage: 2. Type of Debridement: Excisional debridement Anesthesia Used: 4% Lidocaine Solution and 5% Lidocaine Gel Depth: in the subcutaneous layer Percentage of wound debrided: 100 Instrument Used: 7mm curette Tissue Removed: Subcutaneous tissue, fat necrosis and some devitalized tissue. Severity: Fat Layer Exposed Amount of bleeding with debridement: Mild Bleeding Controlled with: Compression and gauze Patient tolerated procedure: Patient tolerated procedure well Post-Debridement Measurements and Additional Note: Post-Debridement Measurements/Treatment - Nurse 1 - General Ulcer Assessment Start: 04/12/23 14:37 Freq: Status: Active Protocol: AdbrainEXTimmy Activity Type Activity Date Activity User E-sign Co-sign Detail Recorded Client Recorded Date Recorded By Document 04/12/23 14:37 KW [id number] 04/12/23 14:54 KW Document 04/19/23 13:23 DL Desktop 04/19/23 13:37 DL 04/12/23 04/19/23 14:37 13:23 - Today's Visit Information Type of service Initial Visit Follow-up Visit (Physician/FILM SORTER ) Arrival Mode Ambulatory, Ambulatory, Walker Walker Transfer Assistance None Accompanied by daughter Patient Identification Verified (Name & Yes Yes ) Patient Requires Transmission-Based No Precautions Finger Stick Blood Sugar(mg/dl) (if 165 indicated): Blood Sugar Stated by Patient Height and Weight Body Mass Index (BMI) 46.5 46.5 BMI Classification Obese Obese Vital Signs Temperature (97.8 F-99.1 F) 97.7 F L 98.1 F Temperature Source Temporal Temporal Pulse Rate (60-100) 86 89 Pulse Location Monitor Monitor Respiratory Rate (12-18) 16 20 H Respiratory rate source Observation Observation Oxygen Delivery Method Room Air Blood Pressure (90/60-120/80) 144/46 H 138/62 H Blood Pressure Mean (mm Hg) 78 87 Source Monitor Monitor Position Semi-Fowlers Blood Pressure Location Right Arm History Since Last Visit- (Skip if this is Patient's initial visit) Have you changed medications since your No No last visit? Any new allergies or adverse reactions No No Had a fall/change in ADL's that may No No increase risk of falls Signs or symptoms of abuse and/or No No neglect since last visit Have you been in the hospital since your No No last visit? Has dressing in place as prescribed Yes Yes Has compression in place as prescribed N/A N/A Has offloadiing in place as prescribed N/A N/A Experienced any changes in pain level or No No management Left Footwear Regular Shoe Right Footwear Regular Shoe Pain Scale: 0-10 Numeric Is Patient Pain Free? Yes Yes LT breast -Intensity 3 WC - Nurse 1 - General Ulcer Measurement Start: 04/12/23 14:37 Freq: Status: Active Protocol: Activity Type Activity Date Activity User E-sign Co-sign Detail Recorded Client Recorded Date Recorded By Document 04/12/23 14:37 KW [id number] 04/12/23 14:54 KW Document 04/19/23 13:23 DL Desktop 04/19/23 13:37 DL 04/12/23 04/19/23 14:37 13:23 Wound Center Nurse 1 2. LT BREAST -Current Size (cm) - Length 5.5 4.6 -Current Size (cm) - Width 8 7.5 -Current Size (cm) - Depth 0.3 0.4 -Total Square Cm 44.0 34.50 -Tunneling No -Undermining/Tunneling No -Undermining/Tunneling Starts (O'clock 12 ) -Undermining/Tunneling Ends (O'clock) 2 -Maximum Distance (cm) 4.1 -Circular Undermining No -Exudate Amt Large Medium -Exudate Type Serosanguineous Serosanguineous -Wound Margin Thickened & Thickened & Rolled Under Rolled Under -Granulation Amt Medium (34-66%) Medium (34-66%) -Granulation Quality [place] Red -Slough/Fibrin Yes -Necrosis Amt Medium (34-66%) Medium (34-66%) -Necrotic Tissue Type Adherent Slough Adherent Slough -Structure Exposed N/A N/A -Texture (Susanna-wound Skin Appearance) Assessed, Scarring Scarring -Moisture (Susanna-wound Skin Appearance) Assessed No Abnormality -Color (Susanna-wound Skin Appearance) Assessed No Abnormality -Temperature (Susanna-wound Skin No Abnormality No Abnormality Appearance) (Pt Warm) (Pt Warm) -Tenderness on Palpation (Susanna-wound No No Skin Appearance) -Ulcer Cleansing Wound Cleanser Soap and Water -Foul Odor after Cleansing No No -Anesthetic Used 4% Lidocaine 4% Lidocaine Solution Solution,5% Lidocaine Gel 1. RT BREAST -Combined with other wound No -Current Size (cm) - Length 2.7 2.8 -Current Size (cm) - Width 3 2 -Current Size (cm) - Depth 1.5 1.5 -Total Square Cm 8.1 5.6 -Tunneling Yes -Tunneling Position (O'clock) 11 -Tunneling Distance (cm) 4.5 -Undermining/Tunneling No -Undermining/Tunneling Starts (O'clock 10 ) -Undermining/Tunneling Ends (O'clock) 2 -Maximum Distance (cm) 4.2 -Circular Undermining No -Exudate Amt Medium Medium -Exudate Type Serosanguineous Serosanguineous -Wound Margin Thickened & Thickened & Rolled Under Rolled Under -Granulation Amt Large (67-100%) Large (67-100%) -Granulation Quality [place] Red -Slough/Fibrin Yes -Necrosis Amt Medium (34-66%) Small (1-33%) -Necrotic Tissue Type Adherent Slough Adherent Slough -Structure Exposed N/A N/A -Texture (Susanna-wound Skin Appearance) Assessed Scarring -Moisture (Susanna-wound Skin Appearance) Assessed No Abnormality -Color (Susanna-wound Skin Appearance) Assessed No Abnormality -Temperature (Susanna-wound Skin No Abnormality No Abnormality Appearance) (Pt Warm) (Pt Warm) -Tenderness on Palpation (Susanna-wound No No Skin Appearance) -Ulcer Cleansing Wound Cleanser Soap and Water -Foul Odor after Cleansing No -Anesthetic Used 4% Lidocaine 4% Lidocaine Solution Solution,5% Lidocaine Gel WC - Nurse 2 - General Ulcer CM Notes Start: 04/12/23 14:37 Freq: Status: Active Protocol: Activity Type Activity Date Activity User E-sign Co-sign Detail Recorded Client Recorded Date Recorded By Document 04/12/23 15:01 LUCIAN [id number] 04/12/23 15:07 JF Edit Result 04/12/23 15:01 LUCIAN (1) [id number] 04/13/23 07:43 PL Document 04/19/23 13:56 JF Desktop 04/19/23 14:01 LUCIAN (1) 1. RT BREAST - Debridement, SubQ, ea addt'l 20sq cm 2 => 3 or part thereof 09/11/23 09/18/23 15:01 13:56 Wound Center Nurse 2 2. LT BREAST -Time 15:01 13:56 -Correct Patient Yes Yes -Correct Side, Site, Position Yes Yes -Correct Procedure Yes Yes -Procedure Performed Yes Yes -Type of Procedure Debridement Debridement -Clinical Debridement Subcutaneous Subcutaneous -Tissue Removed Subcutaneous Subcutaneous -Post Debridement (cm) - Length 4.8 4.5 -Post Debridement (cm) - Width 7.8 7.2 -Post Debridement (cm) - Depth 1.3 0.8 -Total Square (Post) (cm) 37.44 32.40 -Area of Debridement (cm) - Length 4.8 4.5 -Area of Debridement (cm) - Width 7.8 7.2 -Total Square (Area) (cm) 37.44 32.40 -Tunneling No No -Undermining/Tunneling Yes Yes -Undermining/Tunneling Starts (O'clock 11 11 ) -Undermining/Tunneling Ends (O'clock) 2 2 -Maximum Distance (cm) 4.3 3.8 -Circular Undermining No No -Wound/Ulcer Outcome Not Healed Not Healed -Ulcer Cleansing Rinsed/ Rinsed/ Irrigated with Irrigated with Saline Saline -Foul Odor after Cleansing No No -Bioengineered Tissue No No -Bleeding Controlled with Pressure Pressure -Treatment Response Procedure Procedure Tolerated Well Tolerated Well -Offloading No No -Debridement - Subq, 1st 20sq cm No No 1. RT BREAST -Time 15:01 13:57 -Correct Patient Yes Yes -Correct Side, Site, Position Yes Yes -Correct Procedure Yes Yes -Procedure Performed Yes Yes -Type of Procedure Debridement Debridement -Clinical Debridement Subcutaneous Subcutaneous -Tissue Removed Subcutaneous Subcutaneous -Post Debridement (cm) - Length 3.0 2.6 -Post Debridement (cm) - Width 2.7 2.3 -Post Debridement (cm) - Depth 1.3 0.8 -Total Square (Post) (cm) 8.10 5.98 -Area of Debridement (cm) - Length 3.0 2.6 -Area of Debridement (cm) - Width 2.7 2.3 -Total Square (Area) (cm) 8.10 5.98 -Tunneling No No -Undermining/Tunneling Yes Yes -Undermining/Tunneling Starts (O'clock 11 11 ) -Undermining/Tunneling Ends (O'clock) 3 1 -Maximum Distance (cm) 4.3 3.9 -Circular Undermining No No -Wound/Ulcer Outcome Not Healed Not Healed -Ulcer Cleansing Rinsed/ Rinsed/ Irrigated with Irrigated with Saline Saline -Foul Odor after Cleansing No No -Bioengineered Tissue No No -Bleeding Controlled with Pressure Pressure -Treatment Response Procedure Procedure Tolerated Well Tolerated Well -Offloading No No -Debridement - Subq, 1st 20sq cm Yes Yes -Debridement, SubQ, ea addt'l 20sq cm 3 1 or part thereof Pain Scale: 0-10 Numeric Is Patient Pain Free? Yes Yes - Nurse 3 - General Ulcer D/C NN Start: 04/12/23 14:37 Freq: Status: Active Protocol: Activity Type Activity Date Activity User E-sign Co-sign Detail Recorded Client Recorded Date Recorded By Document 04/12/23 15:29 DL [id number] 04/12/23 15:30 DL Document 04/19/23 14:22 BM Desktop 04/19/23 14:23 [facility] 04/12/23 04/19/23 15:29 14:22 Wound Care Center Nurse 3 2. LT BREAST -Ulcer Cleansing Soap and Water Rinsed/ Irrigated with Saline -Foul Odor after Cleansing No No -Primary Dressing Applied Hysept ($) -Other Dressing dakins DAKINS MOIST GAUZE -Other Covering abd ABD 1. RT BREAST -Ulcer Cleansing Soap and Water Rinsed/ Irrigated with Saline -Foul Odor after Cleansing No No -Negative Pressure Wound Therapy Continue Continue -Setting (mmHg) 150 150 -Negative Pressure is Continuous Continuous -Other Covering ABD -NPWT Application Charge NPWT & NPWT & Debridement (nc Debridement (nc ) ) Treatment Response Procedure Procedure Tolerated Well Tolerated Well Pain Scale: 0-10 Numeric Is Patient Pain Free? Yes Yes WC - Visit Discharge Discharge Condition Stable Stable Ambulatory Status Ambulatory, Ambulatory, Walker Walker Transportation Private Auto Private Auto Accompanied by BASSEM Facility Type Home Health Home Health Orders Sent Yes Additional Wound Wound debrided: #1 Right breast. Laterality: Right Wound Grade/Stage: 2. Type of Debridement: Excisional debridement Anesthesia Used: 5% Lidocaine Gel Depth: in the subcutaneous layer Percentage of wound debrided: 100 Instrument Used: 5mm curette Tissue Removed: Subcutaneous tissue, fat necrosis, and devitalized tissue. Severity: Fat Layer Exposed Amount of bleeding with debridement: Mild Bleeding Controlled with: Compression and gauze Patient tolerated procedure: Patient tolerated procedure well Assessment/Plan Assessment/Plan (1) Delayed surgical wound healing: CODE(S): T81.89XA - Other complications of procedures, not elsewhere classified, initial encounter (2) Skin necrosis: CODE(S): I96 - Gangrene, not elsewhere classified (3) History of bilateral breast reduction surgery: CODE(S): Z98.890 - Other specified postprocedural states (4) DM type 2, goal HbA1c < 7%: CODE(S): E11.9 - Type 2 diabetes mellitus without complications (5) Smoker: CODE(S): F17.200 - Nicotine dependence, unspecified, uncomplicated PLAN: Plan Wound care - Continue the VAC to the right breast wound three times per week at 150 mmHg continuous suction. Continue Dakin's dressing changes to the left breast wound daily. The wounds are starting to stabilize at the wound edges. More granulation tissue seen. Continue wearing compression bra or EVERARDO wrap. Continue to keep head elevated. Continue 20 lb weight lifting restriction. She has finished the Levaquin. She has finished the Flagyl. Encouraged patient to stop smoking as it may have deleterious effects on wound healing. Renewed Pecocet (20 tabs). PDMP reviewed. She also uses Ibuprofen for additional help with her pain. The right breast continues to improve and is ready for a revision reconstructed breast by elevating the medial and lateral breast flaps and advancing the flaps toward the midclavicular line. Nipple reconstruction can be done with skin grafting. The left breast is much improved. The left breast is almost ready for a skin graft. More skin was debrided on the left. Continue the Dakin's dressing changes until the superior skin edge has shown more healing and adherence. At that time, the left breast will be ready for skin grafting. The wound is almost covered with granulation tissue. There was some moderate drainage from the superior skin edge. It is milky and consistent with liquefying fat necrosis. It can simulate purulent drainage at which time the patient would appear sicker. Will try and absorb the drainage by placing 2 4x4 gauzes with Dakin's in the superior skin edge. Will observe closely. Revising the reconstructed breast on the left will be more problematic as more skin was debrided as compared to the right. If we have the opportunity to have the left breast wound skin grafted, that would be ideal. Then over the next 9-12 months, the swollen breast skin and parenchyma has a chance to soften up and become less swollen. At which time further revision reconstructed breasts can be done if needed. Follow up 2 weeks. Encouraged patient to stop smoking as it may have deleterious effects on wound healing.
== END 2023-05-01 23:59 | disposition home or self-care (01) ==
LOC: WC 13:15
PROVIDERS: PCP Preventive Medicine Occupational Medicine; Referring Provider Nurse Practitioner Family; Visit Provider Surgery
DX: T81.89XA Other complications of procedures, not elsewhere classified, initial encounter (principal); I96 Gangrene, not elsewhere classified; E11.9 Type 2 diabetes mellitus without complications; F17.200 Nicotine dependence, unspecified, uncomplicated; Z98.890 Other specified postprocedural states; D64.9 Anemia, unspecified
CPT/HCPCS: 11042; 11045

== ENCOUNTER 2023-05-31 14:15 | Outpatient (RCR) | payer MEDICARE, MEDICAID, SELFPAY ==
[2023-05-02 00:42] VITALS: BP 138/62; PULSE 89; RESP 20; TEMP 36.7; BMI 46.5
[2023-05-03 13:46] VITALS: BP 158/58; PULSE 78; RESP 16; TEMP 36.1; BMI 46.5
--- NOTE | 2023-05-03 16:50 | PN.PCM_ITS ---
History of Present Illness Date of Service: 05/03/23 Chief Complaint: Bilateral breast wounds History of Wound: 62 year old female present for further evaluation after her surgery on 01/13/23 where she underwent bilateral breast reduction mammoplasty. Tissue removed from the left breast was 1590 grams. Tissue removed from the right breast was 750 grams. She was discharged from the hospital on 01/18/23. She developed KALEE after her surgery, her Creatinine increased from 1.88 preop to 2.73 postop. At discharge it decreased down to 2.04. Her Creatinine on02/04/21 decreased to 1.76. The acuity has resolved. She will also followup with her PCP as well for further evaluation and treatment of her renal issues. Prealbumin from 01/14/23 was 16.3. Encourage nutritional supplementation with protein to help the healing process. While in the hospital, her Hgb went from 10.5 preop to 7.8 postop. PRBC was given and it improved to 8.9. At discharge it was 8.2. She has anemia due to expected blood loss. The operative blood loss was 250 ml. She is on Iron supplementation. Her Hgb on 02/04/23 improved 8.6. the acuity has resolved. She is a current smoker. She developed compromise of the nipple areolar complexes bilaterally. She had issues with swelling after not wearing enough compression the first couple weeks post op. She also developed wound breakdown in the Tzone areas bilaterally. Wound culture from 02/04/23 positive for Klebsiella pneumoniae and Anaerobic cocci. She is started on Levaquin and Flagyl and has finished them. Wound care - VAC on the right breast and Dakin's on the left breast. Today she denies fever, chills, nausea or vomiting. Progress of Wound: Improved. Objective Data Objective Data Vital Signs: Vital Signs Temp Pulse Resp BP O2 Del Method 97 F L 78 16 158/58 H Room Air 05/03/23 13:46 05/03/23 13:46 05/03/23 13:46 05/03/23 13:46 05/03/23 13:46 Oxygen Delivery Method Room Air Weight: 280 lb Body Mass Index (BMI) 46.5 Prealbumin from 01/14/23 was 16.3. Encourage nutritional supplementation with protein to help the healing process. Lab / Micro Data Attestation: I reviewed the patient's lab results. Charges/Coding Procedures Integumentary 111xxx-113xx: 47165 Kadie subq tissue 20 sq cm/< (ICD-10 - T81.89xA, I96, Z98.890, E11.9, F17.200) Add On Codes: 66606 Kadie subq tissue add-on (X 2 Units ICD-10 - T81.89xA, I96, Z98.890, E11.9, F17.200) Debridement Note Debridement Note Wound debrided: #2 Left breast Laterality: Left Wound Grade/Stage: 2. Type of Debridement: Excisional debridement Anesthesia Used: 4% Lidocaine Solution and 5% Lidocaine Gel Depth: in the subcutaneous layer Percentage of wound debrided: 100 Instrument Used: 7mm curette Tissue Removed: Subcutaneous tissue, fat necrosis and some devitalized tissue. Severity: Fat Layer Exposed Amount of bleeding with debridement: Mild Bleeding Controlled with: Compression and gauze Patient tolerated procedure: Patient tolerated procedure well Post-Debridement Measurements and Additional Note: Post-Debridement Measurements/Treatment - Nurse 1 - General Ulcer Assessment Start: 05/03/23 13:46 Freq: Status: Active Protocol: .[place] Activity Type Activity Date Activity User E-sign Co-sign Detail Recorded Client Recorded Date Recorded By Document 05/03/23 13:46 [facility] Desktop 05/03/23 14:00 [facility] 05/03/23 13:46 - Today's Visit Information Type of service Follow-up Visit (Physician/[facility]TER ) Arrival Mode Ambulatory, Walker Transfer Assistance None Accompanied by daughter Patient Identification Verified (Name & Yes ) Patient Requires Transmission-Based No Precautions Height and Weight Body Mass Index (BMI) 46.5 BMI Classification Obese Vital Signs Temperature (97.8 F-99.1 F) 97 F L Temperature Source Temporal Pulse Rate (60-100) 78 Pulse Location Monitor Respiratory Rate (12-18) 16 Respiratory rate source Observation Oxygen Delivery Method Room Air Blood Pressure (90/60-120/80) 158/58 H Blood Pressure Mean (mm Hg) 91 Source Monitor Position Sitting Blood Pressure Location Left Arm History Since Last Visit- (Skip if this is Patient's initial visit) Have you changed medications since your No last visit? Any new allergies or adverse reactions No Had a fall/change in ADL's that may No increase risk of falls Signs or symptoms of abuse and/or No neglect since last visit Have you been in the hospital since your No last visit? Has dressing in place as prescribed Yes Has compression in place as prescribed N/A Has offloadiing in place as prescribed N/A Experienced any changes in pain level or No management Left Footwear Regular Shoe Right Footwear Regular Shoe Pain Scale: 0-10 Numeric Is Patient Pain Free? Yes WC - Nurse 1 - General Ulcer Measurement Start: 05/03/23 13:46 Freq: Status: Active Protocol: Activity Type Activity Date Activity User E-sign Co-sign Detail Recorded Client Recorded Date Recorded By Document 05/03/23 13:46 [facility] Desktop 05/03/23 14:00 [facility] 05/03/23 13:46 Wound Center Nurse 1 2. LT BREAST -Combined with other wound No -Current Size (cm) - Length 4 -Current Size (cm) - Width 6 -Current Size (cm) - Depth 0.4 -Total Square Cm 24 -Photo Taken No -Epithelialization Small 1-33% -Tunneling No -Undermining/Tunneling Yes -Undermining/Tunneling Starts (O'clock 10 ) -Undermining/Tunneling Ends (O'clock) 12 -Maximum Distance (cm) 3.5 -Undermining/Tunneling Starts #2 (O' 2 clock) -Undermining/Tunneling Ends #2 (O' 2 clock) -Maximum Distance #2 (cm) 0.5 -Circular Undermining No -Exudate Amt Medium -Exudate Type Serosanguineous -Wound Margin Distinct, Outline Attached -Granulation Amt Medium (34-66%) -Granulation Quality Pale,Red -Slough/Fibrin Yes -Necrosis Amt Medium (34-66%) -Necrotic Tissue Type Adherent Slough -Texture (Susanna-wound Skin Appearance) Assessed, Scarring -Moisture (Susanna-wound Skin Appearance) Assessed -Color (Susanna-wound Skin Appearance) Assessed -Temperature (Susanna-wound Skin No Abnormality Appearance) (Pt Warm) -Tenderness on Palpation (Susanna-wound No Skin Appearance) -Ulcer Cleansing Rinsed/ Irrigated with Saline -Foul Odor after Cleansing No -Anesthetic Used 4% Lidocaine Solution 1. RT BREAST -Combined with other wound No -Current Size (cm) - Length 1.5 -Current Size (cm) - Width 1.5 -Current Size (cm) - Depth 1.5 -Total Square Cm 2.25 -Photo Taken No -Epithelialization Small 1-33% -Tunneling No -Undermining/Tunneling Yes -Undermining/Tunneling Starts (O'clock 10 ) -Undermining/Tunneling Ends (O'clock) 12 -Maximum Distance (cm) 1.4 -Circular Undermining No -Exudate Amt Medium -Exudate Type Serosanguineous -Wound Margin Distinct, Outline Attached -Granulation Amt Large (67-100%) -Granulation Quality Red -Slough/Fibrin No -Necrosis Amt None Present (0 %) -Texture (Susanna-wound Skin Appearance) Assessed, Scarring -Moisture (Susanna-wound Skin Appearance) Assessed -Color (Susanna-wound Skin Appearance) Assessed -Temperature (Susanna-wound Skin No Abnormality Appearance) (Pt Warm) -Tenderness on Palpation (Susanna-wound No Skin Appearance) -Ulcer Cleansing Soap and Water -Foul Odor after Cleansing No -Anesthetic Used 4% Lidocaine Solution WC - Nurse 2 - General Ulcer CM Notes Start: 05/03/23 13:46 Freq: Status: Active Protocol: Activity Type Activity Date Activity User E-sign Co-sign Detail Recorded Client Recorded Date Recorded By Document 05/03/23 14:13 Laptop 05/03/23 14:22 05/03/23 14:13 Wound Center Nurse 2 2. LT BREAST -Time 14:16 -Correct Patient Yes -Correct Side, Site, Position Yes -Correct Procedure Yes -Procedure Performed Yes -Type of Procedure Debridement -Clinical Debridement Subcutaneous -Tissue Removed Subcutaneous -Post Debridement (cm) - Length 3.2 -Post Debridement (cm) - Width 5.0 -Post Debridement (cm) - Depth 0.3 -Total Square (Post) (cm) 16.00 -Area of Debridement (cm) - Length 3.2 -Area of Debridement (cm) - Width 5.0 -Total Square (Area) (cm) 16.00 -Tunneling No -Undermining/Tunneling Yes -Undermining/Tunneling Starts (O'clock 11 ) -Undermining/Tunneling Ends (O'clock) 2 -Maximum Distance (cm) 3.2 -Circular Undermining No -Wound/Ulcer Outcome Not Healed -Ulcer Cleansing Rinsed/ Irrigated with Saline -Foul Odor after Cleansing No -Bioengineered Tissue No -Bleeding Controlled with Pressure -Treatment Response Procedure Tolerated Well -Offloading No -Debridement - Subq, 1st 20sq cm No 1. RT BREAST -Time 14:16 -Correct Patient Yes -Correct Side, Site, Position Yes -Correct Procedure Yes -Procedure Performed Yes -Type of Procedure Debridement -Clinical Debridement Subcutaneous -Tissue Removed Subcutaneous -Post Debridement (cm) - Length 1.7 -Post Debridement (cm) - Width 1.9 -Post Debridement (cm) - Depth 1.3 -Total Square (Post) (cm) 3.23 -Area of Debridement (cm) - Length 1.7 -Area of Debridement (cm) - Width 1.9 -Total Square (Area) (cm) 3.23 -Tunneling No -Undermining/Tunneling No -Circular Undermining No -Wound/Ulcer Outcome Not Healed -Ulcer Cleansing Rinsed/ Irrigated with Saline -Foul Odor after Cleansing No -Bioengineered Tissue No -Bleeding Controlled with Pressure -Treatment Response Procedure Tolerated Well -Offloading No -Debridement - Subq, 1st 20sq cm Yes Pain Scale: 0-10 Numeric Is Patient Pain Free? Yes - Nurse 3 - General Ulcer D/C NN Start: 05/03/23 13:46 Freq: Status: Active Protocol: Activity Type Activity Date Activity User E-sign Co-sign Detail Recorded Client Recorded Date Recorded By Document 05/03/23 14:34 [facility] Desktop 05/03/23 14:35 [facility] 05/03/23 14:34 Wound Care Center Nurse 3 2. LT BREAST -Ulcer Cleansing Rinsed/ Irrigated with Saline -Foul Odor after Cleansing No -Other Dressing dakins moist gauze -Other Covering abd; secured w/ compression bra 1. RT BREAST -Ulcer Cleansing Rinsed/ Irrigated with Saline -Foul Odor after Cleansing No -Other Dressing dakins moist gauze; abd -Other Covering secured w/ compression bra Treatment Response Procedure Tolerated Well Pain Scale: 0-10 Numeric Is Patient Pain Free? Yes - Visit Discharge Discharge Condition Stable Ambulatory Status Ambulatory, Walker Transportation Private Auto Additional Wound Wound debrided: #1 Right breast. Laterality: Right Wound Grade/Stage: 2. Type of Debridement: Excisional debridement Anesthesia Used: 5% Lidocaine Gel Depth: in the subcutaneous layer Percentage of wound debrided: 100 Instrument Used: 5mm curette Tissue Removed: Subcutaneous tissue, fat necrosis, and devitalized tissue. Severity: Fat Layer Exposed Amount of bleeding with debridement: Mild Bleeding Controlled with: Compression and gauze Patient tolerated procedure: Patient tolerated procedure well Assessment/Plan Assessment/Plan (1) Delayed surgical wound healing: CODE(S): T81.89XA - Other complications of procedures, not elsewhere classified, initial encounter (2) Skin necrosis: CODE(S): I96 - Gangrene, not elsewhere classified (3) History of bilateral breast reduction surgery: CODE(S): Z98.890 - Other specified postprocedural states (4) DM type 2, goal HbA1c < 7%: CODE(S): E11.9 - Type 2 diabetes mellitus without complications (5) Smoker: CODE(S): F17.200 - Nicotine dependence, unspecified, uncomplicated PLAN: Plan Wound care - Will start a VAC holiday on the right and begin Dakin's dressing changes to the right breast daily. Continue Dakin's dressing changes to the left breast wound daily. The wounds continue to improve. The left breast shows more healing and more granulation tissue. The right breast continues to get smaller. Continue wearing compression bra or EVERARDO wrap. Continue to keep head elevated. Continue 20 lb weight lifting restriction. She has finished the Levaquin. She has finished the Flagyl. Encouraged patient to stop smoking as it may have deleterious effects on wound healing. She did not need any Percocet or Valium scripts today. She also uses Ibuprofen for additional help with her pain. The right breast continues to improve and is ready for a revision reconstructed breast by elevating the medial and lateral breast flaps and advancing the flaps toward the midclavicular line. Nipple reconstruction can be done with skin grafting. The left breast is much improved. The left breast is almost ready for a skin graft. More skin was debrided on the left. Continue the Dakin's dressing changes until the superior skin edge has shown more healing and adherence. At that time, the left breast will be ready for skin grafting. The wound is almost covered with granulation tissue. There was some moderate drainage from the superior skin edge. It is milky and consistent with liquefying fat necrosis. It can simulate purulent drainage at which time the patient would appear sicker. Will try and absorb the drainage by placing 4x4 gauze with Dakin's in the superior skin edge. Will observe closely. Revising the reconstructed breast on the left will be more problematic as more skin was debrided as compared to the right. If we have the opportunity to have the left breast wound skin grafted, that would be ideal. Then over the next 9- 12 months, the swollen breast skin and parenchyma has a chance to soften up and become less swollen. At which time further revision reconstructed breasts can be done if needed. We are planning on revision surgery before the end of the year. This way more swelling can subside which would make advancing the skin toward the mid breast a little easier and the sutures would hold better when the skin edges are less swollen and less inflamed. Follow up one week. Encouraged patient to stop smoking as it may have deleterious effects on wound healing.
[2023-05-10 13:33] VITALS: BP 138/58; PULSE 82; RESP 18; TEMP 36.1; BMI 46.5
--- NOTE | 2023-05-10 15:52 | PN.PCM_ITS ---
History of Present Illness Date of Service: 05/10/23 Chief Complaint: Bilateral breast wounds History of Wound: 63 year old female present for further evaluation after her surgery on 01/13/23 where she underwent bilateral breast reduction mammoplasty. Tissue removed from the left breast was 1590 grams. Tissue removed from the right breast was 750 grams. She was discharged from the hospital on 01/18/23. She developed KALEE after her surgery, her Creatinine increased from 1.88 preop to 2.73 postop. At discharge it decreased down to 2.04. Her Creatinine on02/04/21 decreased to 1.76. The acuity has resolved. She will also followup with her PCP as well for further evaluation and treatment of her renal issues. Prealbumin from 01/14/23 was 16.3. Encourage nutritional supplementation with protein to help the healing process. While in the hospital, her Hgb went from 10.5 preop to 7.8 postop. PRBC was given and it improved to 8.9. At discharge it was 8.2. She has anemia due to expected blood loss. The operative blood loss was 250 ml. She is on Iron supplementation. Her Hgb on 02/04/23 improved 8.6. the acuity has resolved. She is a current smoker. She developed compromise of the nipple areolar complexes bilaterally. She had issues with swelling after not wearing enough compression the first couple weeks post op. She also developed wound breakdown in the Tzone areas bilaterally. Wound culture from 02/04/23 positive for Klebsiella pneumoniae and Anaerobic cocci. She is started on Levaquin and Flagyl and has finished them. Wound care - Dakin's on both the right and left breast. Today she denies fever, chills, nausea or vomiting. Progress of Wound: Improved. Objective Data Objective Data Vital Signs: Vital Signs Temp Pulse Resp BP O2 Del Method 97 F L 82 18 138/58 H Room Air 05/10/23 13:33 05/10/23 13:33 05/10/23 13:33 05/10/23 13:33 05/03/23 13:46 Oxygen Delivery Method Room Air Weight: 280 lb Body Mass Index (BMI) 46.5 Charges/Coding Procedures Integumentary 111xxx-113xx: [id number] Kadie subq tissue 20 sq cm/< Debridement Note Debridement Note Wound debrided: #2 Left breast Laterality: Left Wound Grade/Stage: 2. Type of Debridement: Excisional debridement Anesthesia Used: 4% Lidocaine Solution and 5% Lidocaine Gel Depth: in the subcutaneous layer Percentage of wound debrided: 100 Instrument Used: 5mm curette Tissue Removed: Subcutaneous tissue and some devitalized tissue. Severity: Fat Layer Exposed Amount of bleeding with debridement: Mild Bleeding Controlled with: Compression and gauze Patient tolerated procedure: Patient tolerated procedure well Post-Debridement Measurements and Additional Note: Post-Debridement Measurements/Treatment - Nurse 1 - General Ulcer Assessment Start: 05/03/23 13:46 Freq: Status: Active Protocol: [employer] Activity Type Activity Date Activity User E-sign Co-sign Detail Recorded Client Recorded Date Recorded By Document 05/03/23 13:46 BMF Desktop 05/03/23 14:00 BMF Document 05/10/23 13:33 DL Desktop 05/10/23 13:42 DL 05/03/23 05/10/23 13:46 13:33 - Today's Visit Information Type of service Follow-up Visit Follow-up Visit (Physician/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 (Physician/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 ) ) Arrival Mode Ambulatory, Ambulatory Walker Transfer Assistance None None Accompanied by daughter Patient Identification Verified (Name & Yes Yes ) Patient Requires Transmission-Based No No Precautions Finger Stick Blood Sugar(mg/dl) (if 134 indicated): Blood Sugar Stated by Patient Height and Weight Body Mass Index (BMI) 46.5 46.5 BMI Classification Obese Obese Vital Signs Temperature (97.8 F-99.1 F) 97 F L 97 F L Temperature Source Temporal Temporal Pulse Rate (60-100) 78 82 Pulse Location Monitor Monitor Respiratory Rate (12-18) 16 18 Respiratory rate source Observation Observation Oxygen Delivery Method Room Air Blood Pressure (90/60-120/80) 158/58 H 138/58 H Blood Pressure Mean (mm Hg) 91 84 Source Monitor Monitor Position Sitting Blood Pressure Location Left Arm History Since Last Visit- (Skip if this is Patient's initial visit) Have you changed medications since your No No last visit? Any new allergies or adverse reactions No No Had a fall/change in ADL's that may No No increase risk of falls Signs or symptoms of abuse and/or No No neglect since last visit Have you been in the hospital since your No No last visit? Has dressing in place as prescribed Yes Yes Has compression in place as prescribed N/A N/A Has offloadiing in place as prescribed N/A N/A Experienced any changes in pain level or No No management Left Footwear Regular Shoe Right Footwear Regular Shoe Pain Scale: 0-10 Numeric Is Patient Pain Free? Yes Yes WC - Nurse 1 - General Ulcer Measurement Start: 05/03/23 13:46 Freq: Status: Active Protocol: Activity Type Activity Date Activity User E-sign Co-sign Detail Recorded Client Recorded Date Recorded By Document 05/03/23 13:46 BMF Desktop 05/03/23 14:00 BMF Document 05/10/23 13:33 DL Desktop 05/10/23 13:42 DL 05/03/23 05/10/23 13:46 13:33 Wound Center Nurse 1 2. LT BREAST -Combined with other wound No -Current Size (cm) - Length 4 3.2 -Current Size (cm) - Width 6 4.2 -Current Size (cm) - Depth 0.4 0.2 -Total Square Cm 24 13.44 -Photo Taken No -Epithelialization Small 1-33% -Tunneling No -Undermining/Tunneling Yes -Undermining/Tunneling Starts (O'clock 10 11 ) -Undermining/Tunneling Ends (O'clock) 12 1 -Maximum Distance (cm) 3.5 2.6 -Undermining/Tunneling Starts #2 (O' 2 clock) -Undermining/Tunneling Ends #2 (O' 2 clock) -Maximum Distance #2 (cm) 0.5 -Circular Undermining No -Exudate Amt Medium Medium -Exudate Type Serosanguineous Serosanguineous -Wound Margin Distinct, Thickened & Outline Rolled Under Attached -Granulation Amt Medium (34-66%) Medium (34-66%) -Granulation Quality Pale,Red Pale,Urich -Slough/Fibrin Yes -Necrosis Amt Medium (34-66%) Medium (34-66%) -Necrotic Tissue Type Adherent Slough Adherent Slough -Structure Exposed N/A -Texture (Susanna-wound Skin Appearance) Assessed, Scarring Scarring -Moisture (Susanna-wound Skin Appearance) Assessed No Abnormality -Color (Susanna-wound Skin Appearance) Assessed No Abnormality -Temperature (Susanna-wound Skin No Abnormality No Abnormality Appearance) (Pt Warm) (Pt Warm) -Tenderness on Palpation (Susanna-wound No No Skin Appearance) -Ulcer Cleansing Rinsed/ Soap and Water Irrigated with Saline -Foul Odor after Cleansing No Yes, Due to Product Use -Anesthetic Used 4% Lidocaine 5% Lidocaine Solution Gel 1. RT BREAST -Combined with other wound No -Current Size (cm) - Length 1.5 1.1 -Current Size (cm) - Width 1.5 1.5 -Current Size (cm) - Depth 1.5 1.1 -Total Square Cm 2.25 1.65 -Photo Taken No -Epithelialization Small 1-33% -Tunneling No -Undermining/Tunneling Yes -Undermining/Tunneling Starts (O'clock 10 11 ) -Undermining/Tunneling Ends (O'clock) 12 12 -Maximum Distance (cm) 1.4 1.1 -Circular Undermining No -Exudate Amt Medium Medium -Exudate Type Serosanguineous Serosanguineous -Wound Margin Distinct, Thickened & Outline Rolled Under Attached -Granulation Amt Large (67-100%) Large (67-100%) -Granulation Quality Red Urich,Red -Slough/Fibrin No -Necrosis Amt None Present (0 Small (1-33%) %) -Necrotic Tissue Type Adherent Slough -Structure Exposed N/A -Texture (Susanna-wound Skin Appearance) Assessed, Scarring Scarring -Moisture (Susanna-wound Skin Appearance) Assessed No Abnormality -Color (Susanna-wound Skin Appearance) Assessed No Abnormality -Temperature (Susanna-wound Skin No Abnormality Appearance) (Pt Warm) -Tenderness on Palpation (Susanna-wound No Skin Appearance) -Ulcer Cleansing Soap and Water Soap and Water -Foul Odor after Cleansing No Yes, Due to Product Use -Anesthetic Used 4% Lidocaine 5% Lidocaine Solution Gel WC - Nurse 2 - General Ulcer CM Notes Start: 05/03/23 13:46 Freq: Status: Active Protocol: Activity Type Activity Date Activity User E-sign Co-sign Detail Recorded Client Recorded Date Recorded By Document 05/03/23 14:13 Laptop 05/03/23 14:22 Document 05/10/23 14:00 Laptop 05/10/23 14:03 05/03/23 05/10/23 14:13 14:00 Wound Center Nurse 2 2. LT BREAST -Time 14:16 14:01 -Correct Patient Yes Yes -Correct Side, Site, Position Yes Yes -Correct Procedure Yes Yes -Procedure Performed Yes Yes -Type of Procedure Debridement Debridement -Clinical Debridement Subcutaneous Subcutaneous -Tissue Removed Subcutaneous Subcutaneous -Post Debridement (cm) - Length 3.2 3.2 -Post Debridement (cm) - Width 5.0 4.2 -Post Debridement (cm) - Depth 0.3 0.5 -Total Square (Post) (cm) 16.00 13.44 -Area of Debridement (cm) - Length 3.2 3.2 -Area of Debridement (cm) - Width 5.0 4.2 -Total Square (Area) (cm) 16.00 13.44 -Tunneling No No -Undermining/Tunneling Yes Yes -Undermining/Tunneling Starts (O'clock 11 11 ) -Undermining/Tunneling Ends (O'clock) 2 2 -Maximum Distance (cm) 3.2 3.2 -Circular Undermining No No -Wound/Ulcer Outcome Not Healed Not Healed -Ulcer Cleansing Rinsed/ Rinsed/ Irrigated with Irrigated with Saline Saline -Foul Odor after Cleansing No No -Bioengineered Tissue No No -Bleeding Controlled with Pressure Pressure -Treatment Response Procedure Procedure Tolerated Well Tolerated Well -Offloading No No -Debridement - Subq, 1st 20sq cm No No 1. RT BREAST -Time 14:16 14:01 -Correct Patient Yes Yes -Correct Side, Site, Position Yes Yes -Correct Procedure Yes Yes -Procedure Performed Yes Yes -Type of Procedure Debridement Debridement -Clinical Debridement Subcutaneous Subcutaneous -Tissue Removed Subcutaneous Subcutaneous -Post Debridement (cm) - Length 1.7 1.5 -Post Debridement (cm) - Width 1.9 2.0 -Post Debridement (cm) - Depth 1.3 0.7 -Total Square (Post) (cm) 3.23 3.00 -Area of Debridement (cm) - Length 1.7 1.5 -Area of Debridement (cm) - Width 1.9 2.0 -Total Square (Area) (cm) 3.23 3.00 -Tunneling No No -Undermining/Tunneling No Yes -Undermining/Tunneling Starts (O'clock 11 ) -Undermining/Tunneling Ends (O'clock) 1 -Maximum Distance (cm) 1.1 -Circular Undermining No No -Wound/Ulcer Outcome Not Healed Not Healed -Ulcer Cleansing Rinsed/ Rinsed/ Irrigated with Irrigated with Saline Saline -Foul Odor after Cleansing No No -Bioengineered Tissue No No -Bleeding Controlled with Pressure Pressure -Treatment Response Procedure Procedure Tolerated Well Tolerated Well -Offloading No No -Debridement - Subq, 1st 20sq cm Yes Yes Pain Scale: 0-10 Numeric Is Patient Pain Free? Yes Yes - Nurse 3 - General Ulcer D/C NN Start: 05/03/23 13:46 Freq: Status: Active Protocol: Activity Type Activity Date Activity User E-sign Co-sign Detail Recorded Client Recorded Date Recorded By Document 05/03/23 14:34 BMF Desktop 05/03/23 14:35 BMF Document 05/10/23 14:11 DL Desktop 05/10/23 14:12 DL 05/03/23 05/10/23 14:34 14:11 Wound Care Center Nurse 3 2. LT BREAST -Ulcer Cleansing Rinsed/ Rinsed/ Irrigated with Irrigated with Saline Saline -Foul Odor after Cleansing No No -Other Dressing dakins moist dakins gauze moistened gauze -Primary Dressing Covered/Secured with Dry Gauze, Secured with Tape -Other Covering abd; secured w/ compression bra 1. RT BREAST -Ulcer Cleansing Rinsed/ Rinsed/ Irrigated with Irrigated with Saline Saline -Foul Odor after Cleansing No No -Other Dressing dakins moist dakins gauze; abd moistened gauze -Primary Dressing Covered/Secured with Dry Gauze, Secured with Tape -Other Covering secured w/ compression bra Treatment Response Procedure Procedure Tolerated Well Tolerated Well Pain Scale: 0-10 Numeric Is Patient Pain Free? Yes Yes - Visit Discharge Discharge Condition Stable Stable Ambulatory Status Ambulatory, Ambulatory Walker Transportation Private Auto Private Auto Notes: Vac discontinued. Facility Type Home Health Orders Sent Yes Additional Wound Wound debrided: #1 Right breast. Laterality: Right Wound Grade/Stage: 2. Type of Debridement: Excisional debridement Anesthesia Used: 5% Lidocaine Gel Depth: in the subcutaneous layer Percentage of wound debrided: 100 Instrument Used: 5mm curette Tissue Removed: Subcutaneous tissue and devitalized tissue. Severity: Fat Layer Exposed Amount of bleeding with debridement: Mild Bleeding Controlled with: Pressure and Compression and gauze Patient tolerated procedure: Patient tolerated procedure well Assessment/Plan Assessment/Plan (1) Skin ulcer of female breast: CODE(S): L98.499 - Non-pressure chronic ulcer of skin of other sites with unspecified severity (2) Skin necrosis: CODE(S): I96 - Gangrene, not elsewhere classified (3) History of bilateral breast reduction surgery: CODE(S): Z98.890 - Other specified postprocedural states (4) DM type 2, goal HbA1c < 7%: CODE(S): E11.9 - Type 2 diabetes mellitus without complications (5) Smoker: CODE(S): F17.200 - Nicotine dependence, unspecified, uncomplicated PLAN: Plan Wound care - Will discontinue the wound VAC and continue Dakin's dressing changes daily to both the right and left breast wounds. The wounds continue to improve. The drainage is decreasing. The ulcer base is beefy pink and decreasing in size. Continue wearing compression bra or EVERARDO wrap. Continue to keep head elevated. Continue 20 lb weight lifting restriction. She has finished the Levaquin. She has finished the Flagyl. Encouraged patient to stop smoking as it may have deleterious effects on wound healing. She also uses Ibuprofen for additional help with her pain. Follow up one week. Encouraged patient to stop smoking as it may have deleterious effects on wound healing. From Dr. De aPz's previous note: The right breast continues to improve and is ready for a revision reconstructed breast by elevating the medial and lateral breast flaps and advancing the flaps toward the midclavicular line. Nipple reconstruction can be done with skin grafting. The left breast is much improved. The left breast is almost ready for a skin graft. More skin was debrided on the left. Continue the Dakin's dressing changes until the superior skin edge has shown more healing and adherence. At that time, the left breast will be ready for skin grafting. The wound is almost covered with granulation tissue. There was some moderate drainage from the superior skin edge. It is milky and consistent with liquefying fat necrosis. It can simulate purulent drainage at which time the patient would appear sicker. Will try and absorb the drainage by placing 4x4 gauze with Dakin's in the superior skin edge. Will observe closely. Revising the reconstructed breast on the left will be more problematic as more skin was debrided as compared to the right. If we have the opportunity to have the left breast wound skin grafted, that would be ideal. Then over the next 9- 12 months, the swollen breast skin and parenchyma has a chance to soften up and become less swollen. At which time further revision reconstructed breasts can be done if needed. We are planning on revision surgery before the end of the year. This way more swelling can subside which would make advancing the skin toward the mid breast a little easier and the sutures would hold better when the skin edges are less swollen and less inflamed.
[2023-05-17 11:28] VITALS: BP 185/91; PULSE 81; RESP 18; TEMP 35.2; BMI 46.5
--- NOTE | 2023-05-17 11:57 | PCM.WC.PN ---
History of Present Illness Date of Service: 05/17/23 Chief Complaint: Bilateral breast wounds History of Wound: 63 year old female present for further evaluation after her surgery on 01/13/23 where she underwent bilateral breast reduction mammoplasty. Tissue removed from the left breast was 1590 grams. Tissue removed from the right breast was 750 grams. She was discharged from the hospital on 01/18/23. She developed KALEE after her surgery, her Creatinine increased from 1.88 preop to 2.73 postop. At discharge it decreased down to 2.04. Her Creatinine on02/04/21 decreased to 1.76. The acuity has resolved. She will also followup with her PCP as well for further evaluation and treatment of her renal issues. Prealbumin from 01/14/23 was 16.3. Encourage nutritional supplementation with protein to help the healing process. While in the hospital, her Hgb went from 10.5 preop to 7.8 postop. PRBC was given and it improved to 8.9. At discharge it was 8.2. She has anemia due to expected blood loss. The operative blood loss was 250 ml. She is on Iron supplementation. Her Hgb on 02/04/23 improved 8.6. the acuity has resolved. She is a current smoker. She developed compromise of the nipple areolar complexes bilaterally. She had issues with swelling after not wearing enough compression the first couple weeks post op. She also developed wound breakdown in the Tzone areas bilaterally. Wound culture from 02/04/23 positive for Klebsiella pneumoniae and Anaerobic cocci. She is started on Levaquin and Flagyl and has finished them. Wound care - Dakin's on both the right and left breast. Today she denies fever, chills, nausea or vomiting. Progress of Wound: Both breast ulcers are improving. The right breast has a tunnel at 9 o'clock and the left breast has a tunnel at 12:00. Objective Data Objective Data Vital Signs: Vital Signs Temp Pulse Resp BP O2 Del Method 95.3 F L 81 18 185/91 H Room Air 05/17/23 11:28 05/17/23 11:28 05/17/23 11:28 05/17/23 11:28 05/17/23 11:28 Oxygen Delivery Method Room Air Weight: 280 lb Body Mass Index (BMI) 46.5 Charges/Coding Procedures Integumentary 111xxx-113xx: [id number] Kadie subq tissue 20 sq cm/< Debridement Note Debridement Note Wound debrided: #2 Left breast Laterality: Left Wound Grade/Stage: 2. Type of Debridement: Excisional debridement Anesthesia Used: 4% Lidocaine Solution and 5% Lidocaine Gel Depth: in the subcutaneous layer Percentage of wound debrided: 100 Instrument Used: 5mm curette Tissue Removed: Subcutaneous tissue and some devitalized tissue. Severity: Fat Layer Exposed Amount of bleeding with debridement: Mild Bleeding Controlled with: Compression and gauze Patient tolerated procedure: Patient tolerated procedure well Post-Debridement Measurements and Additional Note: Post-Debridement Measurements/Treatment - Nurse 1 - General Ulcer Assessment Start: 05/03/23 13:46 Freq: Status: Active Protocol: PRADIP Activity Type Activity Date Activity User E-sign Co-sign Detail Recorded Client Recorded Date Recorded By Document 05/03/23 13:46 [facility] Desktop 05/03/23 14:00 [facility] Document 05/10/23 13:33 DL Desktop 05/10/23 13:42 DL Document 05/17/23 11:28 [facility] Desktop 05/17/23 11:34 BMF 05/03/23 05/10/23 05/17/23 13:46 13:33 11:28 - Today's Visit Information Type of service Follow-up Visit Follow-up Visit Follow-up Visit (Physician/ASSISTANT HVAC MECHANIC (Physician/ASSISTANT HVAC MECHANIC (Physician/ASSISTANT HVAC MECHANIC ) ) ) Arrival Mode Ambulatory, Ambulatory Ambulatory Walker Transfer Assistance None None None Accompanied by daughter daughter Patient Identification Verified (Name & Yes Yes Yes ) Patient Requires Transmission-Based No No No Precautions Finger Stick Blood Sugar(mg/dl) (if 134 indicated): Blood Sugar Stated by Patient Height and Weight Body Mass Index (BMI) 46.5 46.5 46.5 BMI Classification Obese Obese Obese Vital Signs Temperature (97.8 F-99.1 F) 97 F L 97 F L 95.3 F L Temperature Source Temporal Temporal Temporal Pulse Rate (60-100) 78 82 81 Pulse Location Monitor Monitor Monitor Respiratory Rate (12-18) 16 18 18 Respiratory rate source Observation Observation Observation Oxygen Delivery Method Room Air Room Air Blood Pressure (90/60-120/80) 158/58 H 138/58 H 185/91 H Blood Pressure Mean (mm Hg) 91 84 122 Source Monitor Monitor Monitor Position Sitting Sitting Blood Pressure Location Left Arm Left Arm History Since Last Visit- (Skip if this is Patient's initial visit) Have you changed medications since your No No No last visit? Any new allergies or adverse reactions No No No Had a fall/change in ADL's that may No No No increase risk of falls Signs or symptoms of abuse and/or No No No neglect since last visit Have you been in the hospital since your No No No last visit? Has dressing in place as prescribed Yes Yes Yes Has compression in place as prescribed N/A N/A N/A Has offloadiing in place as prescribed N/A N/A N/A Experienced any changes in pain level or No No No management Left Footwear Regular Shoe Regular Shoe Right Footwear Regular Shoe Regular Shoe Pain Scale: 0-10 Numeric Is Patient Pain Free? Yes Yes Yes WC - Nurse 1 - General Ulcer Measurement Start: 05/03/23 13:46 Freq: Status: Active Protocol: Activity Type Activity Date Activity User E-sign Co-sign Detail Recorded Client Recorded Date Recorded By Document 05/03/23 13:46 [employer] Desktop 05/03/23 14:00 [facility] Document 05/10/23 13:33 DL Desktop 05/10/23 13:42 DL Document 05/17/23 11:28 [facility] Desktop 05/17/23 11:34 [facility] 05/03/23 05/10/23 05/17/23 13:46 13:33 11:28 Wound Center Nurse 1 2. LT BREAST -Combined with other wound No -Current Size (cm) - Length 4 3.2 2.9 -Current Size (cm) - Width 6 4.2 3.5 -Current Size (cm) - Depth 0.4 0.2 0.2 -Total Square Cm 24 13.44 10.15 -Photo Taken No -Epithelialization Small 1-33% Small 1-33% -Tunneling No No -Undermining/Tunneling Yes Yes -Undermining/Tunneling Starts (O'clock 10 11 12 ) -Undermining/Tunneling Ends (O'clock) 12 1 2 -Maximum Distance (cm) 3.5 2.6 2.8 -Undermining/Tunneling Starts #2 (O' 2 clock) -Undermining/Tunneling Ends #2 (O' 2 clock) -Maximum Distance #2 (cm) 0.5 -Circular Undermining No No -Exudate Amt Medium Medium Medium -Exudate Type Serosanguineous Serosanguineous Serosanguineous -Wound Margin Distinct, Thickened & Distinct, Outline Rolled Under Outline Attached Attached -Granulation Amt Medium (34-66%) Medium (34-66%) Medium (34-66%) -Granulation Quality Pale,Red Pale,[place] Red -Slough/Fibrin Yes Yes -Necrosis Amt Medium (34-66%) Medium (34-66%) Medium (34-66%) -Necrotic Tissue Type Adherent Slough Adherent Slough Adherent Slough -Structure Exposed N/A -Texture (Susanna-wound Skin Appearance) Assessed, Scarring Assessed Scarring -Moisture (Susanna-wound Skin Appearance) Assessed No Abnormality Assessed -Color (Susanna-wound Skin Appearance) Assessed No Abnormality Assessed -Temperature (Susanna-wound Skin No Abnormality No Abnormality No Abnormality Appearance) (Pt Warm) (Pt Warm) (Pt Warm) -Tenderness on Palpation (Susanna-wound No No No Skin Appearance) -Ulcer Cleansing Rinsed/ Soap and Water Rinsed/ Irrigated with Irrigated with Saline Saline -Foul Odor after Cleansing No Yes, Due to No Product Use -Anesthetic Used 4% Lidocaine 5% Lidocaine 4% Lidocaine Solution Gel Solution 1. RT BREAST -Combined with other wound No No -Current Size (cm) - Length 1.5 1.1 1.5 -Current Size (cm) - Width 1.5 1.5 1.4 -Current Size (cm) - Depth 1.5 1.1 0.1 -Total Square Cm 2.25 1.65 2.10 -Photo Taken No No -Epithelialization Small 1-33% Small 1-33% -Tunneling No No -Undermining/Tunneling Yes Yes -Undermining/Tunneling Starts (O'clock 10 11 10 ) -Undermining/Tunneling Ends (O'clock) 12 12 12 -Maximum Distance (cm) 1.4 1.1 1.3 -Circular Undermining No No -Exudate Amt Medium Medium Medium -Exudate Type Serosanguineous Serosanguineous Serosanguineous -Wound Margin Distinct, Thickened & Distinct, Outline Rolled Under Outline Attached Attached -Granulation Amt Large (67-100%) Large (67-100%) Large (67-100%) -Granulation Quality Red [place],Red Red -Slough/Fibrin No Yes -Necrosis Amt None Present (0 Small (1-33%) Small (1-33%) %) -Necrotic Tissue Type Adherent Slough Adherent Slough -Structure Exposed N/A -Texture (Susanna-wound Skin Appearance) Assessed, Scarring Assessed, Scarring Scarring -Moisture (Susanna-wound Skin Appearance) Assessed No Abnormality Assessed -Color (Susanna-wound Skin Appearance) Assessed No Abnormality Assessed -Temperature (Susanna-wound Skin No Abnormality No Abnormality Appearance) (Pt Warm) (Pt Warm) -Tenderness on Palpation (Susanna-wound No Yes Skin Appearance) -Ulcer Cleansing Soap and Water Soap and Water Rinsed/ Irrigated with Saline -Foul Odor after Cleansing No Yes, Due to No Product Use -Anesthetic Used 4% Lidocaine 5% Lidocaine 4% Lidocaine Solution Gel Solution WC - Nurse 2 - General Ulcer CM Notes Start: 05/03/23 13:46 Freq: Status: Active Protocol: Activity Type Activity Date Activity User E-sign Co-sign Detail Recorded Client Recorded Date Recorded By Document 05/03/23 14:13 [employer] Laptop 05/03/23 14:22 [employer] Document 05/10/23 14:00 [employer]aptop 05/10/23 14:03 Document 05/17/23 11:44 [employer]aptop 05/17/23 11:50 05/03/23 05/10/23 05/17/23 14:13 14:00 11:44 Wound Center Nurse 2 2. LT BREAST -Time 14:16 14:01 11:45 -Correct Patient Yes Yes Yes -Correct Side, Site, Position Yes Yes Yes -Correct Procedure Yes Yes Yes -Procedure Performed Yes Yes Yes -Type of Procedure Debridement Debridement Debridement -Clinical Debridement Subcutaneous Subcutaneous Subcutaneous -Tissue Removed Subcutaneous Subcutaneous Subcutaneous -Post Debridement (cm) - Length 3.2 3.2 3.0 -Post Debridement (cm) - Width 5.0 4.2 3.5 -Post Debridement (cm) - Depth 0.3 0.5 0.3 -Total Square (Post) (cm) 16.00 13.44 10.50 -Area of Debridement (cm) - Length 3.2 3.2 3.0 -Area of Debridement (cm) - Width 5.0 4.2 3.5 -Total Square (Area) (cm) 16.00 13.44 10.50 -Tunneling No No Yes -Tunneling Position (O'clock) 12 -Tunneling Distance (cm) 2.1 -Undermining/Tunneling Yes Yes No -Undermining/Tunneling Starts (O'clock 11 11 ) -Undermining/Tunneling Ends (O'clock) 2 2 -Maximum Distance (cm) 3.2 3.2 -Circular Undermining No No No -Wound/Ulcer Outcome Not Healed Not Healed Not Healed -Ulcer Cleansing Rinsed/ Rinsed/ Rinsed/ Irrigated with Irrigated with Irrigated with Saline Saline Saline -Foul Odor after Cleansing No No No -Bioengineered Tissue No No No -Bleeding Controlled with Pressure Pressure Pressure -Treatment Response Procedure Procedure Procedure Tolerated Well Tolerated Well Tolerated Well -Offloading No No No -Debridement - Subq, 1st 20sq cm No No No 1. RT BREAST -Time 14:16 14:01 11:46 -Correct Patient Yes Yes Yes -Correct Side, Site, Position Yes Yes Yes -Correct Procedure Yes Yes Yes -Procedure Performed Yes Yes Yes -Type of Procedure Debridement Debridement Debridement -Clinical Debridement Subcutaneous Subcutaneous Subcutaneous -Tissue Removed Subcutaneous Subcutaneous Subcutaneous -Post Debridement (cm) - Length 1.7 1.5 1.5 -Post Debridement (cm) - Width 1.9 2.0 1.8 -Post Debridement (cm) - Depth 1.3 0.7 0.2 -Total Square (Post) (cm) 3.23 3.00 2.70 -Area of Debridement (cm) - Length 1.7 1.5 1.5 -Area of Debridement (cm) - Width 1.9 2.0 1.8 -Total Square (Area) (cm) 3.23 3.00 2.70 -Tunneling No No Yes -Tunneling Position (O'clock) 9 -Tunneling Distance (cm) 3.3 -Undermining/Tunneling No Yes No -Undermining/Tunneling Starts (O'clock 11 ) -Undermining/Tunneling Ends (O'clock) 1 -Maximum Distance (cm) 1.1 -Circular Undermining No No No -Wound/Ulcer Outcome Not Healed Not Healed Not Healed -Ulcer Cleansing Rinsed/ Rinsed/ Rinsed/ Irrigated with Irrigated with Irrigated with Saline Saline Saline -Foul Odor after Cleansing No No Yes, Due to Product Use -Bioengineered Tissue No No No -Bleeding Controlled with Pressure Pressure Pressure -Treatment Response Procedure Procedure Procedure Tolerated Well Tolerated Well Tolerated Well -Offloading No No No -Debridement - Subq, 1st 20sq cm Yes Yes Yes Pain Scale: 0-10 Numeric Is Patient Pain Free? Yes Yes Yes - Nurse 3 - General Ulcer D/C NN Start: 05/03/23 13:46 Freq: Status: Active Protocol: Activity Type Activity Date Activity User E-sign Co-sign Detail Recorded Client Recorded Date Recorded By Document 05/03/23 14:34 [facility] Desktop 05/03/23 14:35 BM[facility] Document 05/10/23 14:11 DL Desktop 05/10/23 14:12 DL Document 05/17/23 11:51 [facility] Laptop 05/17/23 11:53 05/03/23 05/10/23 05/17/23 14:34 14:11 11:51 Wound Care Center Nurse 3 2. LT BREAST -Ulcer Cleansing Rinsed/ Rinsed/ Irrigated with Irrigated with Saline Saline -Foul Odor after Cleansing No No -Other Dressing dakins moist dakins 0.25% dakin's gauze moistened gauze -Primary Dressing Covered/Secured with Dry Gauze, Dry Gauze & Secured with Roll Gauze Tape -Other Covering abd; secured w/ compression bra 1. RT BREAST -Ulcer Cleansing Rinsed/ Rinsed/ Rinsed/ Irrigated with Irrigated with Irrigated with Saline Saline Saline -Foul Odor after Cleansing No No No -Other Dressing dakins moist dakins 0.25% dakin's gauze; abd moistened gauze -Primary Dressing Covered/Secured with Dry Gauze, Dry Gauze & Secured with Roll Gauze Tape -Other Covering secured w/ compression bra Treatment Response Procedure Procedure Tolerated Well Tolerated Well Pain Scale: 0-10 Numeric Is Patient Pain Free? Yes Yes Yes WC - Visit Discharge Discharge Condition Stable Stable Stable Ambulatory Status Ambulatory, Ambulatory Ambulatory,Cane Walker Transportation Private Auto Private Auto Private Auto Medication Reconcilliation completed & Yes provided to patient/care provider Clinical Summary of Care Provided Yes Notes: Vac discontinued. Facility Type Home Health Orders Sent Yes Additional Wound Wound debrided: #1 Right breast. Laterality: Right Wound Grade/Stage: 2. Type of Debridement: Excisional debridement Anesthesia Used: 5% Lidocaine Gel Depth: in the subcutaneous layer Percentage of wound debrided: 100 Instrument Used: 7mm curette Tissue Removed: Subcutaneous tissue and devitalized tissue. Severity: Fat Layer Exposed Amount of bleeding with debridement: Mild Bleeding Controlled with: Pressure and Compression and gauze Patient tolerated procedure: Patient tolerated procedure well Assessment/Plan Assessment/Plan (1) Skin ulcer of female breast: CODE(S): L98.499 - Non-pressure chronic ulcer of skin of other sites with unspecified severity (2) Skin necrosis: CODE(S): I96 - Gangrene, not elsewhere classified (3) History of bilateral breast reduction surgery: CODE(S): Z98.890 - Other specified postprocedural states (4) DM type 2, goal HbA1c < 7%: CODE(S): E11.9 - Type 2 diabetes mellitus without complications (5) Smoker: CODE(S): F17.200 - Nicotine dependence, unspecified, uncomplicated PLAN: Plan Wound care - Dakin's dressing changes daily to both the right and left breast wounds. The wounds continue to improve. The drainage is decreasing. The ulcer base is beefy pink and decreasing in size. Continue wearing compression bra or EVERARDO wrap. Continue to keep head elevated. Continue 20 lb weight lifting restriction. She has finished the Levaquin. She has finished the Flagyl. Encouraged patient to stop smoking as it may have deleterious effects on wound healing. She states she has had an increase is sensation to the ulcer and is having increased pain. Percocet (14 tabs) renewed. PDMP renewed. Follow up one week. Encouraged patient to stop smoking as it may have deleterious effects on wound healing. From Dr. De Paz's previous note: The right breast continues to improve and is ready for a revision reconstructed breast by elevating the medial and lateral breast flaps and advancing the flaps toward the midclavicular line. Nipple reconstruction can be done with skin grafting. The left breast is much improved. The left breast is almost ready for a skin graft. More skin was debrided on the left. Continue the Dakin's dressing changes until the superior skin edge has shown more healing and adherence. At that time, the left breast will be ready for skin grafting. The wound is almost covered with granulation tissue. There was some moderate drainage from the superior skin edge. It is milky and consistent with liquefying fat necrosis. It can simulate purulent drainage at which time the patient would appear sicker. Will try and absorb the drainage by placing 4x4 gauze with Dakin's in the superior skin edge. Will observe closely. Revising the reconstructed breast on the left will be more problematic as more skin was debrided as compared to the right. If we have the opportunity to have the left breast wound skin grafted, that would be ideal. Then over the next 9-12 months, the swollen breast skin and parenchyma has a chance to soften up and become less swollen. At which time further revision reconstructed breasts can be done if needed. We are planning on revision surgery before the end of the year. This way more swelling can subside which would make advancing the skin toward the mid breast a little easier and the sutures would hold better when the skin edges are less swollen and less inflamed.
[2023-05-24 11:26] VITALS: BP 146/48; PULSE 61; RESP 16; TEMP 35.2; BMI 46.5
--- NOTE | 2023-05-24 12:39 | PCM.WC.PN ---
History of Present Illness Date of Service: 05/24/23 Chief Complaint: Bilateral breast wounds History of Wound: 63 year old female present for further evaluation after her surgery on 01/13/23 where she underwent bilateral breast reduction mammoplasty. Tissue removed from the left breast was 1590 grams. Tissue removed from the right breast was 750 grams. She was discharged from the hospital on 01/18/23. She developed KALEE after her surgery, her Creatinine increased from 1.88 preop to 2.73 postop. At discharge it decreased down to 2.04. Her Creatinine on02/04/21 decreased to 1.76. The acuity has resolved. She will also followup with her PCP as well for further evaluation and treatment of her renal issues. Prealbumin from 01/14/23 was 16.3. Encourage nutritional supplementation with protein to help the healing process. While in the hospital, her Hgb went from 10.5 preop to 7.8 postop. PRBC was given and it improved to 8.9. At discharge it was 8.2. She has anemia due to expected blood loss. The operative blood loss was 250 ml. She is on Iron supplementation. Her Hgb on 02/04/23 improved 8.6. the acuity has resolved. She is a current smoker. She developed compromise of the nipple areolar complexes bilaterally. She had issues with swelling after not wearing enough compression the first couple weeks post op. She also developed wound breakdown in the Tzone areas bilaterally. Wound culture from 02/04/23 positive for Klebsiella pneumoniae and Anaerobic cocci. She is started on Levaquin and Flagyl and has finished them. Wound care - Dakin's on both the right and left breast. Today she denies fever, chills, nausea or vomiting. Progress of Wound: Both breast ulcers are improving. The right breast has a tunnel at 9 o'clock and the left breast has a tunnel at 12:00. Objective Data Objective Data Vital Signs: Vital Signs Temp Pulse Resp BP O2 Del Method 95.4 F L 61 16 146/48 H Room Air 05/24/23 11:26 05/24/23 11:26 05/24/23 11:26 05/24/23 11:26 05/24/23 11:26 Oxygen Delivery Method Room Air Weight: 280 lb Body Mass Index (BMI) 46.5 Charges/Coding Procedures Integumentary [id number]: [id number] Kadie subq tissue 20 sq cm/< Debridement Note Debridement Note Wound debrided: #2 Left breast Laterality: Left Wound Grade/Stage: 2. Type of Debridement: Excisional debridement Anesthesia Used: 4% Lidocaine Solution and 5% Lidocaine Gel Depth: in the subcutaneous layer Percentage of wound debrided: 100 Instrument Used: 3mm curette Tissue Removed: Subcutaneous tissue and some devitalized tissue. Severity: Fat Layer Exposed Amount of bleeding with debridement: Mild Bleeding Controlled with: Compression and gauze Patient tolerated procedure: Patient tolerated procedure well Post-Debridement Measurements and Additional Note: Post-Debridement Measurements/Treatment - Nurse 1 - General Ulcer Assessment Start: 05/03/23 13:46 Freq: Status: Active Protocol: PRADIP Activity Type Activity Date Activity User E-sign Co-sign Detail Recorded Client Recorded Date Recorded By Document 05/03/23 13:46 BM Desktop 05/03/23 14:00 BMF Document 05/10/23 13:33 DL Desktop 05/10/23 13:42 DL Document 05/17/23 11:28 [facility] Desktop 05/17/23 11:34 BMF Document 05/24/23 11:26 BMF Desktop 05/24/23 11:36 BMF 05/03/23 05/10/23 05/17/23 13:46 13:33 11:28 - Today's Visit Information Type of service Follow-up Visit Follow-up Visit Follow-up Visit (Physician/SYSTEM AUDITOR (Physician/SYSTEM AUDITOR (Physician/SYSTEM AUDITOR ) ) ) Arrival Mode Ambulatory, Ambulatory Ambulatory Walker Transfer Assistance None None None Accompanied by daughter daughter Patient Identification Verified (Name & Yes Yes Yes ) Patient Requires Transmission-Based No No No Precautions Finger Stick Blood Sugar(mg/dl) (if 134 indicated): Blood Sugar Stated by Patient Height and Weight Body Mass Index (BMI) 46.5 46.5 46.5 BMI Classification Obese Obese Obese Vital Signs Temperature (97.8 F-99.1 F) 97 F L 97 F L 95.3 F L Temperature Source Temporal Temporal Temporal Pulse Rate (60-100) 78 82 81 Pulse Location Monitor Monitor Monitor Respiratory Rate (12-18) 16 18 18 Respiratory rate source Observation Observation Observation Oxygen Delivery Method Room Air Room Air Blood Pressure (90/60-120/80) 158/58 H 138/58 H 185/91 H Blood Pressure Mean (mm Hg) 91 84 122 Source Monitor Monitor Monitor Position Sitting Sitting Blood Pressure Location Left Arm Left Arm History Since Last Visit- (Skip if this is Patient's initial visit) Have you changed medications since your No No No last visit? Any new allergies or adverse reactions No No No Had a fall/change in ADL's that may No No No increase risk of falls Signs or symptoms of abuse and/or No No No neglect since last visit Have you been in the hospital since your No No No last visit? Has dressing in place as prescribed Yes Yes Yes Has compression in place as prescribed N/A N/A N/A Has offloadiing in place as prescribed N/A N/A N/A Experienced any changes in pain level or No No No management Left Footwear Regular Shoe Regular Shoe Right Footwear Regular Shoe Regular Shoe Pain Scale: 0-10 Numeric Is Patient Pain Free? Yes Yes Yes 05/24/23 11:26 WC - Today's Visit Information Type of service Follow-up Visit (Physician/SYSTEM AUDITOR ) Arrival Mode Ambulatory,Cane Transfer Assistance None Accompanied by Patient Identification Verified (Name & Yes ) Patient Requires Transmission-Based No Precautions Finger Stick Blood Sugar(mg/dl) (if indicated): Blood Sugar Height and Weight Body Mass Index (BMI) 46.5 BMI Classification Obese Vital Signs Temperature (97.8 F-99.1 F) 95.4 F L Temperature Source Temporal Pulse Rate (60-100) 61 Pulse Location Monitor Respiratory Rate (12-18) 16 Respiratory rate source Observation Oxygen Delivery Method Room Air Blood Pressure (90/60-120/80) 146/48 H Blood Pressure Mean (mm Hg) 80 Source Monitor Position Sitting Blood Pressure Location Left Arm History Since Last Visit- (Skip if this is Patient's initial visit) Have you changed medications since your No last visit? Any new allergies or adverse reactions No Had a fall/change in ADL's that may No increase risk of falls Signs or symptoms of abuse and/or No neglect since last visit Have you been in the hospital since your No last visit? Has dressing in place as prescribed Yes Has compression in place as prescribed N/A Has offloadiing in place as prescribed N/A Experienced any changes in pain level or No management Left Footwear Regular Shoe Right Footwear Regular Shoe Pain Scale: 0-10 Numeric Is Patient Pain Free? Yes WC - Nurse 1 - General Ulcer Measurement Start: 05/03/23 13:46 Freq: Status: Active Protocol: Activity Type Activity Date Activity User E-sign Co-sign Detail Recorded Client Recorded Date Recorded By Document 05/03/23 13:46 BMF Desktop 05/03/23 14:00 BMF Document 05/10/23 13:33 DL Desktop 05/10/23 13:42 DL Document 05/17/23 11:28 BMF Desktop 05/17/23 11:34 BMF Document 05/24/23 11:26 BMF Desktop 05/24/23 11:36 BMF 05/03/23 05/10/23 05/17/23 13:46 13:33 11:28 Wound Center Nurse 1 2. LT BREAST -Combined with other wound No -Current Size (cm) - Length 4 3.2 2.9 -Current Size (cm) - Width 6 4.2 3.5 -Current Size (cm) - Depth 0.4 0.2 0.2 -Total Square Cm 24 13.44 10.15 -Date of Last Picture (Recall this field) -Photo Taken No -Epithelialization Small 1-33% Small 1-33% -Tunneling No No -Undermining/Tunneling Yes Yes -Undermining/Tunneling Starts (O'clock 10 11 12 ) -Undermining/Tunneling Ends (O'clock) 12 1 2 -Maximum Distance (cm) 3.5 2.6 2.8 -Undermining/Tunneling Starts #2 (O' 2 clock) -Undermining/Tunneling Ends #2 (O' 2 clock) -Maximum Distance #2 (cm) 0.5 -Circular Undermining No No -Exudate Amt Medium Medium Medium -Exudate Type Serosanguineous Serosanguineous Serosanguineous -Wound Margin Distinct, Thickened & Distinct, Outline Rolled Under Outline Attached Attached -Granulation Amt Medium (34-66%) Medium (34-66%) Medium (34-66%) -Granulation Quality Pale,Red Pale,Ashton Red -Slough/Fibrin Yes Yes -Necrosis Amt Medium (34-66%) Medium (34-66%) Medium (34-66%) -Necrotic Tissue Type Adherent Slough Adherent Slough Adherent Slough -Structure Exposed N/A -Texture (Susanna-wound Skin Appearance) Assessed, Scarring Assessed Scarring -Moisture (Susanna-wound Skin Appearance) Assessed No Abnormality Assessed -Color (Susanna-wound Skin Appearance) Assessed No Abnormality Assessed -Temperature (Susanna-wound Skin No Abnormality No Abnormality No Abnormality Appearance) (Pt Warm) (Pt Warm) (Pt Warm) -Tenderness on Palpation (Susanna-wound No No No Skin Appearance) -Ulcer Cleansing Rinsed/ Soap and Water Rinsed/ Irrigated with Irrigated with Saline Saline -Foul Odor after Cleansing No Yes, Due to No Product Use -Anesthetic Used 4% Lidocaine 5% Lidocaine 4% Lidocaine Solution Gel Solution 1. RT BREAST -Combined with other wound No No -Current Size (cm) - Length 1.5 1.1 1.5 -Current Size (cm) - Width 1.5 1.5 1.4 -Current Size (cm) - Depth 1.5 1.1 0.1 -Total Square Cm 2.25 1.65 2.10 -Date of Last Picture (Recall this field) -Photo Taken No No -Epithelialization Small 1-33% Small 1-33% -Tunneling No No -Undermining/Tunneling Yes Yes -Undermining/Tunneling Starts (O'clock 10 11 10 ) -Undermining/Tunneling Ends (O'clock) 12 12 12 -Maximum Distance (cm) 1.4 1.1 1.3 -Circular Undermining No No -Exudate Amt Medium Medium Medium -Exudate Type Serosanguineous Serosanguineous Serosanguineous -Wound Margin Distinct, Thickened & Distinct, Outline Rolled Under Outline Attached Attached -Granulation Amt Large (67-100%) Large (67-100%) Large (67-100%) -Granulation Quality Red [place]hton,Red Red -Slough/Fibrin No Yes -Necrosis Amt None Present (0 Small (1-33%) Small (1-33%) %) -Necrotic Tissue Type Adherent Slough Adherent Slough -Structure Exposed N/A -Texture (Susanna-wound Skin Appearance) Assessed, Scarring Assessed, Scarring Scarring -Moisture (Susanna-wound Skin Appearance) Assessed No Abnormality Assessed -Color (Susanna-wound Skin Appearance) Assessed No Abnormality Assessed -Temperature (Susanna-wound Skin No Abnormality No Abnormality Appearance) (Pt Warm) (Pt Warm) -Tenderness on Palpation (Susanna-wound No Yes Skin Appearance) -Ulcer Cleansing Soap and Water Soap and Water Rinsed/ Irrigated with Saline -Foul Odor after Cleansing No Yes, Due to No Product Use -Anesthetic Used 4% Lidocaine 5% Lidocaine 4% Lidocaine Solution Gel Solution 05/24/23 11:26 Wound Center Nurse 1 2. LT BREAST -Combined with other wound No -Current Size (cm) - Length 2.9 -Current Size (cm) - Width 3.4 -Current Size (cm) - Depth 0.1 -Total Square Cm 9.86 -Date of Last Picture (Recall this 05/24/23 field) -Photo Taken Yes -Epithelialization Small 1-33% -Tunneling No -Undermining/Tunneling Yes -Undermining/Tunneling Starts (O'clock 11 ) -Undermining/Tunneling Ends (O'clock) 1 -Maximum Distance (cm) 2.2 -Undermining/Tunneling Starts #2 (O' clock) -Undermining/Tunneling Ends #2 (O' clock) -Maximum Distance #2 (cm) -Circular Undermining No -Exudate Amt Medium -Exudate Type Serosanguineous -Wound Margin Distinct, Outline Attached -Granulation Amt Small (1-33%) -Granulation Quality Red -Slough/Fibrin Yes -Necrosis Amt Large (67-100%) -Necrotic Tissue Type Adherent Slough -Structure Exposed -Texture (Susanna-wound Skin Appearance) Assessed, Scarring -Moisture (Susanna-wound Skin Appearance) Assessed -Color (Susanna-wound Skin Appearance) Assessed -Temperature (Susanna-wound Skin No Abnormality Appearance) (Pt Warm) -Tenderness on Palpation (Susanna-wound No Skin Appearance) -Ulcer Cleansing Rinsed/ Irrigated with Saline -Foul Odor after Cleansing No -Anesthetic Used 4% Lidocaine Solution 1. RT BREAST -Combined with other wound No -Current Size (cm) - Length 0.7 -Current Size (cm) - Width 1 -Current Size (cm) - Depth 0.1 -Total Square Cm 0.7 -Date of Last Picture (Recall this 05/24/23 field) -Photo Taken Yes -Epithelialization Small 1-33% -Tunneling No -Undermining/Tunneling Yes -Undermining/Tunneling Starts (O'clock 11 ) -Undermining/Tunneling Ends (O'clock) 2 -Maximum Distance (cm) 0.7 -Circular Undermining No -Exudate Amt Medium -Exudate Type Serosanguineous -Wound Margin Distinct, Outline Attached -Granulation Amt Large (67-100%) -Granulation Quality Red -Slough/Fibrin Yes -Necrosis Amt Small (1-33%) -Necrotic Tissue Type Adherent Slough -Structure Exposed -Texture (Susanna-wound Skin Appearance) Scarring -Moisture (Susanna-wound Skin Appearance) Assessed -Color (Susanna-wound Skin Appearance) Assessed -Temperature (Susanna-wound Skin No Abnormality Appearance) (Pt Warm) -Tenderness on Palpation (Susanna-wound No Skin Appearance) -Ulcer Cleansing Rinsed/ Irrigated with Saline -Foul Odor after Cleansing No -Anesthetic Used 4% Lidocaine Solution WC - Nurse 2 - General Ulcer CM Notes Start: 05/03/23 13:46 Freq: Status: Active Protocol: Activity Type Activity Date Activity User E-sign Co-sign Detail Recorded Client Recorded Date Recorded By Document 05/03/23 14:13 [employer] Laptop 05/03/23 14:22 Document 05/10/23 14:00 [employer] Laptop 05/10/23 14:03 Document 05/17/23 11:44 Laptop 05/17/23 11:50 Document 05/24/23 11:45 Desktop 05/24/23 11:48 05/03/23 05/10/23 05/17/23 14:13 14:00 11:44 Wound Center Nurse 2 2. LT BREAST -Time 14:16 14:01 11:45 -Correct Patient Yes Yes Yes -Correct Side, Site, Position Yes Yes Yes -Correct Procedure Yes Yes Yes -Procedure Performed Yes Yes Yes -Type of Procedure Debridement Debridement Debridement -Clinical Debridement Subcutaneous Subcutaneous Subcutaneous -Tissue Removed Subcutaneous Subcutaneous Subcutaneous -Post Debridement (cm) - Length 3.2 3.2 3.0 -Post Debridement (cm) - Width 5.0 4.2 3.5 -Post Debridement (cm) - Depth 0.3 0.5 0.3 -Total Square (Post) (cm) 16.00 13.44 10.50 -Area of Debridement (cm) - Length 3.2 3.2 3.0 -Area of Debridement (cm) - Width 5.0 4.2 3.5 -Total Square (Area) (cm) 16.00 13.44 10.50 -Tunneling No No Yes -Tunneling Position (O'clock) 12 -Tunneling Distance (cm) 2.1 -Undermining/Tunneling Yes Yes No -Undermining/Tunneling Starts (O'clock 11 11 ) -Undermining/Tunneling Ends (O'clock) 2 2 -Maximum Distance (cm) 3.2 3.2 -Circular Undermining No No No -Wound/Ulcer Outcome Not Healed Not Healed Not Healed -Ulcer Cleansing Rinsed/ Rinsed/ Rinsed/ Irrigated with Irrigated with Irrigated with Saline Saline Saline -Foul Odor after Cleansing No No No -Bioengineered Tissue No No No -Bleeding Controlled with Pressure Pressure Pressure -Treatment Response Procedure Procedure Procedure Tolerated Well Tolerated Well Tolerated Well -Offloading No No No -Debridement - Subq, 1st 20sq cm No No No 1. RT BREAST -Time 14:16 14:01 11:46 -Correct Patient Yes Yes Yes -Correct Side, Site, Position Yes Yes Yes -Correct Procedure Yes Yes Yes -Procedure Performed Yes Yes Yes -Type of Procedure Debridement Debridement Debridement -Clinical Debridement Subcutaneous Subcutaneous Subcutaneous -Tissue Removed Subcutaneous Subcutaneous Subcutaneous -Post Debridement (cm) - Length 1.7 1.5 1.5 -Post Debridement (cm) - Width 1.9 2.0 1.8 -Post Debridement (cm) - Depth 1.3 0.7 0.2 -Total Square (Post) (cm) 3.23 3.00 2.70 -Area of Debridement (cm) - Length 1.7 1.5 1.5 -Area of Debridement (cm) - Width 1.9 2.0 1.8 -Total Square (Area) (cm) 3.23 3.00 2.70 -Tunneling No No Yes -Tunneling Position (O'clock) 9 -Tunneling Distance (cm) 3.3 -Undermining/Tunneling No Yes No -Undermining/Tunneling Starts (O'clock 11 ) -Undermining/Tunneling Ends (O'clock) 1 -Maximum Distance (cm) 1.1 -Circular Undermining No No No -Wound/Ulcer Outcome Not Healed Not Healed Not Healed -Ulcer Cleansing Rinsed/ Rinsed/ Rinsed/ Irrigated with Irrigated with Irrigated with Saline Saline Saline -Foul Odor after Cleansing No No Yes, Due to Product Use -Bioengineered Tissue No No No -Bleeding Controlled with Pressure Pressure Pressure -Treatment Response Procedure Procedure Procedure Tolerated Well Tolerated Well Tolerated Well -Offloading No No No -Debridement - Subq, 1st 20sq cm Yes Yes Yes Pain Scale: 0-10 Numeric Is Patient Pain Free? Yes Yes Yes 05/24/23 11:45 Wound Center Nurse 2 2. LT BREAST -Time 11:45 -Correct Patient Yes -Correct Side, Site, Position Yes -Correct Procedure Yes -Procedure Performed Yes -Type of Procedure Debridement -Clinical Debridement Subcutaneous -Tissue Removed Subcutaneous -Post Debridement (cm) - Length 3.2 -Post Debridement (cm) - Width 3.0 -Post Debridement (cm) - Depth 0.2 -Total Square (Post) (cm) 9.60 -Area of Debridement (cm) - Length 3.2 -Area of Debridement (cm) - Width 3.0 -Total Square (Area) (cm) 9.60 -Tunneling Yes -Tunneling Position (O'clock) 12 -Tunneling Distance (cm) 2.0 -Undermining/Tunneling No -Undermining/Tunneling Starts (O'clock ) -Undermining/Tunneling Ends (O'clock) -Maximum Distance (cm) -Circular Undermining No -Wound/Ulcer Outcome Not Healed -Ulcer Cleansing Rinsed/ Irrigated with Saline -Foul Odor after Cleansing No -Bioengineered Tissue No -Bleeding Controlled with Pressure -Treatment Response Procedure Tolerated Well -Offloading No -Debridement - Subq, 1st 20sq cm No 1. RT BREAST -Time 11:47 -Correct Patient Yes -Correct Side, Site, Position Yes -Correct Procedure Yes -Procedure Performed Yes -Type of Procedure Debridement -Clinical Debridement Subcutaneous -Tissue Removed Subcutaneous -Post Debridement (cm) - Length 1.0 -Post Debridement (cm) - Width 1.4 -Post Debridement (cm) - Depth 0.2 -Total Square (Post) (cm) 1.40 -Area of Debridement (cm) - Length 1.0 -Area of Debridement (cm) - Width 1.4 -Total Square (Area) (cm) 1.40 -Tunneling No -Tunneling Position (O'clock) -Tunneling Distance (cm) -Undermining/Tunneling Yes -Undermining/Tunneling Starts (O'clock 11 ) -Undermining/Tunneling Ends (O'clock) 12 -Maximum Distance (cm) 0.7 -Circular Undermining No -Wound/Ulcer Outcome Not Healed -Ulcer Cleansing Rinsed/ Irrigated with Saline -Foul Odor after Cleansing No -Bioengineered Tissue No -Bleeding Controlled with Pressure -Treatment Response Procedure Tolerated Well -Offloading No -Debridement - Subq, 1st 20sq cm Yes Pain Scale: 0-10 Numeric Is Patient Pain Free? Yes - Nurse 3 - General Ulcer D/C NN Start: 05/03/23 13:46 Freq: Status: Active Protocol: Activity Type Activity Date Activity User E-sign Co-sign Detail Recorded Client Recorded Date Recorded By Document 05/03/23 14:34 BMF Desktop 05/03/23 14:35 BMF Document 05/10/23 14:11 DL Desktop 05/10/23 14:12 DL Document 05/17/23 11:51 JF Laptop 05/17/23 11:53 JF Document 05/24/23 11:55 DL Desktop 05/24/23 11:56 DL 05/03/23 05/10/23 05/17/23 14:34 14:11 11:51 Wound Care Center Nurse 3 2. LT BREAST -Ulcer Cleansing Rinsed/ Rinsed/ Irrigated with Irrigated with Saline Saline -Foul Odor after Cleansing No No -Primary Dressing Applied -Other Dressing dakins moist dakins 0.25% dakin's gauze moistened gauze -Primary Dressing Covered/Secured with Dry Gauze, Dry Gauze & Secured with Roll Gauze Tape -Other Covering abd; secured w/ compression bra -Aquacel AG 4x4 1. RT BREAST -Ulcer Cleansing Rinsed/ Rinsed/ Rinsed/ Irrigated with Irrigated with Irrigated with Saline Saline Saline -Foul Odor after Cleansing No No No -Other Dressing dakins moist dakins 0.25% dakin's gauze; abd moistened gauze -Primary Dressing Covered/Secured with Dry Gauze, Dry Gauze & Secured with Roll Gauze Tape -Other Covering secured w/ compression bra Treatment Response Procedure Procedure Tolerated Well Tolerated Well Pain Scale: 0-10 Numeric Is Patient Pain Free? Yes Yes Yes WC - Visit Discharge Discharge Condition Stable Stable Stable Ambulatory Status Ambulatory, Ambulatory Ambulatory,Cane Walker Transportation Private Auto Private Auto Private Auto Medication Reconcilliation completed & Yes provided to patient/care provider Clinical Summary of Care Provided Yes Notes: Vac discontinued. Facility Type Home Health Orders Sent Yes 05/24/23 11:55 Wound Care Center Nurse 3 2. LT BREAST -Ulcer Cleansing Rinsed/ Irrigated with Saline -Foul Odor after Cleansing No -Primary Dressing Applied Aquacel AG 4x4 -Other Dressing -Primary Dressing Covered/Secured with Dry Gauze -Other Covering -Aquacel AG 4x4 1 1. RT BREAST -Ulcer Cleansing -Foul Odor after Cleansing -Other Dressing -Primary Dressing Covered/Secured with -Other Covering Treatment Response Procedure Tolerated Well Pain Scale: 0-10 Numeric Is Patient Pain Free? Yes WC - Visit Discharge Discharge Condition Stable Ambulatory Status Ambulatory Transportation Private Auto Medication Reconcilliation completed & provided to patient/care provider Clinical Summary of Care Provided Notes: Facility Type Orders Sent Additional Wound Wound debrided: #1 Right breast. Laterality: Right Wound Grade/Stage: 2. Type of Debridement: Excisional debridement Anesthesia Used: 5% Lidocaine Gel Depth: in the subcutaneous layer Percentage of wound debrided: 100 Instrument Used: 5mm curette Tissue Removed: Subcutaneous tissue and devitalized tissue. Severity: Fat Layer Exposed Amount of bleeding with debridement: Mild Bleeding Controlled with: Pressure and Compression and gauze Patient tolerated procedure: Patient tolerated procedure well Assessment/Plan Assessment/Plan (1) Skin ulcer of female breast: CODE(S): L98.499 - Non-pressure chronic ulcer of skin of other sites with unspecified severity (2) Skin necrosis: CODE(S): I96 - Gangrene, not elsewhere classified (3) History of bilateral breast reduction surgery: CODE(S): Z98.890 - Other specified postprocedural states (4) DM type 2, goal HbA1c < 7%: CODE(S): E11.9 - Type 2 diabetes mellitus without complications (5) Smoker: CODE(S): F17.200 - Nicotine dependence, unspecified, uncomplicated PLAN: Plan Wound care - Moistened Aquacel-Ag covered with gauze daily to both the right and left breast wounds. The wounds continue to improve. The drainage is decreasing. The ulcer base is beefy pink and decreasing in size. Continue wearing compression bra or EVERARDO wrap. Continue to keep head elevated. Continue 20 lb weight lifting restriction. She has finished the Levaquin. She has finished the Flagyl. Encouraged patient to stop smoking as it may have deleterious effects on wound healing. She states she has had an increase is sensation to the ulcer and is having increased pain. Follow up one week. Encouraged patient to stop smoking as it may have deleterious effects on wound healing. From Dr. De Paz's previous note: The right breast continues to improve and is ready for a revision reconstructed breast by elevating the medial and lateral breast flaps and advancing the flaps toward the midclavicular line. Nipple reconstruction can be done with skin grafting. The left breast is much improved. The left breast is almost ready for a skin graft. More skin was debrided on the left. Continue the Dakin's dressing changes until the superior skin edge has shown more healing and adherence. At that time, the left breast will be ready for skin grafting. The wound is almost covered with granulation tissue. There was some moderate drainage from the superior skin edge. It is milky and consistent with liquefying fat necrosis. It can simulate purulent drainage at which time the patient would appear sicker. Will try and absorb the drainage by placing 4x4 gauze with Dakin's in the superior skin edge. Will observe closely. Revising the reconstructed breast on the left will be more problematic as more skin was debrided as compared to the right. If we have the opportunity to have the left breast wound skin grafted, that would be ideal. Then over the next 9-12 months, the swollen breast skin and parenchyma has a chance to soften up and become less swollen. At which time further revision reconstructed breasts can be done if needed. We are planning on revision surgery before the end of the year. This way more swelling can subside which would make advancing the skin toward the mid breast a little easier and the sutures would hold better when the skin edges are less swollen and less inflamed.
[2023-05-31 14:21] VITALS: BP 175/56; PULSE 81; RESP 18; TEMP 35.8; BMI 46.5
--- NOTE | 2023-05-31 16:47 | PCM.WC.PN ---
History of Present Illness Date of Service: 05/31/23 Chief Complaint: Bilateral breast wounds History of Wound: 63 year old female present for further evaluation after her surgery on 01/13/23 where she underwent bilateral breast reduction mammoplasty. Tissue removed from the left breast was 1590 grams. Tissue removed from the right breast was 750 grams. She was discharged from the hospital on 01/18/23. She developed KALEE after her surgery, her Creatinine increased from 1.88 preop to 2.73 postop. At discharge it decreased down to 2.04. Her Creatinine on02/04/21 decreased to 1.76. The acuity has resolved. She will also followup with her PCP as well for further evaluation and treatment of her renal issues. Prealbumin from 01/14/23 was 16.3. Encourage nutritional supplementation with protein to help the healing process. While in the hospital, her Hgb went from 10.5 preop to 7.8 postop. PRBC was given and it improved to 8.9. At discharge it was 8.2. She has anemia due to expected blood loss. The operative blood loss was 250 ml. She is on Iron supplementation. Her Hgb on 02/04/23 improved 8.6. the acuity has resolved. Patient has diabetes mellitus, and her latest HgbA1c was 5.7. For elective surgery, the HgbA1c needs to be less than 8. She is a current smoker. She developed compromise of the nipple areolar complexes bilaterally. She had issues with swelling after not wearing enough compression the first couple weeks post op. She also developed wound breakdown in the Tzone areas bilaterally. Wound culture from 02/04/23 positive for Klebsiella pneumoniae and Anaerobic cocci. She was started on Levaquin and Flagyl and has finished them. Wound care - Dakin's on both the right and left breast. Today she denies fever, chills, nausea or vomiting. Progress of Wound: Both breast ulcers are improving. Objective Data Objective Data Vital Signs: Vital Signs Temp Pulse Resp BP O2 Del Method 96.5 F L 81 18 175/56 H Room Air 05/31/23 14:21 05/31/23 14:21 05/31/23 14:21 05/31/23 14:05/24/23 11:26 Oxygen Delivery Method Room Air Weight: 280 lb Body Mass Index (BMI) 46.5 Prealbumin from 01/14/23 was 16.3. Encourage nutritional supplementation with protein to help the healing process. Lab / Micro Data Attestation: I reviewed the patient's lab results. Charges/Coding Procedures Integumentary [id number]: [id number] Kadie subq tissue 20 sq cm/< (ICD-10 - L98.499, I96, Z98.890, E11.9, F17.200) Debridement Note Debridement Note Wound debrided: #2 Left breast Laterality: Left Wound Grade/Stage: 2. Type of Debridement: Excisional debridement Anesthesia Used: 5% Lidocaine Gel Depth: in the subcutaneous layer Percentage of wound debrided: 100 Instrument Used: 7mm curette Tissue Removed: Subcutaneous tissue, fat necrosis and some devitalized tissue. Severity: Fat Layer Exposed Amount of bleeding with debridement: Mild Bleeding Controlled with: Compression and gauze Patient tolerated procedure: Patient tolerated procedure well Post-Debridement Measurements and Additional Note: Post-Debridement Measurements/Treatment WC - Nurse 1 - General Ulcer Assessment Start: 05/03/23 13:46 Freq: Status: Active Protocol: PRADIP Activity Type Activity Date Activity User E-sign Co-sign Detail Recorded Client Recorded Date Recorded By Document 05/03/23 13:46 [facility] Desktop 05/03/23 14:00 [facility] Document 05/10/23 13:33 DL Desktop 05/10/23 13:42 DL Document 05/17/23 11:28 [facility] Desktop 05/17/23 11:34 [facility] Document 05/24/23 11:26 [facility] Desktop 05/24/23 11:36 [facility] Document 05/31/23 14:21 DL Desktop 05/31/23 14:26 DL 05/03/23 05/10/23 05/17/23 13:46 13:33 11:28 - Today's Visit Information Type of service Follow-up Visit Follow-up Visit Follow-up Visit (Physician/PRODUCTION CONTROL PLANNER (Physician/PRODUCTION CONTROL PLANNER (Physician/PRODUCTION CONTROL PLANNER ) ) ) Arrival Mode Ambulatory, Ambulatory Ambulatory Walker Transfer Assistance None None None Accompanied by daughter daughter Patient Identification Verified (Name & Yes Yes Yes ) Patient Requires Transmission-Based No No No Precautions Finger Stick Blood Sugar(mg/dl) (if 134 indicated): Blood Sugar Stated by Patient Height and Weight Body Mass Index (BMI) 46.5 46.5 46.5 BMI Classification Obese Obese Obese Vital Signs Temperature (97.8 F-99.1 F) 97 F L 97 F L 95.3 F L Temperature Source Temporal Temporal Temporal Pulse Rate (60-100) 78 82 81 Pulse Location Monitor Monitor Monitor Respiratory Rate (12-18) 16 18 18 Respiratory rate source Observation Observation Observation Oxygen Delivery Method Room Air Room Air Blood Pressure (90/60-120/80) 158/58 H 138/58 H 185/91 H Blood Pressure Mean (mm Hg) 91 84 122 Source Monitor Monitor Monitor Position Sitting Sitting Blood Pressure Location Left Arm Left Arm History Since Last Visit- (Skip if this is Patient's initial visit) Have you changed medications since your No No No last visit? Any new allergies or adverse reactions No No No Had a fall/change in ADL's that may No No No increase risk of falls Signs or symptoms of abuse and/or No No No neglect since last visit Have you been in the hospital since your No No No last visit? Has dressing in place as prescribed Yes Yes Yes Has compression in place as prescribed N/A N/A N/A Has offloadiing in place as prescribed N/A N/A N/A Experienced any changes in pain level or No No No management Left Footwear Regular Shoe Regular Shoe Right Footwear Regular Shoe Regular Shoe Pain Scale: 0-10 Numeric Is Patient Pain Free? Yes Yes Yes 05/24/23 05/31/23 11:26 14:21 WC - Today's Visit Information Type of service Follow-up Visit Follow-up Visit (Physician/PRODUCTION CONTROL PLANNER (Physician/PRODUCTION CONTROL PLANNER ) ) Arrival Mode Ambulatory,Cane Ambulatory Transfer Assistance None None Accompanied by Patient Identification Verified (Name & Yes Yes ) Patient Requires Transmission-Based No No Precautions Finger Stick Blood Sugar(mg/dl) (if not checked indicated): Blood Sugar Stated by Patient Height and Weight Body Mass Index (BMI) 46.5 46.5 BMI Classification Obese Obese Vital Signs Temperature (97.8 F-99.1 F) 95.4 F L 96.5 F L Temperature Source Temporal Temporal Pulse Rate (60-100) 61 81 Pulse Location Monitor Monitor Respiratory Rate (12-18) 16 18 Respiratory rate source Observation Observation Oxygen Delivery Method Room Air Blood Pressure (90/60-120/80) 146/48 H 175/56 H Blood Pressure Mean (mm Hg) 80 95 Source Monitor Monitor Position Sitting Blood Pressure Location Left Arm History Since Last Visit- (Skip if this is Patient's initial visit) Have you changed medications since your No No last visit? Any new allergies or adverse reactions No No Had a fall/change in ADL's that may No No increase risk of falls Signs or symptoms of abuse and/or No No neglect since last visit Have you been in the hospital since your No No last visit? Has dressing in place as prescribed Yes Yes Has compression in place as prescribed N/A N/A Has offloadiing in place as prescribed N/A N/A Experienced any changes in pain level or No No management Left Footwear Regular Shoe Right Footwear Regular Shoe Pain Scale: 0-10 Numeric Is Patient Pain Free? Yes Yes WC - Nurse 1 - General Ulcer Measurement Start: 05/03/23 13:46 Freq: Status: Active Protocol: Activity Type Activity Date Activity User E-sign Co-sign Detail Recorded Client Recorded Date Recorded By Document 05/03/23 13:46 [facility] Desktop 05/03/23 14:00 [facility] Document 05/10/23 13:33 DL Desktop 05/10/23 13:42 DL Document 05/17/23 11:28 [facility] Desktop 05/17/23 11:34 [facility] Document 05/24/23 11:26 [facility] Desktop 05/24/23 11:36 [facility] Document 05/31/23 14:21 DL Desktop 05/31/23 14:26 DL 05/03/23 05/10/23 05/17/23 13:46 13:33 11:28 Wound Center Nurse 1 2. LT BREAST -Combined with other wound No -Current Size (cm) - Length 4 3.2 2.9 -Current Size (cm) - Width 6 4.2 3.5 -Current Size (cm) - Depth 0.4 0.2 0.2 -Total Square Cm 24 13.44 10.15 -Date of Last Picture (Recall this field) -Photo Taken No -Epithelialization Small 1-33% Small 1-33% -Tunneling No No -Undermining/Tunneling Yes Yes -Undermining/Tunneling Starts (O'clock 10 11 12 ) -Undermining/Tunneling Ends (O'clock) 12 1 2 -Maximum Distance (cm) 3.5 2.6 2.8 -Undermining/Tunneling Starts #2 (O' 2 clock) -Undermining/Tunneling Ends #2 (O' 2 clock) -Maximum Distance #2 (cm) 0.5 -Circular Undermining No No -Exudate Amt Medium Medium Medium -Exudate Type Serosanguineous Serosanguineous Serosanguineous -Wound Margin Distinct, Thickened & Distinct, Outline Rolled Under Outline Attached Attached -Granulation Amt Medium (34-66%) Medium (34-66%) Medium (34-66%) -Granulation Quality Pale,Red Pale,[place] Red -Slough/Fibrin Yes Yes -Necrosis Amt Medium (34-66%) Medium (34-66%) Medium (34-66%) -Necrotic Tissue Type Adherent Slough Adherent Slough Adherent Slough -Structure Exposed N/A -Texture (Susanna-wound Skin Appearance) Assessed, Scarring Assessed Scarring -Moisture (Susanna-wound Skin Appearance) Assessed No Abnormality Assessed -Color (Susanna-wound Skin Appearance) Assessed No Abnormality Assessed -Temperature (Susanna-wound Skin No Abnormality No Abnormality No Abnormality Appearance) (Pt Warm) (Pt Warm) (Pt Warm) -Tenderness on Palpation (Susanna-wound No No No Skin Appearance) -Ulcer Cleansing Rinsed/ Soap and Water Rinsed/ Irrigated with Irrigated with Saline Saline -Foul Odor after Cleansing No Yes, Due to No Product Use -Anesthetic Used 4% Lidocaine 5% Lidocaine 4% Lidocaine Solution Gel Solution 1. RT BREAST -Combined with other wound No No -Current Size (cm) - Length 1.5 1.1 1.5 -Current Size (cm) - Width 1.5 1.5 1.4 -Current Size (cm) - Depth 1.5 1.1 0.1 -Total Square Cm 2.25 1.65 2.10 -Date of Last Picture (Recall this field) -Photo Taken No No -Epithelialization Small 1-33% Small 1-33% -Tunneling No No -Undermining/Tunneling Yes Yes -Undermining/Tunneling Starts (O'clock 10 11 10 ) -Undermining/Tunneling Ends (O'clock) 12 12 12 -Maximum Distance (cm) 1.4 1.1 1.3 -Circular Undermining No No -Exudate Amt Medium Medium Medium -Exudate Type Serosanguineous Serosanguineous Serosanguineous -Wound Margin Distinct, Thickened & Distinct, Outline Rolled Under Outline Attached Attached -Granulation Amt Large (67-100%) Large (67-100%) Large (67-100%) -Granulation Quality Red [place],Red Red -Slough/Fibrin No Yes -Necrosis Amt None Present (0 Small (1-33%) Small (1-33%) %) -Necrotic Tissue Type Adherent Slough Adherent Slough -Structure Exposed N/A -Texture (Susanna-wound Skin Appearance) Assessed, Scarring Assessed, Scarring Scarring -Moisture (Susanna-wound Skin Appearance) Assessed No Abnormality Assessed -Color (Susanna-wound Skin Appearance) Assessed No Abnormality Assessed -Temperature (Susanna-wound Skin No Abnormality No Abnormality Appearance) (Pt Warm) (Pt Warm) -Tenderness on Palpation (Susanna-wound No Yes Skin Appearance) -Ulcer Cleansing Soap and Water Soap and Water Rinsed/ Irrigated with Saline -Foul Odor after Cleansing No Yes, Due to No Product Use -Anesthetic Used 4% Lidocaine 5% Lidocaine 4% Lidocaine Solution Gel Solution 05/24/23 05/31/23 11:26 14:21 Wound Center Nurse 1 2. LT BREAST -Combined with other wound No -Current Size (cm) - Length 2.9 2.7 -Current Size (cm) - Width 3.4 2.1 -Current Size (cm) - Depth 0.1 0.1 -Total Square Cm 9.86 5.67 -Date of Last Picture (Recall this 05/24/23 field) -Photo Taken Yes -Epithelialization Small 1-33% -Tunneling No -Undermining/Tunneling Yes -Undermining/Tunneling Starts (O'clock 11 11 ) -Undermining/Tunneling Ends (O'clock) 1 1 -Maximum Distance (cm) 2.2 2 -Undermining/Tunneling Starts #2 (O' clock) -Undermining/Tunneling Ends #2 (O' clock) -Maximum Distance #2 (cm) -Circular Undermining No -Exudate Amt Medium Medium -Exudate Type Serosanguineous Serosanguineous -Wound Margin Distinct, Distinct, Outline Outline Attached Attached -Granulation Amt Small (1-33%) Medium (34-66%) -Granulation Quality Red Red -Slough/Fibrin Yes -Necrosis Amt Large (67-100%) Medium (34-66%) -Necrotic Tissue Type Adherent Slough Adherent Slough -Structure Exposed None/Limited to Skin Breakdown -Texture (Susanna-wound Skin Appearance) Assessed, Scarring Scarring -Moisture (Susanna-wound Skin Appearance) Assessed No Abnormality -Color (Susanna-wound Skin Appearance) Assessed No Abnormality -Temperature (Susanna-wound Skin No Abnormality No Abnormality Appearance) (Pt Warm) (Pt Warm) -Tenderness on Palpation (Susanna-wound No No Skin Appearance) -Ulcer Cleansing Rinsed/ Soap and Water Irrigated with Saline -Foul Odor after Cleansing No Yes, Due to Product Use -Anesthetic Used 4% Lidocaine 4% Lidocaine Solution Solution 1. RT BREAST -Combined with other wound No -Current Size (cm) - Length 0.7 0.4 -Current Size (cm) - Width 1 0.4 -Current Size (cm) - Depth 0.1 0.7 -Total Square Cm 0.7 0.16 -Date of Last Picture (Recall this 05/24/23 field) -Photo Taken Yes -Epithelialization Small 1-33% -Tunneling No -Undermining/Tunneling Yes -Undermining/Tunneling Starts (O'clock 11 ) -Undermining/Tunneling Ends (O'clock) 2 -Maximum Distance (cm) 0.7 -Circular Undermining No -Exudate Amt Medium Small -Exudate Type Serosanguineous Serosanguineous -Wound Margin Distinct, Thickened & Outline Rolled Under Attached -Granulation Amt Large (67-100%) Small (1-33%) -Granulation Quality Red Red -Slough/Fibrin Yes -Necrosis Amt Small (1-33%) None Present (0 %) -Necrotic Tissue Type Adherent Slough -Structure Exposed None/Limited to Skin Breakdown -Texture (Susanna-wound Skin Appearance) Scarring Scarring -Moisture (Susanna-wound Skin Appearance) Assessed No Abnormality -Color (Susanna-wound Skin Appearance) Assessed No Abnormality -Temperature (Susanna-wound Skin No Abnormality No Abnormality Appearance) (Pt Warm) (Pt Warm) -Tenderness on Palpation (Susanna-wound No No Skin Appearance) -Ulcer Cleansing Rinsed/ Not Cleansed Irrigated with Saline -Foul Odor after Cleansing No No -Anesthetic Used 4% Lidocaine 5% Lidocaine Solution Gel WC - Nurse 2 - General Ulcer CM Notes Start: 10/02/23 13:46 Freq: Status: Active Protocol: Activity Type Activity Date Activity User E-sign Co-sign Detail Recorded Client Recorded Date Recorded By Document 05/03/23 14:13 Laptop 05/03/23 14:22 Document 05/10/23 14:00 Laptop 05/10/23 14:03 Document 05/17/23 11:44 Laptop 05/17/23 11:50 Document 05/24/23 11:45 Desktop 05/24/23 11:48 Document 05/31/23 14:36 Laptop 05/31/23 14:39 05/03/23 05/10/23 05/17/23 14:13 14:00 11:44 Wound Center Nurse 2 2. LT BREAST -Time 14:16 14:01 11:45 -Correct Patient Yes Yes Yes -Correct Side, Site, Position Yes Yes Yes -Correct Procedure Yes Yes Yes -Procedure Performed Yes Yes Yes -Type of Procedure Debridement Debridement Debridement -Clinical Debridement Subcutaneous Subcutaneous Subcutaneous -Tissue Removed Subcutaneous Subcutaneous Subcutaneous -Post Debridement (cm) - Length 3.2 3.2 3.0 -Post Debridement (cm) - Width 5.0 4.2 3.5 -Post Debridement (cm) - Depth 0.3 0.5 0.3 -Total Square (Post) (cm) 16.00 13.44 10.50 -Area of Debridement (cm) - Length 3.2 3.2 3.0 -Area of Debridement (cm) - Width 5.0 4.2 3.5 -Total Square (Area) (cm) 16.00 13.44 10.50 -Tunneling No No Yes -Tunneling Position (O'clock) 12 -Tunneling Distance (cm) 2.1 -Undermining/Tunneling Yes Yes No -Undermining/Tunneling Starts (O'clock 11 11 ) -Undermining/Tunneling Ends (O'clock) 2 2 -Maximum Distance (cm) 3.2 3.2 -Circular Undermining No No No -Wound/Ulcer Outcome Not Healed Not Healed Not Healed -Ulcer Cleansing Rinsed/ Rinsed/ Rinsed/ Irrigated with Irrigated with Irrigated with Saline Saline Saline -Foul Odor after Cleansing No No No -Bioengineered Tissue No No No -Bleeding Controlled with Pressure Pressure Pressure -Treatment Response Procedure Procedure Procedure Tolerated Well Tolerated Well Tolerated Well -Offloading No No No -Debridement - Subq, 1st 20sq cm No No No 1. RT BREAST -Time 14:16 14:01 11:46 -Correct Patient Yes Yes Yes -Correct Side, Site, Position Yes Yes Yes -Correct Procedure Yes Yes Yes -Procedure Performed Yes Yes Yes -Type of Procedure Debridement Debridement Debridement -Clinical Debridement Subcutaneous Subcutaneous Subcutaneous -Tissue Removed Subcutaneous Subcutaneous Subcutaneous -Post Debridement (cm) - Length 1.7 1.5 1.5 -Post Debridement (cm) - Width 1.9 2.0 1.8 -Post Debridement (cm) - Depth 1.3 0.7 0.2 -Total Square (Post) (cm) 3.23 3.00 2.70 -Area of Debridement (cm) - Length 1.7 1.5 1.5 -Area of Debridement (cm) - Width 1.9 2.0 1.8 -Total Square (Area) (cm) 3.23 3.00 2.70 -Tunneling No No Yes -Tunneling Position (O'clock) 9 -Tunneling Distance (cm) 3.3 -Undermining/Tunneling No Yes No -Undermining/Tunneling Starts (O'clock 11 ) -Undermining/Tunneling Ends (O'clock) 1 -Maximum Distance (cm) 1.1 -Circular Undermining No No No -Wound/Ulcer Outcome Not Healed Not Healed Not Healed -Ulcer Cleansing Rinsed/ Rinsed/ Rinsed/ Irrigated with Irrigated with Irrigated with Saline Saline Saline -Foul Odor after Cleansing No No Yes, Due to Product Use -Bioengineered Tissue No No No -Bleeding Controlled with Pressure Pressure Pressure -Treatment Response Procedure Procedure Procedure Tolerated Well Tolerated Well Tolerated Well -Offloading No No No -Debridement - Subq, 1st 20sq cm Yes Yes Yes Pain Scale: 0-10 Numeric Is Patient Pain Free? Yes Yes Yes 05/24/23 05/31/23 11:45 14:36 Wound Center Nurse 2 2. LT BREAST -Time 11:45 14:36 -Correct Patient Yes Yes -Correct Side, Site, Position Yes Yes -Correct Procedure Yes Yes -Procedure Performed Yes Yes -Type of Procedure Debridement Debridement -Clinical Debridement Subcutaneous Subcutaneous -Tissue Removed Subcutaneous Subcutaneous -Post Debridement (cm) - Length 3.2 3.0 -Post Debridement (cm) - Width 3.0 1.5 -Post Debridement (cm) - Depth 0.2 0.1 -Total Square (Post) (cm) 9.60 4.50 -Area of Debridement (cm) - Length 3.2 3.0 -Area of Debridement (cm) - Width 3.0 1.5 -Total Square (Area) (cm) 9.60 4.50 -Tunneling Yes Yes -Tunneling Position (O'clock) 12 12 -Tunneling Distance (cm) 2.0 1.5 -Undermining/Tunneling No No -Undermining/Tunneling Starts (O'clock ) -Undermining/Tunneling Ends (O'clock) -Maximum Distance (cm) -Circular Undermining No No -Wound/Ulcer Outcome Not Healed Not Healed -Ulcer Cleansing Rinsed/ Rinsed/ Irrigated with Irrigated with Saline Saline -Foul Odor after Cleansing No No -Bioengineered Tissue No No -Bleeding Controlled with Pressure Pressure -Treatment Response Procedure Procedure Tolerated Well Tolerated Well -Offloading No No -Debridement - Subq, 1st 20sq cm No No 1. RT BREAST -Time 11:47 14:37 -Correct Patient Yes Yes -Correct Side, Site, Position Yes Yes -Correct Procedure Yes Yes -Procedure Performed Yes Yes -Type of Procedure Debridement Debridement -Clinical Debridement Subcutaneous Subcutaneous -Tissue Removed Subcutaneous Subcutaneous -Post Debridement (cm) - Length 1.0 0.4 -Post Debridement (cm) - Width 1.4 0.4 -Post Debridement (cm) - Depth 0.2 0.3 -Total Square (Post) (cm) 1.40 0.16 -Area of Debridement (cm) - Length 1.0 0.4 -Area of Debridement (cm) - Width 1.4 0.4 -Total Square (Area) (cm) 1.40 0.16 -Tunneling No No -Tunneling Position (O'clock) -Tunneling Distance (cm) -Undermining/Tunneling Yes No -Undermining/Tunneling Starts (O'clock 11 ) -Undermining/Tunneling Ends (O'clock) 12 -Maximum Distance (cm) 0.7 -Circular Undermining No No -Wound/Ulcer Outcome Not Healed Not Healed -Ulcer Cleansing Rinsed/ Rinsed/ Irrigated with Irrigated with Saline Saline -Foul Odor after Cleansing No No -Bioengineered Tissue No No -Bleeding Controlled with Pressure Pressure -Treatment Response Procedure Procedure Tolerated Well Tolerated Well -Offloading No No -Debridement - Subq, 1st 20sq cm Yes Yes Pain Scale: 0-10 Numeric Is Patient Pain Free? Yes Yes - Nurse 3 - General Ulcer D/C NN Start: 05/03/23 13:46 Freq: Status: Active Protocol: Activity Type Activity Date Activity User E-sign Co-sign Detail Recorded Client Recorded Date Recorded By Document 05/03/23 14:34 [facility] Desktop 05/03/23 14:35 [facility] Document 05/10/23 14:11 DL Desktop 05/10/23 14:12 DL Document 05/17/23 11:51 [facility] Laptop 05/17/23 11:53 [facility] Document 05/24/23 11:55 DL Desktop 05/24/23 11:56 DL Document 05/31/23 14:45 Laptop 05/31/23 14:45 05/03/23 05/10/23 05/17/23 14:34 14:11 11:51 Wound Care Center Nurse 3 2. LT BREAST -Ulcer Cleansing Rinsed/ Rinsed/ Irrigated with Irrigated with Saline Saline -Foul Odor after Cleansing No No -Primary Dressing Applied -Other Dressing dakins moist dakins 0.25% dakin's gauze moistened gauze -Primary Dressing Covered/Secured with Dry Gauze, Dry Gauze & Secured with Roll Gauze Tape -Other Covering abd; secured w/ compression bra -Aquacel AG 4x4 1. RT BREAST -Ulcer Cleansing Rinsed/ Rinsed/ Rinsed/ Irrigated with Irrigated with Irrigated with Saline Saline Saline -Foul Odor after Cleansing No No No -Primary Dressing Applied -Other Dressing dakins moist dakins 0.25% dakin's gauze; abd moistened gauze -Primary Dressing Covered/Secured with Dry Gauze, Dry Gauze & Secured with Roll Gauze Tape -Other Covering secured w/ compression bra -Aquacel AG 4x4 Treatment Response Procedure Procedure Tolerated Well Tolerated Well Pain Scale: 0-10 Numeric Is Patient Pain Free? Yes Yes Yes - Visit Discharge Discharge Condition Stable Stable Stable Ambulatory Status Ambulatory, Ambulatory Ambulatory,Cane Walker Transportation Private Auto Private Auto Private Auto Medication Reconcilliation completed & Yes provided to patient/care provider Clinical Summary of Care Provided Yes Notes: Vac discontinued. Facility Type Home Health Orders Sent Yes 05/24/23 05/31/23 11:55 14:45 Wound Care Center Nurse 3 2. LT BREAST -Ulcer Cleansing Rinsed/ Rinsed/ Irrigated with Irrigated with Saline Saline -Foul Odor after Cleansing No No -Primary Dressing Applied Aquacel AG 4x4 Aquacel AG 4x4 -Other Dressing -Primary Dressing Covered/Secured with Dry Gauze Dry Gauze, Secured with Tape -Other Covering -Aquacel AG 4x4 1 1 1. RT BREAST -Ulcer Cleansing Rinsed/ Irrigated with Saline -Foul Odor after Cleansing No -Primary Dressing Applied Aquacel AG 4x4 -Other Dressing -Primary Dressing Covered/Secured with Dry Gauze, Secured with Tape -Other Covering -Aquacel AG 4x4 0 Treatment Response Procedure Tolerated Well Pain Scale: 0-10 Numeric Is Patient Pain Free? Yes Yes WC - Visit Discharge Discharge Condition Stable Stable Ambulatory Status Ambulatory Ambulatory Transportation Private Auto Private Auto Medication Reconcilliation completed & Yes provided to patient/care provider Clinical Summary of Care Provided Yes Notes: Facility Type Orders Sent Additional Wound Wound debrided: #1 Right breast. Laterality: Right Wound Grade/Stage: 2. Type of Debridement: Excisional debridement Anesthesia Used: 5% Lidocaine Gel Depth: in the subcutaneous layer Percentage of wound debrided: 100 Instrument Used: 5mm curette Tissue Removed: Subcutaneous tissue, fat necrosis, and some devitalized tissue. Severity: Fat Layer Exposed Amount of bleeding with debridement: Mild Bleeding Controlled with: Compression and gauze Patient tolerated procedure: Patient tolerated procedure well Assessment/Plan Assessment/Plan (1) Skin ulcer of female breast: CODE(S): L98.499 - Non-pressure chronic ulcer of skin of other sites with unspecified severity (2) Skin necrosis: CODE(S): I96 - Gangrene, not elsewhere classified (3) DM type 2, goal HbA1c < 7%: CODE(S): E11.9 - Type 2 diabetes mellitus without complications PLAN: HgbA1c from 01/15/23 was 5.7. (4) Smoker: CODE(S): F17.200 - Nicotine dependence, unspecified, uncomplicated PLAN: Plan Wound care - Moistened Aquacel-Ag covered with gauze daily to both the right and left breast wounds. The wounds continue to improve. The drainage is decreasing. The ulcer base is beefy pink and decreasing in size. Continue wearing compression bra or EVERARDO wrap. Continue to keep head elevated. Continue 20 lb weight lifting restriction. She has finished the Levaquin. She has finished the Flagyl. Patient has diabetes mellitus. Her latest HgbA1c from 01/15/23 was 5.7. For elective surgery the HgbA1c needs to be less than 8. She states she has had an increase is sensation to the ulcer and is having increased pain. Renewed her Percocet for pain (20 tabs). Follow up one week. Encouraged patient to stop smoking as it may have deleterious effects on wound healing. The right breast continues to improve and is ready for a revision reconstructed breast by elevating the medial and lateral breast flaps and advancing the flaps toward the midclavicular line. The left breast is much improved. The left breast is almost ready for a skin graft. More skin was debrided on the left. Continue the Silver dressing changes until the superior skin edge has shown more healing and adherence. At that time, the left breast will be ready for skin grafting. The wound is almost covered with granulation tissue. There was less drainage from the superior skin edge. It appears serous in nature. Continue placing Silver gauze in the superior skin edge. Will observe closely. Revising the reconstructed breast on the left will be more problematic as more skin was debrided as compared to the right. If we have the opportunity to have the left breast wound skin grafted, that would be ideal. Then over the next 9-12 months, the swollen breast skin and parenchyma has a chance to soften up and become less swollen. At which time further revision reconstructed breasts can be done if needed. After the breast mounds have healed, can proceed with nipple reconstruction can be done with skin grafting and intradermal tattooing. We are planning on revision surgery in August. She wants to wait until after the holiday. This way more swelling can subside which would make advancing the skin toward the mid breast a little easier and the sutures would hold better when the skin edges are less swollen and less inflamed.
== END 2023-06-01 23:59 | disposition home or self-care (01) ==
LOC: WC 14:15
PROVIDERS: PCP Preventive Medicine Occupational Medicine; Referring Provider Nurse Practitioner Family; Visit Provider Nurse Practitioner Family
DX: E11.622 Type 2 diabetes mellitus with other skin ulcer (principal); I96 Gangrene, not elsewhere classified; L98.492 Non-pressure chronic ulcer of skin of other sites with fat layer exposed; F17.200 Nicotine dependence, unspecified, uncomplicated; T81.89XA Other complications of procedures, not elsewhere classified, initial encounter; Z98.890 Other specified postprocedural states
CPT/HCPCS: 11042

== ENCOUNTER 2023-06-28 14:00 | Outpatient (RCR) | payer MEDICARE, SELFPAY ==
[2023-06-02 00:21] VITALS: BP 175/56; PULSE 81; RESP 18; TEMP 35.8; BMI 46.5
[2023-06-14 14:16] VITALS: BP 155/49; RESP 16; TEMP 36.2; BMI 46.5
--- NOTE | 2023-06-14 14:58 | PCM.WC.PN ---
History of Present Illness Date of Service: 06/14/23 Chief Complaint: Bilateral breast wounds History of Wound: 63 year old female present for further evaluation after her surgery on 01/13/23 where she underwent bilateral breast reduction mammoplasty. Tissue removed from the left breast was 1590 grams. Tissue removed from the right breast was 750 grams. She was discharged from the hospital on 01/18/23. She developed KALEE after her surgery, her Creatinine increased from 1.88 preop to 2.73 postop. At discharge it decreased down to 2.04. Her Creatinine on02/04/21 decreased to 1.76. The acuity has resolved. She will also followup with her PCP as well for further evaluation and treatment of her renal issues. Prealbumin from 01/14/23 was 16.3. Encourage nutritional supplementation with protein to help the healing process. While in the hospital, her Hgb went from 10.5 preop to 7.8 postop. PRBC was given and it improved to 8.9. At discharge it was 8.2. She has anemia due to expected blood loss. The operative blood loss was 250 ml. She is on Iron supplementation. Her Hgb on 02/04/23 improved 8.6. the acuity has resolved. She is a current smoker. She developed compromise of the nipple areolar complexes bilaterally. She had issues with swelling after not wearing enough compression the first couple weeks post op. She also developed wound breakdown in the Tzone areas bilaterally. Wound culture from 02/04/23 positive for Klebsiella pneumoniae and Anaerobic cocci. She is started on Levaquin and Flagyl and has finished them. Wound care - Dakin's to left breast. Today she denies fever, chills, nausea or vomiting. Progress of Wound: Right breast is healed. Left breast is stable, still has a tunnelled area at 12 o'clock Objective Data Objective Data Vital Signs: Vital Signs Temp Pulse Resp BP O2 Del Method 97.1 F L 81 16 155/49 H Room Air 06/14/23 14:16 06/02/23 00:21 06/14/23 14:16 06/14/23 14:16 06/14/23 14:16 Oxygen Delivery Method Room Air Weight: 280 lb Body Mass Index (BMI) 46.5 Charges/Coding Procedures Integumentary 111xxx-113xx: [id number] Kadie subq tissue 20 sq cm/< Debridement Note Debridement Note Wound debrided: #2 Left breast Laterality: Left Wound Grade/Stage: 2. Type of Debridement: Excisional debridement Anesthesia Used: 5% Lidocaine Gel Depth: in the subcutaneous layer Percentage of wound debrided: 100 Instrument Used: 5mm curette Tissue Removed: Subcutaneous tissue and devitalized tissue. Severity: Fat Layer Exposed Amount of bleeding with debridement: Mild Bleeding Controlled with: Compression and gauze Patient tolerated procedure: Patient tolerated procedure well Post-Debridement Measurements and Additional Note: Post-Debridement Measurements/Treatment - Nurse 1 - General Ulcer Assessment Start: 06/14/23 14:16 Freq: Status: Active Protocol: PRADIP Activity Type Activity Date Activity User E-sign Co-sign Detail Recorded Client Recorded Date Recorded By Document 06/14/23 14:16 [facility] Desktop 06/14/23 14:23 [facility] 06/14/23 14:16 WC - Today's Visit Information Type of service Follow-up Visit (Physician/DIRECTOR VISUAL ) Arrival Mode Ambulatory,Cane Transfer Assistance None Accompanied by DAUGHTER Patient Identification Verified (Name & Yes ) Patient Requires Transmission-Based No Precautions Height and Weight Body Mass Index (BMI) 46.5 BMI Classification Obese Vital Signs Temperature (97.8 F-99.1 F) 97.1 F L Temperature Source Temporal Pulse Location Monitor Respiratory Rate (12-18) 16 Respiratory rate source Observation Oxygen Delivery Method Room Air Blood Pressure (90/60-120/80) 155/49 H Blood Pressure Mean (mm Hg) 84 Source Monitor Position Sitting Blood Pressure Location Left Arm History Since Last Visit- (Skip if this is Patient's initial visit) Have you changed medications since your No last visit? Any new allergies or adverse reactions No Had a fall/change in ADL's that may No increase risk of falls Signs or symptoms of abuse and/or No neglect since last visit Have you been in the hospital since your No last visit? Has dressing in place as prescribed Yes Has compression in place as prescribed N/A Has offloadiing in place as prescribed N/A Experienced any changes in pain level or No management Left Footwear Regular Shoe Right Footwear Regular Shoe Pain Scale: 0-10 Numeric Is Patient Pain Free? Yes - Nurse 1 - General Ulcer Measurement Start: 06/14/23 14:16 Freq: Status: Active Protocol: Activity Type Activity Date Activity User E-sign Co-sign Detail Recorded Client Recorded Date Recorded By Document 06/14/23 14:16 [facility] Desktop 06/14/23 14:23 [facility] 06/14/23 14:16 Wound Center Nurse 1 1. RT BREAST -Combined with other wound No -Current Size (cm) - Length 0.1 -Current Size (cm) - Width 0.1 -Current Size (cm) - Depth 0.1 -Total Square Cm 0.01 -Epithelialization Large 67-100% -Tunneling No -Undermining/Tunneling No -Circular Undermining No -Exudate Amt None Present -Wound Margin Distinct, Outline Attached -Texture (Susanna-wound Skin Appearance) Assessed, Scarring -Moisture (Susanna-wound Skin Appearance) Assessed -Color (Susanna-wound Skin Appearance) Assessed -Temperature (Susanna-wound Skin No Abnormality Appearance) (Pt Warm) -Tenderness on Palpation (Susanna-wound No Skin Appearance) -Ulcer Cleansing Soap and Water -Foul Odor after Cleansing No -Anesthetic Used 4% Lidocaine Solution 2. LT BREAST -Combined with other wound No -Current Size (cm) - Length 3.1 -Current Size (cm) - Width 2.6 -Current Size (cm) - Depth 0.1 -Total Square Cm 8.06 -Epithelialization Small 1-33% -Tunneling Yes -Tunneling Position (O'clock) 11 -Tunneling Distance (cm) 1.2 -Undermining/Tunneling No -Circular Undermining No -Exudate Amt Medium -Exudate Type Serosanguineous -Wound Margin Distinct, Outline Attached -Granulation Amt Medium (34-66%) -Granulation Quality Red -Slough/Fibrin Yes -Necrosis Amt Medium (34-66%) -Necrotic Tissue Type Adherent Slough -Texture (Susanna-wound Skin Appearance) Assessed, Scarring -Moisture (Susanna-wound Skin Appearance) Assessed,Dry/ Scaly -Color (Susanna-wound Skin Appearance) Assessed -Temperature (Susanna-wound Skin No Abnormality Appearance) (Pt Warm) -Tenderness on Palpation (Susanna-wound No Skin Appearance) -Ulcer Cleansing Soap and Water -Foul Odor after Cleansing No -Anesthetic Used 4% Lidocaine Solution WC - Nurse 2 - General Ulcer CM Notes Start: 06/14/23 14:16 Freq: Status: Active Protocol: Activity Type Activity Date Activity User E-sign Co-sign Detail Recorded Client Recorded Date Recorded By Document 06/14/23 14:26 Laptop 06/14/23 14:35 06/14/23 14:26 Wound Center Nurse 2 1. RT BREAST -Time 14:27 -Correct Patient No -Correct Side, Site, Position No -Correct Procedure No -Procedure Performed No -Post Debridement (cm) - Length 0 -Post Debridement (cm) - Width 0 -Post Debridement (cm) - Depth 0 -Total Square (Post) (cm) 0 -Area of Debridement (cm) - Length 0 -Area of Debridement (cm) - Width 0 -Total Square (Area) (cm) 0 -Tunneling No -Undermining/Tunneling No -Circular Undermining No -Wound/Ulcer Outcome Healed- Epithelialized -Ulcer Cleansing Rinsed/ Irrigated with Saline -Foul Odor after Cleansing No -Bioengineered Tissue No -Bleeding Controlled with Pressure -Treatment Response Procedure Tolerated Well -Offloading No -Debridement - Subq, 1st 20sq cm No 2. LT BREAST -Time 14:27 -Correct Patient Yes -Correct Side, Site, Position Yes -Correct Procedure Yes -Procedure Performed Yes -Type of Procedure Debridement -Clinical Debridement Subcutaneous -Tissue Removed Subcutaneous -Post Debridement (cm) - Length 2.7 -Post Debridement (cm) - Width 1.8 -Post Debridement (cm) - Depth 0.1 -Total Square (Post) (cm) 4.86 -Area of Debridement (cm) - Length 2.7 -Area of Debridement (cm) - Width 1.8 -Total Square (Area) (cm) 4.86 -Tunneling No -Undermining/Tunneling No -Circular Undermining No -Wound/Ulcer Outcome Not Healed -Ulcer Cleansing Rinsed/ Irrigated with Saline -Foul Odor after Cleansing No -Bioengineered Tissue No -Bleeding Controlled with Pressure -Treatment Response Procedure Tolerated Well -Offloading No -Debridement - Subq, 1st 20sq cm Yes Pain Scale: 0-10 Numeric Is Patient Pain Free? Yes WC - Nurse 3 - General Ulcer D/C NN Start: 06/14/23 14:16 Freq: Status: Active Protocol: Activity Type Activity Date Activity User E-sign Co-sign Detail Recorded Client Recorded Date Recorded By Document 06/14/23 14:36 Laptop 06/14/23 14:36 06/14/23 14:36 Wound Care Center Nurse 3 2. LT BREAST -Ulcer Cleansing Rinsed/ Irrigated with Saline -Foul Odor after Cleansing No -Primary Dressing Applied Aquacel AG 2x2 -Primary Dressing Covered/Secured with Dry Gauze -Aquacel AG 2x2 1 Pain Scale: 0-10 Numeric Is Patient Pain Free? Yes WC - Visit Discharge Discharge Condition Stable Ambulatory Status Ambulatory Transportation Private Auto Medication Reconcilliation completed & Yes provided to patient/care provider Clinical Summary of Care Provided Yes Assessment/Plan Assessment/Plan (1) Skin ulcer of female breast: CODE(S): L98.499 - Non-pressure chronic ulcer of skin of other sites with unspecified severity (2) Skin necrosis: CODE(S): I96 - Gangrene, not elsewhere classified (3) DM type 2, goal HbA1c < 7%: CODE(S): E11.9 - Type 2 diabetes mellitus without complications PLAN: HgbA1c from 01/15/23 was 5.7. (4) Smoker: CODE(S): F17.200 - Nicotine dependence, unspecified, uncomplicated PLAN: Plan Wound care - Moistened Aquacel-Ag to the left breast, wick into the tunnelled area, covered with gauze daily. The wounds continue to improve. The drainage is decreasing. The ulcer base is beefy pink and decreasing in size. Continue wearing compression bra or EVERARDO wrap. Continue to keep head elevated. Continue 20 lb weight lifting restriction. She has finished the Levaquin. She has finished the Flagyl. Patient has diabetes mellitus. Her latest HgbA1c from 01/15/23 was 5.7. For elective surgery the HgbA1c needs to be less than 8. She states she has had an increase is sensation to the ulcer and is having increased pain. Renewed her Percocet for pain (20 tabs). Follow up two weeks. Encouraged patient to stop smoking as it may have deleterious effects on wound healing. From Dr. De Paz's previous note: The right breast continues is healed and is ready for a revision reconstructed breast by elevating the medial and lateral breast flaps and advancing the flaps toward the midclavicular line. The left breast is much improved. The left breast is almost ready for a skin graft. More skin was debrided on the left. Continue the Silver dressing changes until the superior skin edge has shown more healing and adherence. At that time, the left breast will be ready for skin grafting. The wound is almost covered with granulation tissue. There was less drainage from the superior skin edge. It appears serous in nature. Continue placing Silver gauze in the superior skin edge. Will observe closely. Revising the reconstructed breast on the left will be more problematic as more skin was debrided as compared to the right. If we have the opportunity to have the left breast wound skin grafted, that would be ideal. Then over the next 9-12 months, the swollen breast skin and parenchyma has a chance to soften up and become less swollen. At which time further revision reconstructed breasts can be done if needed. After the breast mounds have healed, can proceed with nipple reconstruction can be done with skin grafting and intradermal tattooing. We are planning on revision surgery in August. She wants to wait until after the holiday. This way more swelling can subside which would make advancing the skin toward the mid breast a little easier and the sutures would hold better when the skin edges are less swollen and less inflamed.
[2023-06-28 14:02] VITALS: BP 216/78; PULSE 67; RESP 18; TEMP 35.7; BMI 46.5
--- NOTE | 2023-06-28 14:56 | PN.PCM_ITS ---
History of Present Illness Date of Service: 06/28/23 Chief Complaint: Bilateral breast wounds History of Wound: 63 year old female present for further evaluation after her surgery on 01/13/23 where she underwent bilateral breast reduction mammoplasty. Tissue removed from the left breast was 1590 grams. Tissue removed from the right breast was 750 grams. She was discharged from the hospital on 01/18/23. She developed KALEE after her surgery, her Creatinine increased from 1.88 preop to 2.73 postop. At discharge it decreased down to 2.04. Her Creatinine on02/04/21 decreased to 1.76. The acuity has resolved. She will also followup with her PCP as well for further evaluation and treatment of her renal issues. Prealbumin from 01/14/23 was 16.3. Encourage nutritional supplementation with protein to help the healing process. While in the hospital, her Hgb went from 10.5 preop to 7.8 postop. PRBC was given and it improved to 8.9. At discharge it was 8.2. She has anemia due to expected blood loss. The operative blood loss was 250 ml. She is on Iron supplementation. Her Hgb on 02/04/23 improved 8.6. the acuity has resolved. She is a current smoker. She developed compromise of the nipple areolar complexes bilaterally. She had issues with swelling after not wearing enough compression the first couple weeks post op. She also developed wound breakdown in the Tzone areas bilaterally. Wound culture from 02/04/23 positive for Klebsiella pneumoniae and Anaerobic cocci. She is started on Levaquin and Flagyl and has finished them. Wound care - Dakin's to left breast. Today she denies fever, chills, nausea or vomiting. Progress of Wound: Right breast remains healed. Left breast smaller, it still has a tunnelled area at 12 o'clock, which is not as deep. Her blood pressure is elevated today. Her readings were 226/70's, 216/78 and 196/74. She is completely asymptomatic. She states that she typically runs in the 120-130's. She did not want to go to the ED. I phoned her PCP office and spoke with Dr. Garzon who was willing to have her come in this afternoon for a medication tweak, but Madison declined and stated that she felt fine. Objective Data Objective Data Vital Signs: Vital Signs Temp Pulse Resp BP O2 Del Method 96.3 F L 67 18 216/78 H Room Air 06/28/23 14:02 06/28/23 14:02 06/28/23 14:02 06/28/23 14:02 06/28/23 14:02 Oxygen Delivery Method Room Air Weight: 280 lb Body Mass Index (BMI) 46.5 Charges/Coding Procedures Integumentary [id number]: 14936 Kadie subq tissue 20 sq cm/< Debridement Note Debridement Note Wound debrided: #2 Left breast Laterality: Left Wound Grade/Stage: 2. Type of Debridement: Excisional debridement Anesthesia Used: 5% Lidocaine Gel Depth: in the subcutaneous layer Percentage of wound debrided: 100 Instrument Used: 5mm curette Tissue Removed: Subcutaneous tissue and devitalized tissue. Severity: Fat Layer Exposed Amount of bleeding with debridement: Mild Bleeding Controlled with: Compression and gauze Patient tolerated procedure: Patient tolerated procedure well Post-Debridement Measurements and Additional Note: Post-Debridement Measurements/Treatment - Nurse 1 - General Ulcer Assessment Start: 06/14/23 14:16 Freq: Status: Active Protocol: PRADIP Activity Type Activity Date Activity User E-sign Co-sign Detail Recorded Client Recorded Date Recorded By Document 06/14/23 14:16 [facility] Desktop 06/14/23 14:23 [facility] Document 06/28/23 14:02 Desktop 06/28/23 14:03 06/14/23 06/28/23 14:16 14:02 - Today's Visit Information Type of service Follow-up Visit Follow-up Visit (Physician/UNDERCUTTER OPERATOR (Physician/UNDERCUTTER OPERATOR ) ) Arrival Mode Ambulatory,Cane Ambulatory Transfer Assistance None None Accompanied by DAUGHTER Patient Identification Verified (Name & Yes Yes ) Patient Requires Transmission-Based No Precautions Height and Weight Body Mass Index (BMI) 46.5 46.5 BMI Classification Obese Obese Vital Signs Temperature (97.8 F-99.1 F) 97.1 F L 96.3 F L Temperature Source Temporal Temporal Pulse Rate (60-100) 67 Pulse Location Monitor Monitor Respiratory Rate (12-18) 16 18 Respiratory rate source Observation Observation Oxygen Delivery Method Room Air Room Air Blood Pressure (90/60-120/80) 155/49 H 216/78 H Blood Pressure Mean (mm Hg) 84 124 Source Monitor Monitor Position Sitting Sitting Blood Pressure Location Left Arm Left Arm History Since Last Visit- (Skip if this is Patient's initial visit) Have you changed medications since your No No last visit? Any new allergies or adverse reactions No No Had a fall/change in ADL's that may No No increase risk of falls Signs or symptoms of abuse and/or No No neglect since last visit Have you been in the hospital since your No No last visit? Has dressing in place as prescribed Yes Yes Has compression in place as prescribed N/A No Has offloadiing in place as prescribed N/A No Experienced any changes in pain level or No No management Left Footwear Regular Shoe Right Footwear Regular Shoe Pain Scale: 0-10 Numeric Is Patient Pain Free? Yes Yes WC - Nurse 1 - General Ulcer Measurement Start: 06/14/23 14:16 Freq: Status: Active Protocol: Activity Type Activity Date Activity User E-sign Co-sign Detail Recorded Client Recorded Date Recorded By Document 06/14/23 14:16 [facility] Desktop 06/14/23 14:23 [facility] Document 06/28/23 14:02 Desktop 06/28/23 14:03 06/14/23 06/28/23 14:16 14:02 Wound Center Nurse 1 1. RT BREAST -Combined with other wound No -Current Size (cm) - Length 0.1 -Current Size (cm) - Width 0.1 -Current Size (cm) - Depth 0.1 -Total Square Cm 0.01 -Epithelialization Large 67-100% -Tunneling No -Undermining/Tunneling No -Circular Undermining No -Exudate Amt None Present -Wound Margin Distinct, Outline Attached -Texture (Susanna-wound Skin Appearance) Assessed, Scarring -Moisture (Susanna-wound Skin Appearance) Assessed -Color (Susanna-wound Skin Appearance) Assessed -Temperature (Susanna-wound Skin No Abnormality Appearance) (Pt Warm) -Tenderness on Palpation (Susanna-wound No Skin Appearance) -Ulcer Cleansing Soap and Water -Foul Odor after Cleansing No -Anesthetic Used 4% Lidocaine Solution 2. LT BREAST -Combined with other wound No -Current Size (cm) - Length 3.1 1.4 -Current Size (cm) - Width 2.6 0.3 -Current Size (cm) - Depth 0.1 1.2 -Total Square Cm 8.06 0.42 -Epithelialization Small 1-33% -Tunneling Yes -Tunneling Position (O'clock) 11 -Tunneling Distance (cm) 1.2 -Undermining/Tunneling No -Circular Undermining No -Exudate Amt Medium -Exudate Type Serosanguineous -Wound Margin Distinct, Outline Attached -Granulation Amt Medium (34-66%) -Granulation Quality Red -Slough/Fibrin Yes -Necrosis Amt Medium (34-66%) -Necrotic Tissue Type Adherent Slough -Texture (Susanna-wound Skin Appearance) Assessed, Scarring -Moisture (Susanna-wound Skin Appearance) Assessed,Dry/ Scaly -Color (Susanna-wound Skin Appearance) Assessed -Temperature (Susanna-wound Skin No Abnormality Appearance) (Pt Warm) -Tenderness on Palpation (Susanna-wound No Skin Appearance) -Ulcer Cleansing Soap and Water -Foul Odor after Cleansing No -Anesthetic Used 4% Lidocaine Solution WC - Nurse 2 - General Ulcer CM Notes Start: 06/14/23 14:16 Freq: Status: Active Protocol: Activity Type Activity Date Activity User E-sign Co-sign Detail Recorded Client Recorded Date Recorded By Document 06/14/23 14:26 [employer] Laptop 06/14/23 14:35 Document 06/28/23 14:24 [employer] Laptop 06/28/23 14:25 06/14/23 06/28/23 14:26 14:24 Wound Center Nurse 2 1. RT BREAST -Time 14:27 -Correct Patient No -Correct Side, Site, Position No -Correct Procedure No -Procedure Performed No -Post Debridement (cm) - Length 0 -Post Debridement (cm) - Width 0 -Post Debridement (cm) - Depth 0 -Total Square (Post) (cm) 0 -Area of Debridement (cm) - Length 0 -Area of Debridement (cm) - Width 0 -Total Square (Area) (cm) 0 -Tunneling No -Undermining/Tunneling No -Circular Undermining No -Wound/Ulcer Outcome Healed- Epithelialized -Ulcer Cleansing Rinsed/ Irrigated with Saline -Foul Odor after Cleansing No -Bioengineered Tissue No -Bleeding Controlled with Pressure -Treatment Response Procedure Tolerated Well -Offloading No -Debridement - Subq, 1st 20sq cm No 2. LT BREAST -Time 14: 14:25 -Correct Patient Yes Yes -Correct Side, Site, Position Yes Yes -Correct Procedure Yes Yes -Procedure Performed Yes Yes -Type of Procedure Debridement Debridement -Clinical Debridement Subcutaneous Subcutaneous -Tissue Removed Subcutaneous Subcutaneous -Post Debridement (cm) - Length 2.7 1.8 -Post Debridement (cm) - Width 1.8 0.8 -Post Debridement (cm) - Depth 0.1 0.2 -Total Square (Post) (cm) 4.86 1.44 -Area of Debridement (cm) - Length 2.7 1.8 -Area of Debridement (cm) - Width 1.8 0.8 -Total Square (Area) (cm) 4.86 1.44 -Tunneling No Yes -Tunneling Position (O'clock) 12 -Tunneling Distance (cm) 1.0 -Undermining/Tunneling No No -Circular Undermining No No -Wound/Ulcer Outcome Not Healed Not Healed -Ulcer Cleansing Rinsed/ Rinsed/ Irrigated with Irrigated with Saline Saline -Foul Odor after Cleansing No No -Bioengineered Tissue No No -Bleeding Controlled with Pressure Pressure -Treatment Response Procedure Procedure Tolerated Well Tolerated Well -Offloading No No -Debridement - Subq, 1st 20sq cm Yes Yes Pain Scale: 0-10 Numeric Is Patient Pain Free? Yes Yes - Nurse 3 - General Ulcer D/C NN Start: 06/14/23 14:16 Freq: Status: Active Protocol: Activity Type Activity Date Activity User E-sign Co-sign Detail Recorded Client Recorded Date Recorded By Document 06/14/23 14:36 Laptop 06/14/23 14:36 06/14/23 14:36 Wound Care Center Nurse 3 2. LT BREAST -Ulcer Cleansing Rinsed/ Irrigated with Saline -Foul Odor after Cleansing No -Primary Dressing Applied Aquacel AG 2x2 -Primary Dressing Covered/Secured with Dry Gauze -Aquacel AG 2x2 1 Pain Scale: 0-10 Numeric Is Patient Pain Free? Yes - Visit Discharge Discharge Condition Stable Ambulatory Status Ambulatory Transportation Private Auto Medication Reconcilliation completed & Yes provided to patient/care provider Clinical Summary of Care Provided Yes Assessment/Plan Assessment/Plan (1) Skin ulcer of female breast: CODE(S): L98.499 - Non-pressure chronic ulcer of skin of other sites with unspecified severity (2) Skin necrosis: CODE(S): I96 - Gangrene, not elsewhere classified (3) DM type 2, goal HbA1c < 7%: CODE(S): E11.9 - Type 2 diabetes mellitus without complications PLAN: HgbA1c from 01/15/23 was 5.7. (4) Smoker: CODE(S): F17.200 - Nicotine dependence, unspecified, uncomplicated (5) Hypertension: CODE(S): I10 - Essential (primary) hypertension QUALIFIERS: Hypertension type: renovascular hypertension Qualified Code(s): I15.0 - Renovascular hypertension PLAN: Plan Wound care - Moistened Aquacel-Ag to the left breast, wick into the tunnelled area, covered with gauze daily. The wounds continue to improve. The drainage is decreasing. The ulcer base is beefy pink and decreasing in size. Continue wearing compression bra or EVERARDO wrap. Continue to keep head elevated. Continue 20 lb weight lifting restriction. She has finished the Levaquin. She has finished the Flagyl. Patient has diabetes mellitus. Her latest HgbA1c from 01/15/23 was 5.7. For elective surgery the HgbA1c needs to be less than 8. She states she has had an increase is sensation to the ulcer and is having increased pain. Her blood pressure is elevated today. Her readings were 226/70's, 216/78 and 196/74. She is completely asymptomatic. She states that she typically runs in the 120-130's. She did not want to go to the ED. I phoned her PCP office and spoke with Dr. Garzon who was willing to have her come in this afternoon for a medication tweak, but Madison declined and stated that she felt fine. She has some other things to she needs to get done this afternoon. I stressed that was important to take care of herself and Dr. Garzon also thought it was important to be evaluated. Encouraged patient to stop smoking as it may have deleterious effects on wound healing. Follow up two weeks. From Dr. De Paz's previous note: The right breast continues is healed and is ready for a revision reconstructed breast by elevating the medial and lateral breast flaps and advancing the flaps toward the midclavicular line. The left breast is much improved. The left breast is almost ready for a skin graft. More skin was debrided on the left. Continue the Silver dressing changes until the superior skin edge has shown more healing and adherence. At that time, the left breast will be ready for skin grafting. The wound is almost covered with granulation tissue. There was less drainage from the superior skin edge. It appears serous in nature. Continue placing Silver gauze in the superior skin edge. Will observe closely. Revising the reconstructed breast on the left will be more problematic as more skin was debrided as compared to the right. If we have the opportunity to have the left breast wound skin grafted, that would be ideal. Then over the next 9- 12 months, the swollen breast skin and parenchyma has a chance to soften up and become less swollen. At which time further revision reconstructed breasts can be done if needed. After the breast mounds have healed, can proceed with nipple reconstruction can be done with skin grafting and intradermal tattooing. We are planning on revision surgery in August. She wants to wait until after the holiday. This way more swelling can subside which would make advancing the skin toward the mid breast a little easier and the sutures would hold better when the skin edges are less swollen and less inflamed.
== END 2023-07-01 23:59 | disposition home or self-care (01) ==
LOC: WC 14:00
PROVIDERS: PCP Preventive Medicine Occupational Medicine; Referring Provider Nurse Practitioner Family; Visit Provider Nurse Practitioner Family
DX: L98.499 Non-pressure chronic ulcer of skin of other sites with unspecified severity (principal); I96 Gangrene, not elsewhere classified; E11.9 Type 2 diabetes mellitus without complications; D62 Acute posthemorrhagic anemia; F17.200 Nicotine dependence, unspecified, uncomplicated
CPT/HCPCS: 11042

== ENCOUNTER 2023-07-19 09:30 | Outpatient (RCR) | payer MEDICARE, SELFPAY ==
[2023-07-02 00:12] VITALS: BP 216/78; PULSE 67; RESP 18; TEMP 35.7; BMI 46.5
[2023-07-12 13:24] VITALS: BP 197/82; PULSE 64; RESP 16; TEMP 35.6; BMI 46.5
--- NOTE | 2023-07-12 16:50 | PCM.WC.PN ---
History of Present Illness Date of Service: 07/12/23 Chief Complaint: Bilateral breast wounds History of Wound: 63 year old female present for further evaluation after her surgery on 01/13/23 where she underwent bilateral breast reduction mammoplasty. Tissue removed from the left breast was 1590 grams. Tissue removed from the right breast was 750 grams. She was discharged from the hospital on 01/18/23. She developed KALEE after her surgery, her Creatinine increased from 1.88 preop to 2.73 postop. At discharge it decreased down to 2.04. Her Creatinine on02/04/21 decreased to 1.76. The acuity has resolved. She will also followup with her PCP as well for further evaluation and treatment of her renal issues. Prealbumin from 01/14/23 was 16.3. Encourage nutritional supplementation with protein to help the healing process. While in the hospital, her Hgb went from 10.5 preop to 7.8 postop. PRBC was given and it improved to 8.9. At discharge it was 8.2. She has anemia due to expected blood loss. The operative blood loss was 250 ml. She is on Iron supplementation. Her Hgb on 02/04/23 improved 8.6. the acuity has resolved. She is a current smoker. She developed compromise of the nipple areolar complexes bilaterally. She had issues with swelling after not wearing enough compression the first couple weeks post op. She also developed wound breakdown in the Tzone areas bilaterally. Wound culture from 02/04/23 positive for Klebsiella pneumoniae and Anaerobic cocci. She is started on Levaquin and Flagyl and has finished them. Wound care - Dakin's to left breast. Today she denies fever, chills, nausea or vomiting. Progress of Wound: Right breast remains healed. Left breast smaller, including the undermined area at 12 o'clock. The ulcer does appear dry today. She states she has been feeling better. Objective Data Objective Data Vital Signs: Vital Signs Temp Pulse Resp BP 96.0 F L 64 16 197/82 H 07/12/23 13:24 07/12/23 13:24 07/12/23 13:24 07/12/23 13:24 Weight: 280 lb Body Mass Index (BMI) 46.5 Charges/Coding Procedures Integumentary 111xxx-113xx: 49563 Kadie subq tissue 20 sq cm/< Debridement Note Debridement Note Wound debrided: #2 Left breast Laterality: Left Wound Grade/Stage: 2. Type of Debridement: Excisional debridement Anesthesia Used: 5% Lidocaine Gel Depth: in the subcutaneous layer Percentage of wound debrided: 100 Instrument Used: 3mm curette Tissue Removed: Subcutaneous tissue and devitalized tissue. Severity: Fat Layer Exposed Amount of bleeding with debridement: Mild Bleeding Controlled with: Compression and gauze Patient tolerated procedure: Patient tolerated procedure well Post-Debridement Measurements and Additional Note: Post-Debridement Measurements/Treatment - Nurse 1 - General Ulcer Assessment Start: 07/12/23 13:23 Freq: Status: Active Protocol: PRADIP Activity Type Activity Date Activity User E-sign Co-sign Detail Recorded Client Recorded Date Recorded By Document 07/12/23 13:24 Laptop 07/12/23 13:25 07/12/23 13:24 - Today's Visit Information Type of service Follow-up Visit (Physician/SUPERVISOR LENDING ACTIVITIES ) Arrival Mode Ambulatory Patient Identification Verified (Name & Yes ) Patient Requires Transmission-Based No Precautions Finger Stick Blood Sugar(mg/dl) (if 72 indicated): Blood Sugar Stated by Patient Height and Weight Body Mass Index (BMI) 46.5 BMI Classification Obese Vital Signs Temperature (97.8 F-99.1 F) 96.0 F L Temperature Source Temporal Pulse Rate (60-100) 64 Pulse Location Monitor Respiratory Rate (12-18) 16 Respiratory rate source Observation Blood Pressure (90/60-120/80) 197/82 H Blood Pressure Mean (mm Hg) 120 Source Monitor Position Semi-Fowlers Blood Pressure Location Left Arm History Since Last Visit- (Skip if this is Patient's initial visit) Have you changed medications since your No last visit? Any new allergies or adverse reactions No Had a fall/change in ADL's that may No increase risk of falls Signs or symptoms of abuse and/or No neglect since last visit Has dressing in place as prescribed Yes Has compression in place as prescribed N/A Has offloadiing in place as prescribed N/A Experienced any changes in pain level or No management Left Footwear Regular Shoe Right Footwear Regular Shoe Pain Scale: 0-10 Numeric Is Patient Pain Free? Yes - Nurse 1 - General Ulcer Measurement Start: 07/12/23 13:23 Freq: Status: Active Protocol: Activity Type Activity Date Activity User E-sign Co-sign Detail Recorded Client Recorded Date Recorded By Document 07/12/23 13:24 Laptop 07/12/23 13:25 07/12/23 13:24 Wound Center Nurse 1 2. LT BREAST -Combined with other wound No -Current Size (cm) - Length 0.4 -Current Size (cm) - Width 0.3 -Current Size (cm) - Depth 0.8 -Total Square Cm 0.12 -Photo Taken No -Epithelialization Small 1-33% -Tunneling No -Undermining/Tunneling No -Circular Undermining No -Exudate Amt Small -Exudate Type Serosanguineous -Wound Margin Flat & Intact -Granulation Amt Medium (34-66%) -Granulation Quality Red -Slough/Fibrin Yes -Necrosis Amt Small (1-33%) -Necrotic Tissue Type Adherent Slough -Structure Exposed N/A -Texture (Susanna-wound Skin Appearance) Assessed -Moisture (Susanna-wound Skin Appearance) Assessed,Dry/ Scaly -Color (Susanna-wound Skin Appearance) Assessed -Temperature (Susanna-wound Skin No Abnormality Appearance) (Pt Warm) -Tenderness on Palpation (Susanna-wound No Skin Appearance) -Ulcer Cleansing Rinsed/ Irrigated with Saline -Foul Odor after Cleansing No -Anesthetic Used 5% Lidocaine Gel Lower Limb Edema Present NA - Nurse 2 - General Ulcer CM Notes Start: 07/12/23 13:23 Freq: Status: Active Protocol: Activity Type Activity Date Activity User E-sign Co-sign Detail Recorded Client Recorded Date Recorded By Document 07/12/23 13:52 Laptop 07/12/23 13:55 07/12/23 13:52 Wound Center Nurse 2 2. LT BREAST -Time 13:52 -Correct Patient Yes -Correct Side, Site, Position Yes -Correct Procedure Yes -Procedure Performed Yes -Type of Procedure Debridement -Clinical Debridement Subcutaneous -Tissue Removed Subcutaneous -Post Debridement (cm) - Length 0.4 -Post Debridement (cm) - Width 0.5 -Post Debridement (cm) - Depth 0.3 -Total Square (Post) (cm) 0.20 -Area of Debridement (cm) - Length 0.4 -Area of Debridement (cm) - Width 0.5 -Total Square (Area) (cm) 0.20 -Tunneling No -Undermining/Tunneling No -Circular Undermining No -Wound/Ulcer Outcome Not Healed -Ulcer Cleansing Rinsed/ Irrigated with Saline -Foul Odor after Cleansing No -Bioengineered Tissue No -Bleeding Controlled with Pressure -Treatment Response Procedure Tolerated Well -Offloading No -Debridement - Subq, 1st 20sq cm Yes Pain Scale: 0-10 Numeric Is Patient Pain Free? Yes - Nurse 3 - General Ulcer D/C NN Start: 07/12/23 13:23 Freq: Status: Active Protocol: Activity Type Activity Date Activity User E-sign Co-sign Detail Recorded Client Recorded Date Recorded By Document 07/12/23 13:59 Laptop 07/12/23 14:00 07/12/23 13:59 Wound Care Center Nurse 3 2. LT BREAST -Ulcer Cleansing Rinsed/ Irrigated with Saline -Foul Odor after Cleansing No -Primary Dressing Applied C Hydrogel ($), NonAdherent Contact Layer -Primary Dressing Covered/Secured with Dry Gauze Pain Scale: 0-10 Numeric Is Patient Pain Free? Yes WC - Visit Discharge Discharge Condition Stable Ambulatory Status Ambulatory Transportation Private Auto Medication Reconcilliation completed & No provided to patient/care provider Clinical Summary of Care Provided No Assessment/Plan Assessment/Plan (1) Skin ulcer of female breast: CODE(S): L98.499 - Non-pressure chronic ulcer of skin of other sites with unspecified severity (2) Skin necrosis: CODE(S): I96 - Gangrene, not elsewhere classified (3) DM type 2, goal HbA1c < 7%: CODE(S): E11.9 - Type 2 diabetes mellitus without complications (4) Smoker: CODE(S): F17.200 - Nicotine dependence, unspecified, uncomplicated (5) Hypertension: CODE(S): I10 - Essential (primary) hypertension QUALIFIERS: Hypertension type: renovascular hypertension Qualified Code(s): I15.0 - Renovascular hypertension PLAN: Plan Wound care - Collagen hydrogel covered with adaptic and topped with gauze to the left breast daily. The ulcer continues to improve. The drainage is decreasing. The ulcer base is beefy pink and decreasing in size. Continue wearing compression bra or EVERARDO wrap. Continue to keep head elevated. Continue 20 lb weight lifting restriction. She has finished the Levaquin. She has finished the Flagyl. Patient has diabetes mellitus. Her latest HgbA1c from 01/15/23 was 5.7. For elective surgery the HgbA1c needs to be less than 8. She states she has had an increase is sensation to the ulcer and is having increased pain. Encouraged her to follow up with PCP about her elevated blood pressure readings. Encouraged patient to stop smoking as it may have deleterious effects on wound healing. Follow up two weeks.
[2023-07-19 09:26] VITALS: BP 169/56; PULSE 72; RESP 18; TEMP 36.1; BMI 46.5
--- NOTE | 2023-07-19 11:52 | PCM.WC.PN ---
History of Present Illness Date of Service: 07/19/23 Chief Complaint: Bilateral breast wounds History of Wound: 63 year old female present for further evaluation after her surgery on 01/13/23 where she underwent bilateral breast reduction mammoplasty. Tissue removed from the left breast was 1590 grams. Tissue removed from the right breast was 750 grams. She was discharged from the hospital on 01/18/23. She developed KALEE after her surgery, her Creatinine increased from 1.88 preop to 2.73 postop. At discharge it decreased down to 2.04. Her Creatinine on02/04/21 decreased to 1.76. The acuity has resolved. She will also followup with her PCP as well for further evaluation and treatment of her renal issues. Prealbumin from 01/14/23 was 16.3. Encourage nutritional supplementation with protein to help the healing process. While in the hospital, her Hgb went from 10.5 preop to 7.8 postop. PRBC was given and it improved to 8.9. At discharge it was 8.2. She has anemia due to expected blood loss. The operative blood loss was 250 ml. She is on Iron supplementation. Her Hgb on 02/04/23 improved 8.6. the acuity has resolved. She is a current smoker. She developed compromise of the nipple areolar complexes bilaterally. She had issues with swelling after not wearing enough compression the first couple weeks post op. She also developed wound breakdown in the Tzone areas bilaterally. Wound culture from 02/04/23 positive for Klebsiella pneumoniae and Anaerobic cocci. She is started on Levaquin and Flagyl and has finished them. Wound care - Dakin's to left breast. Today she denies fever, chills, nausea or vomiting. Progress of Wound: Right breast remains healed. Left breast is healed today. There is a small divot where the wound was located, but it is healed in the base of the divot. Objective Data Objective Data Vital Signs: Vital Signs Temp Pulse Resp BP O2 Del Method 97.0 F L 72 18 169/56 H Room Air 07/19/23 09:26 07/19/23 09:26 07/19/23 09:26 07/19/23 09:26 07/19/23 09:26 Oxygen Delivery Method Room Air Weight: 280 lb Body Mass Index (BMI) 46.5 Charges/Coding Visit Charges Office Visits / Consults: 22314 OV L3 Est Physical Exam Const alert, oriented x3 and well nourished General Appearance: cooperative HEENT normocephalic Head and Scalp: atraumatic Eyes General Eye: normal appearance of both eyes Neck full ROM Lymph Lymphatic: no lymphadenopathy noted Resp normal respiratory effort Effort and Inspection: able to speak in complete sentences Cardio regular rate and regular rhythm GI soft to palpation and non-tender Back/Spine normal to inspection Extremity normal capillary refill Skin Wound Narrative: Left breast is healed. There is a small divot where the wound was located, but it is healed in the base of the divot. Neuro oriented x3 Sensorium / Orientation: awake and alert Psych mental status grossly normal and thought process normal Appearance: grossly normal and well kempt Debridement Note Debridement Note No debridement was completed: No debridement was completed today Post-Debridement Measurements and Additional Note: Post-Debridement Measurements/Treatment - Nurse 1 - General Ulcer Assessment Start: 07/12/23 13:23 Freq: Status: Active Protocol: PRADIP Activity Type Activity Date Activity User E-sign Co-sign Detail Recorded Client Recorded Date Recorded By Document 07/12/23 13:24 Versafe Laptop 07/12/23 13:25 Versafe Document 07/19/23 09:26 Mobile System 7 Desktop 07/19/23 09:33 Mobile System 7 07/12/23 07/19/23 13:24 09:26 - Today's Visit Information Type of service Follow-up Visit Follow-up Visit (Physician/DIRECTOR OF PURCHASING (Physician/DIRECTOR OF PURCHASING ) ) Arrival Mode Ambulatory Ambulatory,Cane Accompanied by daughter Patient Identification Verified (Name & Yes Yes ) Patient Requires Transmission-Based No Precautions Finger Stick Blood Sugar(mg/dl) (if 72 indicated): Blood Sugar Stated by Patient Height and Weight Body Mass Index (BMI) 46.5 46.5 BMI Classification Obese Obese Vital Signs Temperature (97.8 F-99.1 F) 96.0 F L 97.0 F L Temperature Source Temporal Temporal Pulse Rate (60-100) 64 72 Pulse Location Monitor Monitor Respiratory Rate (12-18) 16 18 Respiratory rate source Observation Observation Oxygen Delivery Method Room Air Blood Pressure (90/60-120/80) 197/82 H 169/56 H Blood Pressure Mean (mm Hg) 120 93 Source Monitor Monitor Position Semi-Fowlers Semi-Fowlers Blood Pressure Location Left Arm Left Arm History Since Last Visit- (Skip if this is Patient's initial visit) Have you changed medications since your No No last visit? Any new allergies or adverse reactions No No Had a fall/change in ADL's that may No No increase risk of falls Signs or symptoms of abuse and/or No No neglect since last visit Have you been in the hospital since your No last visit? Has dressing in place as prescribed Yes Yes Has compression in place as prescribed N/A No Has offloadiing in place as prescribed N/A No Experienced any changes in pain level or No No management Left Footwear Regular Shoe Regular Shoe Right Footwear Regular Shoe Regular Shoe Pain Scale: 0-10 Numeric Is Patient Pain Free? Yes Yes WC - Nurse 1 - General Ulcer Measurement Start: 07/12/23 13:23 Freq: Status: Active Protocol: Activity Type Activity Date Activity User E-sign Co-sign Detail Recorded Client Recorded Date Recorded By Document 07/12/23 13:24 Laptop 07/12/23 13:25 Document 07/19/23 09:26 KW Desktop 07/19/23 09:33 KW 07/12/23 07/19/23 13:24 09:26 Wound Center Nurse 1 2. LT BREAST -Combined with other wound No -Current Size (cm) - Length 0.4 0.1 -Current Size (cm) - Width 0.3 0.1 -Current Size (cm) - Depth 0.8 0.1 -Total Square Cm 0.12 0.01 -Photo Taken No -Epithelialization Small 1-33% -Tunneling No -Undermining/Tunneling No -Circular Undermining No -Exudate Amt Small None Present -Exudate Type Serosanguineous -Wound Margin Flat & Intact Distinct, Outline Attached -Granulation Amt Medium (34-66%) -Granulation Quality Red -Slough/Fibrin Yes -Necrosis Amt Small (1-33%) -Necrotic Tissue Type Adherent Slough -Structure Exposed N/A -Texture (Susanna-wound Skin Appearance) Assessed Assessed -Moisture (Susanna-wound Skin Appearance) Assessed,Dry/ Assessed Scaly -Color (Susanna-wound Skin Appearance) Assessed Assessed -Temperature (Susanna-wound Skin No Abnormality No Abnormality Appearance) (Pt Warm) (Pt Warm) -Tenderness on Palpation (Susanna-wound No Skin Appearance) -Ulcer Cleansing Rinsed/ Rinsed/ Irrigated with Irrigated with Saline Saline -Foul Odor after Cleansing No No -Anesthetic Used 5% Lidocaine 5% Lidocaine Gel Gel Lower Limb Edema Present NA - Nurse 2 - General Ulcer CM Notes Start: 07/12/23 13:23 Freq: Status: Active Protocol: Activity Type Activity Date Activity User E-sign Co-sign Detail Recorded Client Recorded Date Recorded By Document 07/12/23 13:52 Laptop 07/12/23 13:55 Document 07/19/23 09:36 Laptop 07/19/23 09:39 07/12/23 07/19/23 13:52 09:36 Wound Center Nurse 2 2. LT BREAST -Time 13:52 -Correct Patient Yes No -Correct Side, Site, Position Yes No -Correct Procedure Yes No -Procedure Performed Yes No -Type of Procedure Debridement -Clinical Debridement Subcutaneous -Tissue Removed Subcutaneous -Post Debridement (cm) - Length 0.4 0 -Post Debridement (cm) - Width 0.5 0 -Post Debridement (cm) - Depth 0.3 0 -Total Square (Post) (cm) 0.20 0 -Area of Debridement (cm) - Length 0.4 0 -Area of Debridement (cm) - Width 0.5 0 -Total Square (Area) (cm) 0.20 0 -Tunneling No -Undermining/Tunneling No -Circular Undermining No -Wound/Ulcer Outcome Not Healed Healed- Epithelialized -Ulcer Cleansing Rinsed/ Irrigated with Saline -Foul Odor after Cleansing No -Bioengineered Tissue No -Bleeding Controlled with Pressure -Treatment Response Procedure Tolerated Well -Offloading No -Debridement - Subq, 1st 20sq cm Yes Pain Scale: 0-10 Numeric Is Patient Pain Free? Yes Yes - Nurse 3 - General Ulcer D/C NN Start: 07/12/23 13:23 Freq: Status: Active Protocol: Activity Type Activity Date Activity User E-sign Co-sign Detail Recorded Client Recorded Date Recorded By Document 07/12/23 13:59 Laptop 07/12/23 14:00 Document 07/19/23 09:39 Laptop 07/19/23 09:40 07/12/23 07/19/23 13:59 09:39 Wound Care Center Nurse 3 2. LT BREAST -Ulcer Cleansing Rinsed/ Irrigated with Saline -Foul Odor after Cleansing No -Primary Dressing Applied C Hydrogel ($), NonAdherent Contact Layer -Primary Dressing Covered/Secured with Dry Gauze Pain Scale: 0-10 Numeric Is Patient Pain Free? Yes Yes WC - Visit Discharge Discharge Condition Stable Stable Ambulatory Status Ambulatory Ambulatory Transportation Private Auto Private Auto Accompanied by daughter Medication Reconcilliation completed & No Yes provided to patient/care provider Clinical Summary of Care Provided No Yes Assessment/Plan Assessment/Plan (1) Skin ulcer of female breast: CODE(S): L98.499 - Non-pressure chronic ulcer of skin of other sites with unspecified severity (2) Skin necrosis: CODE(S): I96 - Gangrene, not elsewhere classified (3) DM type 2, goal HbA1c < 7%: CODE(S): E11.9 - Type 2 diabetes mellitus without complications (4) Smoker: CODE(S): F17.200 - Nicotine dependence, unspecified, uncomplicated (5) Hypertension: CODE(S): I10 - Essential (primary) hypertension QUALIFIERS: Hypertension type: renovascular hypertension Qualified Code(s): I15.0 - Renovascular hypertension PLAN: Plan Patient evaluated at the wound healing center today. Her left breast ulcer is healed today. The right breast remains healed. Encouraged to massage the healed scarring to help soften the scarring. Continue wearing compression bra when active. Patient has diabetes mellitus. Her latest HgbA1c from 01/15/23 was 5.7. For elective surgery the HgbA1c needs to be less than 8. She states she has had an increase is sensation to the ulcer and is having increased pain. She has an appointment next week with her PCP about her elevated blood pressure readings. She states that they have adjusted some of her medications. Encouraged patient to stop smoking as it may have deleterious effects on wound healing. Follow up as needed.
== END 2023-07-21 14:41 | disposition home or self-care (01) ==
LOC: WC 09:30
PROVIDERS: PCP Preventive Medicine Occupational Medicine; Referring Provider Nurse Practitioner Family; Visit Provider Nurse Practitioner Family
DX: L98.499 Non-pressure chronic ulcer of skin of other sites with unspecified severity (principal); I96 Gangrene, not elsewhere classified; E11.9 Type 2 diabetes mellitus without complications; D62 Acute posthemorrhagic anemia; F17.200 Nicotine dependence, unspecified, uncomplicated; I10 Essential (primary) hypertension
CPT/HCPCS: 11042; 99213; G0463